=== PATIENT | male | born 1970 | race Caucasian/White ===

== ENCOUNTER 2019-09-30 01:08 | Emergency (ER) | payer BC, SELFPAY ==
--- NOTE | ~2019-09-30 | XR_ITS ---
XR shoulder RT min 2V 09/30/2019 01:49 Indication: Right shoulder pain Procedure: 5 views right shoulder Comparison: No prior studies for comparison. Findings: There is mild polyarticular osteoarthritis. No acute fracture or traumatic malalignment. No significant soft tissue abnormality. No radiopaque foreign bodies. Impression: 1: No acute fracture. Reviewed, dictated and finalized at location A. Impression: 1: No acute fracture.
[2019-09-30 01:19] VITALS: BP 171/97; PULSE 92; RESP 16; TEMP 36.2; O2SAT 94
--- NOTE | 2019-09-30 01:20 | ED.UPPEXIN ---
HPI - Extremity Injury (Upper) General Chief Complaint: Extremity Problem,Nontraumatic Stated Complaint: right shoulder pain Time Seen by Provider: 09/30/19 01:19 Source: patient and RN notes reviewed Mode of arrival: ambulatory Limitations: no limitations History of Present Illness HPI narrative: A 49 y/o male presents to the ED with severe, sharp, intermittent, rt shoulder pain for the past 4 hours. He states that he was at home moving papers at 9:30 PM when he heard and felt a pop in his rt shoulder. He reports he has been having severe intermittent pain with movement since. He notes that the pain radiates into his neck and RUE. He also notes that he has been having some worsening RUE weakness for the past couple months. He denies any CP, SOB, N/V/D, or OSPINA. complaint: injury to: right and shoulder Onset (ago): hour(s) (4) Other Extremity Injury: Right: shoulder Other injuries: none Handedness: right Place: home Severity: severe Exacerbating factors: movement of extremity Context: other (moving papers) Associated symptoms: weakness (worsening RUE for months), neck pain (and RUE pain radiated from shoulder pain) and heard/felt popping sensation Related Data Home Medications Medication Instructions Recorded Confirmed omeprazole 20 mg capsule,delayed 20 mg PO DAILY 09/26/19 release oxycodone-acetaminophen 10 mg-325 1 tablet PO Q6H PRN 09/26/19 mg tablet metformin 1,200 mg PO BID 09/30/19 Allergies Allergy/AdvReac Type Severity Reaction Status Date / Time No Known Allergies Allergy Verified 09/30/19 01:25 Review of Systems Review of Systems: All systems reviewed & are unremarkable except as noted in HPI and below Cardiovascular: Cardiovascular: Denies chest pain Respiratory: Respiratory: Denies dyspnea Gastrointestinal: Gastrointestinal: Denies diarrhea, Denies nausea and Denies vomiting Musculoskeletal: Musculoskeletal: Reports arthralgias (rt shoulder that radiates into his neck and RUE) and Reports muscle weakness (worsening RUE for months) Neurologic: Denies headache(s) [facility] Past Medical History Medical History Amputation of toe of left foot Anxiety Arthritis Atrial fibrillation Carpal tunnel syndrome Collar bone fracture Depression Diabetes High blood pressure Obesity Peripheral neuropathy Psychiatric disorder Sleep apnea Surgical History Surgical History Hx of toe surgery Amputation. Family History Family History Mother Carcinoma of colon Family history of primary malignant neoplasm of liver Patient's mother is Father Family history of heart disease in male family member before age 55 Hypertension Family history of atrial fibrillation, Onset Age: 74 Sibling Patient's sister is in good health Other Cerebrovascular accident Depression Family history of alcoholism Family history of arthritis Family history of cardiovascular disease Family history of gout Family history of malignant neoplasm Family history of obesity Social History Social History Smoking status: Never smoker Second hand tobacco smoke exposure: No Alcohol intake: current Gender identity (if verbalized by the patient): Male Exam Const: General: cooperative, no acute distress and alert Nutritional Appearance: obese morbidly obese Orientation/consciousness: patient oriented x3 Limitations: no limitations HENMT: Mouth: Yes lip normal and Yes moist mucous membranes Resp: Effort & Inspection: normal respiratory effort Auscultation: clear to auscultation bilaterally Cardio: Rate: regular rate Rhythm: regular rhythm Skin: General skin exam: normal color Neuro: General: patient oriented x3 Cognition (Neuro): normal cognition Speech: normal speech Extrem: General: ful
== END 2019-09-30 02:24 | disposition home or self-care (01) ==
PROVIDERS: Emergency Provider Emergency Medicine; PCP Internal Medicine
DX: M25.511 Pain in right shoulder (principal); I48.91 Unspecified atrial fibrillation; I10 Essential (primary) hypertension; E11.42 Type 2 diabetes mellitus with diabetic polyneuropathy; G47.30 Sleep apnea, unspecified; Z89.422 Acquired absence of other left toe(s); M19.011 Primary osteoarthritis, right shoulder
CPT/HCPCS: 73030; 99283

== ENCOUNTER 2020-01-22 11:04 | Outpatient (CLI) | payer BC, SELFPAY ==
--- NOTE | ~2020-01-22 | XR_ITS ---
EXAMINATION: XR chest 2V EXAM DATE: 01/22/2020 12:19 INDICATION: Cough. TECHNIQUE: Frontal and lateral projections of the chest obtained and reviewed. Comparison is made to prior examination from 03/30/2018. FINDINGS: The lungs are clear. There are no pleural effusions. The cardiomediastinal silhouette is within normal limits. There is no pneumothorax suspected. The bones and soft tissues are unremarkab le. IMPRESSION: No acute cardiopulmonary findings. Reviewed, dictated and finalized at location B.
[2020-01-22 12:10] LABS: Hematocrit 46.4 % (42.0-52.0); Hemoglobin 15.8 g/dL (14.0-18.0); Mean Corpuscular HGB Conc 34.1 g/dl (32-36); Mean Corpuscular Hemoglobin 29.2 pg (26-34); Mean Corpuscular Volume 85.6 fl (80-100); Mean Platelet Volume 12.2 fl (7.4-10.4); Platelet Count Result 159 k/mm3 (150-375); Red Blood Count 5.42 M/mm3 (4.6-6.20); Red Cell Distribution Width 14.7 % (11.5-14.5); White Blood Count 8.3 K/mm3 (4.5-10.0)
[2020-01-22 12:24] LABS: Hemoglobin A1C 11.7 % (<5.7)
[2020-01-22 12:38] LABS: Creatinine Urine 77.4 mg/dL
[2020-01-22 12:44] LABS: MALB Creatinine Ratio 51.8 mg/g (0-30); Microalbumin Urine Random 40.1 mg/L (0-16.7)
== END 2020-01-22 11:05 | disposition home or self-care (01) ==
PROVIDERS: PCP Internal Medicine; Visit Provider Internal Medicine
DX: R05 Cough (principal); R53.83 Other fatigue; E11.9 Type 2 diabetes mellitus without complications
CPT/HCPCS: 36415; 71046; 82043; 83036; 85027

== ENCOUNTER 2020-05-06 11:14 | Outpatient (CLI) | payer BC, SELFPAY ==
[2020-05-06 11:55] LABS: Alanine Aminotransferase 53 U/L (4-50); Alkaline Phosphatase 67 U/L (38-126); Anion Gap 10 mmol/L (8-16); Aspartate Amino Transferase 46 U/L (17-59); Bilirubin,Total 0.9 mg/dL (0.2-1.3); Blood Urea Nitrogen 16 mg/dL (9-20); Calcium 9.1 mg/dL (8.4-10.2); Carbon Dioxide 29 mmol/L (22-30); Chloride 97 mmol/L (98-107); Cholesterol 168 mg/dL (0-200); Estimated Glomerular Filt Rate > 60; Glucose 368 mg/dL (75-110); HDL Direct 40 mg/dL; Potassium 4.5 mmol/L (3.4-5.0); Sodium 136 mmol/L (137-145); Triglycerides 210 mg/dL (<150)
[2020-05-06 12:06] LABS: LDL Cholesterol Direct 97 mg/dL
[2020-05-06 12:26] LABS: Prostate Specific Antigen 0.3 ng/mL (< OR = 4.0)
[2020-05-06 13:01] LABS: Folic Acid 10.6 ng/mL (2.76->20)
== END 2020-05-06 11:15 | disposition home or self-care (01) ==
PROVIDERS: PCP Internal Medicine; Visit Provider Internal Medicine
DX: R53.83 Other fatigue (principal); E11.9 Type 2 diabetes mellitus without complications; Z12.5 Encounter for screening for malignant neoplasm of prostate
CPT/HCPCS: 36415; 80053; 80061; 82607; 82746; 84153; 84443

== ENCOUNTER 2021-01-20 12:04 | Inpatient (IN) | payer BC, SELFPAY ==
[2021-01-20] VITALS (15 sets, daily range): BP systolic 133–166; BP diastolic 57–93; PULSE 78–116; RESP 18–24; TEMP 36.5–38.2; O2SAT 90–100
--- NOTE | ~2021-01-20 | XR_ITS ---
EXAMINATION: XR chest 1V portable EXAM DATE: 01/29/2021 13:57 INDICATION: Shortness of breath. TECHNIQUE: Portable AP frontal chest x-ray was obtained. Comparison is made to prior examination from 01/25/2021. FINDINGS: Probably improvement in previously seen pulmonary edema. There is cardiomegaly and pulmonar y vascular congestion. Probable small right basilar atelectasis. The lungs are otherwise clear. There is no pneumothorax suspected. There are no pleural effusions. IMPRESSION: 1. Persistent cardiomegaly, pulmonary vascular congestion. 2. Persistent retrocardiac opacity probably atelectasis. Reviewed, dictated and finalized at location B.
--- NOTE | ~2021-01-20 | XR_ITS ---
EXAMINATION: XR chest 1V portable INDICATION: Shortness of breath TECHNIQUE: Portable AP chest at 1327 hours COMPARISON: 01/20/2021 FINDINGS: Patchy bilateral interstitial and airspace opacities are present. The heart size is upper l imits of normal for technique. No pleural effusion or pneumothorax is identified. The visualized osse ous structures are unremarkable. IMPRESSION: 1. Diffuse lung disease, consistent with pneumonia and/or pulmonary edema. Reviewed, dictated and finalized at location A.
--- NOTE | ~2021-01-20 | XR_ITS ---
EXAMINATION: XR chest 1V portable EXAM DATE: 02/08/2021 17:17 INDICATION: Short of breath, low oxygen, chills. TECHNIQUE: Portable AP frontal chest x-ray was obtained. Comparison is made to prior examination from 01/29/2021. FINDINGS: Low lung volume. There is cardiomegaly and pulmonary vascular congestion. Possible mild pul monary edema. Pneumonia not excludable. Probable right basilar subsegmental or segmental atelectasis. No pneumothorax or pleural effusion. IMPRESSION: 1. Cardiomegaly, congestion and possible pulmonary edema. 2. Pneumonia not excludable. Reviewed, dictated and finalized at location A.
--- NOTE | ~2021-01-20 | US_ITS ---
EXAMINATION: US venous doppler [facility] DATE: 01/22/2021 12:49 INDICATION: Lower limb swelling TECHNIQUE: Grayscale ultrasound images without and with compression and Doppler ultrasound images of the bilateral lower extremity veins were obtained. COMPARISON: 01/02/2018 FINDINGS: The visualized portions of right common femoral vein, profunda (deep) femoral vein, femoral vein, pop liteal vein, posterior tibial veins, peroneal veins, gastrocnemius vein and greater saphenous vein ou tflow are patent. The visualized portions of left common femoral vein, profunda femoral vein, femoral vein, popliteal v ein, posterior tibial veins, peroneal veins, gastrocnemius vein and greater saphenous vein outflow ar e patent. IMPRESSION: 1. No deep venous thrombosis in either lower limb. Sensitivity is decreased by patient body habitus. Reviewed, dictated and finalized at location A.
--- NOTE | ~2021-01-20 | CT_ITS ---
EXAMINATION: CT abdomen pelvis w con DATE: 01/20/2021 14:17 INDICATION: Groin swelling. Low back pain. TECHNIQUE: Computed tomography (CT) of the abdomen and pelvis was performed with 100 mL Omnipaque 350 intravenous contrast. Automated exposure control and iterative reconstruction technique were employe d. The dose-length product was 2741.19 mGy-cm. COMPARISON: Abdomen ultrasound 12/14/2004 FINDINGS: The visualized portions of the lung bases demonstrate minimal atelectasis. No pleural effus ion. The heart size is normal. There are coronary artery calcifications. No pericardial effusion. The liver is normal. There is moderate splenomegaly, which may be secondary to obesity. The gallbladder, pancreas, adrenal glands, and kidneys are normal. There are no pathologically enlarged lymph nodes. There is no free intraperitoneal fluid. Partially visualized is subcutaneous edema in the groin. No a bscess or soft tissue gas. There is severe lumbar spondylosis. IMPRESSION: 1. Subcutaneous edema in the groin. No abscess or soft tissue gas. 2. Moderate splenomegaly, which may be secondary to obesity. Reviewed, dictated and finalized at location A.
--- NOTE | ~2021-01-20 | CT_ITS ---
EXAMINATION: CT pelvis wo con DATE: 02/03/2021 17:30 INDICATION: Continued pain and drainage post I&D of a pubic abscess. TECHNIQUE: Computed tomography (CT) of the pelvis was performed without intravenous contrast. Automat ed exposure control and iterative reconstruction technique were employed.The dose-length product was 1691.62 mGy-cm. COMPARISON: 01/20/2021 FINDINGS: Visualized portions of the bowels including the appendix are normal. Small amount of gas along with a Lombardo catheter within the decompressed bladder. There is a small amount of subcutaneous gas in the i mmediate vicinity of an open wound along the left inguinal crease likely representing the site of a r eported recent incision and abscess drainage. No residual abscess identified. Stranding consistent wi th edema throughout the subcutaneous fat in the adjacent pannus in the anterior pubic region. More se marco scrotal edema demonstrating relatively homogeneous fluid attenuation. Severe lumbar spondylosis. IMPRESSION: 1. Prominent subcutaneous edema at the scrotum and in the fat at the anterior pubis which may be rela aj to cellulitis. 2. Small amounts of gas in the subcutaneous tissues in the immediate vicinity of open likely incision and drainage wound along the left inguinal crease. No discrete abscess identified. Reviewed, dictated and finalized at location A. IMPRESSION: 1. Prominent subcutaneous edema at the scrotum and in the fat at the anterior p ubis which may be related to cellulitis. 2. Small amounts of gas in the subcutaneous tissues in the immediate vicinity o f open likely incision and drainage wound along the left inguinal crease. No di screte abscess identified.
--- NOTE | ~2021-01-20 | XR_ITS ---
EXAMINATION: XR chest 2V DATE: 01/20/2021 12:51 INDICATION: Shortness of breath and dizziness TECHNIQUE: AP and lateral views of the chest are obtained. COMPARISON: 01/22/2020 FINDINGS: There are airspace opacities of the lung bases. There is no pleural effusion or pneumothora x. The cardiomediastinal silhouette is normal. There is mild thoracic spondylosis. IMPRESSION: 1. Bibasilar airspace opacities, consistent with atelectasis versus pneumonia. Reviewed, dictated and finalized at location B.
--- NOTE | ~2021-01-20 | US_ITS ---
EXAMINATION: US renal BI DATE: 01/25/2021 11:59 INDICATION: Acute kidney injury TECHNIQUE: Multiple grayscale and Doppler ultrasound images of the kidneys were obtained. COMPARISON: None. FINDINGS: The right kidney measures 14.2 x 6.8 x 6.4 cm. The left kidney measures 14.6 x 6.6 x 7.7 cm . The kidneys demonstrate normal parenchymal echogenicity. There is no hydronephrosis. The bladder is not visualized. IMPRESSION: 1. Normal kidneys without hydronephrosis. Reviewed, dictated and finalized at location A.
--- NOTE | 2021-01-20 12:11 | ECG_ITS ---
Measurements Intervals Sanders Rate: 101 P: 8 HI: 151 QRS: -2 QRSD: 120 T: 103 QT: 353 QTc: 459 Interpretive Statements SINUS TACHYCARDIA POSSIBLE LEFT ATRIAL ENLARGEMENT INTRAVENTRICULAR CONDUCTION DELAY BORDERLINE R WAVE PROGRESSION, ANTERIOR LEADS BASELINE ARTIFACT- I, III, AVR, AVL, AVF, V1-V6 BORDERLINE ECG Electronically Signed On 01-20-2021 13:02:12 CDT by Zheng Brown D.O.
[2021-01-20 12:30] LABS: Basophils Absolute Auto 0.1 K/mm3 (0.0-0.1); Basophils Percent Auto 0.4 % (0.2-1.2); Eosinophils Absolute Auto 0.1 K/mm3 (0-0.3); Eosinophils Percent Auto 0.6 % (0-4.4); Hematocrit 39.6 % (42.0-52.0); Hemoglobin 13.4 g/dL (14.0-18.0); Immature Granulocyte Percent A 1.6 % (0-0.5); Lymphocytes Absolute Auto 1.76 K/mm3 (0.9-3.2); Lymphocytes Percent Auto 9.5 % (18.3-44.2); Mean Corpuscular HGB Conc 33.8 g/dl (32-36); Mean Corpuscular Volume 82.8 fl (80-100); Mean Platelet Volume 10.3 fl (7.4-10.4); Monocytes Absolute Auto 1.4 K/mm3 (0.1-0.6); Monocytes Percent Auto 7.8 % (2.6-8.5); Neutrophils Absolute Auto 14.8 K/mm3 (1.3-6.7); Neutrophils Percent Auto 80.1 % (45.5-73.1); Platelet Count Result 206 k/mm3 (150-375); Red Blood Count 4.78 M/mm3 (4.6-6.20); Red Cell Distribution Width 13.4 % (11.5-14.5); White Blood Count 18.5 K/mm3 (4.5-10.0)
[2021-01-20 12:43] LABS: Anion Gap 9 mmol/L (8-16); Blood Urea Nitrogen 13 mg/dL (9-20); Calcium 8.1 mg/dL (8.4-10.2); Carbon Dioxide 26 mmol/L (22-30); Chloride 94 mmol/L (98-107); Estimated CRCL calculation 194 ml/min; Estimated Glomerular Filt Rate > 60; Glucose 257 mg/dL (75-110); Potassium 3.5 mmol/L (3.4-5.0); Sodium 129 mmol/L (137-145)
--- NOTE | 2021-01-20 15:02 | ED.GENADULT ---
HPI - General Adult General Chief complaint: Unspecified Stated complaint: SOB Time Seen by Provider: 01/20/21 13:23 History of Present Illness HPI narrative: Patient is a 50-year-old male who presents ER with swelling and pain to his groin region. Developing over the last week. It has become red and hot and tender to touch. No drainage that he has noticed. He also reports he has developed some sinus congestion with productive cough. Reports subjective fevers. He went and had a Covid test performed yesterday and is unsure of the results. He has been vaccinated against Covid. Related Data Home Medications Medication Instructions Recorded Confirmed omeprazole 20 mg capsule,delayed 20 mg PO DAILY 09/26/19 01/20/21 release cetirizine 10 mg capsule 10 mg PO DAILY 02/05/20 11/25/20 metformin 500 mg tablet 500 mg PO BID 11/25/20 11/25/20 Allergies Allergy/AdvReac Type Severity Reaction Status Date / Time No Known Allergies Allergy Verified 05/27/20 14:35 Review of Systems Review of Systems: All systems reviewed & are unremarkable except as noted in HPI and below Constitutional: Constitutional: Denies chills and Reports fever(s) Gastrointestinal: Gastrointestinal: Denies abdominal pain, Denies nausea and Denies vomiting Genitourinary: Genitourinary: Denies dysuria, Denies scrotal swelling and Denies testicular pain Integumentary/Breasts: Skin/Breast: Denies furuncle, Reports erythema, Reports skin swelling and Denies skin ulcer PMFSH Past Medical History Medical History (Updated 01/20/21 @ 18:18 by Howard Mendes MD) Amputation of toe of left foot Anxiety Arthritis Atrial fibrillation Carpal tunnel syndrome Collar bone fracture Depression Diabetes High blood pressure Obesity Peripheral neuropathy Psychiatric disorder Sleep apnea Surgical History Surgical History Hx of toe surgery Amputation. Family History Family History Mother Carcinoma of colon Family history of primary malignant neoplasm of liver Patient's mother is Father Family history of heart disease in male family member before age 55 Hypertension Family history of atrial fibrillation, Onset Age: 74 Sibling Patient's sister is in good health Other Cerebrovascular accident Depression Family history of alcoholism Family history of arthritis Family history of cardiovascular disease Family history of gout Family history of malignant neoplasm Family history of obesity Social History Social History Smoking status: Never smoker Second hand tobacco smoke exposure: No Alcohol intake: never Substance use: never Gender identity (if verbalized by the patient): Male Spiritual care concerns: No Exam Narrative: Exam Narrative: GENERAL: Well-appearing, morbidly obese, and in no acute distress. HEAD: Normocephalic, atraumatic. EYES: PERRLA and EOMI. ENT: Mucous membranes moist. CHEST: Clear to auscultation. No respiratory distress. HEART: Regular rate and rhythm. Normal peripheral pulses. ABDOMEN: Soft, nontender, nondistended. EXTREMITIES: Normal range of motion. No edema. SKIN: Warm, dry. Cellulitis of the pannus left greater than right in the suprapubic region. No fluctuant abscess. Tender to palpation. NEURO: Alert and oriented x3. PSYCH: Normal mood and affect. Course Course Emergency Course: Admit to hospitalist service, IV antibiotics started. Patient stable. Vital Signs Vital signs: Vital Signs Temperature 97.7 F 01/20/21 12:09 Pulse Rate 102 H 01/20/21 12:09 Respiratory Rate 18 01/20/21 12:09 Blood Pressure 147/87 H 01/20/21 12:09 Pulse Oximetry 98 01/20/21 12:09 Temperature 98.3 F 01/20/21 17:20 Pulse Rate 83 01/20/21 17:20 Respiratory Rate 24 H 01/20/21 17:20
[2021-01-20] MEDS: SODIUM CHLORIDE 0.9% IV 1,000 ML 999 ML IV CONT (16:10)
[2021-01-20 17:25] LABS: Glucose Point of Care 246 mg/dl (65-105)
[2021-01-20] MEDS: HYDROcodone/acetaminophen (*CRX) 5-325 MG TABLET 1 TAB PO (20:20)
[2021-01-20 21:39] LABS: Glucose Point of Care 287 mg/dl (65-105)
[2021-01-21] VITALS (21 sets, daily range): BP systolic 105–155; BP diastolic 50–103; PULSE 107–115; RESP 20–31; TEMP 36.1–38.1; O2SAT 88–98; BMI 66.4
--- NOTE | 2021-01-21 03:39 | PM.IMHP ---
H&P: HPI History of Present Illness Date/Time: 01/21/21 03:39 Chief Complaint: lump in left groin Narrative: 50-year-old male with past medical history of super morbid obesity, obstructive sleep apnea, poorly controlled insulin-dependent diabetes mellitus, and prior toe amputation due to infection who presented to the ER from home due to lump in the left groin present for 3 days. The patient reports that he has been feeling generally unwell for 8 days. He was initially having some cough and rhinorrhea. He denies any sore throat, or chills. He has been feeling intermittently feverish. He called his primary care doctor who referred him to urgent care for a COVID swab. His test came back Negative 3 days ago. he has received both of his COVID vaccines. over the last 3-5 days he has noticed a area of swelling and tenderness in his left groin. He has associated feeling feverish but did not actually measure a temperature. He denied having any drainage from the area. However the time of my evaluation the area or is tender has now opened up in is draining tommy purulence. He has noticed increased odor over the last 2-3 days. He reportsf that his glucoses are usually in the high 300s at baseline. On review of outpatient labs the patient had a hemoglobin A1c of 11.8 11/25/2020. He reports a nursing staff that he does not have an Accu-Chek machine that is reliable. He does have obstructive sleep apnea and states that he is currently sleeping better at the hospital that he has for months at home because his CPAP is not working well. He has not contacted his home health company about his CPAP issues. He denies any nausea or vomiting. He has had decreased appetite over the last 3 days. He has having some low back pain, lightheadedness and dizziness. In the ER he was noted to be tachycardic with a heart rate of 102. Who was also tachypneic with respiratory rate between 18-24. He was initially afebrile but is spiked a temperature up to 100.7 at 8:00 p[address].. He had a CT of the abdomen pelvis with contrast scan performed in the ER which demonstrated subcutaneous edema in the groin no abscess or soft tissue gas And incidental moderate splenomegaly likely secondary to obesity. Review of Systems Review of Systems: Narrative: 12 systems were reviewed with pertinent positives and negatives per HPI. Except as documented in the HPI, all other systems were reviewed and are negative. [facility] Past Medical History Medical History (Updated 01/21/21 @ 04:05 by Torie Hill DO) Anxiety Arthritis Carpal tunnel syndrome bilateral Collar bone fracture Depression with 2 prior suicide attempts Diabetes Diabetic autonomic neuropathy GERD (gastroesophageal reflux disease) High blood pressure Kidney stones Obesity Paroxysmal atrial fibrillation Peripheral neuropathy Psychiatric disorder Sleep apnea Surgical History Surgical History (Updated 01/21/21 @ 04:03 by Torie Hill DO) Amputation of toe of left foot History of appendectomy Family History Family History (Updated 01/21/21 @ 03:59 by Torie Hill DO) Mother Carcinoma of colon with liver metastases Patient's mother is Father Hypertension Acute myocardial infarction Cerebrovascular accident Atrial fibrillation Glaucoma Sibling Patient's sister is in good health Cervical cancer Endometrial cancer Grandparent Rheumatoid arthritis Other Depression Family history of alcoholism Family history of gout Social History Social History (Updated 01/21/21 @ 07:11 by Torie Hill DO) Social History: He is . He had 4 biological children but 1 is at age 3 due to head trauma from a fall. His 23-year-old and 16-year-old still live at home. 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 He denies any tobacco use. He occas
[2021-01-21 06:15] LABS: Anion Gap 11 mmol/L (8-16); Blood Urea Nitrogen 15 mg/dL (9-20); Calcium 7.7 mg/dL (8.4-10.2); Carbon Dioxide 21 mmol/L (22-30); Chloride 96 mmol/L (98-107); Estimated CRCL calculation 154 ml/min; Estimated Glomerular Filt Rate > 60; Glucose 304 mg/dL (75-110); Potassium 3.4 mmol/L (3.4-5.0); Sodium 128 mmol/L (137-145)
[2021-01-21 06:22] LABS: Estimated CRCL calculation 154 ml/min; Estimated Glomerular Filt Rate > 60
[2021-01-21 06:26] LABS: Basophils Absolute Auto 0.1 K/mm3 (0.0-0.1); Basophils Percent Auto 0.3 % (0.2-1.2); Eosinophils Absolute Auto 0.1 K/mm3 (0-0.3); Eosinophils Percent Auto 0.4 % (0-4.4); Hematocrit 37.9 % (42.0-52.0); Hemoglobin 12.7 g/dL (14.0-18.0); Immature Granulocyte Absolute 0.65 K/mm3 (0.00-0.031); Immature Granulocyte Percent A 3.4 % (0-0.5); Immature Platelet Fraction Pct 7.7 % (0.9-11.2); Lymphocytes Absolute Auto 1.62 K/mm3 (0.9-3.2); Lymphocytes Percent Auto 8.5 % (18.3-44.2); Mean Corpuscular HGB Conc 33.5 g/dl (32-36); Mean Corpuscular Hemoglobin 27.8 pg (26-34); Mean Corpuscular Volume 82.9 fl (80-100); Mean Platelet Volume 11.2 fl (7.4-10.4); Monocytes Absolute Auto 1.3 K/mm3 (0.1-0.6); Monocytes Percent Auto 6.8 % (2.6-8.5); Neutrophils Absolute Auto 15.3 K/mm3 (1.3-6.7); Neutrophils Percent Auto 80.6 % (45.5-73.1); Platelet Count Result 166 k/mm3 (150-375); Red Blood Count 4.57 M/mm3 (4.6-6.20); Red Cell Distribution Width 13.6 % (11.5-14.5)
[2021-01-21 06:29] LABS: Hemoglobin A1C 10.9 % (<5.7)
--- NOTE | 2021-01-21 07:13 | PC.NURSE ---
01/21/21 at 0600--pictures taken of newly opened area of left groin and uploaded in computer. TDialRNC
[2021-01-21 08:10] LABS: Glucose Point of Care 310 mg/dl (65-105)
[2021-01-21] MEDS: INSULIN ASPART (*BKC) 100 UNITS/ML 15 UNITS SUB-Q (08:43)
[2021-01-21] MEDS: INSULIN ASPART (*BKC) 100 UNITS/ML SUB-Q (08:44)
[2021-01-21] MEDS: ENOXAPARIN 40 MG/0.4 ML SYRINGE SUB-Q ×2 (08:44→21:37)
--- NOTE | 2021-01-21 09:32 | PM.CNGS ---
Assessment and Plan Assessment and plan (1) Abscess of pubic region: Code(s): L02.219 - Cutaneous abscess of trunk, unspecified Status: Acute Assessment and Plan: CT scan suggesting no abscess, but imaging is limited due to body habitus. There is evidence of a large pubic abscess on exam that is draining from the left groin area. This tunnels towards the area of induration with a significant amount of purulent drainage coming from the opening. This appears to be the source of his leukocytosis and possible sepsis. Would recommend taking him to the OR for incision and drainage complex pubic abscess by Dr. Feliz. Due to the patient's comorbidities, he is a higher risk surgical candidate, which I discussed with the patient in detail. Description of the procedure, risks, benefits, expected outcomes, and expected recovery were discussed with the patient in detail. All questions were answered. He agrees to proceed with surgery. continue broad-spectrum IV antibiotics. I added IV fluids. I have also consulted the wound care nurse to evaluate the patient. There is a possibility that if this is a large wound after adequate drainage, then he may benefit from wound VAC therapy post-op. I discussed this with the patient as well. Thank you for allowing us to see the patient in consultation and we will continue to follow along with you. (2) Sepsis: Qualifiers: Sepsis type: sepsis due to unspecified organism Sepsis acute organ dysfunction status: without acute organ dysfunction Qualified Code(s): A41.9 - Sepsis, unspecified organism Code(s): A41.9 - Sepsis, unspecified organism Status: Acute Assessment and Plan: Sepsis criteria met on admission with tachycardia, tachypnea, fever, and leukocytosis in the setting of a known infection. #1 above appears to be the source. Will take to OR for source control today. Continue IV abx and IV fluids. Will draw lactic acid. He is slightly acidic on labs this morning. WBC 19,000. Continue to trend labs. Blood cultures pending. Wound culture obtained and pending. (3) Morbid obesity with BMI of 60.0-69.9, adult: Code(s): E66.01 - Morbid (severe) obesity due to excess calories; Z68.44 - Body mass index [BMI] 60.0-69.9, adult Status: Acute Assessment and Plan: Encouraged lifestyle changes and weight loss. F/u with PCP. 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 Discussed importance of glycemic control with wound healing and infection. Management per Hospitalist. (5) Diabetic peripheral neuropathy: Code(s): E11.42 - Type 2 diabetes mellitus with diabetic polyneuropathy Status: Acute (6) Hypertension: Code(s): I10 - Essential (primary) hypertension Status: Acute (7) Sleep apnea: Qualifiers: Sleep apnea type: obstructive Qualified Code(s): G47.33 - Obstructive sleep apnea (adult) (pediatric) Code(s): G47.30 - Sleep apnea, unspecified Status: Acute Additional Plan I have discussed the patient's case and plan of care with Dr. Feliz. History of Present Illness Consult details Consult date: 01/21/21 Reason for consult: other (Pubic abscess) Requesting physician: Torie Hill, Narrative: this is a 50-year-old morbidly obese male with a history of hypertension, FLORENCIA, and poorly controlled insulin-dependent diabetes mellitus. He presented to the emergency department yesterday afternoon with complaints of swelling and redness in the groin. He also complains of generalized fatigue and overall not feeling
[2021-01-21] MEDS: SODIUM CHLORIDE 0.9% IV 1,000 ML 125 ML IV CONT (09:43)
[2021-01-21 10:19] LABS: Lactic Acid Reflex 1.1 mmol/L (0.7-2.1)
--- NOTE | 2021-01-21 11:50 | WPDHPUPDATE1 ---
History and Physical Update Update Date/Time: 01/21/21 11:50 History and Physical has been reviewed, including an updated exam of the patient. There are NO changes in the patient's condition. Risks, benefits, and alternatives have been discussed and questions answered. Patient agrees to proceed with procedure.
[2021-01-21 11:58] LABS: Glucose Point of Care 187 mg/dl (65-105)
--- NOTE | 2021-01-21 12:50 | WPDANESEPPF ---
Anes - Initial Pre Proc Eval Procedure: Operation Date: 01/21/21 14:00 Proposed Procedures p Incision and Drainage Pubic Abscess, Possible Wound Vac Application - Nidhi Feliz MD Date/Time: 01/21/21 12:50 Surgeon: Ankit Jimenez MD Pre Op Diagnosis: paniculitis Patient Data Age: 50 Gender: M Height: 1.78 m Weight: 210 kg Last Vital Signs Temp 36.6 C 01/21/21 06:00 Pulse 110 H 01/21/21 06:00 Resp 20 01/21/21 06:00 BP 135/67 01/21/21 06:00 Pulse Ox 92 01/21/21 09:24 Allergies Allergy/AdvReac Type Severity Reaction Status Date / Time No Known Allergies Allergy Verified 05/27/20 14:35 Home Medications Medication Instructions Recorded Confirmed Type omeprazole 20 mg capsule,delayed 20 mg PO DAILY 09/26/19 01/20/21 History release cetirizine 10 mg capsule 10 mg PO DAILY 02/05/20 01/21/21 History pen needle, diabetic 32 gauge x #300 each 02/06/20 01/21/21 Rx /32 losartan 100 mg tablet 100 mg PO DAILY #30 tablet 10/05/20 01/20/21 Rx gabapentin 600 mg tablet 600 mg PO TID #270 tablet 11/06/20 01/20/21 Rx insulin aspar prot-insulin aspart See Rx Instructions SUBCUT BID #15 11/25/20 01/20/21 Rx 100 unit/mL (70-30) subcutaneous ml MDD 105 pen metformin 500 mg tablet 500 mg PO BID 11/25/20 01/21/21 History Laboratory Tests 01/20/21 01/20/21 01/21/21 17:19 21:22 05:50 WBC RBC Hgb Hct MCV MCH MCHC RDW Plt Count MPV Immature Gran % (Auto) Neut % (Auto) Lymph % (Auto) [place] % (Auto) Eos % (Auto) Baso % (Auto) Lymph # (Auto) [place] # (Auto) Eos # (Auto) Baso # (Auto) Abs Immat Gran (auto) Absolute Neuts (auto) Absolute Nucleated RBC Nucleated RBC % % Immature Plt Fraction Sodium Potassium Chloride Carbon Dioxide Anion Gap BUN Creatinine 0.90 mg/dL mg/dL (0.7-1.3) Estim Creat Clear Calc 154 ml/min ml/min Estimated GFR > 60 (59 - ) Glucose POC Capillary Glucose 246 mg/dl H mg/dl 287 mg/dl H mg/dl (65-105) (65-105) Hemoglobin A1c Lactic Acid Calcium 01/21/21 01/21/21 01/21/21 05:50 05:51 05:51 WBC 19.0 K/mm3 H K/mm3 (4.5-10.0) RBC 4.57 M/mm3 L M/mm3 (4.6-6.20) Hgb 12.7 g/dL L g/dL (14.0-18.0) Hct 37.9 % L % (42.0-52.0) MCV 82.9 fl fl (80-100) MCH 27.8 pg pg (26-34) MCHC 33.5 g/dl g/dl (32-36) RDW 13.6 % % (11.5-14.5) Plt Count 166 k/mm3 k/mm3 (150-375) MPV 11.2 fl H fl (7.4-10.4) Immature Gran % (Auto) 3.4 % H % (0-0.5) Neut % (Auto) 80.6 % H % (45.5-73.1) Lymph % (Auto) 8.5 % L % (18.3-44.2) [place] % (Auto) 6.8 % % (2.6-8.5) Eos % (Auto) 0.4 % % (0-4.4) Baso % (Auto) 0.3 % % (0.2-1.2) Lymph # (Auto) 1.62 K/mm3 K/mm3 (0.9-3.2) [place] # (Auto) 1.3 K/mm3 H K/mm3 (0.1-0.6) Eos # (Auto) 0.1 K/mm3 K/mm3 (0-0.3) Baso # (Auto) 0.1 K/mm3 K/mm3 (0.0-0.1) Abs Immat Gran (auto) 0.65 K/mm3 H K/mm3 (0.00-0.031) Absolute Neuts (auto) 15.3 K/mm3 H K/mm3 (1.3-6.7) Absolute Nucleated RBC 0.0 K/mm3 K/mm3 (0.0-0.012) Nucleated RBC % 0.0 % % (0.0-0.2) % Immature Plt Fraction 7.7 % % (0.9-11.2) Sodium 128 mmol/L L mmol/L (137-145) Potassium 3.4 mmol/L mmol/L (3.4-5.0) Chloride 96 mmol/L L mmol/L (98-107) Carbon Dioxide 21 mmol/L L mmol/L (22-30) Anion Gap 11 mmol/L mmol/L
[2021-01-21] MEDS: LACTATED RINGERS 1,000 ML 30 ML IV CONT ×2 (12:55→14:56)
--- NOTE | 2021-01-21 13:01 | SUR.PREOP ---
1245-PT REPORTS FEELING SOB AND ANXIOUS, RESPIRATORY RATE 24, SPO2 95% ON ROOM AIR. DR. ROGERS MADE AWARE AND CARTSIDE TO ASSESS PT.
--- NOTE | 2021-01-21 13:42 | PC.NURSE ---
Patient transferred to Pre-Op at 1230 via stretcher
[2021-01-21] MEDS: BUPIVACAINE/EPINEPHRINE 0.5% 10 ML VIAL 20 ML INFILTRATE (14:22)
--- NOTE | 2021-01-21 14:33 | PCOTNOTE ---
Attempted OT evaluation, but unable to complete as patient in surgery. Will attempt again tomorrow.
--- NOTE | 2021-01-21 14:49 | SUR.OPER ---
wound vac set at 125 continuous per wound nurse/system locked.
[2021-01-21] MEDS: fentaNYL CITRATE INJ (*CRX) 100 MCG/2 ML VIAL 25 MCG IV PUSH ×8 (15:09→16:02)
--- NOTE | 2021-01-21 15:09 | PM.IMPN ---
Progress Note: A&P Assessment and Plan (1) Sepsis: Qualifiers: Sepsis acute organ dysfunction status: without acute organ dysfunction Sepsis type: sepsis due to unspecified organism Qualified Code(s): A41.9 - Sepsis, unspecified organism Code(s): A41.9 - Sepsis, unspecified organism Status: Acute Assessment and Plan: Sepsis criteria present on admission with fever, tachycardia, tachypnea, and leukocytosis. Related to cellulitis and abscess in the groin. Patient started on Primaxin and vancomycin. WCx growing GPC and GNB. BCx pending. Contineu IV abx. (2) Abscess of pubic region: Code(s): L02.219 - Cutaneous abscess of trunk, unspecified Status: Acute Assessment and Plan: The patient presents with cellulitis and abscess with groin infection. Patient taken to surgery today for I&D; drain placed. Continue current abx. Follow up on culture results. Appreciate Gen Surgery input (3) Type 2 diabetes mellitus with hyperglycemia: Qualifiers: Diabetes mellitus mcc insulin use: with superintendent terminal use Qualified Code(s): E11.65 - Type 2 diabetes mellitus with hyperglycemia; Z79.4 - superintendent terminal (current) use of insulin Code(s): E11.65 - Type 2 diabetes mellitus with hyperglycemia Status: Acute Assessment and Plan: A1c 11. The patient's blood glucose was reviewed on 01/21. Glucose poorly controlled. He takes 70/30 with 55-60U in the morning and 40-45U in the evening as well as metformin BID. Will attempt to control glucose for goal of <180. High-dose sliding scale insulin has been started. Mealtime Novolog at 15 units TID added. early childhood educator aide and vascular radiologist consulted. Patient on clear liquids so will cut 70/30 in half and hold mealtime insulin (RN instructed) (4) Sleep apnea: Qualifiers: Sleep apnea type: obstructive Qualified Code(s): G47.33 - Obstructive sleep apnea (adult) (pediatric) Code(s): G47.30 - Sleep apnea, unspecified Status: Acute Assessment and Plan: Patient wears NIV at home but reports that his home machine has not been working well for some time. Auto titrating CPAP has been ordered here. Case management consulted to see if they can assist patient in obtaining new CPAP supplies. (5) Morbid obesity with BMI of 60.0-69.9, adult: Code(s): E66.01 - Morbid (severe) obesity due to excess calories; Z68.44 - Body mass index [BMI] 60.0-69.9, adult Status: Acute Assessment and Plan: Patient has morbid obesity with BMI 66. He would benefit from diet and lifestyle modification. Consider evaluation for bariatric surgery. Waste/Materials Exchange Specialist to see. (6) Hypertension: Code(s): I10 - Essential (primary) hypertension Status: Acute Assessment and Plan: Patient's blood pressure was reviewed on 01/21. Blood pressure remains well controlled. Will continue current medications with Losartan. (7) DVT prophylaxis: Code(s): Z29.9 - Encounter for prophylactic measures, unspecified Status: Acute Assessment and Plan: Lovenox Subjective Date/time seen: 01/21/21 15:09 Interval history: 50yo male with MO, FLORENCIA and poorly controlled DM here for sepsis and groin infection. Just back from surgery. Had drain placed. Feels mildly SOB. Mild cough with whitish sputum. No CP. Pain in the groin but tolerable at this time. Exam Narrative: Exam Narrative: Tm 100.7 100.4 141/60 108 24 94% ra Gen - NARD Chest - CTA bilaterally, nml RR CV - RRR S1/S2 Abd - soft obese - erythema involving the suprapubic region and scrotum. Drain in place with serosang fluid in tubing Ext - 2+ DP. Left toe missing. trace edema Psych - nml mood and affect Skin - as above Objective Data Vital Signs Vital Signs: Vital Signs - 24 hr 01/20/21 15:15 01/20/21 17:20 01/20/21 20:00 Temperature 98.3 F 100.7 F H Pulse Rate 83 Respiratory Rate 24 H Blood
[2021-01-21 15:10] LABS: Glucose Point of Care 159 mg/dl (65-105)
--- NOTE | 2021-01-21 15:11 | W.PM.PROC2 ---
Procedure Note - Detailed Date of Procedure 01/21/21 Pre-op Diagnosis Necrotizing soft tissue infection of left pubis/groin, sepsis Post-op Diagnosis same Procedure Performed complex incision and drainage necrotizing soft tissue infection left pubis/groin measuring approximately 36 x 30 x 10 cm, washout, placement of greater than 50 sq cm wound VAC Surgeon Nidhi Feliz MD Educational Psychology Professor [facility] Anesthesia MAC and local Indications 50-year-old male with multiple medical issues including poorly controlled diabetes presenting with sepsis, necrotizing soft tissue infection Findings necrotizing soft tissue infection of left pubis, groin Description of Procedure The patient was taken to the operating room placed in the supine position. After adequate induction of mac anesthesia, the patient was prepped and draped in the normal sterile fashion. A time-out was then done to verify the patient's identity, as well as the procedure being performed. Local anesthetic was placed in and around this cavity. I began by extending the previously draining opening in the left groin medially towards the pubis. Upon opening this area, a large amount of purulence drainage was noted. Given this, I extended the incision further as there was noted there was fat necrosis along the wound bed. I opened this incision approximately 15 cm. Once open, I was able to bluntly dissect around this cavity. Again the infection was noted in the subcutaneous tissue and dermis, however, did not appear to extend into the muscle. Once the area was widely open and draining, it measured approximately 36 x 30 x 10 cm. I then copiously irrigated the cavity with normal saline using a Pulsavac. I then placed a VAC dressing to keep the area draining. The patient tolerated the procedure relatively and will be transferred back to the floor in stable condition. Estimated Blood Loss 25 Urine Output 1,000 Drains No Packing No Pathology none sent Complications No immediate complications Condition stable Disposition PACU
[2021-01-21] MEDS: GABAPENTIN 300 MG CAPSULE 600 MG PO (17:19)
[2021-01-21] MEDS: INSULIN ASPART MIX 70/30 100 UNITS/ML 20 UNITS SUB-Q (17:19)
[2021-01-21] MEDS: metFORMIN HCL 500 MG TABLET PO (17:19)
[2021-01-21] MEDS: ACETAMINOPHEN 325 MG TABLET 650 MG PO (17:38)
[2021-01-21 18:55] LABS: Glucose Point of Care 223 mg/dl (65-105)
[2021-01-21] MEDS: MORPHINE SULFATE (*CRX) 4 MG/ML INJ IV PUSH (21:36)
[2021-01-21 22:13] LABS: Glucose Point of Care 233 mg/dl (65-105)
[2021-01-22] VITALS (9 sets, daily range): BP systolic 98–140; BP diastolic 51–75; PULSE 107–115; RESP 18–27; TEMP 36.6–37.9; O2SAT 0–100
[2021-01-22] MEDS: MORPHINE SULFATE (*CRX) 4 MG/ML INJ IV PUSH ×4 (02:11→21:21)
[2021-01-22] MEDS: SODIUM CHLORIDE 0.9% IV 1,000 ML 125 ML IV CONT (02:12)
[2021-01-22 03:28] LABS: Basophils Absolute Auto 0.1 K/mm3 (0.0-0.1); Basophils Percent Auto 0.4 % (0.2-1.2); Eosinophils Absolute Auto 0.1 K/mm3 (0-0.3); Eosinophils Percent Auto 0.7 % (0-4.4); Hematocrit 40.3 % (42.0-52.0); Hemoglobin 13.3 g/dL (14.0-18.0); Immature Granulocyte Percent A 3.3 % (0-0.5); Mean Corpuscular Hemoglobin 28.1 pg (26-34); Mean Platelet Volume 10.2 fl (7.4-10.4); Monocytes Absolute Auto 1.6 K/mm3 (0.1-0.6); Monocytes Percent Auto 7.5 % (2.6-8.5); Neutrophils Absolute Auto 16.4 K/mm3 (1.3-6.7); Neutrophils Percent Auto 78.1 % (45.5-73.1); Platelet Count Result 226 k/mm3 (150-375); Red Blood Count 4.74 M/mm3 (4.6-6.20); Red Cell Distribution Width 13.6 % (11.5-14.5)
[2021-01-22 03:39] LABS: Alanine Aminotransferase 23 U/L (4-50); Albumin Level 3.3 g/dL (3.5-5.1); Alkaline Phosphatase 93 U/L (38-126); Anion Gap 9 mmol/L (8-16); Aspartate Amino Transferase 35 U/L (17-59); Bilirubin,Total 0.9 mg/dL (0.2-1.3); Blood Urea Nitrogen 15 mg/dL (9-20); Calcium 8.1 mg/dL (8.4-10.2); Carbon Dioxide 28 mmol/L (22-30); Chloride 93 mmol/L (98-107); Estimated CRCL calculation 128 ml/min; Estimated Glomerular Filt Rate > 60; Glucose 178 mg/dL (75-110); Phosphorus 3.3 mg/dL (2.5-4.5); Potassium 3.5 mmol/L (3.4-5.0); Sodium 130 mmol/L (137-145)
[2021-01-22 04:24] LABS: Vancomycin Trough 11.5 ug/mL (10.0-20.0)
[2021-01-22] MEDS: GABAPENTIN 300 MG CAPSULE 600 MG PO ×3 (08:08→17:57)
[2021-01-22] MEDS: LOSARTAN POTASSIUM 100 MG TABLET PO (08:08)
[2021-01-22] MEDS: PANTOPRAZOLE 40 MG TABLET PO (08:09)
[2021-01-22] MEDS: metFORMIN HCL 500 MG TABLET PO ×2 (08:09→17:56)
[2021-01-22] MEDS: ENOXAPARIN 40 MG/0.4 ML SYRINGE SUB-Q ×2 (08:09→20:46)
[2021-01-22 08:53] LABS: Glucose Point of Care 209 mg/dl (65-105)
[2021-01-22] MEDS: INSULIN ASPART (*BKC) 100 UNITS/ML SUB-Q ×2 (09:09→12:56)
--- NOTE | 2021-01-22 09:20 | WPDANESPN ---
Anes - Prog Note Post-Op Date/Time: 01/22/21 09:20 Cardiovascular status: normal Respiratory status: other (pt having complaints of occassional SOB. encouraged pt to use his CPAP when having episodes of SOB and notify staff ) Vital Signs: Last Vital Signs Temp 100.3 F H 01/22/21 08:00 Pulse 115 H 01/22/21 08:00 Resp 18 01/22/21 08:00 BP 98/51 L 01/22/21 08:00 Pulse Ox 89 L 01/22/21 08:00 Pain Score (VAS): 0 I/O: Intake & Output 01/21/21 01/22/21 01/22/21 23:59 07:59 15:59 Intake Total 2400 750 Output Total 0 1000 Balance 2400 -250 Laboratory Tests 01/22/21 03:14 01/22/21 03:14 01/21/21 01/21/21 01/21/21 10:02 11:54 15:05 WBC RBC Hgb Hct MCV MCH MCHC RDW Plt Count MPV Immature Gran % (Auto) Neut % (Auto) Lymph % (Auto) [place] % (Auto) Eos % (Auto) Baso % (Auto) Lymph # (Auto) [place] # (Auto) Eos # (Auto) Baso # (Auto) Abs Immat Gran (auto) Absolute Neuts (auto) Absolute Nucleated RBC Nucleated RBC % Sodium Potassium Chloride Carbon Dioxide Anion Gap BUN Creatinine Estim Creat Clear Calc Estimated GFR Glucose POC Capillary Glucose 187 H 159 H Lactic Acid 1.1 Calcium Phosphorus Magnesium Total Bilirubin AST ALT Alkaline Phosphatase Total Protein Albumin Vancomycin Trough 01/21/21 01/21/21 01/22/21 18:37 21:33 03:14 WBC 21.0 H RBC 4.74 Hgb 13.3 L Hct 40.3 L MCV 85.0 MCH 28.1 MCHC 33.0 RDW 13.6 Plt Count 226 MPV 10.2 Immature Gran % (Auto) 3.3 H Neut % (Auto) 78.1 H Lymph % (Auto) 10.0 L [place] % (Auto) 7.5 Eos % (Auto) 0.7 Baso % (Auto) 0.4 Lymph # (Auto) 2.10 [place] # (Auto) 1.6 H Eos # (Auto) 0.1 Baso # (Auto) 0.1 Abs Immat Gran (auto) 0.70 H Absolute Neuts (auto) 16.4 H Absolute Nucleated RBC 0.0 Nucleated RBC % 0.0 Sodium Potassium Chloride Carbon Dioxide Anion Gap BUN Creatinine Estim Creat Clear Calc Estimated GFR Glucose POC Capillary Glucose 223 H 233 H Lactic Acid Calcium Phosphorus Magnesium Total Bilirubin AST ALT Alkaline Phosphatase Total Protein Albumin Vancomycin Trough 01/22/21 01/22/21 01/22/21 03:14 03:14 08:42 WBC RBC Hgb Hct MCV MCH MCHC RDW Plt Count MPV Immature Gran % (Auto) Neut % (Auto) Lymph % (Auto) [place] % (Auto) Eos % (Auto) Baso % (Auto) Lymph # (Auto) [place] # (Auto) Eos # (Auto) Baso # (Auto) Abs Immat Gran (auto) Absolute Neuts (auto) Absolute Nucleated RBC Nucleated RBC % Sodium 130 L Potassium 3.5 Chloride 93 L Carbon Dioxide 28 Anion Gap 9 BUN 15 Creatinine 1.10 Estim Creat Clear Calc 128 Estimated GFR > 60 Glucose 178 H POC Capillary Glucose 209 H Lactic Acid Calcium 8.1 L Phosphorus 3.3 Magnesium 2.0 Total Bilirubin 0.9 AST 35 ALT 23 Alkaline Phosphatase 93 Total Protein 7.0 Albumin 3.3 L Vancomycin Trough 11.5 Microbiology 01/20/21 22:55 Blood Blood Culture - Preliminary 01/20/21 22:45 Blood Blood Culture - Preliminary 01/21/21 06:36 Groin Wound Culture - Preliminary Patient Feedback: Patient satisfied with anesthetic care.
--- NOTE | 2021-01-22 10:19 | PM.PNGS ---
Progress Note: A&P Assessment and Plan (1) Necrotizing subcutaneous infection: Code(s): M72.6 - Necrotizing fasciitis Status: Acute Assessment and Plan: cont IV abx, wound vac, await cx (2) Type 2 diabetes mellitus with hyperglycemia: Qualifiers: Diabetes mellitus group home insulin use: with superintendent terminal use Qualified Code(s): E11.65 - Type 2 diabetes mellitus with hyperglycemia; Z79.4 - long term care phlebotomist (current) use of insulin Code(s): E11.65 - Type 2 diabetes mellitus with hyperglycemia Status: Acute Assessment and Plan: tight bs control Subjective Subjective Date/Time Seen: 01/22/21 10:19 feels much better today, moderate incisional soreness Review of Systems Review of Systems: All systems reviewed & are unremarkable except as noted in HPI and below Exam Const: General: cooperative, comfortable, no acute distress and ill appearing Nutritional Appearance: obese Orientation/consciousness: patient oriented x3 Limitations: no limitations Resp: Auscultation: diminished lung sounds Cardio: Rate: regular rate Rhythm: regular rhythm GI: Inspection: normal to inspection GI Palp: Yes Soft to palpation and No Tenderness to palpation present (GI) Skin: Other: L pubic/groin vac - C/D/I Objective Data Vital Signs Vital Signs: Vital Signs - 24 hr 01/21/21 12:43 01/21/21 12:45 01/21/21 13:15 Temperature 38.0 C H Pulse Rate 114 H 110 H 108 H Respiratory Rate 24 H 24 H 24 H Blood Pressure 155/100 H 114/97 H 141/60 H Pulse Oximetry 95 91 94 01/21/21 14:56 01/21/21 15:10 01/21/21 15:25 Temperature 36.1 C L Pulse Rate 112 H 107 H 112 H Respiratory Rate 26 H 24 H 23 H Blood Pressure 133/70 105/79 115/103 H Pulse Oximetry 98 92 93 01/21/21 15:40 01/21/21 15:55 01/21/21 16:09 Temperature Pulse Rate 109 H 110 H 111 H Respiratory Rate 24 H 31 H 31 H Blood Pressure 139/102 H 123/88 116/64 Pulse Oximetry 92 95 95 01/21/21 16:15 01/21/21 16:30 01/21/21 17:00 Temperature 36.8 C 37.4 C 38.1 C H Pulse Rate 112 H 110 H 115 H Respiratory Rate 22 H 22 H 24 H Blood Pressure 139/67 114/50 L 116/92 H Pulse Oximetry 93 90 98 01/21/21 17:30 01/21/21 18:00 01/21/21 18:30 Temperature Pulse Rate Respiratory Rate Blood Pressure Pulse Oximetry 88 L 94 94 01/21/21 20:00 01/21/21 21:11 01/21/21 23:40 Temperature 36.4 C Pulse Rate 109 H 114 H Respiratory Rate 20 20 Blood Pressure 121/81 Pulse Oximetry 94 95 93 01/21/21 23:56 01/22/21 03:00 01/22/21 03:48 Temperature 36.4 C L 36.7 C Pulse Rate 115 H 113 H 113 H Respiratory Rate 20 27 H 20 Blood Pressure 141/78 H 129/54 L Pulse Oximetry 91 93 97 01/22/21 08:00 Temperature 37.9 C H Pulse Rate 115 H Respiratory Rate 18 Blood Pressure 98/51 L Pulse Oximetry 89 L Intake/Output Intake/Output: Intake & Output 01/19/21 01/20/21 01/21/21 01/22/21 23:59 23:59 23:59 23:59 Intake Total 100 5200 750 Output Total 2000 1000 Balance 100 3200 -250 Meds/Results Medications: Active Medications Generic Name Dose Route Start Last Admin Trade Name Freq PRN Reason Stop Dose Admin Acetaminophen 650 mg 01/20/21 15:28 01/21/21 17:38 Acetaminophen 325 Mg Tablet PO 650 mg Q4H PRN Administration Mild Pain (1-3) or Fever Hydrocodone Bitart/Acetaminophen 1 tab 01/20/21 15:28 01/20/21 20:20 Hydrocodone/Acetaminophen (*Crx) 5-325 Mg Tablet PO 1 tab Q4H PRN Administration Pain Rated 4-6 Dextrose 12.5 gm 01/21/21 03:33 Dextrose 50% 25 Gm/50 Ml Syringe IV PUSH PRN PRN Hypoglycemia Protocol Enoxaparin Sodium 40 mg 01/21/21 09:00 01/22/21 08:09 Enoxaparin 40 Mg/0.4 Ml Syringe SUB-Q 40 mg Q12HR PAM Administration Gabapentin 600 mg 01/21/21 09:00 01/22/21 08:08 Gabapentin 300 Mg Capsule PO 600 mg TID PAM Administration Glucagon 1 mg 01/21/21 03:33 Glucagon For Inj 1 Mg Vial IM PRN PRN Hypoglycemi
--- NOTE | 2021-01-22 11:39 | WPDPN ---
Progress Note: A&P Assessment and Plan (1) Sepsis: Qualifiers: Sepsis acute organ dysfunction status: without acute organ dysfunction Sepsis type: sepsis due to unspecified organism Qualified Code(s): A41.9 - Sepsis, unspecified organism Code(s): A41.9 - Sepsis, unspecified organism Status: Acute Assessment and Plan: Sepsis criteria present on admission with fever, tachycardia, tachypnea, and leukocytosis. Related to cellulitis and abscess in the groin. WBC higher today and still having fivers. Suspect he is going to need a prolonged abx course. Continue Primaxin and vancomycin. WCx growing GPC and GNB. BCx NGTD. Will consult ID for their opinion of abx course. (2) Abscess of pubic region: Code(s): L02.219 - Cutaneous abscess of trunk, unspecified Status: Acute Assessment and Plan: The patient presents with cellulitis and abscess with groin infection. Patient POD #1 from complex I&D of a necrotizing soft tissue infection involving the left pubis/groin measuring approximately 36 x 30 x 10 cm with washout and placement of wound VAC. Patient has tolerated this well. Continue current abx. Culture results as above. Appreciate Gen Surgery input. (3) Type 2 diabetes mellitus with hyperglycemia: Qualifiers: Diabetes mellitus shelter insulin use: with shelter use Qualified Code(s): E11.65 - Type 2 diabetes mellitus with hyperglycemia; Z79.4 - [facility] (current) use of insulin Code(s): E11.65 - Type 2 diabetes mellitus with hyperglycemia Status: Acute Assessment and Plan: A1c 11. The patient's blood glucose was reviewed on 01/22 Glucose poorly controlled. He takes 70/30 with 55-60U in the morning and 40-45U in the evening as well as metformin BID. Will attempt to control glucose for goal of <180. High-dose sliding scale insulin has been started. Mealtime Novolog at 15 units TID was added but will hold on this for now and monitor glucose with just his home regiment (might be better controlled since controlling his diet). clinical nurse educator and molecular biology director consulted. (4) SOB (shortness of breath): Code(s): R06.02 - Shortness of breath Status: Acute Assessment and Plan: Patient has been feeling SOB for the past week. Suspect related to his brewing infection. CXR here showing normal cardiomediastinal and bibasilar airspace opacities. CT Abdomen showing minimal atelectasis at the lung bases. Patient is tachycardic but felt related to the sepsis picture. Will check LE doppler to exclude DVT. Consider further chest imaging if symptoms persist. (5) Sleep apnea: Qualifiers: Sleep apnea type: obstructive Qualified Code(s): G47.33 - Obstructive sleep apnea (adult) (pediatric) Code(s): G47.30 - Sleep apnea, unspecified Status: Acute Assessment and Plan: Patient wears NIV at home but reports that his home machine has not been working well for some time. Auto titrating CPAP has been ordered here. Will ask to see if respiratory can assist patient in obtaining new CPAP supplies. (6) Hypertension: Code(s): I10 - Essential (primary) hypertension Status: Acute Assessment and Plan: Patient's blood pressure was reviewed on 01/22. Blood pressure remains mostly well controlled (soft this morning). Will continue current medications with Losartan and follow closely. (7) Morbid obesity with BMI of 60.0-69.9, adult: Code(s): E66.01 - Morbid (severe) obesity due to excess calories; Z68.44 - Body mass index [BMI] 60.0-69.9, adult Status: Acute Assessment and Plan: Patient has morbid obesity with BMI 66. He would benefit from diet and lifestyle modification. Consider evaluation for bariatric surgery. Reporting Manager to see. (8) DVT prophylaxis: Code(s): Z29.9 - Encounter for prophylactic measures, unspecified Status: Acute Assessment and Plan: [place]
[2021-01-22 11:59] LABS: Glucose Point of Care 202 mg/dl (65-105)
--- NOTE | 2021-01-22 14:12 | PCPTNOTE ---
Attempted PT eval. Pt refused due to pain.Will try again tomorrow.
[2021-01-22] MEDS: HYDROcodone/acetaminophen (*CRX) 5-325 MG TABLET 1 TAB PO (14:38)
[2021-01-22 17:12] LABS: Glucose Point of Care 192 mg/dl (65-105)
[2021-01-22 20:42] LABS: Glucose Point of Care 265 mg/dl (65-105)
--- NOTE | 2021-01-23 05:19 | PC.NURSE ---
patient slept in bed overnight (previous night was in chair).. breathing much more relaxed, he stated pain is much better while laying down. He said he began to have a sore throat and was coughing up sputum more regularly this AM but had no other complaints. -AEW RN
[2021-01-23 06:00] VITALS: BP 111/46; PULSE 111; RESP 20; TEMP 36.4; O2SAT 96
[2021-01-23 07:09] LABS: Basophils Absolute Auto 0.1 K/mm3 (0.0-0.1); Basophils Percent Auto 0.6 % (0.2-1.2); Eosinophils Absolute Auto 0.3 K/mm3 (0-0.3); Eosinophils Percent Auto 1.3 % (0-4.4); Hematocrit 36.6 % (42.0-52.0); Immature Granulocyte Absolute 1.35 K/mm3 (0.00-0.031); Immature Granulocyte Percent A 5.9 % (0-0.5); Lymphocytes Percent Auto 11.3 % (18.3-44.2); Mean Corpuscular HGB Conc 32.8 g/dl (32-36); Mean Corpuscular Hemoglobin 27.6 pg (26-34); Mean Corpuscular Volume 84.1 fl (80-100); Mean Platelet Volume 10.2 fl (7.4-10.4); Monocytes Absolute Auto 1.4 K/mm3 (0.1-0.6); Monocytes Percent Auto 6.2 % (2.6-8.5); Neutrophils Absolute Auto 17.1 K/mm3 (1.3-6.7); Neutrophils Percent Auto 74.7 % (45.5-73.1); Platelet Count Result 249 k/mm3 (150-375); Red Blood Count 4.35 M/mm3 (4.6-6.20); Red Cell Distribution Width 13.8 % (11.5-14.5); White Blood Count 22.9 K/mm3 (4.5-10.0)
[2021-01-23 07:26] LABS: Anion Gap 8 mmol/L (8-16); Blood Urea Nitrogen 24 mg/dL (9-20); Calcium 7.6 mg/dL (8.4-10.2); Carbon Dioxide 24 mmol/L (22-30); Chloride 93 mmol/L (98-107); Estimated CRCL calculation 84 ml/min; Estimated Glomerular Filt Rate 43; Glucose 197 mg/dL (75-110); Potassium 3.4 mmol/L (3.4-5.0); Sodium 125 mmol/L (137-145)
[2021-01-23 07:35] LABS: Glucose Point of Care 201 mg/dl (65-105)
[2021-01-23] MEDS: GABAPENTIN 300 MG CAPSULE 600 MG PO ×3 (08:18→17:16)
[2021-01-23] MEDS: PANTOPRAZOLE 40 MG TABLET PO (08:19)
[2021-01-23] MEDS: metFORMIN HCL 500 MG TABLET PO ×2 (08:19→17:20)
[2021-01-23] MEDS: ENOXAPARIN 40 MG/0.4 ML SYRINGE SUB-Q ×2 (08:19→19:49)
[2021-01-23 08:20] VITALS: O2SAT 96
[2021-01-23] MEDS: SODIUM CHLORIDE 0.9% IV 1,000 ML 125 ML IV CONT ×2 (08:29→19:49)
[2021-01-23 09:06] LABS: Glucose Point of Care 183 mg/dl (65-105)
[2021-01-23] MEDS: HYDROcodone/acetaminophen (*CRX) 5-325 MG TABLET 1 TAB PO (10:11)
--- NOTE | 2021-01-23 10:18 | PCPTNOTE ---
Attempted PT eval x 2 this AM. Pt just got to chair and with labored breathing on first attempt. Pt given time to relax and attempted second time. Pt requesting to come back after lunch due to just getting comfortable and decreased pain in current position due to scrotal edema. Will attempt again after lunch. Kassandra Quezada, DPT
--- NOTE | 2021-01-23 11:12 | P.PNIM_ITS ---
Progress Note: A&P Assessment and Plan (1) Sepsis: Qualifiers: Sepsis type: sepsis due to unspecified organism Sepsis acute organ dysfunction status: without acute organ dysfunction Qualified Code(s): A41.9 - Sepsis, unspecified organism Code(s): A41.9 - Sepsis, unspecified organism Status: Acute Assessment and Plan: * Evident on arrival with fever, tachycardia, and leukocytosis. Source is cellulitis and abscess in the groin. WBC trending up slightly, afebrile today. * Continue Primaxin and vancomycin (day 3). Wound culture with moderate growth of Enterococcus. Blood cx no growth to date. * Appreciate ID recommendations. Suspect he may need prolonged course of antib iotics. * Monitor vital signs and urine output. (2) Abscess of pubic region: Code(s): L02.219 - Cutaneous abscess of trunk, unspecified Status: Acute Assessment and Plan: * Morbidly obese patient with poorly controlled DM presents with cellulitis and abscess with groin infection. * POD#2 s/p complex I&D of a necrotizing soft tissue infection involving the left pubis/groin measuring approximately 36 x 30 x 10 cm with washout and placement of wound VAC, by Dr Feliz 01/21/21. * Changed pain medication regimen to hopefully decrease use of morphine given his mild hypotension and SOB. * Appreciate general surgery input. Abx as above. (3) Type 2 diabetes mellitus with hyperglycemia: Qualifiers: Diabetes mellitus community leader insulin use: with community leader use Qualified Code(s): E11.65 - Type 2 diabetes mellitus with hyperglycemia; Z79.4 - [facility] (current) use of insulin Code(s): E11.65 - Type 2 diabetes mellitus with hyperglycemia Status: Chronic Assessment and Plan: * A1c 10.9%. He takes 70/30. Blood sugars reviewed 01/23, still in 200s, will increase insulin regimen to 65U AM and 50U PM. Also on metformin BID. * Continue to monitor with accu-cheks and adjust treatment as needed, cover with high-dose SSI. * nurse educator and roving hand consulted. (4) SOB (shortness of breath): Code(s): R06.02 - Shortness of breath Status: Acute Assessment and Plan: * Patient has been feeling SOB for the past week. Suspect related to his brewing infection. CXR here showing normal cardiomediastinal and bibasilar airspace opacities. CT Abdomen showing minimal atelectasis at the lung bases. Patient is tachycardic but felt related to the sepsis picture. * LE dopplers show no evidence of DVT. Improved today with reclined positioning. Encouraged incentive spirometry. CPAP at bedside. * Consider further chest imaging if symptoms persist or worsen. (5) Sleep apnea: Qualifiers: Sleep apnea type: obstructive Qualified Code(s): G47.33 - Obstructive sleep apnea (adult) (pediatric) Code(s): G47.30 - Sleep apnea, unspecified Status: Chronic Assessment and Plan: * Patient wears NIV at home but reports that his home machine has not been working well for some time. Auto titrating CPAP has been ordered here. RT may be able to assist patient in obtaining new CPAP supplies. (6) Hypertension: Code(s): I10 - Essential (primary) hypertension Status: Chronic Assessment and Plan: * BPs reviewed 01/23. Mostly well-controlled, on the lower end again this morning. Hold Losartan this AM due to hypotension and TESS. * Monitor BP and adjust tr
--- NOTE | 2021-01-23 11:12 | PM.IMPN ---
Progress Note: A&P Assessment and Plan (1) Sepsis: Qualifiers: Sepsis type: sepsis due to unspecified organism Sepsis acute organ dysfunction status: without acute organ dysfunction Qualified Code(s): A41.9 - Sepsis, unspecified organism Code(s): A41.9 - Sepsis, unspecified organism Status: Acute Assessment and Plan: Evident on arrival with fever, tachycardia, and leukocytosis. Source is cellulitis and abscess in the groin. WBC trending up slightly, afebrile today. Continue Primaxin and vancomycin (day 3). Wound culture with moderate growth of Enterococcus. Blood cx no growth to date. Appreciate ID recommendations. Suspect he may need prolonged course of antibiotics. Monitor vital signs and urine output. (2) Abscess of pubic region: Code(s): L02.219 - Cutaneous abscess of trunk, unspecified Status: Acute Assessment and Plan: Morbidly obese patient with poorly controlled DM presents with cellulitis and abscess with groin infection. POD#2 s/p complex I&D of a necrotizing soft tissue infection involving the left pubis/groin measuring approximately 36 x 30 x 10 cm with washout and placement of wound VAC, by Dr Feliz 01/21/21. Changed pain medication regimen to hopefully decrease use of morphine given his mild hypotension and SOB. Appreciate general surgery input. Abx as above. 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 He takes 70/30. Blood sugars reviewed 01/23, still in 200s, will increase insulin regimen to 65U AM and 50U PM. Also on metformin BID. Continue to monitor with accu-cheks and adjust treatment as needed, cover with high-dose SSI. extension educator and control panel operator consulted. (4) SOB (shortness of breath): Code(s): R06.02 - Shortness of breath Status: Acute Assessment and Plan: Patient has been feeling SOB for the past week. Suspect related to his brewing infection. CXR here showing normal cardiomediastinal and bibasilar airspace opacities. CT Abdomen showing minimal atelectasis at the lung bases. Patient is tachycardic but felt related to the sepsis picture. LE dopplers show no evidence of DVT. Improved today with reclined positioning. Encouraged incentive spirometry. CPAP at bedside. Consider further chest imaging if symptoms persist or worsen. (5) Sleep apnea: Qualifiers: Sleep apnea type: obstructive Qualified Code(s): G47.33 - Obstructive sleep apnea (adult) (pediatric) Code(s): G47.30 - Sleep apnea, unspecified Status: Chronic Assessment and Plan: Patient wears NIV at home but reports that his home machine has not been working well for some time. Auto titrating CPAP has been ordered here. RT may be able to assist patient in obtaining new CPAP supplies. (6) Hypertension: Code(s): I10 - Essential (primary) hypertension Status: Chronic Assessment and Plan: BPs reviewed 01/23. Mostly well-controlled, on the lower end again this morning. Hold Losartan this AM due to hypotension and TESS. Monitor BP and adjust treatment as needed. (7) Morbid obesity with BMI of 60.0-69.9, adult: Code(s): E66.01 - Morbid (severe) obesity due to excess calories; Z68.44 - Body mass index [BMI] 60.0-69.9, adult Status: Chronic Assessment and Plan: Patient has morbid obesity with BMI 66. He would benefit from diet and
[2021-01-23 12:11] LABS: Glucose Point of Care 237 mg/dl (65-105)
[2021-01-23] MEDS: polyethylene glycoL 3350 17 GM POWD.PACK PO (12:41)
[2021-01-23] MEDS: INSULIN ASPART (*BKC) 100 UNITS/ML SUB-Q ×2 (12:44→17:15)
[2021-01-23 14:00] VITALS: BP 125/71; PULSE 104; RESP 20; TEMP 36.2; O2SAT 99
[2021-01-23] MEDS: HYDROcodone/acetaminophen (*CRX) 10-325 MG TABLET 1 TAB PO (14:12)
[2021-01-23 16:50] LABS: Glucose Point of Care 204 mg/dl (65-105)
[2021-01-23 17:53] LABS: Vancomycin Trough 26.2 ug/mL (10.0-20.0)
--- NOTE | 2021-01-23 17:59 | WPDINFPN2 ---
Progress Note: A&P Assessment and Plan (1) Necrotizing subcutaneous infection: Code(s): M72.6 - Necrotizing fasciitis Status: Acute Assessment and Plan: Abscess of pelvis and poorly controlled DM. POD #2 REC AmpSulbactam through 01/28, then 7 days Augmentin. Call if Qs or concerns Subjective Date/time seen: 01/23/21 17:59 Objective Data Vital Signs Vital Signs: Vital Signs - 24 hr 01/22/21 20:00 01/22/21 20:55 01/22/21 22:00 Temperature 36.6 C Pulse Rate 107 H 112 H Respiratory Rate 19 20 Blood Pressure 140/75 Pulse Oximetry 95 96 100 01/23/21 06:00 01/23/21 08:20 01/23/21 14:00 Temperature 36.4 C 36.2 C L Pulse Rate 111 H 104 H Respiratory Rate 20 20 Blood Pressure 111/46 L 125/71 Pulse Oximetry 96 96 99 Intake/Output Intake/Output: Intake & Output 01/20/21 01/21/21 01/22/21 01/23/21 23:59 23:59 23:59 23:59 Intake Total 100 5200 4410 2530 Output Total 2000 1900 900 Balance 100 3200 2510 1630 Meds/Results Medications: Active Medications Generic Name Dose Route Start Last Admin Trade Name Freq PRN Reason Stop Dose Admin Acetaminophen 650 mg 01/20/21 15:28 01/21/21 17:38 Acetaminophen 325 Mg Tablet PO 650 mg Q4H PRN Administration Mild Pain (1-3) or Fever Hydrocodone Bitart/Acetaminophen 1 tab 01/20/21 15:28 01/23/21 10:11 Hydrocodone/Acetaminophen (*Crx) 5-325 Mg Tablet PO 1 tab Q4H PRN Administration Pain Rated 4-6 Hydrocodone Bitart/Acetaminophen 1 tab 01/23/21 11:44 01/23/21 14:12 Hydrocodone/Acetaminophen (*Crx) 10-325 Mg Tablet PO 1 tab Q4H PRN Administration Pain Rated 7-10 Dextrose 12.5 gm 01/21/21 03:33 Dextrose 50% 25 Gm/50 Ml Syringe IV PUSH PRN PRN Hypoglycemia Protocol Enoxaparin Sodium 40 mg 01/21/21 09:00 01/23/21 08:19 Enoxaparin 40 Mg/0.4 Ml Syringe SUB-Q 40 mg Q12HR PAM Administration Gabapentin 600 mg 01/21/21 09:00 01/23/21 17:16 Gabapentin 300 Mg Capsule PO 600 mg TID PAM Administration Glucagon 1 mg 01/21/21 03:33 Glucagon For Inj 1 Mg Vial IM PRN PRN Hypoglycemia Protocol Glucose 15 gm 01/21/21 03:33 Glucose Oral Gel 15 Gm Of Glucse In 37.5 Gm Tube PO PRN PRN Hypoglycemia Protocol Dextrose 1,000 mls @ 100 mls/hr 01/21/21 03:33 Dextrose 5% 1,000 Ml IVPB PRN PRN Hypoglycemia Protocol Sodium Chloride 1,000 mls @ 125 mls/hr 01/21/21 09:35 01/23/21 08:29 Normal Saline Iv IV CONT 125 mls/hr .Q8H PAM Administration Vancomycin HCl 1,500 mg in 500 mls @ 333.333 mls/hr 01/23/21 02:00 01/23/21 14:05 Vancomycin 1,500 Mg/D5w 500 Ml IVPB Infused Q8H PAM Infusion Imipenem/Cilastatin Sodium 500 mg in 100 mls @ 300 mls/hr 01/23/21 03:00 01/23/21 16:33 Primaxin 500 Mg/D5w 100 Ml IVPB Infused Q6H PAM Infusion Insulin Aspart 4 - 8 units 01/21/21 08:00 01/23/21 17:15 Insulin Aspart (*Bkc) 100 Units/Ml SUB-Q 4 units TIDWM PAM Administration Protocol Insulin Aspart 50 units 01/23/21 17:00 01/23/21 17:18 Insuln Asp Prt/Insulin Aspart 100 Units/MlNovolog Mix(*Bkc) SUB-Q 50 units DAILY@1700 PAM Administration Insulin Aspart 65 units 01/24/21 08:00 Insuln Asp Prt/Insulin Aspart 100 Units/MlNovolog Mix(*Bkc) SUB-Q DAILY@0800 PAM Losartan Potassium 100 mg 01/21/21 09:00 01/23/21 09:59 Losartan Potassium 100 Mg Tablet PO Not Given DAILY PAM Metformin HCl 500 mg 01/21/21 08:00 01/23/21 17:20 Metformin Hcl 500 Mg Tablet PO 500 mg BIDWM PAM Administration Morphine Sulfate 2 mg 01/23/21 11:48 Morphine Sulfate (*Crx) 4 Mg/Ml Inj IV PUSH Q4H PRN Breakthrough Pain Ondansetron HCl 4 mg 01/20/21 15:28 Ondansetron Inj 4 Mg/2 Ml Vial IV PUSH Q4H PRN Nausea Pantoprazole Sodium 40 mg 01/21/21 09:00 01/23/21 08:19 Pantoprazole 40 Mg Tablet PO 40 mg QAM PAM Administration
[2021-01-23] MEDS: POTASSIUM CHLORIDE 20 MEQ TABLET PO (18:16)
[2021-01-23 20:00] VITALS: O2SAT 96
[2021-01-23 20:43] LABS: Glucose Point of Care 193 mg/dl (65-105)
--- NOTE | 2021-01-23 21:26 | CONS_ITS ---
DATE OF CONSULTATION: 01/23/2021 REASON FOR CONSULTATION: Abscess of the pelvis. HISTORY OF PRESENT ILLNESS: A 50-year-old male with known diabetes mellitus. He has had poor control most recently. He presented to the emergency room late on the afternoon of January 20 with 3 days of swelling in his left groin, also cough, coryza, and drainage along with odor. He was admitted. He was taken to the operating room on the 21 of January and he underwent incision and drainage of a complex necrotizing soft tissue infection of left pubis and left inguinal area. Measurements as recorded. Wound VAC was applied, remains in place. The fascia was not involved. Cultures were collected and are now available. He has been on imipenem and vancomycin, now day 4. No other recent antibiotics. No immunosuppressants at home. No trauma. No previous operations to the same area. ALLERGIES: NONE KNOWN. HABITS: Social drinker. No tobacco. PRESENT MEDICATIONS: Noted above. FAMILY HISTORY: Not pertinent to his present illness. PAST MEDICAL HISTORY: Appendectomy, toe amputation, FLORENCIA, peripheral neuropathy, PAF, kidney stones, hypertension, GERD, anxiety, carpal tunnel syndrome, and depression. REVIEW OF SYSTEMS: Skin laceration of the left forearm from a suicide attempt or gesture, otherwise skin, constitutional, endocrine, neurologic, respiratory, negative. SOCIAL HISTORY: He is . Ex- has . Plays mSpoke. PHYSICAL EXAMINATION: GENERAL: This is a middle-aged male, who appears his actual age. No acute distress. VITAL SIGNS: Afebrile since postop, preop he has temperature 38.2, pulse 104, respirations 20, and blood pressure 125/71. SKIN: Warm and dry. EENT: Conjunctivae are normal. The oral mucosa is normal. LUNGS: Clear to auscultation. CARDIAC: Tachycardic. Regular. No murmurs. ABDOMEN: Massively obese, nontender. No masses. He has a left inguinal wound VAC in place. He has scrotal edema. There is no abdominal wall erythema nor tenderness. No sinus tract. EXTREMITIES: 3+ nonpitting edema. LABORATORY DATA: Blood cultures from the evening of the are no growth so far. From the operating room, Gram stain, mixed laura, few white cells and growth of Enterococcus, which is susceptible. His white count was 8.3 on admission, prabhjot up to 22.9 today, hemoglobin 12.0, platelets are 249. Chemistries with hyponatremia, BUN 24, creatinine 1.7, estimated GFR 43, and his Accu-Cheks are high. A1c was high. RADIOLOGY: Abdomen and pelvic CT, subcutaneous edema, splenomegaly. ASSESSMENT: 1. Necrotizing soft tissue infection of the left lower abdomen and suprapubic area due to enterococcus and likely other co-pathogens as well. He is postop day 2, appropriate drainage. 2. Diabetes mellitus, poor control. 3. Morbid obesity. RECOMMENDATIONS: 1. Glycemic control underway. 2. Ampicillin sulbactam at least through January 28, modified by his clinical course. 3. Then, 7 days of Augmentin. 4. Call if further questions. Thank you for asking me to see him. YANCI MCINTYRE M.D. BOILER INSPECTOR BOILER INSPECTOR D I MT: Kacey
[2021-01-23 22:00] VITALS: BP 106/60; PULSE 100; RESP 20; TEMP 36.1; O2SAT 99
[2021-01-23] MEDS: AMPICILLIN SULB 3 GM/NS 100 ML 3 GM/100 ML VIAL IVPB (23:02)
[2021-01-23 23:53] VITALS: PULSE 105; RESP 20; O2SAT 96
[2021-01-24] VITALS (7 sets, daily range): BP systolic 102–133; BP diastolic 50–69; PULSE 94–105; RESP 18–20; TEMP 36.3–36.8; O2SAT 94–97
[2021-01-24] MEDS: AMPICILLIN SULB 3 GM/NS 100 ML 3 GM/100 ML VIAL IVPB ×2 (05:28→12:39)
[2021-01-24 06:10] LABS: Basophils Absolute Auto 0.1 K/mm3 (0.0-0.1); Basophils Percent Auto 0.3 % (0.2-1.2); Eosinophils Absolute Auto 0.4 K/mm3 (0-0.3); Eosinophils Percent Auto 1.7 % (0-4.4); Hematocrit 38.3 % (42.0-52.0); Hemoglobin 12.5 g/dL (14.0-18.0); Immature Granulocyte Percent A 5.2 % (0-0.5); Lymphocytes Absolute Auto 2.74 K/mm3 (0.9-3.2); Mean Corpuscular HGB Conc 32.6 g/dl (32-36); Mean Corpuscular Hemoglobin 27.5 pg (26-34); Mean Corpuscular Volume 84.2 fl (80-100); Mean Platelet Volume 10.6 fl (7.4-10.4); Monocytes Absolute Auto 1.9 K/mm3 (0.1-0.6); Monocytes Percent Auto 8.8 % (2.6-8.5); Platelet Count Result 259 k/mm3 (150-375); Red Blood Count 4.55 M/mm3 (4.6-6.20); White Blood Count 21.2 K/mm3 (4.5-10.0)
[2021-01-24 06:21] LABS: Anion Gap 9 mmol/L (8-16); Blood Urea Nitrogen 27 mg/dL (9-20); Calcium 8.1 mg/dL (8.4-10.2); Carbon Dioxide 21 mmol/L (22-30); Chloride 96 mmol/L (98-107); Estimated CRCL calculation 72 ml/min; Estimated Glomerular Filt Rate 35; Glucose 171 mg/dL (75-110); Magnesium 2.1 mg/dL (1.6-2.3); Potassium 3.9 mmol/L (3.4-5.0); Sodium 126 mmol/L (137-145)
[2021-01-24] MEDS: SODIUM CHLORIDE 0.9% IV 1,000 ML 125 ML IV CONT (07:59)
[2021-01-24 08:33] LABS: Glucose Point of Care 165 mg/dl (65-105)
[2021-01-24] MEDS: GABAPENTIN 300 MG CAPSULE 600 MG PO ×3 (08:57→17:44)
[2021-01-24] MEDS: ENOXAPARIN 40 MG/0.4 ML SYRINGE SUB-Q ×2 (08:57→20:30)
[2021-01-24] MEDS: PANTOPRAZOLE 40 MG TABLET PO (08:58)
[2021-01-24] MEDS: polyethylene glycoL 3350 17 GM POWD.PACK PO (08:58)
[2021-01-24] MEDS: HYDROcodone/acetaminophen (*CRX) 10-325 MG TABLET 1 TAB PO ×3 (09:06→17:54)
--- NOTE | 2021-01-24 10:36 | P.PNIM_ITS ---
Progress Note: A&P Assessment and Plan (1) Sepsis: Qualifiers: Sepsis type: sepsis due to unspecified organism Sepsis acute organ dysfunction status: without acute organ dysfunction Qualified Code(s): A41.9 - Sepsis, unspecified organism Code(s): A41.9 - Sepsis, unspecified organism Status: Acute Assessment and Plan: * Evident on arrival with fever, tachycardia, and leukocytosis. Source is cellulitis and abscess in the groin. WBC persistent, afebrile today. * Wound culture with moderate growth of Enterococcus. Blood cx no growth to date. * Treated with 3 days of IV vanc and Primaxin then switched to Unasyn 01/23 by ID. Anticipate IV abx through at 01/28 pending his clinical course then transition to PO abx. Appreciate ID input. * Monitor vital signs and urine output. (2) Abscess of pubic region: Code(s): L02.219 - Cutaneous abscess of trunk, unspecified Status: Acute Assessment and Plan: * Morbidly obese patient with poorly controlled DM presents with cellulitis and abscess with groin infection. * POD#3 s/p complex I&D of a necrotizing soft tissue infection involving the left pubis/groin measuring approximately 36 x 30 x 10 cm with washout and placement of wound VAC, by Dr Feliz 01/21/21. * Appreciate general surgery input. Abx as above. (3) TESS (acute kidney injury): Code(s): N17.9 - Acute kidney failure, unspecified Status: Acute Assessment and Plan: * Cr trending up from 1.1 - 1.7 to 2.0 today. He has been on IV fluids since admission which are stopped now due to adequate oral intake, significant swelling, and sodium trending down. * He is not urinating enough which could be related to his significant scrotal and pubis swelling. * Renal US ordered. Place Lombardo catheter, may need urology help to do so. * Trend renal function in AM. Consider nephrology consultation in the coming days if worsening. * Hold metformin and losartan for now. 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 He takes 70/30. Blood sugars reviewed 01/24 and are better. Increased insulin regimen to 65U AM and 50U PM on 01/23. MF held due to renal function. * Continue to monitor with accu-cheks and adjust treatment as needed, cover with high-dose SSI. * hematology nurse educator and poster consulted. (5) SOB (shortness of breath): Code(s): R06.02 - Shortness of breath Status: Acute Assessment and Plan: * Patient has been feeling SOB for the past week. Suspect related to his brewing infection. CXR here showing normal cardiomediastinal and bibasilar airspace opacities. CT Abdomen showing minimal atelectasis at the lung bases. Patient is still mildly tachycardic but felt related to the sepsis picture. * LE dopplers show no evidence of DVT. SOB improved with reclined positioning. Encouraged incentive spirometry. CPAP at bedside. * Consider further chest imaging if symptoms persist or worsen. (6) Sleep apnea: Qualifiers: Sleep apnea type: obstructive Qualified Code(s): G47.33 - Obstructive sleep apnea (adult) (pediatric)
--- NOTE | 2021-01-24 10:36 | PM.IMPN ---
Progress Note: A&P Assessment and Plan (1) Sepsis: Qualifiers: Sepsis type: sepsis due to unspecified organism Sepsis acute organ dysfunction status: without acute organ dysfunction Qualified Code(s): A41.9 - Sepsis, unspecified organism Code(s): A41.9 - Sepsis, unspecified organism Status: Acute Assessment and Plan: Evident on arrival with fever, tachycardia, and leukocytosis. Source is cellulitis and abscess in the groin. WBC persistent, afebrile today. Wound culture with moderate growth of Enterococcus. Blood cx no growth to date. Treated with 3 days of IV vanc and Primaxin then switched to Unasyn 01/23 by ID. Anticipate IV abx through at 01/28 pending his clinical course then transition to PO abx. Appreciate ID input. Monitor vital signs and urine output. (2) Abscess of pubic region: Code(s): L02.219 - Cutaneous abscess of trunk, unspecified Status: Acute Assessment and Plan: Morbidly obese patient with poorly controlled DM presents with cellulitis and abscess with groin infection. POD#3 s/p complex I&D of a necrotizing soft tissue infection involving the left pubis/groin measuring approximately 36 x 30 x 10 cm with washout and placement of wound VAC, by Dr Feliz 01/21/21. Appreciate general surgery input. Abx as above. (3) TESS (acute kidney injury): Code(s): N17.9 - Acute kidney failure, unspecified Status: Acute Assessment and Plan: Cr trending up from 1.1 - 1.7 to 2.0 today. He has been on IV fluids since admission which are stopped now due to adequate oral intake, significant swelling, and sodium trending down. He is not urinating enough which could be related to his significant scrotal and pubis swelling. Renal US ordered. Place Lombardo catheter, may need urology help to do so. Trend renal function in AM. Consider nephrology consultation in the coming days if worsening. Hold metformin and losartan for now. 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 He takes 70/30. Blood sugars reviewed 01/24 and are better. Increased insulin regimen to 65U AM and 50U PM on 01/23. MF held due to renal function. Continue to monitor with accu-cheks and adjust treatment as needed, cover with high-dose SSI. breastfeeding educator and blockmason consulted. (5) SOB (shortness of breath): Code(s): R06.02 - Shortness of breath Status: Acute Assessment and Plan: Patient has been feeling SOB for the past week. Suspect related to his brewing infection. CXR here showing normal cardiomediastinal and bibasilar airspace opacities. CT Abdomen showing minimal atelectasis at the lung bases. Patient is still mildly tachycardic but felt related to the sepsis picture. LE dopplers show no evidence of DVT. SOB improved with reclined positioning. Encouraged incentive spirometry. CPAP at bedside. Consider further chest imaging if symptoms persist or worsen. (6) Sleep apnea: Qualifiers: Sleep apnea type: obstructive Qualified Code(s): G47.33 - Obstructive sleep apnea (adult) (pediatric) Code(s): G47.30 - Sleep apnea, unspecified Status: Chronic Assessment and Plan: Patient wears NIV at home but reports that his home machine has not been working well for some time. Auto titrating CPAP has been ordered here. RT may be able to assist patient in obtaining new CPAP supplies.
[2021-01-24 12:37] LABS: Glucose Point of Care 232 mg/dl (65-105)
[2021-01-24] MEDS: INSULIN ASPART (*BKC) 100 UNITS/ML SUB-Q (12:39)
[2021-01-24] MEDS: BISACODYL 5 MG TABLET EC PO (13:22)
[2021-01-24] MEDS: FLUTICASONE PROPIONATE 0.05% NA SPR 16 GM BTL (*BKC) 2 SPRAY NASAL (13:22)
[2021-01-24 16:20] LABS: Add Urine Microscopic? YES; Amorphous Sediment Urine Few; Appearance Urine Cloudy (Clear); Bacteria Urine Trace /hpf; Bilirubin Urine Negative (Negative); Blood Urine 1+ (Negative); Color Urine Yellow (Yellow); Glucose Urine UA Negative (Negative); Ketones Urine Negative (Negative); Leukocyte Esterase Ur Negative LEU/UL (Negative); Mucus Urine Rare /lpf; Nitrate Urine Negative (Negative); Protein Urine 1+ mg/dL (Negative); Specific Grav Ur 1.011 (1.001-1.035)
[2021-01-24 17:21] LABS: Glucose Point of Care 173 mg/dl (65-105)
[2021-01-24] MEDS: AMPICILLIN SODIUM/SULBACTAM 3 GM in SODIUM CHLORIDE 0.9% IV 100 ML IVPB (17:48)
[2021-01-24 20:35] LABS: Glucose Point of Care 182 mg/dl (65-105)
[2021-01-25] MEDS: AMPICILLIN SODIUM/SULBACTAM 3 GM in SODIUM CHLORIDE 0.9% IV 100 ML IVPB ×5 (00:27→23:06)
[2021-01-25 06:00] VITALS: BP 131/69; PULSE 110; RESP 20; TEMP 36.7; O2SAT 96
[2021-01-25] MEDS: HYDROcodone/acetaminophen (*CRX) 5-325 MG TABLET 1 TAB PO (06:03)
[2021-01-25 07:11] LABS: Basophils Absolute Auto 0.2 K/mm3 (0.0-0.1); Basophils Percent Auto 0.8 % (0.2-1.2); Eosinophils Absolute Auto 0.3 K/mm3 (0-0.3); Eosinophils Percent Auto 1.2 % (0-4.4); Hematocrit 36.9 % (42.0-52.0); Hemoglobin 11.9 g/dL (14.0-18.0); Immature Granulocyte Absolute 1.89 K/mm3 (0.00-0.031); Immature Granulocyte Percent A 8.2 % (0-0.5); Lymphocytes Absolute Auto 2.97 K/mm3 (0.9-3.2); Lymphocytes Percent Auto 12.9 % (18.3-44.2); Mean Corpuscular HGB Conc 32.2 g/dl (32-36); Mean Corpuscular Hemoglobin 27.3 pg (26-34); Mean Corpuscular Volume 84.6 fl (80-100); Mean Platelet Volume 9.9 fl (7.4-10.4); Monocytes Absolute Auto 1.5 K/mm3 (0.1-0.6); Monocytes Percent Auto 6.3 % (2.6-8.5); Neutrophils Absolute Auto 16.3 K/mm3 (1.3-6.7); Neutrophils Percent Auto 70.6 % (45.5-73.1); Platelet Count Result 294 k/mm3 (150-375); Red Blood Count 4.36 M/mm3 (4.6-6.20); White Blood Count 23.1 K/mm3 (4.5-10.0)
[2021-01-25 07:22] LABS: Alanine Aminotransferase 16 U/L (4-50); Alkaline Phosphatase 95 U/L (38-126); Anion Gap 10 mmol/L (8-16); Aspartate Amino Transferase 30 U/L (17-59); Bilirubin,Total 0.5 mg/dL (0.2-1.3); Blood Urea Nitrogen 32 mg/dL (9-20); Calcium 8.3 mg/dL (8.4-10.2); Carbon Dioxide 25 mmol/L (22-30); Chloride 90 mmol/L (98-107); Estimated CRCL calculation 66 ml/min; Estimated Glomerular Filt Rate 32; Glucose 157 mg/dL (75-110); Potassium 4.1 mmol/L (3.4-5.0); Sodium 125 mmol/L (137-145)
[2021-01-25 08:00] VITALS: O2SAT 92
[2021-01-25 08:10] LABS: Glucose Point of Care 149 mg/dl (65-105)
[2021-01-25] MEDS: GABAPENTIN 300 MG CAPSULE 600 MG PO ×3 (08:47→17:52)
[2021-01-25] MEDS: ENOXAPARIN 40 MG/0.4 ML SYRINGE SUB-Q ×2 (08:48→20:46)
[2021-01-25] MEDS: FLUTICASONE PROPIONATE 0.05% NA SPR 16 GM BTL (*BKC) 2 SPRAY NASAL (08:48)
[2021-01-25] MEDS: polyethylene glycoL 3350 17 GM POWD.PACK PO (08:48)
[2021-01-25] MEDS: PANTOPRAZOLE 40 MG TABLET PO (08:48)
[2021-01-25] MEDS: BISACODYL 5 MG TABLET EC PO (08:49)
--- NOTE | 2021-01-25 11:05 | PM.IMPN ---
Progress Note: A&P Assessment and Plan (1) Sepsis: Qualifiers: Sepsis acute organ dysfunction status: without acute organ dysfunction Sepsis type: sepsis due to unspecified organism Qualified Code(s): A41.9 - Sepsis, unspecified organism Code(s): A41.9 - Sepsis, unspecified organism Status: Acute Assessment and Plan: Evident on arrival with fever, tachycardia, and leukocytosis. Source is cellulitis and abscess in the groin. WBC persistently elevated but remains afebrile now. Wound culture with moderate growth of Enterococcus. Blood cx no growth to date. Treated with 3 days of IV vanc and Primaxin then switched to Unasyn 01/23 by ID. Unclear why WBC remains elevated. No diarrhea to suggest CDiff. Clinically the cellulitic area apears improved. Anticipate IV abx through at 01/28 pending his clinical course then transition to PO abx. Appreciate ID input. (2) Abscess of pubic region: Code(s): L02.219 - Cutaneous abscess of trunk, unspecified Status: Acute Assessment and Plan: Patietn with morbid obesity and poorly controlled DM presents with cellulitis and abscess with necrotizing subcutaneous infection. Now POD#4 s/p complex I&D of a necrotizing soft tissue infection involving the left pubis/groin measuring approximately 36 x 30 x 10 cm with washout and placement of wound VAC, by Dr Feliz 01/21/21. Wound culture growing Enterococcus species sensitive to ampicillin. He remains on Unasyn. Continue wound VAC. Appreciate general surgery and ID input. (3) Hyponatremia: Code(s): E87.1 - Hypo-osmolality and hyponatremia Status: Acute Assessment and Plan: Na low on admission at 129. With IV fluids, Cr climbed to 130 but since has drifted down to 125 range. Prior Na level was 136 last year. Check urine studies. (4) TESS (acute kidney injury): Code(s): N17.9 - Acute kidney failure, unspecified Status: Acute Assessment and Plan: Cr 0.7 on admission but trending up to 2.2 today. He was on IV fluids from surgery which were stopped 01/24. 450mL documented overnight. Renal US ordered and is pending. Probably ATN from the sepsis with urine retention contributing to the picture. He did receive contras on 01/20 as well. Consider nephrology consultation in the coming days if Cr does not improve. Continue to hold metformin and losartan for now. Renal US normal (5) Urine retention: Code(s): R33.9 - Retention of urine, unspecified Status: Acute Assessment and Plan: Patient had scrotal edema and hidden penis. He was voiding well initially but then began to have trouble. Lombardo catheter placed and he had 1700mL out. May be contributing to his TESS. Monitor. 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 The patient's blood glucose was reviewed on 01/25. He takes 70/30 with 55-60U in the morning and 40-45U in the evening as well as metformin BID at home. Insulin regimen increased to 65U AM and 50U PM on 01/23. Metformin on hold due to renal function. Glucose better controlled now. Continue to monitor with Accu-cheks and adjust treatment as needed, cover with high-dose SSI. clinical trial educator and trade manager consulted. (7) SOB (shortness of breath): Code(s): R06.02 - Shortness of breath Status: Acute Assessment and Plan: Patient has been feeling SOB for the past week. Suspect related to his brewing infection. CXR here showing normal cardiomediastinal and bibasilar airspace opacities. CT Abdomen showing minimal atelectasis at the lung bases. Patient is still mi
[2021-01-25 11:37] LABS: Glucose Point of Care 217 mg/dl (65-105)
[2021-01-25] MEDS: HYDROcodone/acetaminophen (*CRX) 10-325 MG TABLET 1 TAB PO ×2 (12:29→17:52)
[2021-01-25] MEDS: INSULIN ASPART (*BKC) 100 UNITS/ML SUB-Q ×2 (12:30→17:51)
[2021-01-25 13:25] LABS: Alveolar/Arterial O2 Gradient 86.9 mmHg; Fractional Inspired Oxygen 30 %; HCO3 ABG 24.4 mEq/l (22.0-26.0); Oxyhemoglobin 92.4 % THb (90.0-100.0); PCO2 ABG 47.7 mmHg (35.0-45.0); PO2 FiO2 Ratio Arterial Blood 2.37 %; Total Hemoglobin 13.1 g/dL (12.0-18.0); pH ABG 7.326 (7.350-7.450)
[2021-01-25 13:26] LABS: Device NASAL CANNULA; Liters per Minute 2.5 LPM; Modified Allen's Test Pass; Site Drawn LEFT RADIAL
[2021-01-25 14:00] VITALS: BP 163/76; PULSE 107; RESP 22; TEMP 36.1; O2SAT 94
[2021-01-25 17:36] LABS: Glucose Point of Care 217 mg/dl (65-105)
[2021-01-25 20:18] VITALS: O2SAT 95
[2021-01-25 21:40] VITALS: PULSE 107; RESP 18; O2SAT 95
[2021-01-25 21:51] VITALS: BP 151/90; PULSE 98; RESP 20; TEMP 36.4; O2SAT 98
[2021-01-25 23:41] LABS: Creatinine Urine 122.9 mg/dL
[2021-01-26 01:11] LABS: Sodium Urine Random < 5 meq/L
[2021-01-26 04:16] LABS: Glucose Point of Care 233 mg/dl (65-105)
[2021-01-26] MEDS: AMPICILLIN SODIUM/SULBACTAM 3 GM in SODIUM CHLORIDE 0.9% IV 100 ML IVPB ×4 (05:31→23:17)
[2021-01-26 05:37] LABS: Basophils Absolute Auto 0.1 K/mm3 (0.0-0.1); Basophils Percent Auto 0.3 % (0.2-1.2); Eosinophils Absolute Auto 0.5 K/mm3 (0-0.3); Eosinophils Percent Auto 2.2 % (0-4.4); Hemoglobin 12.2 g/dL (14.0-18.0); Immature Granulocyte Absolute 2.23 K/mm3 (0.00-0.031); Immature Granulocyte Percent A 10.6 % (0-0.5); Lymphocytes Absolute Auto 2.88 K/mm3 (0.9-3.2); Lymphocytes Percent Auto 13.7 % (18.3-44.2); Mean Corpuscular Hemoglobin 27.5 pg (26-34); Mean Corpuscular Volume 83.5 fl (80-100); Mean Platelet Volume 9.7 fl (7.4-10.4); Monocytes Absolute Auto 1.7 K/mm3 (0.1-0.6); Monocytes Percent Auto 7.9 % (2.6-8.5); Neutrophils Absolute Auto 13.7 K/mm3 (1.3-6.7); Neutrophils Percent Auto 65.3 % (45.5-73.1); Platelet Count Result 256 k/mm3 (150-375); Red Blood Count 4.43 M/mm3 (4.6-6.20); Red Cell Distribution Width 13.8 % (11.5-14.5)
[2021-01-26 05:48] LABS: Albumin Level 2.9 g/dL (3.5-5.1); Anion Gap 8 mmol/L (8-16); Blood Urea Nitrogen 31 mg/dL (9-20); Calcium 8.1 mg/dL (8.4-10.2); Carbon Dioxide 26 mmol/L (22-30); Chloride 92 mmol/L (98-107); Estimated CRCL calculation 69 ml/min; Estimated Glomerular Filt Rate 33; Glucose 182 mg/dL (75-110); Magnesium 2.2 mg/dL (1.6-2.3); Potassium 3.8 mmol/L (3.4-5.0); Sodium 126 mmol/L (137-145)
[2021-01-26 06:00] VITALS: BP 135/86; PULSE 93; RESP 20; TEMP 36.6; O2SAT 99
[2021-01-26 08:00] VITALS: O2SAT 93
[2021-01-26 08:08] LABS: Glucose Point of Care 186 mg/dl (65-105)
[2021-01-26] MEDS: HYDROcodone/acetaminophen (*CRX) 10-325 MG TABLET 1 TAB PO ×3 (08:16→20:25)
[2021-01-26] MEDS: GABAPENTIN 300 MG CAPSULE 600 MG PO ×3 (08:16→17:35)
[2021-01-26] MEDS: PANTOPRAZOLE 40 MG TABLET PO (08:17)
[2021-01-26] MEDS: ENOXAPARIN 40 MG/0.4 ML SYRINGE SUB-Q ×2 (08:17→20:26)
[2021-01-26] MEDS: FLUTICASONE PROPIONATE 0.05% NA SPR 16 GM BTL (*BKC) 2 SPRAY NASAL (08:17)
[2021-01-26] MEDS: BISACODYL 5 MG TABLET EC PO (08:25)
--- NOTE | 2021-01-26 08:48 | PC.NURSE ---
Changed pt wound vac canister. Uncertain of how much was put out during the 01/25/21 [id number] shift as no markings were present. Canister was filled with ~450 mls of dark brown/blood discharge. New canister attached. Pt tolerated well.
--- NOTE | 2021-01-26 10:11 | PM.IMPN ---
Progress Note: A&P Assessment and Plan (1) Sepsis: Qualifiers: Sepsis acute organ dysfunction status: without acute organ dysfunction Sepsis type: sepsis due to unspecified organism Qualified Code(s): A41.9 - Sepsis, unspecified organism Code(s): A41.9 - Sepsis, unspecified organism Status: Acute Assessment and Plan: Evident on arrival with fever, tachycardia, and leukocytosis. Source is cellulitis and abscess in the groin. WBC persistently elevated but slowly trending down. He remains afebrile but diaphoretic today. Wound culture with moderate growth of Enterococcus. Blood cx negative. Treated with 3 days of IV vanc and Primaxin then switched to Unasyn 01/23 by ID. Unclear why WBC remains elevated but slowly improving; may need repeat I&D. No diarrhea to suggest CDiff. Clinically the cellulitic area appears improved since admission. Anticipate IV abx through at 01/28 pending his clinical course then transition to PO abx. Appreciate ID input. (2) Abscess of pubic region: Code(s): L02.219 - Cutaneous abscess of trunk, unspecified Status: Acute Assessment and Plan: Patient with morbid obesity and poorly controlled DM presents with cellulitis and abscess with necrotizing subcutaneous infection. Now POD#5 s/p complex I&D of a necrotizing soft tissue infection involving the left pubis/groin measuring approximately 36 x 30 x 10 cm with washout and placement of wound VAC, by Dr Feliz 01/21/21. Wound culture growing Enterococcus species sensitive to ampicillin. He remains on Unasyn. Continue wound VAC. Appreciate general surgery input. Discussed with surgery team; discussion about re-image to see if he needs further debridement given the persistently elevated WBC, diaphoresis and the persistent ATN. (3) Hyponatremia: Code(s): E87.1 - Hypo-osmolality and hyponatremia Status: Acute Assessment and Plan: Na low on admission at 129. With IV fluids, Cr climbed to 130 but since has drifted down to 125 range. Prior Na level was 136 last year. Rebecca <5 and UCr 123 with FENa of 0.07%. Will give 1L NS and follow Cr levels. (4) TESS (acute kidney injury): Code(s): N17.9 - Acute kidney failure, unspecified Status: Acute Assessment and Plan: Cr 0.7 on admission but trending up to 2.2 yesterday. He was on IV fluids from surgery which were stopped 01/24. 4Renal US normal. Probably ATN from the sepsis with urine retention contributing to the picture. He did receive contrast on 01/20 as well. UOP 3L yesterday and already 1400mL out today. Cr slightly better today - appears to have peaked. Consider nephrology consultation in the coming days if Cr does not improve. Continue to hold metformin and losartan for now. (5) Urine retention: Code(s): R33.9 - Retention of urine, unspecified Status: Acute Assessment and Plan: Patient had scrotal edema and hidden penis. He was voiding well initially but then began to have trouble. Lombardo catheter placed and he had 1700mL out. Urine retention may be contributing to his TESS. Monitor. Voiding trial when he is more ambulatory (6) Type 2 diabetes mellitus with hyperglycemia: Qualifiers: Diabetes mellitus mcc insulin use: with mcc use Qualified Code(s): E11.65 - Type 2 diabetes mellitus with hyperglycemia; Z79.4 - marine oil terminal superintendent (current) use of insulin Code(s): E11.65 - Type 2 diabetes mellitus with hyperglycemia Status: Chronic Assessment and Plan: A1c 10.9%. The patient's blood glucose was reviewed on 01/26 He takes 70/30 with 55-60U in the morning and 40-45U in the evening as well as metformin BID at home. Insulin regimen increased to 65U AM and 50U PM on 01/23. Metformin on hold due to renal function. Glucose better controlled overall. Continue to monitor with Accu-cheks and adjust treatment as needed, cover with high-dose SSI. early childhood special educator and paper winder consulted. Adv
--- NOTE | 2021-01-26 10:54 | PCNFU ---
Nutrition Follow-Up Complete: Nutrition Diagnosis: Inadequate Oral Intake as related to paniculits as evidenced by reported poor po intake. Nutrition Goal: Meet estimated nutritional needs Goal has been met, patient is consuming 100% of his meals. Nutrition recommendation: Continue with Diabetic Consistent Carbohydrate diet. Discontinue Glucerna Shake BID per patient's request. Last recorded weight is 210 kg. Recommend obtaining new weight. Bowel Motility: Last documented on 01/23. Labs Reviewed: Hgb(12.2), Hct(37), Alb(2.9), Na(126), GFR(33), BUN(31), Cr(2.1), Glu(182) Meds Noted: Melbeta, Bisacodyl, Lovenox, Neurontin, Glucagon, Novolog, Cozaar, Zofran, Glucophage, Protonix, Miralax Additional Notes: Abdomen wound with wound vac and left groin ulcer, non-pressure. Bilateral skin on scrotum reddened. Agree with diet orders. Patient reports appetite has improved and has been consistently hungry for meals. Patient stated he does not like any form of supplement and would not like to try Glucerna, which was originally ordered. Patient instruction added. Will monitor every 5 days.
--- NOTE | 2021-01-26 11:04 | PM.PNGS ---
Progress Note: A&P Assessment and Plan (1) Necrotizing subcutaneous infection: Code(s): M72.6 - Necrotizing fasciitis Status: Acute Assessment and Plan: Wound VAC changed today. Appears to be adequately drained with granulation tissue forming in the wound bed. There is still a significant amount of induration and erythema extending to the right side of the pubis. This may continue to improve with current treatment but needs to be monitored closely. Will plan on changing the wound VAC again Monday. WBC still 21,000, but down some from yesterday. ID has been consulted and switched him to IV Unasyn. Continue IV abx per ID. Trend labs. Continue Lombardo catheter for urinary retention likely secondary to inflammation/induration. (2) Type 2 diabetes mellitus with hyperglycemia: Qualifiers: Diabetes mellitus long term care pharmacist insulin use: with nursing home use Qualified Code(s): E11.65 - Type 2 diabetes mellitus with hyperglycemia; Z79.4 - intermodal customer service (current) use of insulin Code(s): E11.65 - Type 2 diabetes mellitus with hyperglycemia Status: Chronic Assessment and Plan: He will need to maintain tight glycemic control. BS 180's this morning and 200's last night. Management per Hospitalist. Additional Plan I have discussed the plan of care with Dr. Feliz. Subjective Subjective Date/Time Seen: 01/26/21 11:04 Post Op day: 5 (I&D complex left pubic and left inguinal abscess) Patient reports: no new complaints, pain is less and afebrile Interval history: Patient seen today with wound care nurses for wound VAC dressing change. He reports pain has improved and he believes swelling has as well. Had issues with urinary retention over the weekend, and had a Lombardo catheter placed. Afebrile since Monday. Review of Systems Review of Systems: All systems reviewed & are unremarkable except as noted in HPI and below Exam Const: General: comfortable, no acute distress, alert and awake Nutritional Appearance: obese morbidly obese Orientation/consciousness: patient oriented x3 : Scrotum: edematous (improved), erythematous and other (some superficial skin maceration on left side of scrotum) Other: Hidden penis Urinary Catheter: Urinary Catheter: patent and draining and urine clear Skin: Other: Wound VAC dressing and sponge packing removed. Abscess cavity probed and size is decreasing, no purulent drainage on exam. The visible aspect of the open wound with granulation tissue forming. Erythema over the left pubis has improved, but still with some induration extending towards the scrotum and now more towards the right pubis as well. Erythema extending to the right pubis with swelling. Neuro: General: moves all extremities and no focal motor deficits Extrem: General: no clubbing, cyanosis or edema and no calf tenderness Psych: Mental Status: mental status grossly normal Insight: Good insight present (Psych) Judgement: Good judgement present (Psych) Objective Data Vital Signs Vital Signs: Vital Signs - 24 hr 01/25/21 14:00 01/25/21 20:18 01/25/21 21:40 Temperature 97.0 F L Pulse Rate 107 H 107 H Respiratory Rate 22 H 18 Blood Pressure 163/76 H Pulse Oximetry 94 95 95 01/25/21 21:51 01/26/21 06:00 01/26/21 08:00 Temperature 97.5 F L 97.8 F Pulse Rate 98 93 Respiratory Rate 20 20 Blood Pressure 151/90 H 135/86 Pulse Oximetry 98 99 93 Intake/Output Intake/Output: Intake & Output 01/23/21 01/24/21 01/25/21 01/26/21 23:59 23:59 23:59 23:59 Intake Total 3870 3405 2620 1380 Output Total 900 2350 3500 1400 Balance 2970 1055 -880 -20 Meds/Results Medications: Active Medications Generic Name Dose Route Start Last Admin Trade Name Freq PRN Reason Stop Dose Admin Acetaminophen 650 mg 01/20/21 15:28 01/21/21 17:38 Acetaminophen 325 Mg Tablet PO 650 mg Q4H PRN Administration Mild Pain (1-3) or Fever Hydrocodone Bitart/Acetaminophen 1 tab 01/20/21 15:28 01/25/21
--- NOTE | 2021-01-26 11:10 | PCRCNOTE ---
Addendum entered by Nadia Davis, TRAVELING CLERK 01/26/21 15:49: NICKI WITH [facility] WILL DELIVER CPAP ON 01-27-2021. Original Note: FAXED INFO TO [facility] IN REGARDS TO NEW CPAP MACHINE. [facility] PATIENT AWARE [phone].
--- NOTE | 2021-01-26 11:46 | PCNSR ---
On 01/26/21, the student,Ashley Chan, provided care and completed [facility] documentation on this patient. I have reviewed the student's documentation and agree with the findings.
[2021-01-26] MEDS: SODIUM CHLORIDE 0.9% IV 1,000 ML 100 ML IV CONT (11:55)
[2021-01-26 12:11] LABS: Glucose Point of Care 219 mg/dl (65-105)
[2021-01-26] MEDS: INSULIN ASPART (*BKC) 100 UNITS/ML SUB-Q (12:11)
[2021-01-26 14:00] VITALS: BP 151/85; PULSE 93; RESP 18; TEMP 36.6; O2SAT 97
[2021-01-26 17:08] LABS: Glucose Point of Care 194 mg/dl (65-105)
[2021-01-26] MEDS: MORPHINE SULFATE (*CRX) 4 MG/ML INJ 2 MG IV PUSH (17:45)
[2021-01-26 20:47] LABS: Glucose Point of Care 220 mg/dl (65-105)
[2021-01-26 22:00] VITALS: BP 141/79; PULSE 93; RESP 18; TEMP 35.6; O2SAT 97
[2021-01-26 23:43] VITALS: PULSE 78; RESP 16; O2SAT 94
[2021-01-26 23:45] VITALS: O2SAT 94
[2021-01-27] MEDS: AMPICILLIN SODIUM/SULBACTAM 3 GM in SODIUM CHLORIDE 0.9% IV 100 ML IVPB ×4 (05:25→23:21)
[2021-01-27 05:53] VITALS: BP 145/78; PULSE 85; RESP 18; TEMP 35.8; O2SAT 98
[2021-01-27 06:17] LABS: Hematocrit 36.1 % (42.0-52.0); Hemoglobin 11.6 g/dL (14.0-18.0); Mean Corpuscular HGB Conc 32.1 g/dl (32-36); Mean Corpuscular Hemoglobin 27.5 pg (26-34); Mean Corpuscular Volume 85.5 fl (80-100); Mean Platelet Volume 9.8 fl (7.4-10.4); Platelet Count Result 270 k/mm3 (150-375); Red Blood Count 4.22 M/mm3 (4.6-6.20); Red Cell Distribution Width 14.2 % (11.5-14.5); White Blood Count 19.1 K/mm3 (4.5-10.0)
[2021-01-27 06:36] LABS: Anion Gap 7 mmol/L (8-16); Blood Urea Nitrogen 27 mg/dL (9-20); Calcium 8.1 mg/dL (8.4-10.2); Carbon Dioxide 28 mmol/L (22-30); Chloride 95 mmol/L (98-107); Estimated CRCL calculation 80 ml/min; Estimated Glomerular Filt Rate 40; Glucose 191 mg/dL (75-110); Sodium 130 mmol/L (137-145)
[2021-01-27 07:06] LABS: Band Neutrophils Percent 2 % (0-6); Eosinophils Absolute Manual 0.57 K/mm3 (0.02-0.5); Eosinophils Percent Manual 3 % (0-4); Lymphocytes Absolute Manual 3.24 K/mm3 (1.1-4.5); Monocytes Absolute Manual 1.33 K/mm3 (0.1-0.90); Monocytes Percent Manual 7 % (3-9); Neutrophils Absolute Manual 13.94 K/mm3 (1.3-6.7); Neutrophils Percent Manual 71 % (46-73); Total Cells Counted 100
[2021-01-27 07:07] LABS: Platelet Estimate Adequate (Adequate)
[2021-01-27 08:00] VITALS: O2SAT 92
[2021-01-27 08:09] LABS: Glucose Point of Care 209 mg/dl (65-105)
[2021-01-27] MEDS: HYDROcodone/acetaminophen (*CRX) 10-325 MG TABLET 1 TAB PO ×2 (08:09→20:48)
[2021-01-27] MEDS: SODIUM CHLORIDE 0.9% IV 1,000 ML 100 ML IV CONT (08:10)
[2021-01-27] MEDS: INSULIN ASPART (*BKC) 100 UNITS/ML SUB-Q ×2 (08:10→11:46)
[2021-01-27] MEDS: BISACODYL 5 MG TABLET EC PO (08:11)
[2021-01-27] MEDS: ENOXAPARIN 40 MG/0.4 ML SYRINGE SUB-Q ×2 (08:11→20:41)
[2021-01-27] MEDS: PANTOPRAZOLE 40 MG TABLET PO (08:12)
[2021-01-27] MEDS: FLUTICASONE PROPIONATE 0.05% NA SPR 16 GM BTL (*BKC) 2 SPRAY NASAL (08:12)
[2021-01-27] MEDS: GABAPENTIN 300 MG CAPSULE 600 MG PO ×3 (08:12→18:17)
[2021-01-27] MEDS: polyethylene glycoL 3350 17 GM POWD.PACK PO (08:12)
[2021-01-27 11:10] VITALS: BMI 66.4
[2021-01-27 12:01] LABS: Glucose Point of Care 244 mg/dl (65-105)
[2021-01-27 14:00] VITALS: BP 159/88; PULSE 95; RESP 20; TEMP 36.3; O2SAT 97
--- NOTE | 2021-01-27 15:15 | PM.IMPN ---
Progress Note: A&P Assessment and Plan (1) Sepsis: Qualifiers: Sepsis type: sepsis due to unspecified organism Sepsis acute organ dysfunction status: without acute organ dysfunction Qualified Code(s): A41.9 - Sepsis, unspecified organism Code(s): A41.9 - Sepsis, unspecified organism Status: Acute Assessment and Plan: Present on admission with fever, tachycardia, and leukocytosis. Source is cellulitis and abscess in the groin. WBC persistently elevated but slowly trending down. He remains afebrile. Wound culture with moderate growth of Enterococcus. Blood cx negative. Treated with 3 days of IV vanc and Primaxin then switched to Unasyn 01/23 by ID. Unclear why WBC remains elevated but slowly improving; may need repeat I&D. No diarrhea to suggest CDiff. Clinically the cellulitic area appears improved since admission. Anticipate IV abx through at 01/28 pending his clinical course then transition to PO abx. Appreciate ID input. (2) Abscess of pubic region: Code(s): L02.219 - Cutaneous abscess of trunk, unspecified Status: Acute Assessment and Plan: Patient with morbid obesity and poorly controlled DM presents with cellulitis and abscess with necrotizing subcutaneous infection. Now POD#6 s/p complex I&D of a necrotizing soft tissue infection involving the left pubis/groin measuring approximately 36 x 30 x 10 cm with washout and placement of wound VAC by Dr Feliz 01/21/21. Wound culture growing Enterococcus species sensitive to ampicillin. He remains on Unasyn. WBC slightly better today. Follow closely. Continue wound VAC. Continue current abx. Appreciate general surgery input. (3) Hyponatremia: Code(s): E87.1 - Hypo-osmolality and hyponatremia Status: Acute Assessment and Plan: Na low on admission at 129. With IV fluids, Cr climbed to 130 but since has drifted down to 125 range. Prior Na level was 136 last year. Rebecca <5 and UCr 123 with FENa of 0.07%. 1L NS given and Na now 130. Will repeat NSx1L. (4) TESS (acute kidney injury): Code(s): N17.9 - Acute kidney failure, unspecified Status: Acute Assessment and Plan: Cr 0.7 on admission but trending up to 2.2 on 01/25. He was on IV fluids from surgery which were stopped 01/24. Renal US normal. Probably ATN from the sepsis and urine retention. He also receive contrast on 01/20 as well. Rebecca<5 so he received a liter of NS. Cr better today at 1.8. Could be related to resolving ATN given the elevated UOP or that he is dry. Repeat IV fluids x 1L again. Continue to hold metformin and losartan for now. (5) Urine retention: Code(s): R33.9 - Retention of urine, unspecified Status: Acute Assessment and Plan: Patient had scrotal edema and hidden penis. He was voiding well initially but then began to have trouble. Lombardo catheter placed and he had 1700mL out. Urine retention may be contributing to his TESS. Monitor. Voiding trial when he is more ambulatory (6) Type 2 diabetes mellitus with hyperglycemia: Qualifiers: Diabetes mellitus prison insulin use: with prison use Qualified Code(s): E11.65 - Type 2 diabetes mellitus with hyperglycemia; Z79.4 - long term care administrator (current) use of insulin Code(s): E11.65 - Type 2 diabetes mellitus with hyperglycemia Status: Chronic Assessment and Plan: A1c 10.9%. The patient's blood glucose was reviewed on 01/27 He takes 70/30 with 55-60U in the morning and 40-45U in the evening as well as metformin BID at home. Insulin regimen was increased; Metformin on hold due to renal function. Glucose better controlled overall. school vocational educator and electrical contractor consulted. Spoke with Diab Educator who recommended basal/bolus regiment. Will change to Novolog and Lantus. Continue to monitor with Accu-cheks and adjust treatment as needed, cover with high-dose SSI. (7) SOB (shortness of breath): Code(s): R06.02 - Shortness of breath
[2021-01-27] MEDS: MORPHINE SULFATE (*CRX) 4 MG/ML INJ 2 MG IV PUSH (15:36)
[2021-01-27 17:50] LABS: Glucose Point of Care 164 mg/dl (65-105)
[2021-01-27] MEDS: INSULIN ASPART (*BKC) 100 UNITS/ML 17 UNITS SUB-Q (18:18)
[2021-01-27] MEDS: INSULIN GLARGINE (*BKC) 100 UNITS/ML 50 UNITS SUB-Q (20:40)
[2021-01-27 20:41] LABS: Glucose Point of Care 187 mg/dl (65-105)
[2021-01-27 21:58] VITALS: BP 137/69; PULSE 93; RESP 20; TEMP 36.3; O2SAT 99
[2021-01-27 22:40] VITALS: PULSE 82; O2SAT 95
[2021-01-28] VITALS (8 sets, daily range): BP systolic 135–172; BP diastolic 64–83; PULSE 78–107; RESP 20–22; TEMP 35.8–36.6; O2SAT 93–99
[2021-01-28 04:52] LABS: Glucose Point of Care 198 mg/dl (65-105)
[2021-01-28] MEDS: AMPICILLIN SODIUM/SULBACTAM 3 GM in SODIUM CHLORIDE 0.9% IV 100 ML IVPB ×4 (05:09→23:14)
[2021-01-28 06:22] LABS: Hematocrit 36.6 % (42.0-52.0); Hemoglobin 11.6 g/dL (14.0-18.0); Mean Corpuscular HGB Conc 31.7 g/dl (32-36); Mean Corpuscular Hemoglobin 27.5 pg (26-34); Mean Corpuscular Volume 86.7 fl (80-100); Mean Platelet Volume 9.9 fl (7.4-10.4); Platelet Count Result 261 k/mm3 (150-375); Red Blood Count 4.22 M/mm3 (4.6-6.20); Red Cell Distribution Width 14.3 % (11.5-14.5); White Blood Count 16.3 K/mm3 (4.5-10.0)
[2021-01-28 06:40] LABS: Albumin Level 2.9 g/dL (3.5-5.1); Anion Gap 6 mmol/L (8-16); Blood Urea Nitrogen 26 mg/dL (9-20); Calcium 8.1 mg/dL (8.4-10.2); Carbon Dioxide 26 mmol/L (22-30); Chloride 99 mmol/L (98-107); Estimated CRCL calculation 95 ml/min; Estimated Glomerular Filt Rate 49; Glucose 213 mg/dL (75-110); Magnesium 1.9 mg/dL (1.6-2.3); Phosphorus 4.2 mg/dL (2.5-4.5); Potassium 4.2 mmol/L (3.4-5.0); Sodium 131 mmol/L (137-145)
[2021-01-28 07:22] LABS: Band Neutrophils Percent 1 % (0-6); Eosinophils Absolute Manual 0.32 K/mm3 (0.02-0.5); Eosinophils Percent Manual 2 % (0-4); Lymphocytes Absolute Manual 2.11 K/mm3 (1.1-4.5); Lymphocytes Percent Manual 13 % (18-44); Metamyelocytes Percent 7 %; Monocytes Absolute Manual 0.97 K/mm3 (0.1-0.90); Monocytes Percent Manual 6 % (3-9); Neutrophils Absolute Manual 11.73 K/mm3 (1.3-6.7); Neutrophils Percent Manual 71 % (46-73); Total Cells Counted 100
[2021-01-28 07:23] LABS: Platelet Estimate Adequate (Adequate)
[2021-01-28 07:24] LABS: Hypochromasia 1+ (NORMAL)
[2021-01-28 07:51] LABS: Glucose Point of Care 213 mg/dl (65-105)
[2021-01-28] MEDS: HYDROcodone/acetaminophen (*CRX) 10-325 MG TABLET 1 TAB PO ×4 (08:20→21:37)
[2021-01-28] MEDS: PANTOPRAZOLE 40 MG TABLET PO (08:21)
[2021-01-28] MEDS: ENOXAPARIN 40 MG/0.4 ML SYRINGE SUB-Q ×2 (08:21→21:36)
[2021-01-28] MEDS: GABAPENTIN 300 MG CAPSULE 600 MG PO ×3 (08:21→17:23)
[2021-01-28] MEDS: polyethylene glycoL 3350 17 GM POWD.PACK PO ×2 (08:21→17:24)
[2021-01-28] MEDS: FLUTICASONE PROPIONATE 0.05% NA SPR 16 GM BTL (*BKC) 2 SPRAY NASAL (08:21)
[2021-01-28] MEDS: BISACODYL 5 MG TABLET EC PO (08:21)
[2021-01-28] MEDS: INSULIN ASPART (*BKC) 100 UNITS/ML 17 UNITS SUB-Q ×3 (08:22→17:24)
[2021-01-28] MEDS: INSULIN ASPART (*BKC) 100 UNITS/ML SUB-Q ×3 (08:22→17:24)
--- NOTE | 2021-01-28 10:24 | PM.IMPN ---
Progress Note: A&P Assessment and Plan (1) Sepsis: Qualifiers: Sepsis type: sepsis due to unspecified organism Sepsis acute organ dysfunction status: without acute organ dysfunction Qualified Code(s): A41.9 - Sepsis, unspecified organism Code(s): A41.9 - Sepsis, unspecified organism Status: Acute Assessment and Plan: Present on admission with fever, tachycardia, and leukocytosis. Source is cellulitis and abscess in the groin. WBC slowly trending down. He remains afebrile. Wound culture with moderate growth of Enterococcus. Blood cx negative. Treated with 3 days of IV vanc and Primaxin then switched to Unasyn 01/23 by ID. Clinically the cellulitic area appears improved since admission. Anticipate IV abx through at 01/28 but will continue current IV abx for now since WBC still at 16K and clinically still with indurated area. Appreciate ID input. (2) Abscess of pubic region: Code(s): L02.219 - Cutaneous abscess of trunk, unspecified Status: Acute Assessment and Plan: Patient with morbid obesity and poorly controlled DM presents with cellulitis and abscess with necrotizing subcutaneous infection. Now POD#7 s/p complex I&D of a necrotizing soft tissue infection involving the left pubis/groin measuring approximately 36 x 30 x 10 cm with washout and placement of wound VAC by Dr Feliz 01/21/21. Wound culture growing Enterococcus species sensitive to ampicillin. He remains on Unasyn. WBC peaked at 23K but better today at 16K. Follow closely. Continue wound VAC. Continue current abx. Appreciate general surgery input. (3) Hyponatremia: Code(s): E87.1 - Hypo-osmolality and hyponatremia Status: Acute Assessment and Plan: Na low on admission at 129. With IV fluids, Cr climbed to 130 but then drifted down to 125 range. Prior Na level was 136 last year. Rebecca <5 and UCr 123 with FENa of 0.07%. NS x 2L over 48 hours given and Na up 131. Will continue to monitor for now. (4) TESS (acute kidney injury): Code(s): N17.9 - Acute kidney failure, unspecified Status: Acute Assessment and Plan: Cr 0.7 on admission but trending up to 2.2 on 01/25. He was on IV fluids from surgery which were stopped 01/24. Renal US normal. Probably ATN from the sepsis and urine retention. He also receive contrast on 01/20 as well. Rebecca<5 so he received a liter of NS with improvement in his Na level and Cr. Having good UOP; could be resolving ATN. Repeat IV fluids x 1L with again improvement in Na level and Cr. Continue to hold metformin and losartan for now. No more IV fluids at this time. Follow. (5) Urine retention: Code(s): R33.9 - Retention of urine, unspecified Status: Acute Assessment and Plan: Patient had scrotal edema and hidden penis. He was voiding well initially but then began to have trouble. Lombardo catheter placed and he had 1700mL out. Urine retention may have contributed to his TESS. Monitor. Voiding trial when he is more ambulatory (6) Type 2 diabetes mellitus with hyperglycemia: Qualifiers: Diabetes mellitus intermodal dispatcher insulin use: with intermodal dispatcher use Qualified Code(s): E11.65 - Type 2 diabetes mellitus with hyperglycemia; Z79.4 - alf (current) use of insulin Code(s): E11.65 - Type 2 diabetes mellitus with hyperglycemia Status: Chronic Assessment and Plan: A1c 10.9%. The patient's blood glucose was reviewed on 01/28 He takes 70/30 with 55-60U in the morning and 40-45U in the evening as well as metformin BID at home. Insulin regimen was increased; Metformin on hold due to renal function. Glucose better controlled overall. tobacco educator and housing project manager consulted. Spoke with Diab Educator who recommended basal/bolus regiment and this was started 7/7 PM. Glucose reasonable. Continue Novolog and Lantus but advance Lantus slightly. Continue to monitor with Accu-cheks and adjust treatment as needed, cover with high-d
[2021-01-28 13:57] LABS: Glucose Point of Care 202 mg/dl (65-105)
[2021-01-28 17:15] LABS: Glucose Point of Care 220 mg/dl (65-105)
[2021-01-28] MEDS: INSULIN GLARGINE (*BKC) 100 UNITS/ML 54 UNITS SUB-Q (21:37)
[2021-01-28 21:49] LABS: Glucose Point of Care 163 mg/dl (65-105)
[2021-01-29] VITALS (9 sets, daily range): BP systolic 140–160; BP diastolic 85–88; PULSE 84–96; RESP 20–22; TEMP 35.7–36.4; O2SAT 93–99
[2021-01-29] MEDS: AMPICILLIN SODIUM/SULBACTAM 3 GM in SODIUM CHLORIDE 0.9% IV 100 ML IVPB ×4 (06:23→23:37)
[2021-01-29] MEDS: HYDROcodone/acetaminophen (*CRX) 10-325 MG TABLET 1 TAB PO ×3 (06:29→22:17)
[2021-01-29 06:32] LABS: Hematocrit 39.6 % (42.0-52.0); Hemoglobin 12.2 g/dL (14.0-18.0); Mean Corpuscular HGB Conc 30.8 g/dl (32-36); Mean Corpuscular Hemoglobin 27.5 pg (26-34); Mean Corpuscular Volume 89.4 fl (80-100); Mean Platelet Volume 9.5 fl (7.4-10.4); Platelet Count Result 302 k/mm3 (150-375); Red Blood Count 4.43 M/mm3 (4.6-6.20); Red Cell Distribution Width 14.3 % (11.5-14.5)
[2021-01-29 06:33] LABS: Anion Gap 6 mmol/L (8-16); Blood Urea Nitrogen 23 mg/dL (9-20); Calcium 8.5 mg/dL (8.4-10.2); Carbon Dioxide 30 mmol/L (22-30); Chloride 98 mmol/L (98-107); Estimated CRCL calculation 89 ml/min; Estimated Glomerular Filt Rate 46; Glucose 195 mg/dL (75-110); Potassium 4.4 mmol/L (3.4-5.0); Sodium 134 mmol/L (137-145)
[2021-01-29 07:18] LABS: Band Neutrophils Percent 1 % (0-6); Neutrophils Absolute Manual 11.36 K/mm3 (1.3-6.7); Neutrophils Percent Manual 70 % (46-73); Total Cells Counted 100
[2021-01-29 07:19] LABS: Basophils Absolute Manual 0.16 K/mm3 (0.0-0.1); Basophils Percent Manual 1 % (0-1); Eosinophils Absolute Manual 0.16 K/mm3 (0.02-0.5); Eosinophils Percent Manual 1 % (0-4); Lymphocytes Absolute Manual 1.44 K/mm3 (1.1-4.5); Lymphocytes Percent Manual 9 % (18-44); Metamyelocytes Percent 4 %; Monocytes Absolute Manual 2.24 K/mm3 (0.1-0.90); Monocytes Percent Manual 14 % (3-9); Platelet Estimate Adequate (Adequate)
[2021-01-29] MEDS: ENOXAPARIN 40 MG/0.4 ML SYRINGE SUB-Q ×2 (07:53→20:48)
[2021-01-29] MEDS: polyethylene glycoL 3350 17 GM POWD.PACK PO ×2 (07:53→17:08)
[2021-01-29] MEDS: FLUTICASONE PROPIONATE 0.05% NA SPR 16 GM BTL (*BKC) 2 SPRAY NASAL (07:53)
[2021-01-29] MEDS: PANTOPRAZOLE 40 MG TABLET PO (07:53)
[2021-01-29] MEDS: GABAPENTIN 300 MG CAPSULE 600 MG PO ×3 (07:53→17:08)
[2021-01-29 07:59] LABS: Glucose Point of Care 210 mg/dl (65-105)
[2021-01-29] MEDS: INSULIN ASPART (*BKC) 100 UNITS/ML SUB-Q ×3 (08:00→17:12)
[2021-01-29] MEDS: INSULIN ASPART (*BKC) 100 UNITS/ML 17 UNITS SUB-Q ×2 (08:00→13:05)
--- NOTE | 2021-01-29 09:52 | PM.PNGS ---
Progress Note: A&P Assessment and Plan (1) Necrotizing subcutaneous infection: Code(s): M72.6 - Necrotizing fasciitis Status: Acute Assessment and Plan: cont abx per ID, will place instill (Dankins) in vac, recheck wound early next wk Subjective Subjective Date/Time Seen: 01/29/21 09:52 pt seen c wound care nurse this am, reports he overall feels better but alot of soreness in L groin/scrotum Review of Systems Review of Systems: All systems reviewed & are unremarkable except as noted in HPI and below Exam Const: General: cooperative, no acute distress and ill appearing Nutritional Appearance: obese Orientation/consciousness: patient oriented x3 Resp: Effort & Inspection: normal respiratory effort Auscultation: diminished lung sounds Cardio: Rate: regular rate Rhythm: regular rhythm GI: GI Palp: Yes Soft to palpation and No Tenderness to palpation present (GI) Skin: Other: incision examined and vac removed, some fibrinous necrosis (fat) noted in wound, majority of wound in viable, beefy, serosangenous discharge, induration from L groin into scrotum and extension to R Objective Data Vital Signs Vital Signs: Vital Signs - 24 hr 01/28/21 14:00 01/28/21 14:29 01/28/21 21:54 Temperature 36.6 C 36.1 C L Pulse Rate 107 H 88 Respiratory Rate 22 H 20 Blood Pressure 172/83 H 144/76 H 135/67 Pulse Oximetry 99 98 01/28/21 23:10 01/29/21 03:14 01/29/21 06:00 Temperature 35.7 C L Pulse Rate 78 85 84 Respiratory Rate 20 Blood Pressure 150/88 H Pulse Oximetry 95 96 93 01/29/21 08:00 Temperature Pulse Rate Respiratory Rate Blood Pressure Pulse Oximetry 94 Intake/Output Intake/Output: Intake & Output 01/26/21 01/27/21 01/28/21 01/29/21 23:59 23:59 23:59 23:59 Intake Total 3810 4020 2900 700 Output Total 3150 3175 3450 2200 Balance 660 389 -911 -5552 Meds/Results Medications: Active Medications Generic Name Dose Route Start Last Admin Trade Name Freq PRN Reason Stop Dose Admin Acetaminophen 650 mg 01/20/21 15:28 01/21/21 17:38 Acetaminophen 325 Mg Tablet PO 650 mg Q4H PRN Administration Mild Pain (1-3) or Fever Hydrocodone Bitart/Acetaminophen 1 tab 01/20/21 15:28 01/25/21 06:03 Hydrocodone/Acetaminophen (*Crx) 5-325 Mg Tablet PO 1 tab Q4H PRN Administration Pain Rated 4-6 Hydrocodone Bitart/Acetaminophen 1 tab 01/23/21 11:44 01/29/21 06:29 Hydrocodone/Acetaminophen (*Crx) 10-325 Mg Tablet PO 1 tab Q4H PRN Administration Pain Rated 7-10 Bisacodyl 5 mg 01/24/21 12:10 01/28/21 08:21 Bisacodyl 5 Mg Tablet Ec PO 5 mg QAM PAM Administration Dextrose 12.5 gm 01/21/21 03:33 Dextrose 50% 25 Gm/50 Ml Syringe IV PUSH PRN PRN Hypoglycemia Protocol Enoxaparin Sodium 40 mg 01/21/21 09:00 01/29/21 07:53 Enoxaparin 40 Mg/0.4 Ml Syringe SUB-Q 40 mg Q12HR PAM Administration Fluticasone Propionate 2 spray 01/24/21 12:10 01/29/21 07:53 Fluticasone Propionate 0.05% Na Spr 16 Gm Btl (*Bkc) NASAL 2 spray QAM PAM Administration Gabapentin 600 mg 01/21/21 09:00 01/29/21 07:53 Gabapentin 300 Mg Capsule PO 600 mg TID PAM Administration Glucagon 1 mg 01/21/21 03:33 Glucagon For Inj 1 Mg Vial IM PRN PRN Hypoglycemia Protocol Glucose 15 gm 01/21/21 03:33 Glucose Oral Gel 15 Gm Of Glucse In 37.5 Gm Tube PO PRN PRN Hypoglycemia Protocol Dextrose 1,000 mls @ 100 mls/hr 01/21/21 03:33 Dextrose 5% 1,000 Ml IVPB PRN PRN Hypoglycemia Protocol Ampicillin Sodium/Sulbactam 100 mls @ 200 mls/hr 01/24/21 18:00 01/29/21 06:53 Sodium 3 gm/ Sodium Chloride IVPB Infused Q6HR PAM Infusion Insulin Aspart 4 - 8 units 01/21/21 08:00 01/29/21 08:00 Insulin Aspart (*Bkc) 100 Units/Ml SUB-Q 4 units TIDWM PAM Administration Protocol Insulin Aspart 17 units 01/27/21 17:00 01/29/21 08:00 Insulin Asp
[2021-01-29] MEDS: BISACODYL 5 MG TABLET EC PO (10:20)
[2021-01-29 12:30] LABS: Glucose Point of Care 208 mg/dl (65-105)
--- NOTE | 2021-01-29 13:16 | PM.IMPN ---
Progress Note: A&P Assessment and Plan (1) Sepsis: Qualifiers: Sepsis acute organ dysfunction status: without acute organ dysfunction Sepsis type: sepsis due to unspecified organism Qualified Code(s): A41.9 - Sepsis, unspecified organism Code(s): A41.9 - Sepsis, unspecified organism Status: Acute Assessment and Plan: Present on admission with fever, tachycardia, and leukocytosis. Source is cellulitis and abscess in the groin. WBC slowly trending down. He remains afebrile. Wound culture with moderate growth of Enterococcus. Blood cx negative. Treated with 3 days of IV vanc and Primaxin then switched to Unasyn 01/23 by ID. Clinically the cellulitic area appears improved since admission. Anticipate IV abx through at 01/28 but will continue current IV abx for now since WBC still at 16K and clinically still with indurated area. Appreciate ID input. (2) Abscess of pubic region: Code(s): L02.219 - Cutaneous abscess of trunk, unspecified Status: Acute Assessment and Plan: Patient with morbid obesity and poorly controlled DM presents with cellulitis and abscess with necrotizing subcutaneous infection. Now s/p complex I&D of a necrotizing soft tissue infection involving the left pubis/groin measuring approximately 36 x 30 x 10 cm with washout and placement of wound VAC by Dr Feliz 01/21/21. Wound culture growing Enterococcus species sensitive to ampicillin. He remains on Unasyn. WBC peaked at 23K but stable at 16K. Follow closely. Continue current abx. Appreciate general surgery input. (3) Hyponatremia: Code(s): E87.1 - Hypo-osmolality and hyponatremia Status: Acute Assessment and Plan: Na low on admission at 129. With IV fluids, Cr climbed to 130 but then drifted down to 125 range. Prior Na level was 136 last year. Rebecca <5 and UCr 123 with FENa of 0.07%. NS x 2L over 48 hours. Na improved and up to 134 today. Will continue to monitor for now. (4) TESS (acute kidney injury): Code(s): N17.9 - Acute kidney failure, unspecified Status: Acute Assessment and Plan: Cr 0.7 on admission but trending up to 2.2 on 01/25. He was on IV fluids from surgery which were stopped 01/24. Renal US normal. Probably ATN from the sepsis and urine retention. He also receive contrast on 01/20 as well. Rebecca<5 so he received a liter of NS with improvement in his Na level and Cr. Having good UOP; could be resolving ATN. Repeat IV fluids x 1L with again improvement in Na level and Cr. Cr now stable at 1.6. Continue to hold metformin and losartan for now. No more IV fluids at this time. Follow. (5) Urine retention: Code(s): R33.9 - Retention of urine, unspecified Status: Acute Assessment and Plan: Patient had scrotal edema and hidden penis. He was voiding well initially but then began to have trouble. Lombardo catheter placed and he had 1700mL out. Urine retention may have contributed to his TESS. Monitor. Voiding trial when he is more ambulatory. (6) Type 2 diabetes mellitus with hyperglycemia: Qualifiers: Diabetes mellitus middle or intermediate school principal insulin use: with middle or intermediate school principal use Qualified Code(s): E11.65 - Type 2 diabetes mellitus with hyperglycemia; Z79.4 - lobsterman (current) use of insulin Code(s): E11.65 - Type 2 diabetes mellitus with hyperglycemia Status: Chronic Assessment and Plan: A1c 10.9%. The patient's blood glucose was reviewed on 01/29 He takes 70/30 with 55-60U in the morning and 40-45U in the evening as well as metformin BID at home. Metformin on hold due to renal function. religious educator and male model consulted. Diab Educator recommended basal/bolus regiment and this was started 7/7 PM. Glucose reasonable. Continue Novolog and Lantus but advance Lantus and Novolog today. Continue to monitor with Accu-cheks and adjust treatment as needed, cover with high-dose SSI. (7) SOB (shortness of breath): Code(s): R06
--- NOTE | 2021-01-29 14:11 | PCOTNOTE ---
Attempted to see patient this pm, however RN advised not to see. Pt awaiting wound vac placement and recommended bed rest at this time. Patient having increased anxiety and awaiting Ativan. Pt not seen for this reason. Will continue plan of care tomorrow.
[2021-01-29] MEDS: LORazepam (*CRX) 0.5 MG TABLET PO ×2 (14:51→23:37)
--- NOTE | 2021-01-29 15:34 | PCPTNOTE ---
The patient treatment was not able to be completed today. RN requested to hold therapy this afternoon due to awaiting wound vac placement. Will plan to continue treatment per plan of care.
[2021-01-29] MEDS: INSULIN ASPART (*BKC) 100 UNITS/ML 20 UNITS SUB-Q (17:13)
[2021-01-29 17:26] LABS: Glucose Point of Care 223 mg/dl (65-105)
[2021-01-29] MEDS: FUROSEMIDE INJ 40 MG/4 ML VIAL IV PUSH (17:30)
[2021-01-29] MEDS: INSULIN GLARGINE (*BKC) 100 UNITS/ML 60 UNITS SUB-Q (20:48)
[2021-01-29 21:52] LABS: Glucose Point of Care 144 mg/dl (65-105)
[2021-01-30 06:00] VITALS: BP 146/87; PULSE 86; RESP 20; TEMP 36.4; O2SAT 96
[2021-01-30] MEDS: AMPICILLIN SODIUM/SULBACTAM 3 GM in SODIUM CHLORIDE 0.9% IV 100 ML IVPB ×3 (06:19→17:42)
[2021-01-30] MEDS: HYDROcodone/acetaminophen (*CRX) 10-325 MG TABLET 1 TAB PO ×2 (06:22→17:41)
[2021-01-30 06:23] LABS: Hematocrit 39.2 % (42.0-52.0); Mean Corpuscular HGB Conc 30.6 g/dl (32-36); Mean Corpuscular Hemoglobin 27.5 pg (26-34); Mean Corpuscular Volume 89.7 fl (80-100); Mean Platelet Volume 9.3 fl (7.4-10.4); Platelet Count Result 296 k/mm3 (150-375); Red Blood Count 4.37 M/mm3 (4.6-6.20); Red Cell Distribution Width 14.5 % (11.5-14.5); White Blood Count 15.3 K/mm3 (4.5-10.0)
[2021-01-30 06:56] LABS: Albumin Level 3.2 g/dL (3.5-5.1); Anion Gap 6 mmol/L (8-16); Blood Urea Nitrogen 23 mg/dL (9-20); Calcium 8.5 mg/dL (8.4-10.2); Carbon Dioxide 27 mmol/L (22-30); Chloride 100 mmol/L (98-107); Estimated CRCL calculation 101 ml/min; Estimated Glomerular Filt Rate 53; Glucose 194 mg/dL (75-110); Magnesium 1.9 mg/dL (1.6-2.3); Phosphorus 4.5 mg/dL (2.5-4.5); Potassium 4.5 mmol/L (3.4-5.0); Sodium 133 mmol/L (137-145)
[2021-01-30 07:06] LABS: Band Neutrophils Percent 3 % (0-6); Eosinophils Absolute Manual 0.15 K/mm3 (0.02-0.5); Eosinophils Percent Manual 1 % (0-4); Metamyelocytes Percent 2 %; Monocytes Absolute Manual 0.61 K/mm3 (0.1-0.90); Monocytes Percent Manual 4 % (3-9); Neutrophils Absolute Manual 11.62 K/mm3 (1.3-6.7); Neutrophils Percent Manual 73 % (46-73); Platelet Estimate Adequate (Adequate); Total Cells Counted 100
[2021-01-30 07:07] LABS: Atypical Lymphocytes Present
[2021-01-30 08:00] VITALS: O2SAT 94
[2021-01-30 08:45] LABS: Glucose Point of Care 228 mg/dl (65-105)
[2021-01-30] MEDS: FLUTICASONE PROPIONATE 0.05% NA SPR 16 GM BTL (*BKC) 2 SPRAY NASAL (08:57)
[2021-01-30] MEDS: GABAPENTIN 300 MG CAPSULE 600 MG PO ×3 (08:59→17:40)
[2021-01-30] MEDS: FUROSEMIDE INJ 40 MG/4 ML VIAL IV PUSH ×2 (09:00→17:42)
[2021-01-30] MEDS: PANTOPRAZOLE 40 MG TABLET PO (09:00)
[2021-01-30] MEDS: BISACODYL 5 MG TABLET EC PO (09:00)
[2021-01-30] MEDS: INSULIN ASPART (*BKC) 100 UNITS/ML SUB-Q (09:01)
[2021-01-30] MEDS: ENOXAPARIN 40 MG/0.4 ML SYRINGE SUB-Q ×2 (09:01→21:05)
[2021-01-30] MEDS: INSULIN ASPART (*BKC) 100 UNITS/ML 20 UNITS SUB-Q ×3 (09:01→17:53)
[2021-01-30] MEDS: LORazepam (*CRX) 0.5 MG TABLET PO ×2 (09:09→17:40)
[2021-01-30] MEDS: MORPHINE SULFATE (*CRX) 4 MG/ML INJ 2 MG IV PUSH (11:40)
[2021-01-30 12:25] LABS: Glucose Point of Care 187 mg/dl (65-105)
[2021-01-30 13:19] VITALS: O2SAT 92
[2021-01-30 14:00] VITALS: BP 158/77; PULSE 94; RESP 20; TEMP 36.7; O2SAT 95
--- NOTE | 2021-01-30 14:07 | PM.IMPN ---
Progress Note: A&P Assessment and Plan (1) Sepsis: Qualifiers: Sepsis acute organ dysfunction status: without acute organ dysfunction Sepsis type: sepsis due to unspecified organism Qualified Code(s): A41.9 - Sepsis, unspecified organism Code(s): A41.9 - Sepsis, unspecified organism Status: Acute Assessment and Plan: Present on admission with fever, tachycardia, and leukocytosis. Source is cellulitis and abscess in the groin. WBC slowly trending down. He remains afebrile. Wound culture with moderate growth of Enterococcus. Blood cx negative. Treated with 3 days of IV vanc and Primaxin then switched to Unasyn 01/23 by ID. Clinically the cellulitic area appears improved since admission. Anticipated IV abx through at 01/28 but will continue current IV abx for now since WBC still at 15K and clinically still with indurated area. Appreciate ID input. (2) Abscess of pubic region: Code(s): L02.219 - Cutaneous abscess of trunk, unspecified Status: Acute Assessment and Plan: Patient with morbid obesity and poorly controlled DM presents with cellulitis and abscess with necrotizing subcutaneous infection. Now s/p complex I&D of a necrotizing soft tissue infection involving the left pubis/groin measuring approximately 36 x 30 x 10 cm with washout and placement of wound VAC by Dr Feliz 01/21/21. Dankins added to the wound vac. Wound culture growing Enterococcus species sensitive to ampicillin. He remains on Unasyn. WBC peaked at 23K and slowly trending down. Follow closely. Continue current abx. Appreciate general surgery input. (3) Hyponatremia: Code(s): E87.1 - Hypo-osmolality and hyponatremia Status: Acute Assessment and Plan: Na low on admission at 129. With IV fluids, Cr climbed to 130 but then drifted down to 125 range. Prior Na level was 136 last year. Rebecca <5 and UCr 123 with FENa of 0.07%. NS x 2L over 48 hours. Na improved; Na 13 today. Will continue to monitor for now. (4) TESS (acute kidney injury): Code(s): N17.9 - Acute kidney failure, unspecified Status: Acute Assessment and Plan: Cr 0.7 on admission but trending up to 2.2 on 01/25. He was on IV fluids from surgery which were stopped 01/24. Renal US normal. Probably ATN from the sepsis and urine retention. He also receive contrast on 01/20 as well. Rebecca<5 so he received a liter of NS with improvement in his Na level and Cr. Having good UOP as well so NS IV x 1L repeated with again improvement in Na level and Cr. CXR concerning for fluid overload so Lasix given last night and he had good UOP and Cr better today at 1.4. Already off O2 and he feels better. Will continue IV Lasix scheduled for 1-2 days and monitor fluid status. May need to fluid restrict. (5) Urine retention: Code(s): R33.9 - Retention of urine, unspecified Status: Acute Assessment and Plan: Patient had scrotal edema and hidden penis. He was voiding well initially but then began to have trouble. Lombardo catheter placed and he had 1700mL out. Urine retention may have contributed to his TESS. Monitor. Voiding trial when he is more ambulatory. He needs to be OOB. (6) Type 2 diabetes mellitus with hyperglycemia: Qualifiers: Diabetes mellitus alf insulin use: with tank terminal gauger use Qualified Code(s): E11.65 - Type 2 diabetes mellitus with hyperglycemia; Z79.4 - remote computer terminal operator (current) use of insulin Code(s): E11.65 - Type 2 diabetes mellitus with hyperglycemia Status: Chronic Assessment and Plan: A1c 10.9%. The patient's blood glucose was reviewed on 01/30 He takes 70/30 with 55-60U in the morning and 40-45U in the evening as well as metformin BID at home. Metformin on hold due to renal function. informatics educator and shale miner blasting consulted. Diab Educator recommended basal/bolus regiment and this was started 7/7 PM. Glucose better controlled. Continue Novolog and Lantus at [facility]
[2021-01-30 17:04] LABS: Glucose Point of Care 182 mg/dl (65-105)
[2021-01-30] MEDS: polyethylene glycoL 3350 17 GM POWD.PACK PO (17:46)
[2021-01-30] MEDS: INSULIN GLARGINE (*BKC) 100 UNITS/ML 60 UNITS SUB-Q (21:05)
[2021-01-30 22:00] VITALS: BP 145/90; PULSE 99; RESP 22; TEMP 36.2; O2SAT 92
[2021-01-30 22:25] LABS: Glucose Point of Care 216 mg/dl (65-105)
[2021-01-31] VITALS (9 sets, daily range): BP systolic 132–157; BP diastolic 79–96; PULSE 91–98; RESP 18–22; TEMP 36.4–36.8; O2SAT 92–98
[2021-01-31] MEDS: AMPICILLIN SODIUM/SULBACTAM 3 GM in SODIUM CHLORIDE 0.9% IV 100 ML IVPB ×3 (00:30→15:18)
[2021-01-31 07:21] LABS: Hematocrit 37.4 % (42.0-52.0); Hemoglobin 11.9 g/dL (14.0-18.0); Mean Corpuscular HGB Conc 31.8 g/dl (32-36); Mean Corpuscular Hemoglobin 27.8 pg (26-34); Mean Corpuscular Volume 87.4 fl (80-100); Mean Platelet Volume 9.4 fl (7.4-10.4); Platelet Count Result 299 k/mm3 (150-375); Red Blood Count 4.28 M/mm3 (4.6-6.20); Red Cell Distribution Width 14.6 % (11.5-14.5); White Blood Count 13.1 K/mm3 (4.5-10.0)
[2021-01-31 07:44] LABS: Anion Gap 8 mmol/L (8-16); Blood Urea Nitrogen 23 mg/dL (9-20); Calcium 8.6 mg/dL (8.4-10.2); Carbon Dioxide 30 mmol/L (22-30); Chloride 97 mmol/L (98-107); Estimated CRCL calculation 95 ml/min; Estimated Glomerular Filt Rate 49; Glucose 207 mg/dL (75-110); Potassium 4.4 mmol/L (3.4-5.0); Sodium 135 mmol/L (137-145)
[2021-01-31 08:35] LABS: Glucose Point of Care 228 mg/dl (65-105)
[2021-01-31] MEDS: PANTOPRAZOLE 40 MG TABLET PO (08:59)
[2021-01-31] MEDS: GABAPENTIN 300 MG CAPSULE 600 MG PO ×3 (09:00→17:21)
[2021-01-31] MEDS: polyethylene glycoL 3350 17 GM POWD.PACK PO (09:00)
[2021-01-31] MEDS: FUROSEMIDE INJ 40 MG/4 ML VIAL IV PUSH ×2 (09:00→17:21)
[2021-01-31] MEDS: ENOXAPARIN 40 MG/0.4 ML SYRINGE SUB-Q ×2 (09:00→20:45)
[2021-01-31] MEDS: FLUTICASONE PROPIONATE 0.05% NA SPR 16 GM BTL (*BKC) 2 SPRAY NASAL (09:00)
[2021-01-31] MEDS: INSULIN ASPART (*BKC) 100 UNITS/ML SUB-Q ×2 (09:01→12:43)
[2021-01-31] MEDS: INSULIN ASPART (*BKC) 100 UNITS/ML 20 UNITS SUB-Q ×3 (09:01→17:22)
--- NOTE | 2021-01-31 09:03 | PM.IMPN ---
Progress Note: A&P Assessment and Plan (1) Sepsis: Qualifiers: Sepsis acute organ dysfunction status: without acute organ dysfunction Sepsis type: sepsis due to unspecified organism Qualified Code(s): A41.9 - Sepsis, unspecified organism Code(s): A41.9 - Sepsis, unspecified organism Status: Acute Assessment and Plan: Present on admission with fever, tachycardia, and leukocytosis. Source is cellulitis and abscess in the groin. WBC slowly trending down. He remains afebrile. Wound culture with moderate growth of Enterococcus. Blood cx negative. Treated with 3 days of IV vanc and Primaxin then switched to Unasyn 01/23 by ID. Clinically the cellulitic area appears improved since admission. Anticipated IV abx through at 01/28 but will continue current IV abx for now since WBC down to 13 today. Wound vac in place. Appreciate ID input. (2) Abscess of pubic region: Code(s): L02.219 - Cutaneous abscess of trunk, unspecified Status: Acute Assessment and Plan: Patient with morbid obesity and poorly controlled DM presents with cellulitis and abscess with necrotizing subcutaneous infection. Now s/p complex I&D of a necrotizing soft tissue infection involving the left pubis/groin measuring approximately 36 x 30 x 10 cm with washout and placement of wound VAC by Dr Feliz 01/21/21. Dankins added to the wound vac. Wound culture growing Enterococcus species sensitive to ampicillin. He remains on Unasyn. WBC peaked at 23K and slowly trending down, 16 yesterday, to WBC 13 today. Follow closely. Continue current abx. Appreciate general surgery input. (3) Hyponatremia: Code(s): E87.1 - Hypo-osmolality and hyponatremia Status: Acute Assessment and Plan: Na low on admission at 129. With IV fluids, Cr climbed to 130 but then drifted down to 125 range. Prior Na level was 136 last year. Rebecca <5 and UCr 123 with FENa of 0.07%. NS x 2L over 48 hours. Na improved; Na 13 today. Will continue to monitor for now. (4) TESS (acute kidney injury): Code(s): N17.9 - Acute kidney failure, unspecified Status: Acute Assessment and Plan: Cr 0.7 on admission but trending up to 2.2 on 01/25. He was on IV fluids from surgery which were stopped 01/24. Renal US normal. Probably ATN from the sepsis and urine retention. He also receive contrast on 01/20 as well. Rebecca<5 so he received a liter of NS with improvement in his Na level and Cr. Having good UOP as well so NS IV x 1L repeated with again improvement in Na level and Cr. CXR concerning for fluid overload so Lasix given last night and he had good UOP and Cr stable today at 1.5. Still off O2. Changed his Lasix from 40 IV b.i.d. to 40 mg daily. Following strict Intake/output. (5) Urine retention: Code(s): R33.9 - Retention of urine, unspecified Status: Acute Assessment and Plan: Patient had scrotal edema and hidden penis. He was voiding well initially but then began to have trouble. Lombardo catheter placed and he had 1700mL out. Urine retention may have contributed to his TESS. Voiding trial when he is more ambulatory - not yet - still having difficulty with standing. He needs to be OOB - independently. (6) Type 2 diabetes mellitus with hyperglycemia: Qualifiers: Diabetes mellitus [facility] insulin use: with under ground miner use Qualified Code(s): E11.65 - Type 2 diabetes mellitus with hyperglycemia; Z79.4 - fish filleter (current) use of insulin Code(s): E11.65 - Type 2 diabetes mellitus with hyperglycemia Status: Chronic Assessment and Plan: A1c 10.9%. The patient's blood glucose 216, 228 today. He takes 70/30 with 55-60U in the morning and 40-45U in the evening as well as metformin BID at home. Metformin on hold due to renal function. educator senior clinical and dairy hand consulted. Diab Educator recommended basal/bolus regiment and this was started 7/7 PM. Glucose better
[2021-01-31 10:53] LABS: Glucose Point of Care 288 mg/dl (65-105)
[2021-01-31] MEDS: LORazepam (*CRX) 0.5 MG TABLET PO ×2 (11:03→20:44)
[2021-01-31 11:28] LABS: NT Pro B Type Natriuretic Pept 287 pg/mL (5-100)
[2021-01-31 12:40] LABS: Glucose Point of Care 252 mg/dl (65-105)
[2021-01-31 17:20] LABS: Glucose Point of Care 196 mg/dl (65-105)
[2021-01-31] MEDS: INSULIN GLARGINE (*BKC) 100 UNITS/ML 60 UNITS SUB-Q (20:44)
[2021-01-31] MEDS: HYDROcodone/acetaminophen (*CRX) 10-325 MG TABLET 1 TAB PO (20:44)
[2021-01-31 22:07] LABS: Glucose Point of Care 223 mg/dl (65-105)
[2021-02-01] VITALS (9 sets, daily range): BP systolic 149–179; BP diastolic 83–103; PULSE 82–101; RESP 18–22; TEMP 36.2–36.7; O2SAT 94–96
[2021-02-01] MEDS: AMPICILLIN SODIUM/SULBACTAM 3 GM in SODIUM CHLORIDE 0.9% IV 100 ML IVPB ×4 (00:27→17:48)
[2021-02-01 06:57] LABS: Hematocrit 37.6 % (42.0-52.0); Hemoglobin 11.6 g/dL (14.0-18.0); Mean Corpuscular HGB Conc 30.9 g/dl (32-36); Mean Corpuscular Hemoglobin 27.6 pg (26-34); Mean Corpuscular Volume 89.5 fl (80-100); Mean Platelet Volume 9.4 fl (7.4-10.4); Platelet Count Result 259 k/mm3 (150-375); Red Cell Distribution Width 14.6 % (11.5-14.5); White Blood Count 11.4 K/mm3 (4.5-10.0)
[2021-02-01 07:06] LABS: Anion Gap 6 mmol/L (8-16); Blood Urea Nitrogen 26 mg/dL (9-20); Calcium 8.4 mg/dL (8.4-10.2); Carbon Dioxide 31 mmol/L (22-30); Chloride 97 mmol/L (98-107); Estimated CRCL calculation 95 ml/min; Estimated Glomerular Filt Rate 49; Glucose 225 mg/dL (75-110); Potassium 4.3 mmol/L (3.4-5.0); Sodium 134 mmol/L (137-145)
[2021-02-01] MEDS: INSULIN ASPART (*BKC) 100 UNITS/ML SUB-Q ×2 (08:31→12:32)
[2021-02-01] MEDS: FLUTICASONE PROPIONATE 0.05% NA SPR 16 GM BTL (*BKC) 2 SPRAY NASAL (08:32)
[2021-02-01] MEDS: GABAPENTIN 300 MG CAPSULE 600 MG PO ×3 (08:32→17:44)
[2021-02-01] MEDS: polyethylene glycoL 3350 17 GM POWD.PACK PO (08:32)
[2021-02-01] MEDS: ENOXAPARIN 40 MG/0.4 ML SYRINGE SUB-Q ×2 (08:32→20:44)
[2021-02-01] MEDS: INSULIN ASPART (*BKC) 100 UNITS/ML 20 UNITS SUB-Q ×2 (08:32→12:32)
[2021-02-01] MEDS: PANTOPRAZOLE 40 MG TABLET PO (08:33)
[2021-02-01] MEDS: BISACODYL 5 MG TABLET EC PO (08:36)
[2021-02-01 09:13] LABS: Glucose Point of Care 214 mg/dl (65-105)
[2021-02-01] MEDS: HYDROcodone/acetaminophen (*CRX) 5-325 MG TABLET 1 TAB PO (09:37)
--- NOTE | 2021-02-01 11:33 | PCNFU ---
Nutrition Follow-Up Complete: Inadequate Oral Intake as related to paniculits as evidenced by reported poor po intake. Goal: Meet estimanted nutritional needs. Patient is meeting goal. Will continue to meet current goal. Pt current nutrition is BBCC with Glucerna Nutritional Shake BID providing 220 kcals and 10 gm protein. Last recorded weight is 210 kg. Bowel Motility: Last BM: 01/31 Labs Reviewed: Hgb 11.6, Hct 37.6, Na 134, K 4.3, GFR 49, BUN 26, Cr 1.5, Glu 225 Meds Noted: [place], Bisacodyl, Lovenox, Neurontin, Glucagon, Novolog, Cozaar, Zofran. Additional Notes: Patient reports that his appetite is coming back. Patient also reports that he is starting to like the Glucerna nutritional shakes more. 100% of meals are being consumed. Will continue to monitor patients weight and nutritional status while patient is admitted. Will monitor every 5 days.
[2021-02-01 12:13] LABS: Glucose Point of Care 262 mg/dl (65-105)
--- NOTE | 2021-02-01 12:30 | PCNSR ---
On 02/01/21, the student, Rayna Roach, provided care and completed [facility] documentation on this patient. I have reviewed the student's documentation and agree with the findings.
[2021-02-01] MEDS: HYDROcodone/acetaminophen (*CRX) 10-325 MG TABLET 1 TAB PO ×2 (12:34→22:46)
[2021-02-01] MEDS: LORazepam (*CRX) 0.5 MG TABLET PO ×2 (14:21→22:46)
--- NOTE | 2021-02-01 15:27 | PM.IMPN ---
Progress Note: A&P Assessment and Plan (1) Sepsis: Qualifiers: Sepsis acute organ dysfunction status: without acute organ dysfunction Sepsis type: sepsis due to unspecified organism Qualified Code(s): A41.9 - Sepsis, unspecified organism Code(s): A41.9 - Sepsis, unspecified organism Status: Acute Assessment and Plan: Present on admission with fever, tachycardia, and leukocytosis. Source is cellulitis and abscess in the groin. WBC slowly trending down. He remains afebrile. Wound culture with moderate growth of Enterococcus. Blood cx negative. Treated with 3 days of IV vanc and Primaxin then switched to Unasyn 01/23 by ID. Clinically the cellulitic area appears improved since admission but still with an area of induration. Continue IV abx now. Patient may need repeat surgery. Appreciate ID input. (2) Abscess of pubic region: Code(s): L02.219 - Cutaneous abscess of trunk, unspecified Status: Acute Assessment and Plan: Patient with morbid obesity and poorly controlled DM presents with cellulitis and abscess with necrotizing subcutaneous infection. Now s/p complex I&D of a necrotizing soft tissue infection involving the left pubis/groin measuring approximately 36 x 30 x 10 cm with washout and placement of wound VAC by Dr Feliz 01/21/21. Wound culture growing Enterococcus species sensitive to ampicillin. He remains on Unasyn. WBC peaked at 23K and slowly trending down to 11K today. Dankins added to the wound vac without benefit and now Wound vac off. Awaiting Gen Surgery re-evaluation today to see if patietn will need repeat I&D. Continue current abx. Appreciate general surgery input. (3) Hyponatremia: Code(s): E87.1 - Hypo-osmolality and hyponatremia Status: Acute Assessment and Plan: Na low on admission at 129. With IV fluids, Cr climbed to 130 but then drifted down to 125 range. Prior Na level was 136 last year. Rebecca <5 and UCr 123 with FENa of 0.07%. NS x 2L over 48 hours. Na improved. Na remains stable with Lasix. Will continue to monitor for now. (4) TESS (acute kidney injury): Code(s): N17.9 - Acute kidney failure, unspecified Status: Acute Assessment and Plan: Cr 0.7 on admission but trending up to 2.2 on 01/25. He was on IV fluids from surgery which were stopped 01/24. Renal US normal. Probably ATN from the sepsis and urine retention but consider contrast induced nephropathy since he received contrast on 01/20. Rebecca<5 so he received a liter of NS with improvement in his Na level and Cr. Having good UOP as well so NS IV x 1L repeated with again improvement in Na level and Cr. CXR concerning for fluid overload so Lasix IV started and he had good UOP and Cr stable today at 1.5. Still off O2 and he no longer feels SOB. Continue Lasix IV. Following strict Intake/output. (5) Urine retention: Code(s): R33.9 - Retention of urine, unspecified Status: Acute Assessment and Plan: Patient had scrotal edema and hidden penis. He was voiding well initially but then began to have trouble voiding. Lombardo catheter placed and he had 1700mL out. Urine retention may have contributed to his TESS. Voiding trial when he is more ambulatory. 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 He takes 70/30 with 55-60U in the morning and 40-45U in the evening as well as metformin BID at home. Metformin on hold due to renal function. music educator and communications director consulted. Diab Educator recommended basal/bolus regiment and patient agreed to try this regiment; this was started 7 PM. Glucose reviewed on 02/01. Glucose still
--- NOTE | 2021-02-01 17:35 | PM.PNGS ---
Progress Note: A&P Assessment and Plan (1) Necrotizing subcutaneous infection: Code(s): M72.6 - Necrotizing fasciitis Status: Acute Assessment and Plan: Not much improvement with the instill wound VAC (irrigating Dakin's solution) and there was leaking from the dressing. I discussed the wound appearance and purulent drainage/tunneling with Dr. Feliz, although overall erythema and induration does seem somewhat improved. Will switch to wet to dry dressings for now and Dr. Feliz will re-evaluate again tomorrow. WBC continues to trend down to 11,000 today and he remains afebrile. Minimal improvement in his pain. Additional Plan I have discussed the plan of care with Dr. Feliz. Subjective Subjective Date/Time Seen: 02/01/21 13:35 Post Op day: 11 Patient reports: still having pain (scrotum and pubis) and afebrile Interval history: Patient seen today with the wound care nurses. He reports still having similar pain with minimal if any improvement in his scrotum. He is still having issues with getting out of bed and into the chair due to his pain. No other complaints at this time. Review of Systems Review of Systems: All systems reviewed & are unremarkable except as noted in HPI and below Exam Const: General: comfortable and no acute distress Orientation/consciousness: patient oriented x3 Resp: Effort & Inspection: normal respiratory effort Auscultation: diminished lung sounds Cardio: Rate: regular rate Rhythm: regular rhythm : Other: Left groin wound VAC dressing removed. There was a small amount of purulent fluid in the base of the wound with some dusky tissue just in the center of the base of the wound, the remaining areas of the wound have granulation tissue forming. There were two new tunnels noted directly towards the inguinal area (about 6 cm deep) and tunneling up towards the waistline laterally (about 12 cm) with cloudy purulent red drainage. Induration and erythema over pubis does seem improved, but still significant induration extending inferiorly down along the left side of the pubis towards the scrotum. No crepitus. Urinary Catheter: Urinary Catheter: patent and draining and urine clear Neuro: General: moves all extremities and no focal motor deficits Gait exam (Neuro): Unable to assess gait Psych: Mental Status: mental status grossly normal Insight: Fair insight present (Psych) Judgement: Fair judgement present (Psych) Objective Data Vital Signs Vital Signs: Vital Signs - 24 hr 01/31/21 20:00 01/31/21 21:16 02/01/21 02:38 Temperature 97.8 F Pulse Rate 91 92 Respiratory Rate 18 Blood Pressure 132/79 Pulse Oximetry 96 98 94 02/01/21 05:39 02/01/21 08:00 02/01/21 09:51 Temperature 97.2 F L Pulse Rate 82 82 Respiratory Rate 18 18 Blood Pressure 162/90 H Pulse Oximetry 96 96 96 02/01/21 10:34 02/01/21 14:00 Temperature 98.0 F Pulse Rate 101 H Respiratory Rate 18 Blood Pressure 179/103 H 149/87 H Pulse Oximetry 94 Intake/Output Intake/Output: Intake & Output 01/29/21 01/30/21 01/31/21 02/01/21 23:59 23:59 23:59 23:59 Intake Total 3680 4730 5660 1860 Output Total 3800 6000 5850 2900 Balance -120 1270 -190 -1040 Meds/Results Medications: Active Medications Generic Name Dose Route Start Last Admin Trade Name Freq PRN Reason Stop Dose Admin Acetaminophen 650 mg 01/20/21 15:28 01/21/21 17:38 Acetaminophen 325 Mg Tablet PO 650 mg Q4H PRN Administration Mild Pain (1-3) or Fever Hydrocodone Bitart/Acetaminophen 1 tab 01/20/21 15:28 02/01/21 09:37 Hydrocodone/Acetaminophen (*Crx) 5-325 Mg Tablet PO 02/04/21 11:44 1 tab Q4H PRN Administration Pain Rated 4-6 Hydrocodone Bitart/Acetaminophen 1 tab 01/23/21 11:44 02/01/21 12:34 Hydrocodone/Acetaminophen (*Crx) 10-325 Mg Tablet PO 02/04/21 11:44 1 tab Q4H PRN Administration Pain Rated 7-10 Bisacodyl 5 mg 01/24/21 12:10 02/01/21 08:36 Bisacodyl 5 M
[2021-02-01 17:38] LABS: Glucose Point of Care 194 mg/dl (65-105)
[2021-02-01] MEDS: FUROSEMIDE INJ 40 MG/4 ML VIAL IV PUSH (17:42)
[2021-02-01] MEDS: INSULIN ASPART (*BKC) 100 UNITS/ML 22 UNITS SUB-Q (17:45)
[2021-02-01] MEDS: INSULIN GLARGINE (*BKC) 100 UNITS/ML 65 UNITS SUB-Q (20:44)
[2021-02-01 21:39] LABS: Glucose Point of Care 202 mg/dl (65-105)
[2021-02-02] VITALS (9 sets, daily range): BP systolic 121–186; BP diastolic 72–104; PULSE 83–117; RESP 18–20; TEMP 36.3–37; O2SAT 91–97
[2021-02-02] MEDS: AMPICILLIN SODIUM/SULBACTAM 3 GM in SODIUM CHLORIDE 0.9% IV 100 ML IVPB ×4 (00:35→17:38)
[2021-02-02 07:00] LABS: Basophils Absolute Auto 0.1 K/mm3 (0.0-0.1); Basophils Percent Auto 0.9 % (0.2-1.2); Eosinophils Absolute Auto 0.3 K/mm3 (0-0.3); Eosinophils Percent Auto 2.4 % (0-4.4); Hematocrit 39.5 % (42.0-52.0); Hemoglobin 12.2 g/dL (14.0-18.0); Immature Granulocyte Absolute 0.62 K/mm3 (0.00-0.031); Immature Granulocyte Percent A 5.5 % (0-0.5); Lymphocytes Absolute Auto 2.19 K/mm3 (0.9-3.2); Lymphocytes Percent Auto 19.3 % (18.3-44.2); Mean Corpuscular HGB Conc 30.9 g/dl (32-36); Mean Corpuscular Hemoglobin 27.7 pg (26-34); Mean Corpuscular Volume 89.8 fl (80-100); Mean Platelet Volume 9.1 fl (7.4-10.4); Monocytes Absolute Auto 0.8 K/mm3 (0.1-0.6); Monocytes Percent Auto 7.1 % (2.6-8.5); Neutrophils Absolute Auto 7.3 K/mm3 (1.3-6.7); Neutrophils Percent Auto 64.8 % (45.5-73.1); Platelet Count Result 235 k/mm3 (150-375); Red Cell Distribution Width 14.7 % (11.5-14.5); White Blood Count 11.3 K/mm3 (4.5-10.0)
[2021-02-02 07:04] LABS: Alanine Aminotransferase 24 U/L (4-50); Albumin Level 3.1 g/dL (3.5-5.1); Alkaline Phosphatase 57 U/L (38-126); Anion Gap 3 mmol/L (8-16); Aspartate Amino Transferase 45 U/L (17-59); Bilirubin,Total 0.4 mg/dL (0.2-1.3); Blood Urea Nitrogen 26 mg/dL (9-20); Calcium 8.5 mg/dL (8.4-10.2); Carbon Dioxide 33 mmol/L (22-30); Chloride 101 mmol/L (98-107); Estimated CRCL calculation 101 ml/min; Estimated Glomerular Filt Rate 53; Glucose 183 mg/dL (75-110); Potassium 4.6 mmol/L (3.4-5.0); Sodium 137 mmol/L (137-145)
--- NOTE | 2021-02-02 07:20 | PM.PNGS ---
Progress Note: A&P Assessment and Plan (1) Necrotizing subcutaneous infection: Code(s): M72.6 - Necrotizing fasciitis Status: Acute Assessment and Plan: better, sepsis resolved, WBC normalized, cont local wound care for now Subjective Subjective Date/Time Seen: 02/02/21 07:20 feels ok, still c soreness in L groin although improved Review of Systems Review of Systems: All systems reviewed & are unremarkable except as noted in HPI and below Exam Const: General: cooperative, no acute distress and ill appearing Nutritional Appearance: obese Orientation/consciousness: patient oriented x3 Resp: Effort & Inspection: normal respiratory effort Auscultation: diminished lung sounds Cardio: Rate: regular rate Rhythm: regular rhythm GI: Inspection: normal to inspection GI Palp: Yes Soft to palpation and No Tenderness to palpation present (GI) Skin: Other: moderate induration from L groin extending into penis/scrotum, induration in R groin improved, tissue looks viable, no purulent drainage noted Objective Data Vital Signs Vital Signs: Vital Signs - 24 hr 02/01/21 08:00 02/01/21 09:51 02/01/21 10:34 Temperature Pulse Rate 82 Respiratory Rate 18 Blood Pressure 179/103 H Pulse Oximetry 96 96 02/01/21 14:00 02/01/21 20:35 02/01/21 21:32 Temperature 36.7 C 36.7 C Pulse Rate 101 H 95 Respiratory Rate 18 22 H Blood Pressure 149/87 H 155/83 H Pulse Oximetry 94 94 95 02/01/21 22:45 02/02/21 02:39 02/02/21 06:00 Temperature 36.3 C L Pulse Rate 99 85 85 Respiratory Rate 20 Blood Pressure 152/81 H Pulse Oximetry 95 94 97 Intake/Output Intake/Output: Intake & Output 01/30/21 01/31/21 02/01/21 02/02/21 23:59 23:59 23:59 23:59 Intake Total 4730 5660 2180 490 Output Total 8526 4812 1978 2500 [facility] -1270 -190 -2320 Meds/Results Medications: Active Medications Generic Name Dose Route Start Last Admin Trade Name Freq PRN Reason Stop Dose Admin Acetaminophen 650 mg 01/20/21 15:28 01/21/21 17:38 Acetaminophen 325 Mg Tablet PO 650 mg Q4H PRN Administration Mild Pain (1-3) or Fever Hydrocodone Bitart/Acetaminophen 1 tab 01/20/21 15:28 02/01/21 09:37 Hydrocodone/Acetaminophen (*Crx) 5-325 Mg Tablet PO 02/04/21 11:44 1 tab Q4H PRN Administration Pain Rated 4-6 Hydrocodone Bitart/Acetaminophen 1 tab 01/23/21 11:44 02/01/21 22:46 Hydrocodone/Acetaminophen (*Crx) 10-325 Mg Tablet PO 02/04/21 11:44 1 tab Q4H PRN Administration Pain Rated 7-10 Bisacodyl 5 mg 01/24/21 12:10 02/01/21 08:36 Bisacodyl 5 Mg Tablet Ec PO 5 mg QAM PAM Administration Dextrose 12.5 gm 01/21/21 03:33 Dextrose 50% 25 Gm/50 Ml Syringe IV PUSH PRN PRN Hypoglycemia Protocol Enoxaparin Sodium 40 mg 01/21/21 09:00 02/01/21 20:44 Enoxaparin 40 Mg/0.4 Ml Syringe SUB-Q 40 mg Q12HR PAM Administration Fluticasone Propionate 2 spray 01/24/21 12:10 02/01/21 08:32 Fluticasone Propionate 0.05% Na Spr 16 Gm Btl (*Bkc) NASAL 2 spray QAM PAM Administration Furosemide 40 mg 02/01/21 17:00 02/01/21 17:42 Furosemide Inj 40 Mg/4 Ml Vial IV PUSH 40 mg BID PAM Administration Gabapentin 600 mg 01/21/21 09:00 02/01/21 17:44 Gabapentin 300 Mg Capsule PO 600 mg TID PAM Administration Glucagon 1 mg 01/21/21 03:33 Glucagon For Inj 1 Mg Vial IM PRN PRN Hypoglycemia Protocol Glucose 15 gm 01/21/21 03:33 Glucose Oral Gel 15 Gm Of Glucse In 37.5 Gm Tube PO PRN PRN Hypoglycemia Protocol Dextrose 1,000 mls @ 100 mls/hr 01/21/21 03:33 Dextrose 5% 1,000 Ml IVPB PRN PRN Hypoglycemia Protocol Ampicillin Sodium/Sulbactam 100 mls @ 200 mls/hr 01/24/21 18:00 02/02/21 05:40 Sodium 3 gm/ Sodium Chloride IVPB 200 mls/hr Q6HR PAM Administration Insulin Aspart 4 - 8 units 01/21/21 08:00 02/01/21 17:45 Insulin Aspart (*Bk) 100 Un
[2021-02-02] MEDS: HYDROcodone/acetaminophen (*CRX) 10-325 MG TABLET 1 TAB PO ×2 (08:23→20:31)
[2021-02-02] MEDS: ENOXAPARIN 40 MG/0.4 ML SYRINGE SUB-Q ×2 (08:23→20:31)
[2021-02-02] MEDS: PANTOPRAZOLE 40 MG TABLET PO (08:24)
[2021-02-02] MEDS: FUROSEMIDE INJ 40 MG/4 ML VIAL IV PUSH (08:24)
[2021-02-02] MEDS: FLUTICASONE PROPIONATE 0.05% NA SPR 16 GM BTL (*BKC) 2 SPRAY NASAL (08:24)
[2021-02-02] MEDS: GABAPENTIN 300 MG CAPSULE 600 MG PO ×3 (08:24→17:38)
[2021-02-02] MEDS: polyethylene glycoL 3350 17 GM POWD.PACK PO (08:25)
[2021-02-02] MEDS: INSULIN ASPART (*BKC) 100 UNITS/ML 22 UNITS SUB-Q ×3 (09:20→17:37)
[2021-02-02 09:59] LABS: Glucose Point of Care 158 mg/dl (65-105)
--- NOTE | 2021-02-02 10:54 | PM.IMPN ---
Progress Note: A&P Assessment and Plan (1) Sepsis: Qualifiers: Sepsis acute organ dysfunction status: without acute organ dysfunction Sepsis type: sepsis due to unspecified organism Qualified Code(s): A41.9 - Sepsis, unspecified organism Code(s): A41.9 - Sepsis, unspecified organism Status: Acute Assessment and Plan: Present on admission with fever, tachycardia, and leukocytosis. Source is cellulitis and abscess in the groin. WBC slowly trending down. He remains afebrile. Wound culture with moderate growth of Enterococcus. Blood cx negative. Treated with 3 days of IV vanc and Primaxin then switched to Unasyn 01/23 by ID. Clinically the cellulitic area appears improved since admission but still with an area of induration and purulent damion in the wound. Continue IV abx now. Patient may need repeat surgery. Appreciate ID input. (2) Abscess of pubic region: Code(s): L02.219 - Cutaneous abscess of trunk, unspecified Status: Acute Assessment and Plan: Patient with morbid obesity and poorly controlled DM presents with cellulitis and abscess with necrotizing subcutaneous infection. Now s/p complex I&D of a necrotizing soft tissue infection involving the left pubis/groin measuring approximately 36 x 30 x 10 cm with washout and placement of wound VAC by Dr Feliz 01/21/21. Wound culture growing Enterococcus species sensitive to ampicillin. He remains on Unasyn. WBC peaked at 23K and slowly trending down to 11K today and stable. Dankins added to the wound vac without benefit and now surgery determining best course of action. Discussed with surgery yesterday after their evaluation and they noted tunneled pockets with purulent material. Discussed with Gen Surgery again today who will re-evaluate today to determine next steps. Continue current abx. Appreciate general surgery input. Change to Augment at discharge. (3) Hyponatremia: Code(s): E87.1 - Hypo-osmolality and hyponatremia Status: Acute Assessment and Plan: Na low on admission at 129. With IV fluids, Cr climbed to 130 but then drifted down to 125 range. Prior Na level was 136 last year. Rebecca <5 and UCr 123 with FENa of 0.07%. NS x 2L over 48 hours. Na improved to 137 today. Na remains stable with Lasix. Will continue to monitor for now. (4) TESS (acute kidney injury): Code(s): N17.9 - Acute kidney failure, unspecified Status: Acute Assessment and Plan: Cr 0.7 on admission but trending up to 2.2 on 01/25. He was on IV fluids from surgery which were stopped 01/24. Renal US normal. Probably ATN from the sepsis and urine retention but consider contrast induced nephropathy since he received contrast on 01/20. Rebecca<5 so he received NS x2L with improvement in his Na level and Cr. CXR concerning for fluid overload so Lasix IV started and he had good UOP and Cr stable today at 1.4. Cr of 0.7 on admission may have been falsely low and/or 1.4 is new baseline and/or related to the abx. He no longer feels SOB. Following strict Intake/output. Change to oral Lasix. (5) Urine retention: Code(s): R33.9 - Retention of urine, unspecified Status: Acute Assessment and Plan: Patient had scrotal edema and hidden penis. He was voiding well initially but then began to have trouble voiding probably related to the edema. Lombardo catheter placed and he had 1700mL out. Urine retention may have contributed to his TESS. Voiding trial when he is close to discharge. (6) Type 2 diabetes mellitus with hyperglycemia: Qualifiers: Diabetes mellitus fdc insulin use: with fdc use Qualified Code(s): E11.65 - Type 2 diabetes mellitus with hyperglycemia; Z79.4 - tank terminal gauger (current) use of insulin Code(s): E11.65 - Type 2 diabetes mellitus with hyperglycemia Status: Chronic Assessment and Plan: A1c 10.9%. He takes 70/30 with 55-60U in the morning and 40-45U in the evening as well a
[2021-02-02 13:58] LABS: Glucose Point of Care 208 mg/dl (65-105)
[2021-02-02] MEDS: INSULIN ASPART (*BKC) 100 UNITS/ML SUB-Q (14:03)
[2021-02-02 18:01] LABS: Glucose Point of Care 133 mg/dl (65-105)
[2021-02-02] MEDS: INSULIN GLARGINE (*BKC) 100 UNITS/ML 65 UNITS SUB-Q (20:32)
[2021-02-02 21:17] LABS: Glucose Point of Care 153 mg/dl (65-105)
[2021-02-02] MEDS: LORazepam (*CRX) 0.5 MG TABLET PO (22:34)
[2021-02-03] VITALS (8 sets, daily range): BP systolic 134–161; BP diastolic 80–87; PULSE 87–107; RESP 18–20; TEMP 36.2–37; O2SAT 91–97
[2021-02-03] MEDS: AMPICILLIN SODIUM/SULBACTAM 3 GM in SODIUM CHLORIDE 0.9% IV 100 ML IVPB ×3 (00:30→12:37)
[2021-02-03] MEDS: HYDROcodone/acetaminophen (*CRX) 10-325 MG TABLET 1 TAB PO ×2 (06:11→21:11)
[2021-02-03 06:32] LABS: Hematocrit 36.8 % (42.0-52.0); Hemoglobin 11.4 g/dL (14.0-18.0); Mean Corpuscular Hemoglobin 27.8 pg (26-34); Mean Corpuscular Volume 89.8 fl (80-100); Mean Platelet Volume 9.2 fl (7.4-10.4); Platelet Count Result 222 k/mm3 (150-375); White Blood Count 10.7 K/mm3 (4.5-10.0)
[2021-02-03 06:43] LABS: Anion Gap 5 mmol/L (8-16); Blood Urea Nitrogen 23 mg/dL (9-20); Calcium 8.6 mg/dL (8.4-10.2); Carbon Dioxide 31 mmol/L (22-30); Chloride 101 mmol/L (98-107); Estimated CRCL calculation 95 ml/min; Estimated Glomerular Filt Rate 49; Glucose 151 mg/dL (75-110); Potassium 4.1 mmol/L (3.4-5.0); Sodium 137 mmol/L (137-145)
[2021-02-03 08:12] LABS: Glucose Point of Care 155 mg/dl (65-105)
[2021-02-03] MEDS: GABAPENTIN 300 MG CAPSULE 600 MG PO ×3 (08:42→17:01)
[2021-02-03] MEDS: ENOXAPARIN 40 MG/0.4 ML SYRINGE SUB-Q ×2 (08:43→21:12)
[2021-02-03] MEDS: FLUTICASONE PROPIONATE 0.05% NA SPR 16 GM BTL (*BKC) 2 SPRAY NASAL (08:43)
[2021-02-03] MEDS: PANTOPRAZOLE 40 MG TABLET PO (08:43)
[2021-02-03] MEDS: polyethylene glycoL 3350 17 GM POWD.PACK PO (08:44)
[2021-02-03] MEDS: FUROSEMIDE 40 MG TABLET PO (08:44)
[2021-02-03] MEDS: INSULIN ASPART (*BKC) 100 UNITS/ML 22 UNITS SUB-Q ×3 (08:46→18:22)
[2021-02-03 12:43] LABS: Glucose Point of Care 177 mg/dl (65-105)
--- NOTE | 2021-02-03 14:56 | PM.IMPN ---
Progress Note: A&P Assessment and Plan (1) Sepsis: Qualifiers: Sepsis type: sepsis due to unspecified organism Sepsis acute organ dysfunction status: without acute organ dysfunction Qualified Code(s): A41.9 - Sepsis, unspecified organism Code(s): A41.9 - Sepsis, unspecified organism Status: Acute Assessment and Plan: Present on admission with fever, tachycardia, and leukocytosis. Source is cellulitis and abscess in the groin. WBC slowly trending down. He remains afebrile. Wound culture with moderate growth of Enterococcus. Blood cx negative. Treated with 3 days of IV vanc and Primaxin then switched to Unasyn 01/23 by ID. Clinically the cellulitic area appears improved since admission but still with an area of induration and purulent damion in the wound. No plans for repeat surgery. Change to Augmentin. Appreciate ID input. (2) Abscess of pubic region: Code(s): L02.219 - Cutaneous abscess of trunk, unspecified Status: Acute Assessment and Plan: Patient with morbid obesity and poorly controlled DM presents with cellulitis and abscess with necrotizing subcutaneous infection. Now s/p complex I&D of a necrotizing soft tissue infection involving the left pubis/groin measuring approximately 36 x 30 x 10 cm with washout and placement of wound VAC by Dr Feliz 01/21/21. Wound culture growing Enterococcus species sensitive to ampicillin. He remains on Unasyn. WBC peaked at 23K and slowly trending down to 10.7K today and stable. Dankins added to the wound vac without benefit and now surgery determining best course of action. Plan for dressing changes for now; wound vac stopped. Continue current abx. Appreciate general surgery input. Change to Augment (3) Hyponatremia: Code(s): E87.1 - Hypo-osmolality and hyponatremia Status: Acute Assessment and Plan: Na low on admission at 129. With IV fluids, Cr climbed to 130 but then drifted down to 125 range. Prior Na level was 136 last year. Rebecca <5 and UCr 123 with FENa of 0.07%. NS x 2L over 48 hours. Na has normalized. Will continue to monitor for now. (4) TESS (acute kidney injury): Code(s): N17.9 - Acute kidney failure, unspecified Status: Acute Assessment and Plan: Cr 0.7 on admission but trending up to 2.2 on 01/25. He was on IV fluids from surgery which were stopped 01/24. Renal US normal. Probably ATN from the sepsis and urine retention but consider contrast induced nephropathy since he received contrast on 01/20. Rebecca<5 so he received NS x2L with improvement in his Na level and Cr. CXR concerning for fluid overload so Lasix IV started and he had good UOP and Cr stable today at 1.5. Cr of 0.7 on admission may have been falsely low and/or 1.5 is new baseline and/or related to the abx. He no longer feels SOB. Following strict Intake/output. (5) Urine retention: Code(s): R33.9 - Retention of urine, unspecified Status: Acute Assessment and Plan: Patient had scrotal edema and hidden penis. He was voiding well initially but then began to have trouble voiding probably related to the edema. Lombardo catheter placed and he had 1700mL out. Urine retention may have contributed to his TESS. Voiding trial when he is close to discharge or at SNF. (6) Type 2 diabetes mellitus with hyperglycemia: Qualifiers: Diabetes mellitus intermediate insulin use: with intermediate use Qualified Code(s): E11.65 - Type 2 diabetes mellitus with hyperglycemia; Z79.4 - poultry dresser (current) use of insulin Code(s): E11.65 - Type 2 diabetes mellitus with hyperglycemia Status: Chronic Assessment and Plan: A1c 10.9%. He takes 70/30 with 55-60U in the morning and 40-45U in the evening as well as metformin BID at home. Metformin on hold due to renal function. health promotion educator and internal audit senior manager consulted. Diab Educator recommended basal/bolus regiment and patient agreed to try this regiment; this was started
--- NOTE | 2021-02-03 15:45 | PM.PNGS ---
Progress Note: A&P Assessment and Plan (1) Necrotizing subcutaneous infection: Code(s): M72.6 - Necrotizing fasciitis Status: Acute Assessment and Plan: WBC normalizing. Left groin wound looks good, but patient is still having a significant amount of pain with induration down the left groin to the scrotum. Will get a CT scan to further assess for an abscess. If this is negative, then we will continue local wound care and okay for him to be discharged to SNF. (2) TESS (acute kidney injury): Code(s): N17.9 - Acute kidney failure, unspecified Status: Acute (3) Morbid obesity with BMI of 60.0-69.9, adult: Code(s): E66.01 - Morbid (severe) obesity due to excess calories; Z68.44 - Body mass index [BMI] 60.0-69.9, adult Status: Chronic Additional Plan I have discussed the plan of care with Dr. Lanza. Subjective Subjective Date/Time Seen: 02/03/21 15:45 Patient reports: still having pain (scrotum and left pubis) and afebrile Interval history: Patient seen today with Dr. Lanza and wound care nurses. Still having same pain at scrotum and left pubis. No other complaints. WBC coming down. Review of Systems Review of Systems: All systems reviewed & are unremarkable except as noted in HPI and below Exam Const: General: no acute distress Nutritional Appearance: obese morbidly obese Skin: Other: Left inguinal wound with granulation tissue forming and multiple areas of tunneling, unchanged. Some cloudy sanguineous drainage. Unchanged induration extending down the left groin into scrotum. Hidden penis. Scrotum remains swollen with slight improvement. Neuro: General: moves all extremities and no focal motor deficits Psych: Judgement: Good judgement present (Psych) Objective Data Vital Signs Vital Signs: Vital Signs - 24 hr 02/02/21 16:22 02/02/21 21:38 02/02/21 22:39 Temperature 97.9 F 98.6 F Pulse Rate 98 98 83 Respiratory Rate 18 18 Blood Pressure 152/87 H 121/72 Pulse Oximetry 95 91 97 02/03/21 02:00 02/03/21 06:00 02/03/21 08:50 Temperature 98.6 F Pulse Rate 89 87 Respiratory Rate 18 18 Blood Pressure 148/80 H Pulse Oximetry 95 97 02/03/21 11:46 02/03/21 14:00 Temperature 97.9 F Pulse Rate 93 Respiratory Rate 20 Blood Pressure 161/87 H Pulse Oximetry 91 93 Intake/Output Intake/Output: Intake & Output 01/31/21 02/01/21 02/02/21 02/03/21 23:59 23:59 23:59 23:59 Intake Total 5660 2180 1850 1070 Output Total 5850 4500 4650 1000 Balance -190 -5611 -2802 70 Meds/Results Medications: Active Medications Generic Name Dose Route Start Last Admin Trade Name Freq PRN Reason Stop Dose Admin Acetaminophen 650 mg 01/20/21 15:28 01/21/21 17:38 Acetaminophen 325 Mg Tablet PO 650 mg Q4H PRN Administration Mild Pain (1-3) or Fever Hydrocodone Bitart/Acetaminophen 1 tab 01/20/21 15:28 02/01/21 09:37 Hydrocodone/Acetaminophen (*Crx) 5-325 Mg Tablet PO 02/04/21 11:44 1 tab Q4H PRN Administration Pain Rated 4-6 Hydrocodone Bitart/Acetaminophen 1 tab 01/23/21 11:44 02/03/21 06:11 Hydrocodone/Acetaminophen (*Crx) 10-325 Mg Tablet PO 02/04/21 11:44 1 tab Q4H PRN Administration Pain Rated 7-10 Amlodipine Besylate 5 mg 02/03/21 15:05 Amlodipine Besylate 5 Mg Tablet PO QAM PAM Amoxicillin/Clavulanate Potassium 1 tablet 02/03/21 22:00 Amoxicillin/Clavulanate K 500-125 Mg Tab PO Q8HR PAM Dextrose 12.5 gm 01/21/21 03:33 Dextrose 50% 25 Gm/50 Ml Syringe IV PUSH PRN PRN Hypoglycemia Protocol Enoxaparin Sodium 40 mg 01/21/21 09:00 02/03/21 08:43 Enoxaparin 40 Mg/0.4 Ml Syringe SUB-Q 40 mg Q12HR PAM Administration Fluticasone Propionate 2 spray 01/24/21 12:10 02/03/21 08:43 Fluticasone Propionate 0.05% Na Spr 16 Gm Btl (*Bkc) NASAL 2 spray QAM PAM Administration Furosemide 40 mg 02/03/21 09:00 02/03/21 08:44 Furosemide 40 Mg Tablet PO 40 mg
--- NOTE | 2021-02-03 16:22 | PCPTNOTE ---
The patient treatment was not able to be completed today. Will plan to continue treatment per plan of care.
[2021-02-03] MEDS: amLODIPine BESYLATE 5 MG TABLET PO (17:01)
[2021-02-03 17:47] LABS: Glucose Point of Care 181 mg/dl (65-105)
[2021-02-03] MEDS: AMOXICILLIN/CLAVULANATE K 500-125 MG TAB 1 TABLET PO (21:11)
[2021-02-03] MEDS: INSULIN GLARGINE (*BKC) 100 UNITS/ML 65 UNITS SUB-Q (21:12)
[2021-02-03 22:09] LABS: Glucose Point of Care 206 mg/dl (65-105)
[2021-02-04] VITALS (7 sets, daily range): BP systolic 120–145; BP diastolic 58–88; PULSE 89–103; RESP 18–20; TEMP 36.3–37.3; O2SAT 93–97
[2021-02-04 06:41] LABS: Hematocrit 35.7 % (42.0-52.0); Mean Corpuscular HGB Conc 30.8 g/dl (32-36); Mean Corpuscular Hemoglobin 27.1 pg (26-34); Mean Corpuscular Volume 87.9 fl (80-100); Mean Platelet Volume 9.5 fl (7.4-10.4); Platelet Count Result 224 k/mm3 (150-375); Red Blood Count 4.06 M/mm3 (4.6-6.20); White Blood Count 9.8 K/mm3 (4.5-10.0)
[2021-02-04] MEDS: AMOXICILLIN/CLAVULANATE K 500-125 MG TAB 1 TABLET PO ×3 (06:46→21:32)
[2021-02-04 06:59] LABS: Anion Gap 5 mmol/L (8-16); Blood Urea Nitrogen 21 mg/dL (9-20); Calcium 8.6 mg/dL (8.4-10.2); Carbon Dioxide 32 mmol/L (22-30); Chloride 101 mmol/L (98-107); Estimated CRCL calculation 95 ml/min; Estimated Glomerular Filt Rate 49; Glucose 162 mg/dL (75-110); Potassium 4.2 mmol/L (3.4-5.0); Sodium 138 mmol/L (137-145)
[2021-02-04 08:28] LABS: Glucose Point of Care 152 mg/dl (65-105)
[2021-02-04] MEDS: INSULIN ASPART (*BKC) 100 UNITS/ML 22 UNITS SUB-Q ×3 (09:01→17:32)
[2021-02-04] MEDS: GABAPENTIN 300 MG CAPSULE 600 MG PO ×3 (09:02→17:31)
[2021-02-04] MEDS: HYDROcodone/acetaminophen (*CRX) 10-325 MG TABLET 1 TAB PO (09:03)
[2021-02-04] MEDS: PANTOPRAZOLE 40 MG TABLET PO (09:03)
[2021-02-04] MEDS: amLODIPine BESYLATE 5 MG TABLET PO (09:03)
[2021-02-04] MEDS: polyethylene glycoL 3350 17 GM POWD.PACK PO (09:03)
[2021-02-04] MEDS: ENOXAPARIN 40 MG/0.4 ML SYRINGE SUB-Q ×2 (09:03→21:32)
[2021-02-04] MEDS: FUROSEMIDE 40 MG TABLET PO (09:03)
[2021-02-04] MEDS: FLUTICASONE PROPIONATE 0.05% NA SPR 16 GM BTL (*BKC) 2 SPRAY NASAL (09:07)
--- NOTE | 2021-02-04 11:14 | PCNFU ---
Nutrition Follow-Up Complete: Nutrition Diagnosis: Inadequate Oral Intake as related to paniculits as evidenced by reported poor po intake. Nutrition Goal: Meet estimated nutritional needs Goal is in progress. Nutrition recommendation: Continue with Diabetic Consistent Carbohydrate diet and Glucerna shake (220 calories and 10 grams of protein) BID. Last recorded weight is 210 kg. Recommend obtaining new weight. Bowel Motility: Last documented on 02/03. Labs Reviewed:Hgb(11), Hct(35.7), GFR(49), BUN(21), Cr(1.5), Glu(162) Meds Noted: [place], Norvasc, Amoxicillin, Lovenox, Fluticasone, Lasix, Glucagon, Novolog, Lantus, Cozaar, Lorazepam, Glucophage, Zofran, Protonix, Miralax. Additional Notes: Patient has a reddened bilateral scrotum, blister on right hip, wound on abdomen, and a left groin ulcer. Patient has a wound vac on left groin. Patient currently is on a fluid restriction. Agree with diet orders, patient is consuming 100% of meals/ supplements and has an improved appetite. Will monitor every 5 days.
--- NOTE | 2021-02-04 11:46 | PCNSR ---
On 02/04/21, the student,Ashley Chan, provided care and completed [facility] documentation on this patient. I have reviewed the student's documentation and agree with the findings.
[2021-02-04 12:01] LABS: Glucose Point of Care 185 mg/dl (65-105)
--- NOTE | 2021-02-04 14:28 | PM.PNGS ---
Progress Note: A&P Assessment and Plan (1) Necrotizing subcutaneous infection: Code(s): M72.6 - Necrotizing fasciitis Status: Acute Assessment and Plan: adequately debrided and now healing with good granulation tissue and minimal tracking. persistent suprapubic pain and scrotal swelling noted. No evidence of additional abscess or necrotizing infection in this area. Will be very hard to improve due to patient's obesity and the dependent position of his pubis and perineum. Patient may be transferred to care home facility at the discretion of the hospitalist and infectious disease specialist. No additional surgery planned at this time. (2) Morbid obesity with BMI of 60.0-69.9, adult: Code(s): E66.01 - Morbid (severe) obesity due to excess calories; Z68.44 - Body mass index [BMI] 60.0-69.9, adult Status: Chronic Assessment and Plan: This and his poorly controlled diabetes make current illness extremely hard to correct. Subjective Subjective Date/Time Seen: 02/04/21 14:28 Patient reports: still having pain ( pubic and scrotal pain) Review of Systems Constitutional: Constitutional: Denies chills and Denies fever(s) Exam : Male General Exam: Yes tenderness ( pubic area) and Yes other ( left groin wound clean with minimal tracking.) Penis: Yes other ( unable to visualize due to obesity and scrotal edema) Scrotum: edematous Urinary Catheter: Urinary Catheter: patent and draining Objective Data Vital Signs Vital Signs: Vital Signs - 24 hr 02/03/21 22:00 02/03/21 23:25 02/03/21 23:52 Temperature 36.2 C L Pulse Rate 107 H 107 H 102 H Respiratory Rate 20 Blood Pressure 134/83 Pulse Oximetry 92 94 93 02/04/21 03:55 02/04/21 06:00 Temperature 36.4 C L Pulse Rate 103 H 89 Respiratory Rate 20 Blood Pressure 126/88 Pulse Oximetry 93 97 Intake/Output Intake/Output: Intake & Output 02/01/21 02/02/21 02/03/21 02/04/21 23:59 23:59 23:59 23:59 Intake Total 2180 1850 1700 630 Output Total 4500 4650 2650 1300 Balance -9446 -9849 -950 -714 Meds/Results Medications: Active Medications Generic Name Dose Route Start Last Admin Trade Name Freq PRN Reason Stop Dose Admin Acetaminophen 650 mg 01/20/21 15:28 01/21/21 17:38 Acetaminophen 325 Mg Tablet PO 650 mg Q4H PRN Administration Mild Pain (1-3) or Fever Amlodipine Besylate 5 mg 02/03/21 15:05 02/04/21 09:03 Amlodipine Besylate 5 Mg Tablet PO 5 mg QAM PAM Administration Amoxicillin/Clavulanate Potassium 1 tablet 02/03/21 22:00 02/04/21 13:48 Amoxicillin/Clavulanate K 500-125 Mg Tab PO 1 tablet Q8HR PAM Administration Dextrose 12.5 gm 01/21/21 03:33 Dextrose 50% 25 Gm/50 Ml Syringe IV PUSH PRN PRN Hypoglycemia Protocol Enoxaparin Sodium 40 mg 01/21/21 09:00 02/04/21 09:03 Enoxaparin 40 Mg/0.4 Ml Syringe SUB-Q 40 mg Q12HR PAM Administration Fluticasone Propionate 2 spray 01/24/21 12:10 02/04/21 09:07 Fluticasone Propionate 0.05% Na Spr 16 Gm Btl (*Bkc) NASAL 2 spray QAM PAM Administration Furosemide 40 mg 02/03/21 09:00 02/04/21 09:03 Furosemide 40 Mg Tablet PO 40 mg DAILY PAM Administration Gabapentin 600 mg 01/21/21 09:00 02/04/21 13:48 Gabapentin 300 Mg Capsule PO 600 mg TID PAM Administration Glucagon 1 mg 01/21/21 03:33 Glucagon For Inj 1 Mg Vial IM PRN PRN Hypoglycemia Protocol Glucose 15 gm 01/21/21 03:33 Glucose Oral Gel 15 Gm Of Glucse In 37.5 Gm Tube PO PRN PRN Hypoglycemia Protocol Dextrose 1,000 mls @ 100 mls/hr 01/21/21 03:33 Dextrose 5% 1,000 Ml IVPB PRN PRN Hypoglycemia Protocol Insulin Aspart 4 - 8 units 01/21/21 08:00 02/04/21 11:59 Insulin Aspart (*Bkc) 100 Units/Ml SUB-Q Not Given TIDWM PAM Protocol Insulin Aspart 22 units 02/01/21 17:00 02/04/21 13:48 Insulin Aspart (*Bkc) 100 Units/Ml SUB-
[2021-02-04 17:10] LABS: Glucose Point of Care 136 mg/dl (65-105)
--- NOTE | 2021-02-04 17:19 | PM.IMPN ---
Progress Note: A&P Assessment and Plan (1) Sepsis: Qualifiers: Sepsis type: sepsis due to unspecified organism Sepsis acute organ dysfunction status: without acute organ dysfunction Qualified Code(s): A41.9 - Sepsis, unspecified organism Code(s): A41.9 - Sepsis, unspecified organism Status: Acute Assessment and Plan: Present on admission with fever, tachycardia, and leukocytosis. Source is cellulitis and abscess in the groin. WBC slowly trended down to normal now. He remains afebrile. Wound culture with moderate growth of Enterococcus. Blood cx negative. Treated with 3 days of IV vanc and Primaxin then switched to Unasyn 01/23 by ID. Clinically the cellulitic area appears improved since admission but still with an area of induration and purulent damion in the wound. No plans for repeat surgery. Changed to Augmentin 02/03. Appreciate ID input. (2) Abscess of pubic region: Code(s): L02.219 - Cutaneous abscess of trunk, unspecified Status: Acute Assessment and Plan: Patient with morbid obesity and poorly controlled DM presents with cellulitis and abscess with necrotizing subcutaneous infection. Now s/p complex I&D of a necrotizing soft tissue infection involving the left pubis/groin measuring approximately 36 x 30 x 10 cm with washout and placement of wound VAC by Dr Feliz 01/21/21. Wound culture growing Enterococcus species sensitive to ampicillin. He remains on Unasyn. WBC peaked at 23K and slowly trended to normal. Dankins added to the wound vac without benefit and now surgery determining best course of action. Plan for dressing changes for now; wound vac stopped. Continue current abx with Augmentin. Appreciate general surgery input. (3) Hyponatremia: Code(s): E87.1 - Hypo-osmolality and hyponatremia Status: Acute Assessment and Plan: Na low on admission at 129. With IV fluids, Cr climbed to 130 but then drifted down to 125 range. Prior Na level was 136 last year. Rebecca <5 and UCr 123 with FENa of 0.07% and thus received NS x 2L over 48 hours. Na has normalized. Will continue to monitor for now. (4) TESS (acute kidney injury): Code(s): N17.9 - Acute kidney failure, unspecified Status: Acute Assessment and Plan: Cr 0.7 on admission but trending up to 2.2 on 01/25. He was on IV fluids from surgery which were stopped 01/24. Renal US normal. Probably ATN from the sepsis and urine retention but consider contrast induced nephropathy since he received contrast on 01/20. Rebecca<5 so he received NS x2L with improvement in his Na level and Cr. CXR concerning for fluid overload so Lasix IV started and he had good UOP and Cr stable today at 1.5. Cr of 0.7 on admission may have been falsely low and/or 1.5 is new baseline and/or related to the abx. He no longer feels SOB. Following strict Intake/output. Check Echo (5) Urine retention: Code(s): R33.9 - Retention of urine, unspecified Status: Acute Assessment and Plan: Patient had scrotal edema and hidden penis. He was voiding well initially but then began to have trouble voiding probably related to the edema. Lombardo catheter placed and he had 1700mL out. Urine retention may have contributed to his TESS. Voiding trial when he is close to discharge or at SNF. (6) Type 2 diabetes mellitus with hyperglycemia: Qualifiers: Diabetes mellitus terminal clerk insulin use: with custodial use Qualified Code(s): E11.65 - Type 2 diabetes mellitus with hyperglycemia; Z79.4 - MCFP (current) use of insulin Code(s): E11.65 - Type 2 diabetes mellitus with hyperglycemia Status: Chronic Assessment and Plan: A1c 10.9%. He takes 70/30 with 55-60U in the morning and 40-45U in the evening as well as metformin BID at home. Metformin on hold due to renal function. software educator and drywall finishing foreman consulted. Diab Educator recommended basal/bolus regiment and patient agreed to try this regim
[2021-02-04] MEDS: INSULIN GLARGINE (*BKC) 100 UNITS/ML 65 UNITS SUB-Q (21:32)
[2021-02-04 21:43] LABS: Glucose Point of Care 120 mg/dl (65-105)
--- NOTE | 2021-02-05 | ECHO_ITS ---
Patient Info Name: Howard Gambino Age: 50 years : 1970 Gender: Male Ht: 70 in Wt: 462 lbs BSA: 3.35 m2 HR: 102 bpm BP: 180 / 90 mmHg Technical Quality: Fair Exam Date: 02/05/2021 11:33 AM Exam Location: [facility] Pulmonary Patient Status: Inpatient Admit Date: 01/21/2021 Staff Ordering Physician: Orville Bacon MD Lining Setter: Andre Parnell RDCS, RT Attending Provider: Luisa Fajardo NP Exam Type: CA echo doppler color flow Study Info Indications R06.02 - Shortness of breath Complete two-dimensional, color flow and Doppler transthoracic echocardiogram is performed with contrast to opacify the left ventricle and to improve the deliniation of the left ventricle endocardial borders. Summary 1. Left ventricular chamber dimension is normal. 2. Definity contrast administered improved wall motion interpretation. 3. Left ventricular systolic function is normal, estimated at 60-65%. 4. There is severe concentric increased left ventricular wall thickness. 5. The left ventricular diastolic function is grade I diastolic dysfunction. 6. E/e' 7 is not elevated. 7. Left atrial chamber dimension is moderately enlarged. 8. There is trace tricuspid valve regurgitation. 9. Dilated inferior vena cava with <50% collapse upon inspiration consistent with significantly elevated right atrial pressure, 15 mmHg. 10. There is trivial pericardial effusion. Left Ventricle E/e' 7 is not elevated. Definity contrast administered improved wall motion interpretation. Left ventricular chamber dimension is normal. Left ventricular systolic function is normal, estimated at 60-65%. There is severe concentric increased left ventricular wall thickness. The left ventricular diastolic function is grade I diastolic dysfunction. Right Ventricle Right ventricular chamber dimension is not well visualized. Left Atria Left atrial chamber dimension is moderately enlarged. Right Atria Right atrial chamber dimension is not well visualized. Aortic Valve The aortic valve is trileaflet. There is no aortic valve stenosis. There is no aortic valve regurgitation. Pulmonic Valve There is no pulmonic regurgitation. Mitral Valve There is no mitral valve stenosis. There is no mitral valve regurgitation. Tricuspid Valve There is trace tricuspid valve regurgitation. RVSP is not calculated due to an inadequate TR jet. Pericardium/Pleural There is trivial pericardial effusion. Inferior Vena Cava Dilated inferior vena cava with <50% collapse upon inspiration consistent with significantly elevated right atrial pressure, 15 mmHg. Aorta The aortic root size at the sinus of Valsalva is normal. Left Ventricular Outflow Tract Name Value Normal LVOT 2D LVOT Diameter 2.1 cm LVOT Doppler LVOT Peak Gradient 7 mmHg LVOT Mean Gradient 4 mmHg LVOT VTI 25 cm LVOT VTI/AV VTI Ratio 0.9 LVOT Stroke Volume 88 ml LVOT CO 9.0 l/min LVOT CI
[2021-02-05] MEDS: AMOXICILLIN/CLAVULANATE K 500-125 MG TAB 1 TABLET PO ×3 (05:43→20:46)
[2021-02-05 06:00] VITALS: BP 124/62; PULSE 84; RESP 20; TEMP 36.3; O2SAT 96
[2021-02-05 08:00] VITALS: BP 158/75; PULSE 100; RESP 18; TEMP 36.4; O2SAT 93
[2021-02-05 08:48] LABS: Anion Gap 5 mmol/L (8-16); Blood Urea Nitrogen 22 mg/dL (9-20); Calcium 8.9 mg/dL (8.4-10.2); Carbon Dioxide 30 mmol/L (22-30); Chloride 102 mmol/L (98-107); Estimated CRCL calculation 89 ml/min; Estimated Glomerular Filt Rate 46; Glucose 186 mg/dL (75-110); Potassium 4.7 mmol/L (3.4-5.0); Sodium 137 mmol/L (137-145)
[2021-02-05] MEDS: GABAPENTIN 300 MG CAPSULE 600 MG PO ×3 (09:08→18:22)
[2021-02-05] MEDS: PANTOPRAZOLE 40 MG TABLET PO (09:08)
[2021-02-05] MEDS: ENOXAPARIN 40 MG/0.4 ML SYRINGE SUB-Q ×2 (09:09→20:46)
[2021-02-05] MEDS: FLUTICASONE PROPIONATE 0.05% NA SPR 16 GM BTL (*BKC) 2 SPRAY NASAL (09:09)
[2021-02-05] MEDS: FUROSEMIDE 40 MG TABLET PO (09:09)
[2021-02-05] MEDS: LORazepam (*CRX) 0.5 MG TABLET PO (09:09)
[2021-02-05] MEDS: amLODIPine BESYLATE 5 MG TABLET PO (09:09)
[2021-02-05] MEDS: INSULIN ASPART (*BKC) 100 UNITS/ML 22 UNITS SUB-Q ×3 (09:17→18:22)
[2021-02-05 09:23] LABS: Glucose Point of Care 188 mg/dl (65-105)
[2021-02-05 11:01] VITALS: BP 180/90; PULSE 114; RESP 20; TEMP 36.4; O2SAT 93
[2021-02-05] MEDS: PERFLUTREN LIPID MICROSPHERES 1.5 ML VIAL DILUTED TO 10 ML TOTAL VOLUME IV PUSH (12:04)
[2021-02-05 12:14] LABS: Glucose Point of Care 189 mg/dl (65-105)
[2021-02-05] MEDS: ACETAMINOPHEN 325 MG TABLET 650 MG PO (12:48)
[2021-02-05 14:00] VITALS: BP 120/63; PULSE 110; RESP 18; TEMP 36.6; O2SAT 93
--- NOTE | 2021-02-05 16:54 | PM.IMPN ---
Progress Note: A&P Assessment and Plan (1) Sepsis: Qualifiers: Sepsis type: sepsis due to unspecified organism Sepsis acute organ dysfunction status: without acute organ dysfunction Qualified Code(s): A41.9 - Sepsis, unspecified organism Code(s): A41.9 - Sepsis, unspecified organism Status: Acute Assessment and Plan: Present on admission with fever, tachycardia, and leukocytosis. Source is cellulitis and abscess in the groin. WBC slowly trended down to normal now. He remains afebrile. Wound culture with moderate growth of Enterococcus. Blood cx negative. Treated with 3 days of IV vanc and Primaxin then switched to Unasyn 01/23 by ID. Clinically the cellulitic area appears improved since admission but still with an area of induration and purulent areas in the wound. No plans for repeat surgery. Continue dressing changes. Changed to Augmentin 02/03. Appreciate ID input. (2) Abscess of pubic region: Code(s): L02.219 - Cutaneous abscess of trunk, unspecified Status: Acute Assessment and Plan: Patient with morbid obesity and poorly controlled DM presents with cellulitis and abscess with necrotizing subcutaneous infection. Now s/p complex I&D of a necrotizing soft tissue infection involving the left pubis/groin measuring approximately 36 x 30 x 10 cm with washout and placement of wound VAC by Dr Feliz 01/21/21. Wound culture growing Enterococcus species sensitive to ampicillin. He remained on Unasyn and WBC peaked at 23K and slowly trended to normal. Dankins added to the wound vac without benefit. No further surgery planned. Plan for dressing changes for now; wound vac stopped. Continue current abx with Augmentin and current dressing changes. Appreciate general surgery input. (3) Hyponatremia: Code(s): E87.1 - Hypo-osmolality and hyponatremia Status: Acute Assessment and Plan: Na low on admission at 129. With IV fluids, Cr climbed to 130 but then drifted down to 125 range. Prior Na level was 136 last year. Rebecca <5 and UCr 123 with FENa of 0.07% and thus received NS x 2L over 48 hours. Na has normalized. Will continue to monitor for now. (4) TESS (acute kidney injury): Code(s): N17.9 - Acute kidney failure, unspecified Status: Acute Assessment and Plan: Cr 0.7 on admission but trending up to 2.2 on 7/5. He was on IV fluids from surgery which were stopped 01/24. Renal US normal. Probably ATN from the sepsis and urine retention but consider contrast induced nephropathy since he received contrast on 01/20. Rebecca<5 so he received NS x2L with improvement in his Na level and Cr. CXR concerning for fluid overload so Lasix IV started and he had good UOP and Cr stable today at 1.6. Cr of 0.7 on admission may have been falsely low and/or 1.6 is new baseline and/or related to the abx. He no longer feels SOB. Following strict Intake/output. Decrease Lasix (5) Urine retention: Code(s): R33.9 - Retention of urine, unspecified Status: Acute Assessment and Plan: Patient had scrotal edema and hidden penis. He was voiding well initially but then began to have trouble voiding probably related to the edema. Lombardo catheter placed and he had 1700mL out. Urine retention may have contributed to his TESS. Voiding trial when he is close to discharge or at SNF. (6) Type 2 diabetes mellitus with hyperglycemia: Qualifiers: Diabetes mellitus retirement insulin use: with lobsterman use Qualified Code(s): E11.65 - Type 2 diabetes mellitus with hyperglycemia; Z79.4 - half-way (current) use of insulin Code(s): E11.65 - Type 2 diabetes mellitus with hyperglycemia Status: Chronic Assessment and Plan: A1c 10.9%. He takes 70/30 with 55-60U in the morning and 40-45U in the evening as well as metformin BID at home. Metformin on hold due to renal function. clinical systems educator and assistant professor of biology consulted. Diab Educator recommended basal/bolus r
[2021-02-05] MEDS: HYDROcodone/acetaminophen (*CRX) 7.5-325 MG TABLET 1 TAB PO (18:24)
[2021-02-05 20:00] VITALS: PULSE 110; RESP 18; O2SAT 93
[2021-02-05] MEDS: INSULIN GLARGINE (*BKC) 100 UNITS/ML 65 UNITS SUB-Q (20:46)
[2021-02-05 21:29] LABS: Glucose Point of Care 156 mg/dl (65-105)
[2021-02-05 21:29] LABS: Glucose Point of Care 147 mg/dl (65-105)
[2021-02-05 21:51] VITALS: BP 134/73; PULSE 111; RESP 20; TEMP 37.1; O2SAT 91
[2021-02-06 05:58] VITALS: BP 145/82; PULSE 96; RESP 20; TEMP 35.6; O2SAT 95
[2021-02-06] MEDS: AMOXICILLIN/CLAVULANATE K 500-125 MG TAB 1 TABLET PO ×3 (05:58→20:45)
[2021-02-06 07:28] LABS: Mean Platelet Volume 9.8 fl (7.4-10.4); Platelet Count Result 203 k/mm3 (150-375)
[2021-02-06 07:36] LABS: Glucose Point of Care 139 mg/dl (65-105)
[2021-02-06 07:39] LABS: Anion Gap 6 mmol/L (8-16); Blood Urea Nitrogen 22 mg/dL (9-20); Calcium 8.7 mg/dL (8.4-10.2); Carbon Dioxide 31 mmol/L (22-30); Chloride 101 mmol/L (98-107); Estimated CRCL calculation 80 ml/min; Estimated Glomerular Filt Rate 40; Glucose 146 mg/dL (65-110); Potassium 4.2 mmol/L (3.4-5.0); Sodium 138 mmol/L (137-145)
[2021-02-06] MEDS: FLUTICASONE PROPIONATE 0.05% NA SPR 16 GM BTL (*BKC) 2 SPRAY NASAL (08:49)
[2021-02-06] MEDS: ENOXAPARIN 40 MG/0.4 ML SYRINGE SUB-Q ×2 (08:49→20:45)
[2021-02-06] MEDS: FUROSEMIDE 20 MG TABLET PO (08:49)
[2021-02-06] MEDS: polyethylene glycoL 3350 17 GM POWD.PACK PO (08:50)
[2021-02-06] MEDS: PANTOPRAZOLE 40 MG TABLET PO (08:50)
[2021-02-06] MEDS: amLODIPine BESYLATE 5 MG TABLET PO (08:50)
[2021-02-06] MEDS: GABAPENTIN 300 MG CAPSULE 600 MG PO ×3 (08:50→16:24)
[2021-02-06] MEDS: HYDROcodone/acetaminophen (*CRX) 7.5-325 MG TABLET 1 TAB PO (08:58)
[2021-02-06] MEDS: INSULIN ASPART (*BKC) 100 UNITS/ML 22 UNITS SUB-Q ×3 (08:59→17:56)
[2021-02-06 12:03] LABS: Glucose Point of Care 174 mg/dl (65-105)
--- NOTE | 2021-02-06 12:47 | PM.IMPN ---
Progress Note: A&P Assessment and Plan (1) Sepsis: Qualifiers: Sepsis type: sepsis due to unspecified organism Sepsis acute organ dysfunction status: without acute organ dysfunction Qualified Code(s): A41.9 - Sepsis, unspecified organism Code(s): A41.9 - Sepsis, unspecified organism Status: Acute Assessment and Plan: Present on admission with fever, tachycardia, and leukocytosis. Source is cellulitis and abscess in the groin. WBC slowly trended down to normal now. He remains afebrile. Wound culture with moderate growth of Enterococcus. Blood cx negative. Treated with 3 days of IV vanc and Primaxin then switched to Unasyn 01/23 by ID. Clinically the cellulitic area appears improved since admission but still with an area of induration and purulent areas in the wound. No plans for repeat surgery. Continue dressing changes. Changed to Augmentin 02/03. Appreciate ID input. Dispo is SNF; bed available, waiting on insurance authorization. (2) Abscess of pubic region: Code(s): L02.219 - Cutaneous abscess of trunk, unspecified Status: Acute Assessment and Plan: Patient with morbid obesity and poorly controlled DM presents with cellulitis and abscess with necrotizing subcutaneous infection. Now s/p complex I&D of a necrotizing soft tissue infection involving the left pubis/groin measuring approximately 36 x 30 x 10 cm with washout and placement of wound VAC by Dr Feliz 01/21/21. Wound culture growing Enterococcus species sensitive to ampicillin. He remained on Unasyn and WBC peaked at 23K and slowly trended to normal. Dankins added to the wound vac without benefit. No further surgery planned. Plan for dressing changes for now; wound vac stopped. Continue current abx with Augmentin and current dressing changes. Appreciate general surgery input. (3) Hyponatremia: Code(s): E87.1 - Hypo-osmolality and hyponatremia Status: Acute Assessment and Plan: Na low on admission at 129. With IV fluids, Cr climbed to 130 but then drifted down to 125 range. Prior Na level was 136 last year. Rebecca <5 and UCr 123 with FENa of 0.07% and thus received NS x 2L over 48 hours. Na has normalized. Will continue to monitor for now. (4) TESS (acute kidney injury): Code(s): N17.9 - Acute kidney failure, unspecified Status: Acute Assessment and Plan: Cr 0.7 on admission but trending up to 2.2 on 01/25. He was on IV fluids from surgery which were stopped 01/24. Renal US normal. Probably ATN from the sepsis and urine retention but consider contrast induced nephropathy since he received contrast on 01/20. Rebecca<5 so he received NS x2L with improvement in his Na level and Cr. CXR concerning for fluid overload so Lasix IV started and he had good UOP and Cr stable today at 1.6. Cr of 0.7 on admission may have been falsely low and/or current renal function is new baseline and/or related to the abx. He no longer feels SOB. Following strict Intake/output. Decrease Lasix (5) Urine retention: Code(s): R33.9 - Retention of urine, unspecified Status: Acute Assessment and Plan: Patient had scrotal edema and hidden penis. He was voiding well initially but then began to have trouble voiding probably related to the edema. Lombardo catheter placed and he had 1700mL out. Urine retention may have contributed to his TESS. Voiding trial when he is close to discharge or at SNF. (6) Type 2 diabetes mellitus with hyperglycemia: Qualifiers: Diabetes mellitus intermediate designer insulin use: with intermediate designer use Qualified Code(s): E11.65 - Type 2 diabetes mellitus with hyperglycemia; Z79.4 - intermediate accountant (current) use of insulin Code(s): E11.65 - Type 2 diabetes mellitus with hyperglycemia Status: Chronic Assessment and Plan: A1c 10.9%. He takes 70/30 with 55-60U in the morning and 40-45U in the evening as well as metformin BID at home. Metformin on hold due to renal funct
[2021-02-06 14:37] VITALS: BP 147/89; PULSE 104; RESP 20; TEMP 36.8; O2SAT 94
[2021-02-06 14:38] VITALS: BP 147/89; PULSE 104; RESP 20; O2SAT 94
[2021-02-06 14:39] VITALS: BP 148/77
[2021-02-06 17:10] LABS: Glucose Point of Care 157 mg/dl (65-105)
[2021-02-06 20:00] VITALS: PULSE 104; RESP 20; O2SAT 94
[2021-02-06] MEDS: INSULIN GLARGINE (*BKC) 100 UNITS/ML 65 UNITS SUB-Q (20:45)
[2021-02-06 20:50] LABS: Glucose Point of Care 136 mg/dl (65-105)
[2021-02-06] MEDS: LORazepam (*CRX) 0.5 MG TABLET PO (21:46)
[2021-02-06 22:00] VITALS: BP 133/64; PULSE 113; RESP 20; TEMP 36.9; O2SAT 89
[2021-02-07] MEDS: AMOXICILLIN/CLAVULANATE K 500-125 MG TAB 1 TABLET PO ×3 (05:53→21:07)
[2021-02-07] MEDS: HYDROcodone/acetaminophen (*CRX) 5-325 MG TABLET 1 TAB PO (05:55)
[2021-02-07 06:00] VITALS: BP 133/79; PULSE 90; RESP 20; TEMP 36.5; O2SAT 97
[2021-02-07 07:20] LABS: Anion Gap 11 mmol/L (8-16); Blood Urea Nitrogen 24 mg/dL (9-20); Calcium 8.7 mg/dL (8.4-10.2); Carbon Dioxide 27 mmol/L (22-30); Chloride 99 mmol/L (98-107); Estimated CRCL calculation 89 ml/min; Estimated Glomerular Filt Rate 46; Glucose 154 mg/dL (65-110); Magnesium 1.9 mg/dL (1.6-2.3); Potassium 4.1 mmol/L (3.4-5.0); Sodium 137 mmol/L (137-145)
[2021-02-07 08:18] LABS: Glucose Point of Care 145 mg/dl (65-105)
[2021-02-07] MEDS: INSULIN ASPART (*BKC) 100 UNITS/ML 22 UNITS SUB-Q ×3 (09:44→17:38)
[2021-02-07] MEDS: LORazepam (*CRX) 0.5 MG TABLET PO (09:44)
[2021-02-07] MEDS: HYDROcodone/acetaminophen (*CRX) 7.5-325 MG TABLET 1 TAB PO ×3 (09:44→21:19)
[2021-02-07] MEDS: PANTOPRAZOLE 40 MG TABLET PO (09:46)
[2021-02-07] MEDS: ENOXAPARIN 40 MG/0.4 ML SYRINGE SUB-Q ×2 (09:46→21:08)
[2021-02-07] MEDS: amLODIPine BESYLATE 5 MG TABLET PO (09:47)
[2021-02-07] MEDS: GABAPENTIN 300 MG CAPSULE 600 MG PO ×3 (09:47→16:00)
[2021-02-07] MEDS: FLUTICASONE PROPIONATE 0.05% NA SPR 16 GM BTL (*BKC) 2 SPRAY NASAL (09:53)
[2021-02-07] MEDS: FUROSEMIDE 20 MG TABLET PO (11:17)
[2021-02-07 12:46] LABS: Glucose Point of Care 176 mg/dl (65-105)
[2021-02-07 14:00] VITALS: BP 144/82; PULSE 93; RESP 22; TEMP 37.2; O2SAT 94
--- NOTE | 2021-02-07 14:42 | PM.IMPN ---
Progress Note: A&P Assessment and Plan (1) Sepsis: Qualifiers: Sepsis acute organ dysfunction status: without acute organ dysfunction Sepsis type: sepsis due to unspecified organism Qualified Code(s): A41.9 - Sepsis, unspecified organism Code(s): A41.9 - Sepsis, unspecified organism Status: Acute Assessment and Plan: Present on admission with fever, tachycardia, and leukocytosis. Source is cellulitis and abscess in the groin. WBC slowly trended down to normal now. He remains afebrile. Wound culture with moderate growth of Enterococcus. Blood cx negative. Treated with 3 days of IV vanc and Primaxin then switched to Unasyn 01/23 by ID. Clinically the cellulitic area appears improved since admission but still with an area of induration and purulent areas in the wound. No plans for repeat surgery. Continue dressing changes. Changed to Augmentin 02/03. Appreciate ID input. Dispo is SNF; bed available, awaiting insurance authorization. (2) Abscess of pubic region: Code(s): L02.219 - Cutaneous abscess of trunk, unspecified Status: Acute Assessment and Plan: Patient with morbid obesity and poorly controlled DM presents with cellulitis and abscess with necrotizing subcutaneous infection. Now s/p complex I&D of a necrotizing soft tissue infection involving the left pubis/groin measuring approximately 36 x 30 x 10 cm with washout and placement of wound VAC by Dr Feliz 01/21/21. Wound culture growing Enterococcus species sensitive to ampicillin. He remained on Unasyn and WBC peaked at 23K and slowly trended to normal. Dankins added to the wound vac without benefit. No further surgery planned. Plan for dressing changes for now; wound vac stopped. Continue current abx with Augmentin and current dressing changes. Appreciate general surgery input. (3) Hyponatremia: Code(s): E87.1 - Hypo-osmolality and hyponatremia Status: Resolved Assessment and Plan: Na low on admission at 129. With IV fluids, Cr climbed to 130 but then drifted down to 125 range. Prior Na level was 136 last year. Rebecca <5 and UCr 123 with FENa of 0.07% and thus received NS x 2L over 48 hours. Na has normalized. Will continue to monitor for now. (4) TESS (acute kidney injury): Code(s): N17.9 - Acute kidney failure, unspecified Status: Acute Assessment and Plan: Cr 0.7 on admission but trended up to 2.2 on 01/25. He was on IV fluids from surgery which were stopped 01/24. Renal US normal. Probably ATN from the sepsis and urine retention but consider contrast induced nephropathy since he received contrast on 01/20. Rebecca<5 so he received NS x2L with improvement in his Na level and Cr. CXR concerning for fluid overload so Lasix IV started and he had good UOP and Cr stable today at 1.6. Cr of 0.7 on admission may have been falsely low and/or current renal function is new baseline and/or related to the abx. He no longer feels SOB. Following strict Intake/output. Remains on low-dose oral lasix. (5) Urine retention: Code(s): R33.9 - Retention of urine, unspecified Status: Acute Assessment and Plan: Patient had scrotal edema and hidden penis. He was voiding well initially but then began to have trouble voiding probably related to the edema. Lombardo catheter placed and he had 1700mL out. Urine retention may have contributed to his TESS. Voiding trial when he is close to discharge or at SNF. (6) Type 2 diabetes mellitus with hyperglycemia: Qualifiers: Diabetes mellitus timing inspector insulin use: with fdc use Qualified Code(s): E11.65 - Type 2 diabetes mellitus with hyperglycemia; Z79.4 - senior reactor operator (current) use of insulin Code(s): E11.65 - Type 2 diabetes mellitus with hyperglycemia Status: Chronic Assessment and Plan: A1c 10.9%. He takes 70/30 with 55-60U in the morning and 40-45U in the evening as well as metformin BID at home. Metformin on hold d
[2021-02-07 17:00] LABS: Glucose Point of Care 133 mg/dl (65-105)
[2021-02-07] MEDS: INSULIN GLARGINE (*BKC) 100 UNITS/ML 65 UNITS SUB-Q (21:08)
[2021-02-07 22:00] VITALS: BP 157/78; PULSE 98; RESP 20; TEMP 36.6; O2SAT 92
[2021-02-07 23:40] VITALS: PULSE 98; O2SAT 94
[2021-02-07 23:49] LABS: Glucose Point of Care 159 mg/dl (65-105)
[2021-02-08] VITALS (14 sets, daily range): BP systolic 114–166; BP diastolic 65–95; PULSE 90–117; RESP 18–20; TEMP 36.4–39.4; O2SAT 77–98
[2021-02-08] MEDS: AMOXICILLIN/CLAVULANATE K 500-125 MG TAB 1 TABLET PO ×2 (05:53→14:11)
[2021-02-08] MEDS: HYDROcodone/acetaminophen (*CRX) 7.5-325 MG TABLET 1 TAB PO ×2 (05:55→21:02)
[2021-02-08 06:49] LABS: Hematocrit 32.4 % (42.0-52.0); Hemoglobin 10.1 g/dL (14.0-18.0); Mean Corpuscular HGB Conc 31.2 g/dl (32-36); Mean Corpuscular Hemoglobin 27.6 pg (26-34); Mean Corpuscular Volume 88.5 fl (80-100); Mean Platelet Volume 10.1 fl (7.4-10.4); Platelet Count Result 180 k/mm3 (150-375); Red Blood Count 3.66 M/mm3 (4.6-6.20); Red Cell Distribution Width 15.9 % (11.5-14.5); White Blood Count 10.2 K/mm3 (4.5-10.0)
[2021-02-08 07:03] LABS: Anion Gap 5 mmol/L (8-16); Blood Urea Nitrogen 25 mg/dL (9-20); Calcium 8.5 mg/dL (8.4-10.2); Carbon Dioxide 30 mmol/L (22-30); Chloride 101 mmol/L (98-107); Estimated CRCL calculation 89 ml/min; Estimated Glomerular Filt Rate 46; Glucose 133 mg/dL (65-110); Potassium 4.2 mmol/L (3.4-5.0); Sodium 136 mmol/L (137-145)
[2021-02-08 07:59] LABS: Glucose Point of Care 145 mg/dl (65-105)
[2021-02-08] MEDS: LORazepam (*CRX) 0.5 MG TABLET PO ×2 (08:20→16:42)
[2021-02-08] MEDS: INSULIN ASPART (*BKC) 100 UNITS/ML 22 UNITS SUB-Q ×2 (08:22→12:20)
[2021-02-08] MEDS: PANTOPRAZOLE 40 MG TABLET PO (08:23)
[2021-02-08] MEDS: FLUTICASONE PROPIONATE 0.05% NA SPR 16 GM BTL (*BKC) 2 SPRAY NASAL (08:23)
[2021-02-08] MEDS: GABAPENTIN 300 MG CAPSULE 600 MG PO ×2 (08:23→12:21)
[2021-02-08] MEDS: FUROSEMIDE 20 MG TABLET PO (08:23)
[2021-02-08] MEDS: amLODIPine BESYLATE 5 MG TABLET PO (08:24)
[2021-02-08] MEDS: ENOXAPARIN 40 MG/0.4 ML SYRINGE SUB-Q ×2 (08:24→20:42)
--- NOTE | 2021-02-08 10:36 | PM.IMPN ---
Progress Note: A&P Assessment and Plan (1) Sepsis: Qualifiers: Sepsis acute organ dysfunction status: without acute organ dysfunction Sepsis type: sepsis due to unspecified organism Qualified Code(s): A41.9 - Sepsis, unspecified organism Code(s): A41.9 - Sepsis, unspecified organism Status: Acute Assessment and Plan: Present on admission with fever, tachycardia, and leukocytosis. Source is cellulitis and abscess in the groin. WBC slowly trended down to normal now. He remains afebrile. Wound culture with moderate growth of Enterococcus. Blood cx negative. Treated with 3 days of IV vanc and Primaxin then switched to Unasyn 01/23 by ID. Clinically the cellulitic area appears improved since admission but still with an area of induration and purulent areas in the wound. No plans for repeat surgery. Continue dressing changes. Changed to Augmentin 02/03. Appreciate ID input. Dispo is SNF; bed available, awaiting insurance authorization. (2) Abscess of pubic region: Code(s): L02.219 - Cutaneous abscess of trunk, unspecified Status: Acute Assessment and Plan: Patient with morbid obesity and poorly controlled DM presents with cellulitis and abscess with necrotizing subcutaneous infection. Now s/p complex I&D of a necrotizing soft tissue infection involving the left pubis/groin measuring approximately 36 x 30 x 10 cm with washout and placement of wound VAC by Dr Feliz 01/21/21. Wound culture growing Enterococcus species sensitive to ampicillin. He remained on Unasyn and WBC peaked at 23K and slowly trended to normal. Dankins added to the wound vac without benefit. No further surgery planned. Plan for dressing changes for now; wound vac stopped. Continue current abx with Augmentin and current dressing changes. Appreciate general surgery input. (3) Hyponatremia: Code(s): E87.1 - Hypo-osmolality and hyponatremia Status: Resolved Assessment and Plan: Na low on admission at 129. With IV fluids, Na climbed to 130 but then drifted down to 125 range. Prior Na level was 136 last year. Rebecca <5 and UCr 123 with FENa of 0.07% and thus received NS x 2L over 48 hours. Na has normalized. Will continue to monitor for now. (4) TESS (acute kidney injury): Code(s): N17.9 - Acute kidney failure, unspecified Status: Acute Assessment and Plan: Cr 0.7 on admission but trended up to 2.2 on 01/25. He was on IV fluids from surgery which were stopped 01/24. Renal US normal. Probably ATN from the sepsis and urine retention but consider contrast induced nephropathy since he received contrast on 01/20. Rebecca<5 so he received NS x2L with improvement in his Na level and Cr. CXR concerning for fluid overload so Lasix IV started and he had good UOP and Cr stable today at 1.6. Cr of 0.7 on admission may have been falsely low and/or current renal function is new baseline and/or related to the abx. He no longer feels SOB. Following strict Intake/output. Remains on low-dose oral lasix. Stop Lasix. (5) Urine retention: Code(s): R33.9 - Retention of urine, unspecified Status: Acute Assessment and Plan: Patient had scrotal edema and hidden penis. He was voiding well initially but then began to have trouble voiding probably related to the edema. Lombardo catheter placed and he had 1700mL out. Urine retention may have contributed to his TESS. Voiding trial today. Monitor UOP. (6) Type 2 diabetes mellitus with hyperglycemia: Qualifiers: Diabetes mellitus senior care insulin use: with senior care use Qualified Code(s): E11.65 - Type 2 diabetes mellitus with hyperglycemia; Z79.4 - USP (current) use of insulin Code(s): E11.65 - Type 2 diabetes mellitus with hyperglycemia Status: Chronic Assessment and Plan: A1c 10.9%. He took 70/30 with 55-60U in the morning and 40-45U in the evening as well as metformin BID at home. Metformin on hold due to renal
[2021-02-08 11:45] LABS: Glucose Point of Care 165 mg/dl (65-105)
[2021-02-08] MEDS: METOPROLOL TARTRATE 12.5 MG TABLET PO ×2 (12:20→20:43)
--- NOTE | 2021-02-08 16:56 | ECG_ITS ---
Measurements Intervals [place] Rate: 116 P: GA: 0 QRS: 19 QRSD: 94 T: 78 QT: 310 QTc: 432 Interpretive Statements SINUS TACHYCARDIA DELAYED PRECORDIAL R/S TRANSITION LOW QRS VOLTAGE IN LIMB LEADS BORDERLINE ST-T WAVE ABNORMALITY- HIGH LATERAL LEADS BASELINE ARTIFACT- I, II, AVR ABNORMAL ECG Electronically Signed On 02-08-2021 20:16:38 CDT by Zhegn Brown D.O.
[2021-02-08] MEDS: ACETAMINOPHEN 325 MG TABLET 650 MG PO (17:53)
[2021-02-08 17:56] LABS: Basophils Absolute Auto 0.1 K/mm3 (0.0-0.1); Basophils Percent Auto 0.3 % (0.2-1.2); Eosinophils Absolute Auto 0.3 K/mm3 (0-0.3); Eosinophils Percent Auto 1.8 % (0-4.4); Hematocrit 33.6 % (42.0-52.0); Hemoglobin 10.6 g/dL (14.0-18.0); Immature Granulocyte Absolute 0.12 K/mm3 (0.00-0.031); Immature Granulocyte Percent A 0.8 % (0-0.5); Lymphocytes Absolute Auto 1.77 K/mm3 (0.9-3.2); Lymphocytes Percent Auto 11.8 % (18.3-44.2); Mean Corpuscular HGB Conc 31.5 g/dl (32-36); Mean Corpuscular Hemoglobin 27.7 pg (26-34); Mean Platelet Volume 9.9 fl (7.4-10.4); Monocytes Percent Auto 6.6 % (2.6-8.5); Neutrophils Absolute Auto 11.8 K/mm3 (1.3-6.7); Neutrophils Percent Auto 78.7 % (45.5-73.1); Platelet Count Result 217 k/mm3 (150-375); Red Blood Count 3.82 M/mm3 (4.6-6.20); Red Cell Distribution Width 15.9 % (11.5-14.5)
[2021-02-08 18:02] LABS: Lactic Acid Reflex 0.9 mmol/L (0.7-2.1)
[2021-02-08 18:04] LABS: Alanine Aminotransferase 16 U/L (4-50); Albumin Level 3.4 g/dL (3.5-5.1); Alkaline Phosphatase 72 U/L (38-126); Anion Gap 8 mmol/L (8-16); Aspartate Amino Transferase 26 U/L (17-59); Bilirubin,Total 0.7 mg/dL (0.2-1.3); Blood Urea Nitrogen 24 mg/dL (9-20); Calcium 8.7 mg/dL (8.4-10.2); Carbon Dioxide 30 mmol/L (22-30); Chloride 99 mmol/L (98-107); Estimated CRCL calculation 84 ml/min; Estimated Glomerular Filt Rate 43; Glucose 119 mg/dL (65-110); Magnesium 1.9 mg/dL (1.6-2.3); Potassium 4.4 mmol/L (3.4-5.0); Sodium 137 mmol/L (137-145)
[2021-02-08 18:06] LABS: Partial Thromboplastin Time 32.3 SECONDS (22.3-36.8)
[2021-02-08 18:09] LABS: Prothrombin Time 13.1 Seconds (11.1-14.7)
[2021-02-08] MEDS: SODIUM CHLORIDE 0.9% IV 1,000 ML 100 ML IV CONT (18:22)
[2021-02-08 18:57] LABS: Glucose Point of Care 110 mg/dl (65-105)
[2021-02-08] MEDS: INSULIN GLARGINE (*BKC) 100 UNITS/ML 65 UNITS SUB-Q (20:45)
[2021-02-08 22:11] LABS: Glucose Point of Care 141 mg/dl (65-105)
[2021-02-08 22:52] LABS: Influenza Control Positive
[2021-02-09] VITALS (15 sets, daily range): BP systolic 139–160; BP diastolic 75–87; PULSE 82–107; RESP 16–18; TEMP 36.1–36.6; O2SAT 92–96
[2021-02-09 00:43] LABS: Add Urine Microscopic? YES; Appearance Urine Clear (Clear); Bilirubin Urine Negative (Negative); Blood Urine Negative (Negative); Color Urine Yellow (Yellow); Glucose Urine UA Negative (Negative); Ketones Urine Negative (Negative); Leukocyte Esterase Ur Trace LEU/UL (Negative); Mucus Urine Rare /lpf; Nitrate Urine Negative (Negative); Protein Urine 1+ mg/dL (Negative); Specific Grav Ur 1.017 (1.001-1.035); Squamous Epithelial Cell Urine Rare /hpf (Few); Urobilinogen Urine Negative mg/dL (<2.0); WBC Urine 16-20 /hpf
[2021-02-09] MEDS: LORazepam (*CRX) 0.5 MG TABLET PO (05:05)
[2021-02-09] MEDS: HYDROcodone/acetaminophen (*CRX) 7.5-325 MG TABLET 1 TAB PO (05:05)
[2021-02-09 06:44] LABS: Anion Gap 8 mmol/L (8-16); Blood Urea Nitrogen 25 mg/dL (9-20); Calcium 8.6 mg/dL (8.4-10.2); Carbon Dioxide 30 mmol/L (22-30); Chloride 96 mmol/L (98-107); Estimated CRCL calculation 89 ml/min; Estimated Glomerular Filt Rate 46; Glucose 172 mg/dL (65-110); Potassium 4.2 mmol/L (3.4-5.0); Sodium 134 mmol/L (137-145)
[2021-02-09] MEDS: SODIUM CHLORIDE 0.9% IV 1,000 ML 100 ML IV CONT ×2 (07:06→21:43)
--- NOTE | 2021-02-09 07:30 | PCOTNOTE ---
Attempted to see Patient for OT treatment at this time. Patient verbalized he was supposed to be discharged yesterday and spiked a temperature and is having testing done. Patient verbalized he feels horrible and can not participate this date.
[2021-02-09 07:37] LABS: Basophils Percent Auto 0.3 % (0.2-1.2); Eosinophils Absolute Auto 0.3 K/mm3 (0-0.3); Hematocrit 30.7 % (42.0-52.0); Hemoglobin 9.8 g/dL (14.0-18.0); Immature Granulocyte Absolute 0.11 K/mm3 (0.00-0.031); Immature Granulocyte Percent A 0.8 % (0-0.5); Lymphocytes Absolute Auto 1.74 K/mm3 (0.9-3.2); Lymphocytes Percent Auto 12.3 % (18.3-44.2); Mean Corpuscular HGB Conc 31.9 g/dl (32-36); Mean Corpuscular Hemoglobin 27.5 pg (26-34); Mean Corpuscular Volume 86.2 fl (80-100); Mean Platelet Volume 10.3 fl (7.4-10.4); Monocytes Absolute Auto 1.2 K/mm3 (0.1-0.6); Monocytes Percent Auto 8.2 % (2.6-8.5); Neutrophils Absolute Auto 10.8 K/mm3 (1.3-6.7); Neutrophils Percent Auto 76.4 % (45.5-73.1); Platelet Count Result 215 k/mm3 (150-375); Red Blood Count 3.56 M/mm3 (4.6-6.20); Red Cell Distribution Width 15.9 % (11.5-14.5); White Blood Count 14.1 K/mm3 (4.5-10.0)
[2021-02-09] MEDS: PANTOPRAZOLE 40 MG TABLET PO (08:18)
[2021-02-09] MEDS: INSULIN ASPART (*BKC) 100 UNITS/ML 22 UNITS SUB-Q ×3 (08:18→18:15)
[2021-02-09] MEDS: GABAPENTIN 300 MG CAPSULE 600 MG PO ×3 (08:18→18:13)
[2021-02-09] MEDS: FLUTICASONE PROPIONATE 0.05% NA SPR 16 GM BTL (*BKC) 2 SPRAY NASAL (08:18)
[2021-02-09] MEDS: METOPROLOL TARTRATE 12.5 MG TABLET PO ×2 (08:19→21:43)
[2021-02-09] MEDS: amLODIPine BESYLATE 5 MG TABLET PO (08:19)
[2021-02-09] MEDS: ENOXAPARIN 40 MG/0.4 ML SYRINGE SUB-Q ×2 (08:19→21:43)
[2021-02-09 08:20] LABS: Glucose Point of Care 174 mg/dl (65-105)
--- NOTE | 2021-02-09 09:35 | PC.NURSE ---
Patient stated through the shift that he had diffuse full body aches. He was given a pain pill at bed and said that he hadn't had the urge to urinate since his catheter had been removed. A urine sample order was noted and Dr. Quevedo called to receive an order to straight cath him. Part of the reason was that he has an inverted penis and a clean catch urine seemed unlikely. It was difficult to find the tip of his penis due to the pannus around it. He complained of pain on insertion and it drained very rapidly, filling the straight cath bag and requiring a basin to catch the remainder of the urine. It was a total of 175 ml. A sample was then sent to lab and he had no urine output for the rest of the shift. At about 0515 a bladder scan was attempted but because of the swollen tissue surrounding his bladder, I could not get a reading. Dr. Quevedo was called again agreeing to the reinsertion of a Lombardo catheter. There was some redness on his initial output, again he complained of groin pain on insertion. It appeared to drain a large amount of urine very rapidly again, this time producing 550cc's of yellow/orange urine.
--- NOTE | 2021-02-09 09:36 | PCNFU ---
Nutrition Follow-Up Complete: Inadequate Oral Intake as related to paniculits as evidenced by reported poor po intake. Goal:Meet estimated nutritional needs Goal: Patient is progressing towards goal. We will continue current goal. Pt current nutrition is Diabetic Consistent Carb with Glucerna shakes BID. Last recorded weight is 210 kg reported on 01/27. Recommend new weight. Bowel Motility:+BM reported 02/08 Labs Reviewed:Glu 172,Cr 1.6,BUN 25,Na 134, Hct 30.7,Hgb 9.8 Meds Noted:[place], Lovenox,Glucagon,Zofran, Cozaar,NovoLog, Lantus, Lopressor, Protonix. Additional Notes: Nutrition follow up today. Patient eating his breakfast, states to no diet concerns. He is eating 100% of meals. Receiving Glucerna shakes BID providing an additional 220 kcals and 10 gms protein. Skin: Bilateral Scrotum. Agree with diet orders. Monitoring: every 5 days.
--- NOTE | 2021-02-09 10:11 | PCPTNOTE ---
Attempted PT treatment at this time. Patient verbalized he was supposed to be discharged yesterday and spiked a temperature and is having testing done. Pt stated I just feel like a truck has hit me. Maybe therapy later, but not likely. Will attempt again.
[2021-02-09 11:34] LABS: Glucose Point of Care 176 mg/dl (65-105)
--- NOTE | 2021-02-09 13:39 | PM.IMPN ---
Progress Note: A&P Assessment and Plan (1) Sepsis: Qualifiers: Sepsis acute organ dysfunction status: without acute organ dysfunction Sepsis type: sepsis due to unspecified organism Qualified Code(s): A41.9 - Sepsis, unspecified organism Code(s): A41.9 - Sepsis, unspecified organism Status: Acute Assessment and Plan: Present on admission with fever, tachycardia, and leukocytosis. Source is cellulitis and abscess in the groin. WBC slowly trended down to normal now. Wound culture with moderate growth of Enterococcus. Blood cx negative. Treated with 3 days of IV vanc and Primaxin then switched to Unasyn 01/23 by ID. Clinically the cellulitic area appears improved since admission but still with an area of induration and purulent areas in the wound. No plans for repeat surgery. Continue dressing changes. Changed to Augmentin 02/03. Called back to the room for respiratory difficulty 02/08. Patient with shivering and shaking. He was 77% on RA and 94% on 3.5L. Temp to 103. CXR showing CMG with congestion and possible pulmonary edema; can not exclude PNA. Bladder scan originally only had 25mL but may be difficulty due to his size. Influenza negative. BCx and UCx pending. Continue broad spectrum abx. (2) Abscess of pubic region: Code(s): L02.219 - Cutaneous abscess of trunk, unspecified Status: Acute Assessment and Plan: Patient with morbid obesity and poorly controlled DM presents with cellulitis and abscess with necrotizing subcutaneous infection. Now s/p complex I&D of a necrotizing soft tissue infection involving the left pubis/groin measuring approximately 36 x 30 x 10 cm with washout and placement of wound VAC by Dr Feliz 01/21/21. Wound culture growing Enterococcus species sensitive to ampicillin. He remained on Unasyn and WBC peaked at 23K and slowly trended to normal. Dankins added to the wound vac without benefit. No further surgery planned. Plan for dressing changes for now; wound vac stopped. Continue current abx as above and current dressing changes. Appreciate general surgery input. (3) Hyponatremia: Code(s): E87.1 - Hypo-osmolality and hyponatremia Status: Resolved Assessment and Plan: Na low on admission at 129. With IV fluids, Na climbed to 130 but then drifted down to 125 range. Prior Na level was 136 last year. Rebecca <5 and UCr 123 with FENa of 0.07% and thus received NS x 2L over 48 hours. Na has normalized and remaining stable. Will continue to monitor for now. (4) TESS (acute kidney injury): Code(s): N17.9 - Acute kidney failure, unspecified Status: Acute Assessment and Plan: Cr 0.7 on admission but trended up to 2.2 on 01/25. He was on IV fluids from surgery which were stopped 01/24. Renal US normal. Probably ATN from the sepsis and urine retention but consider contrast induced nephropathy since he received contrast on 01/20. Rebecca<5 so he received NS x2L with improvement in his Na level and Cr. CXR concerning for fluid overload so Lasix IV started and he had good UOP and Cr stable today at 1.6. Cr of 0.7 on admission may have been falsely low and/or current renal function is new baseline and/or related to the abx. Contineu to follow. (5) Urine retention: Code(s): R33.9 - Retention of urine, unspecified Status: Acute Assessment and Plan: Patient had scrotal edema and hidden penis. He was voiding well initially but then began to have trouble voiding probably related to the edema. Lombardo catheter placed and he had 1700mL out. Urine retention may have contributed to his TESS. Lombardo removed 02/08 but had to have Lombardo replaced later that evening with 1175mL in bladder. Possibly atonic bladder or related to scrotal edema. (6) Type 2 diabetes mellitus with hyperglycemia: Qualifiers: Diabetes mellitus long wall mining machine helper insulin use: with long wall mining machine helper use Qualified Code(s): E11.65 - Type 2 diabetes mellitus with hyper
[2021-02-09 17:30] LABS: Glucose Point of Care 147 mg/dl (65-105)
[2021-02-09 17:52] LABS: SARS-CoV-2 RNA PCR Negative
[2021-02-09] MEDS: INSULIN GLARGINE (*BKC) 100 UNITS/ML 65 UNITS SUB-Q (21:43)
[2021-02-09 22:46] LABS: Glucose Point of Care 165 mg/dl (65-105)
[2021-02-10] VITALS (12 sets, daily range): BP systolic 137–184; BP diastolic 66–117; PULSE 74–94; RESP 18–24; TEMP 36.6–37.4; O2SAT 93–96
[2021-02-10] MEDS: LORazepam (*CRX) 0.5 MG TABLET PO (05:08)
[2021-02-10] MEDS: ONDANSETRON INJ 4 MG/2 ML VIAL IV PUSH (05:37)
[2021-02-10 07:16] LABS: Basophils Absolute Auto 0.1 K/mm3 (0.0-0.1); Basophils Percent Auto 0.5 % (0.2-1.2); Eosinophils Absolute Auto 0.4 K/mm3 (0-0.3); Eosinophils Percent Auto 3.1 % (0-4.4); Hematocrit 30.5 % (42.0-52.0); Hemoglobin 9.8 g/dL (14.0-18.0); Immature Granulocyte Absolute 0.14 K/mm3 (0.00-0.031); Immature Granulocyte Percent A 1.1 % (0-0.5); Lymphocytes Absolute Auto 1.77 K/mm3 (0.9-3.2); Lymphocytes Percent Auto 13.8 % (18.3-44.2); Mean Corpuscular HGB Conc 32.1 g/dl (32-36); Mean Corpuscular Hemoglobin 27.9 pg (26-34); Mean Corpuscular Volume 86.9 fl (80-100); Mean Platelet Volume 9.7 fl (7.4-10.4); Monocytes Absolute Auto 1.1 K/mm3 (0.1-0.6); Monocytes Percent Auto 8.2 % (2.6-8.5); Neutrophils Absolute Auto 9.4 K/mm3 (1.3-6.7); Neutrophils Percent Auto 73.3 % (45.5-73.1); Platelet Count Result 193 k/mm3 (150-375); Red Blood Count 3.51 M/mm3 (4.6-6.20); Red Cell Distribution Width 16.3 % (11.5-14.5); White Blood Count 12.8 K/mm3 (4.5-10.0)
[2021-02-10 08:25] LABS: Glucose Point of Care 170 mg/dl (65-105)
[2021-02-10] MEDS: PANTOPRAZOLE 40 MG TABLET PO (09:18)
[2021-02-10] MEDS: GABAPENTIN 300 MG CAPSULE 600 MG PO ×3 (09:18→16:58)
[2021-02-10] MEDS: FLUTICASONE PROPIONATE 0.05% NA SPR 16 GM BTL (*BKC) 2 SPRAY NASAL (09:18)
[2021-02-10] MEDS: ENOXAPARIN 40 MG/0.4 ML SYRINGE SUB-Q ×2 (09:18→21:38)
[2021-02-10] MEDS: METOPROLOL TARTRATE 12.5 MG TABLET PO ×2 (09:18→21:38)
[2021-02-10] MEDS: amLODIPine BESYLATE 5 MG TABLET PO (09:19)
[2021-02-10] MEDS: INSULIN ASPART (*BKC) 100 UNITS/ML 22 UNITS SUB-Q ×3 (09:19→17:22)
[2021-02-10 09:57] LABS: Alanine Aminotransferase 14 U/L (4-50); Albumin Level 3.3 g/dL (3.5-5.1); Alkaline Phosphatase 65 U/L (38-126); Anion Gap 9 mmol/L (8-16); Aspartate Amino Transferase 20 U/L (17-59); Bilirubin,Total 0.6 mg/dL (0.2-1.3); Blood Urea Nitrogen 23 mg/dL (9-20); Calcium 8.5 mg/dL (8.4-10.2); Carbon Dioxide 27 mmol/L (22-30); Chloride 99 mmol/L (98-107); Estimated CRCL calculation 95 ml/min; Estimated Glomerular Filt Rate 49; Glucose 168 mg/dL (65-110); Phosphorus 4.5 mg/dL (2.5-4.5); Potassium 4.2 mmol/L (3.4-5.0); Sodium 135 mmol/L (137-145)
[2021-02-10 10:04] LABS: Vancomycin Trough 18.5 ug/mL (10.0-20.0)
[2021-02-10 10:19] LABS: CRP 17.8 mg/dL (<1.0)
[2021-02-10 12:20] LABS: Glucose Point of Care 178 mg/dl (65-105)
[2021-02-10 17:19] LABS: Glucose Point of Care 135 mg/dl (65-105)
--- NOTE | 2021-02-10 17:32 | PM.IMPN ---
Progress Note: A&P Assessment and Plan (1) Sepsis: Qualifiers: Sepsis acute organ dysfunction status: without acute organ dysfunction Sepsis type: sepsis due to unspecified organism Qualified Code(s): A41.9 - Sepsis, unspecified organism Code(s): A41.9 - Sepsis, unspecified organism Status: Acute Assessment and Plan: Present on admission with fever, tachycardia, and leukocytosis. Source is cellulitis and abscess in the groin. WBC slowly trended down to normal now. Wound culture with moderate growth of Enterococcus. Blood cx negative. Treated with 3 days of IV vanc and Primaxin then switched to Unasyn 01/23 by ID. Clinically the cellulitic area appears improved since admission but still with an area of induration and purulent areas in the wound. No plans for repeat surgery. Continue dressing changes. Changed to Augmentin 02/03. Called back to the room for respiratory difficulty 02/08. Patient with shivering and shaking. He was 77% on RA and 94% on 3.5L. Temp to 103. CXR showing CMG with congestion and possible pulmonary edema; can not exclude PNA. Bladder scan originally only had 25mL but may be difficulty due to his size (later, found to have urine retention). Influenza and COVID negative. BCx NGTD. UCx negative. Continue broad spectrum abx for now. (2) Abscess of pubic region: Code(s): L02.219 - Cutaneous abscess of trunk, unspecified Status: Acute Assessment and Plan: Patient with morbid obesity and poorly controlled DM presents with cellulitis and abscess with necrotizing subcutaneous infection. Now s/p complex I&D of a necrotizing soft tissue infection involving the left pubis/groin measuring approximately 36 x 30 x 10 cm with washout and placement of wound VAC by Dr Feliz 01/21/21. Wound culture growing Enterococcus species sensitive to ampicillin. He remained on Unasyn and WBC peaked at 23K and slowly trended to normal. Dankins added to the wound vac without benefit. No further surgery planned. Plan for dressing changes for now; wound vac stopped. Continue current abx as above and current dressing changes. Appreciate general surgery input. (3) Hyponatremia: Code(s): E87.1 - Hypo-osmolality and hyponatremia Status: Resolved Assessment and Plan: Na low on admission at 129. With IV fluids, Na climbed to 130 but then drifted down to 125 range. Prior Na level was 136 last year. Rebecca <5 and UCr 123 with FENa of 0.07% and thus received NS x 2L over 48 hours. Na has normalized and remaining stable. Will continue to monitor for now. (4) TESS (acute kidney injury): Code(s): N17.9 - Acute kidney failure, unspecified Status: Acute Assessment and Plan: Cr 0.7 on admission but trended up to 2.2 on 01/25. He was on IV fluids from surgery which were stopped 01/24. Renal US normal. Probably ATN from the sepsis and urine retention but consider contrast induced nephropathy since he received contrast on 01/20. Rebecca<5 so he received NS x2L with improvement in his Na level and Cr. CXR concerning for fluid overload so Lasix IV started and he had good UOP and Cr stable today at 1.5. Cr of 0.7 on admission may have been falsely low and/or current renal function is new baseline and/or related to the abx. Continue to follow. (5) Urine retention: Code(s): R33.9 - Retention of urine, unspecified Status: Acute Assessment and Plan: Patient had scrotal edema and hidden penis. He was voiding well initially but then began to have trouble voiding probably related to the edema. Lombardo catheter placed and he had 1700mL out. Urine retention may have contributed to his TESS. Lombardo removed 02/08 but had to have Lombardo replaced later that evening with 1175mL in bladder. Possibly atonic bladder or related to scrotal edema. (6) Type 2 diabetes mellitus with hyperglycemia: Qualifiers: Diabetes mellitus intermediate manager insulin use: with intermediate manager use Ilia
[2021-02-10] MEDS: SODIUM CHLORIDE 0.9% IV 1,000 ML 100 ML IV CONT (21:37)
[2021-02-10] MEDS: INSULIN GLARGINE (*BKC) 100 UNITS/ML 65 UNITS SUB-Q (21:38)
[2021-02-10] MEDS: BENZOCAINE/MENTHOL (*BKC) 18 EA LOZENGE 1 LOZENGE PO (21:39)
[2021-02-10 21:50] LABS: Glucose Point of Care 180 mg/dl (65-105)
[2021-02-11] VITALS (12 sets, daily range): BP systolic 135–150; BP diastolic 71–75; PULSE 1–95; RESP 16–20; TEMP 36.4–36.8; O2SAT 93–96
--- NOTE | 2021-02-11 06:24 | PC.NURSE ---
Encouraged patient to do as much ADL as possible. Patient is able to reposition in bed with out staff assistance. Patient does need more encouraging to preform task herself, would rather staff does them for her. Educated patient on the importance of trying to improved and keep as much independence as possible.
[2021-02-11 06:46] LABS: Basophils Percent Auto 0.4 % (0.2-1.2); Eosinophils Absolute Auto 0.5 K/mm3 (0-0.3); Eosinophils Percent Auto 4.7 % (0-4.4); Hematocrit 28.9 % (42.0-52.0); Hemoglobin 9.2 g/dL (14.0-18.0); Immature Granulocyte Absolute 0.13 K/mm3 (0.00-0.031); Immature Granulocyte Percent A 1.2 % (0-0.5); Lymphocytes Absolute Auto 1.93 K/mm3 (0.9-3.2); Lymphocytes Percent Auto 18.3 % (18.3-44.2); Mean Corpuscular HGB Conc 31.8 g/dl (32-36); Mean Corpuscular Hemoglobin 27.8 pg (26-34); Mean Corpuscular Volume 87.3 fl (80-100); Mean Platelet Volume 9.7 fl (7.4-10.4); Monocytes Absolute Auto 0.9 K/mm3 (0.1-0.6); Monocytes Percent Auto 8.3 % (2.6-8.5); Neutrophils Absolute Auto 7.1 K/mm3 (1.3-6.7); Neutrophils Percent Auto 67.1 % (45.5-73.1); Platelet Count Result 195 k/mm3 (150-375); Red Blood Count 3.31 M/mm3 (4.6-6.20); Red Cell Distribution Width 16.2 % (11.5-14.5); White Blood Count 10.5 K/mm3 (4.5-10.0)
[2021-02-11 07:02] LABS: Albumin Level 3.1 g/dL (3.5-5.1); Anion Gap 8 mmol/L (8-16); Blood Urea Nitrogen 24 mg/dL (9-20); Calcium 8.3 mg/dL (8.4-10.2); Carbon Dioxide 28 mmol/L (22-30); Chloride 98 mmol/L (98-107); Estimated CRCL calculation 101 ml/min; Estimated Glomerular Filt Rate 53; Glucose 157 mg/dL (65-110); Phosphorus 4.7 mg/dL (2.5-4.5); Potassium 4.4 mmol/L (3.4-5.0); Sodium 134 mmol/L (137-145)
[2021-02-11 07:19] LABS: CRP 12.2 mg/dL (<1.0)
[2021-02-11] MEDS: HYDROcodone/acetaminophen (*CRX) 7.5-325 MG TABLET 1 TAB PO ×2 (07:39→18:12)
[2021-02-11] MEDS: SODIUM CHLORIDE 0.9% IV 1,000 ML 100 ML IV CONT (07:40)
[2021-02-11 07:53] LABS: Glucose Point of Care 159 mg/dl (65-105)
[2021-02-11] MEDS: INSULIN ASPART (*BKC) 100 UNITS/ML 22 UNITS SUB-Q ×2 (09:02→13:09)
[2021-02-11] MEDS: METOPROLOL TARTRATE 12.5 MG TABLET PO ×2 (09:03→21:19)
[2021-02-11] MEDS: LORazepam (*CRX) 0.5 MG TABLET PO ×2 (09:03→21:20)
[2021-02-11] MEDS: GABAPENTIN 300 MG CAPSULE 600 MG PO ×3 (09:03→18:29)
[2021-02-11] MEDS: amLODIPine BESYLATE 5 MG TABLET PO (09:04)
[2021-02-11] MEDS: FLUTICASONE PROPIONATE 0.05% NA SPR 16 GM BTL (*BKC) 2 SPRAY NASAL (09:04)
[2021-02-11] MEDS: PANTOPRAZOLE 40 MG TABLET PO (09:04)
[2021-02-11] MEDS: ENOXAPARIN 40 MG/0.4 ML SYRINGE SUB-Q ×2 (09:04→21:20)
[2021-02-11 12:40] LABS: Glucose Point of Care 149 mg/dl (65-105)
--- NOTE | 2021-02-11 16:34 | PM.IMPN ---
Progress Note: A&P Assessment and Plan (1) Sepsis: Qualifiers: Sepsis acute organ dysfunction status: without acute organ dysfunction Sepsis type: sepsis due to unspecified organism Qualified Code(s): A41.9 - Sepsis, unspecified organism Code(s): A41.9 - Sepsis, unspecified organism Status: Acute Assessment and Plan: Present on admission with fever, tachycardia, and leukocytosis. Source is cellulitis and abscess in the groin. WBC slowly trended down to normal now. Wound culture with moderate growth of Enterococcus. Blood cx negative. Treated with 3 days of IV vanc and Primaxin then switched to Unasyn 01/23 by ID. Clinically the cellulitic area appears improved since admission but still with an area of induration and purulent areas in the wound. No plans for repeat surgery. Continue dressing changes. Changed to Augmentin 02/03. Called back to the room for respiratory difficulty, fever and rigors on 02/08. Patient with shivering and shaking. He was 77% on RA and 94% on 3.5L. Temp to 103. His abx switched to Invanz and Vancomycin. CXR showing CMG with congestion and possible pulmonary edema; can not exclude PNA. Bladder scan originally only had 25mL but later, found to have urine retention. Influenza and COVID negative. BCx NGTD. UCx negative. No further fevers and clinically back to baseline. Will re-consult ID to assist with abx choice now that he is (again) ready for discharge. (2) Abscess of pubic region: Code(s): L02.219 - Cutaneous abscess of trunk, unspecified Status: Acute Assessment and Plan: Patient with morbid obesity and poorly controlled DM presents with cellulitis and abscess with necrotizing subcutaneous infection. Now s/p complex I&D of a necrotizing soft tissue infection involving the left pubis/groin measuring approximately 36 x 30 x 10 cm with washout and placement of wound VAC by Dr Feliz 01/21/21. Wound culture growing Enterococcus species sensitive to ampicillin. He remained on Unasyn and WBC peaked at 23K and slowly trended to normal. Dankins added to the wound vac without benefit. No repeat surgery planned. Plan for dressing changes for now; wound vac stopped. Continue current abx as above and current dressing changes. Appreciate general surgery input. (3) Hyponatremia: Code(s): E87.1 - Hypo-osmolality and hyponatremia Status: Resolved Assessment and Plan: Na low on admission at 129 but then drifted down to 125 range. Prior Na level was 136 last year. Rebecca <5 and UCr 123 with FENa of 0.07% and thus received NS x 2L over 48 hours. Na has normalized and remaining stable. Will continue to monitor for now. (4) TESS (acute kidney injury): Code(s): N17.9 - Acute kidney failure, unspecified Status: Acute Assessment and Plan: Cr 0.7 on admission but trended up to 2.2 on 01/25. He was on IV fluids from surgery which were stopped 01/24. Renal US normal. Probably ATN from the sepsis and urine retention but consider contrast induced nephropathy since he received contrast on 01/20. Rebecca<5 so he received NS x2L with improvement in his Na level and Cr. CXR concerning for fluid overload so Lasix IV started and he had good UOP and Cr stable today at 1.4. Cr of 0.7 on admission may have been falsely low and/or current renal function is new baseline and/or related to the abx. Continue to follow. (5) Urine retention: Code(s): R33.9 - Retention of urine, unspecified Status: Acute Assessment and Plan: Patient had scrotal edema and hidden penis. He was voiding well initially but then began to have trouble voiding probably related to the edema. Lombardo catheter placed and he had 1700mL out. Urine retention may have contributed to his TESS. Lombardo removed 02/08 but had to have Lombardo replaced later that evening with 1175mL in bladder. Possibly atonic bladder or related to scrotal edema. Start FLomax (6) Type 2 diabetes mellitus wit
[2021-02-11 17:45] LABS: Glucose Point of Care 98 mg/dl (65-105)
[2021-02-11] MEDS: INSULIN ASPART (*BKC) 100 UNITS/ML 15 UNITS SUB-Q (18:30)
[2021-02-11 21:38] LABS: Glucose Point of Care 123 mg/dl (65-105)
[2021-02-12] VITALS (10 sets, daily range): BP systolic 131–153; BP diastolic 64–81; PULSE 70–94; RESP 20; TEMP 36.1–36.2; O2SAT 93–97
[2021-02-12 03:02] LABS: Hematocrit 30.8 % (42.0-52.0); Hemoglobin 9.7 g/dL (14.0-18.0); Mean Corpuscular HGB Conc 31.5 g/dl (32-36); Mean Corpuscular Hemoglobin 27.3 pg (26-34); Mean Corpuscular Volume 86.8 fl (80-100); Mean Platelet Volume 9.3 fl (7.4-10.4); Platelet Count Result 203 k/mm3 (150-375); Red Blood Count 3.55 M/mm3 (4.6-6.20); Red Cell Distribution Width 16.3 % (11.5-14.5); White Blood Count 9.3 K/mm3 (4.5-10.0)
[2021-02-12 03:16] LABS: Anion Gap 5 mmol/L (8-16); Blood Urea Nitrogen 23 mg/dL (9-20); CRP 6.3 mg/dL (<1.0); Calcium 8.6 mg/dL (8.4-10.2); Carbon Dioxide 31 mmol/L (22-30); Chloride 99 mmol/L (98-107); Estimated CRCL calculation 95 ml/min; Estimated Glomerular Filt Rate 49; Glucose 143 mg/dL (65-110); Potassium 4.2 mmol/L (3.4-5.0); Sodium 135 mmol/L (137-145)
[2021-02-12 03:43] LABS: Vancomycin Trough 17.9 ug/mL (10.0-20.0)
[2021-02-12 08:09] LABS: Glucose Point of Care 164 mg/dl (65-105)
[2021-02-12] MEDS: HYDROcodone/acetaminophen (*CRX) 7.5-325 MG TABLET 1 TAB PO ×3 (09:23→22:06)
[2021-02-12] MEDS: INSULIN ASPART (*BKC) 100 UNITS/ML 20 UNITS SUB-Q ×3 (09:24→17:37)
[2021-02-12] MEDS: FLUTICASONE PROPIONATE 0.05% NA SPR 16 GM BTL (*BKC) 2 SPRAY NASAL (09:25)
[2021-02-12] MEDS: METOPROLOL TARTRATE 12.5 MG TABLET PO ×2 (09:25→21:52)
[2021-02-12] MEDS: GABAPENTIN 300 MG CAPSULE 600 MG PO ×3 (09:25→17:36)
[2021-02-12] MEDS: amLODIPine BESYLATE 5 MG TABLET PO (09:26)
[2021-02-12] MEDS: TAMSULOSIN HCL 0.4 MG CAPSULE PO (09:26)
[2021-02-12] MEDS: PANTOPRAZOLE 40 MG TABLET PO (09:26)
[2021-02-12] MEDS: ENOXAPARIN 40 MG/0.4 ML SYRINGE SUB-Q ×2 (09:27→21:53)
--- NOTE | 2021-02-12 10:20 | PCNFU ---
Nutrition Follow-Up Complete: Inadequate Oral Intake as related to paniculits as evidenced by reported poor po intake. Goal: Meet estimated nutritional needs Patient has met current goal. No new goal. Pt current nutrition is Diabetic Consistent Carb. Last recorded weight is 210 kg, no new weight to report. Bowel Motility:+BM reported 02/10 Labs Reviewed:Glu 143,Cr 1.5,BUN 23, GFR 49,Na 135,Hct 30.8,Hgb 9.7 Meds Noted:Gray, Norvasc,Vancomycin,NovoLog, Zofran, Protonix,Flomax Additional Notes: Patient seen today for nutrition follow up. He had just finished breakfast. Eating 100% of diabetic diet. Diet supplements: Glucerna BID providing an additional 220 kcals and 10 gms protein. Skin: bilateral scrotum. Agree with diet orders. Will monitor every 7 days.
[2021-02-12 11:54] LABS: Glucose Point of Care 185 mg/dl (65-105)
--- NOTE | 2021-02-12 13:08 | PM.IMPN ---
Progress Note: A&P Assessment and Plan (1) Sepsis: Qualifiers: Sepsis type: sepsis due to unspecified organism Sepsis acute organ dysfunction status: without acute organ dysfunction Qualified Code(s): A41.9 - Sepsis, unspecified organism Code(s): A41.9 - Sepsis, unspecified organism Status: Acute Assessment and Plan: PATIENT IS CURRENTLY ON VANCOMYCIN AND MERREM IMPROVED CONTINUE TO MONITOR Present on admission with fever, tachycardia, and leukocytosis. Source is cellulitis and abscess in the groin. WBC slowly trended down to normal now. He remains afebrile. Wound culture with moderate growth of Enterococcus. Blood cx negative. Treated with 3 days of IV vanc and Primaxin then switched to Unasyn 01/23 by ID. Clinically the cellulitic area appears improved since admission but still with an area of induration and purulent areas in the wound. No plans for repeat surgery. Continue dressing changes. Changed to Augmentin 02/03. Appreciate ID input. Dispo is SNF; bed available, awaiting insurance authorization. (2) Abscess of pubic region: Code(s): L02.219 - Cutaneous abscess of trunk, unspecified Status: Acute Assessment and Plan: STATUS POST I&D Patient with morbid obesity and poorly controlled DM presents with cellulitis and abscess with necrotizing subcutaneous infection. Now s/p complex I&D of a necrotizing soft tissue infection involving the left pubis/groin measuring approximately 36 x 30 x 10 cm with washout and placement of wound VAC by Dr Feliz 01/21/21. Wound culture growing Enterococcus species sensitive to ampicillin. He remained on Unasyn and WBC peaked at 23K and slowly trended to normal. Dankins added to the wound vac without benefit. No further surgery planned. Plan for dressing changes for now; wound vac stopped. Continue current abx with Augmentin and current dressing changes. Appreciate general surgery input. (3) Hyponatremia: Code(s): E87.1 - Hypo-osmolality and hyponatremia Status: Resolved Assessment and Plan: Na low on admission at 129. With IV fluids, Na climbed to 130 but then drifted down to 125 range. Prior Na level was 136 last year. Rebecca <5 and UCr 123 with FENa of 0.07% and thus received NS x 2L over 48 hours. Na has normalized. Will continue to monitor for now. (4) TESS (acute kidney injury): Code(s): N17.9 - Acute kidney failure, unspecified Status: Acute Assessment and Plan: Cr 0.7 on admission but trended up to 2.2 on 01/25. He was on IV fluids from surgery which were stopped 01/24. Renal US normal. Probably ATN from the sepsis and urine retention but consider contrast induced nephropathy since he received contrast on 01/20. Rebecca<5 so he received NS x2L with improvement in his Na level and Cr. CXR concerning for fluid overload so Lasix IV started and he had good UOP and Cr stable today at 1.6. Cr of 0.7 on admission may have been falsely low and/or current renal function is new baseline and/or related to the abx. He no longer feels SOB. Following strict Intake/output. Remains on low-dose oral lasix. Stop Lasix. (5) Urine retention: Code(s): R33.9 - Retention of urine, unspecified Status: Acute Assessment and Plan: Patient had scrotal edema and hidden penis. He was voiding well initially but then began to have trouble voiding probably related to the edema. Lombardo catheter placed and he had 1700mL out. Urine retention may have contributed to his TESS. Voiding trial today. Monitor UOP. (6) Type 2 diabetes mellitus with hyperglycemia: Qualifiers: Diabetes mellitus exterminator helper termite insulin use: with senior care use Qualified Code(s): E11.65 - Type 2 diabetes mellitus with hyperglycemia; Z79.4 - exterminator helper termite (current) use of insulin Code(s): E11.65 - Type 2 diabetes mellitus with hyperglycemia Status: Chronic Assessment and Plan: A1c 10.9%. He took 70/30 with 55-60U i
--- NOTE | 2021-02-12 14:10 | PM.IMPN ---
Progress Note: A&P Assessment and Plan (1) Sepsis: Qualifiers: Sepsis type: sepsis due to unspecified organism Sepsis acute organ dysfunction status: without acute organ dysfunction Qualified Code(s): A41.9 - Sepsis, unspecified organism Code(s): A41.9 - Sepsis, unspecified organism Status: Acute Assessment and Plan: PATIENT IS CURRENTLY ON VANCOMYCIN AND MERREM IMPROVED CONTINUE TO MONITOR Present on admission with fever, tachycardia, and leukocytosis. Source is cellulitis and abscess in the groin. WBC slowly trended down to normal now. He remains afebrile. Wound culture with moderate growth of Enterococcus. Blood cx negative. Treated with 3 days of IV vanc and Primaxin then switched to Unasyn 01/23 by ID. Clinically the cellulitic area appears improved since admission but still with an area of induration and purulent areas in the wound. No plans for repeat surgery. Continue dressing changes. Changed to Augmentin 02/03. Appreciate ID input. Dispo is SNF; bed available, awaiting insurance authorization. (2) Abscess of pubic region: Code(s): L02.219 - Cutaneous abscess of trunk, unspecified Status: Acute Assessment and Plan: STATUS POST I&D Patient with morbid obesity and poorly controlled DM presents with cellulitis and abscess with necrotizing subcutaneous infection. Now s/p complex I&D of a necrotizing soft tissue infection involving the left pubis/groin measuring approximately 36 x 30 x 10 cm with washout and placement of wound VAC by Dr Feliz 01/21/21. Wound culture growing Enterococcus species sensitive to ampicillin. He remained on Unasyn and WBC peaked at 23K and slowly trended to normal. Dankins added to the wound vac without benefit. No further surgery planned. Plan for dressing changes for now; wound vac stopped. Continue current abx with Augmentin and current dressing changes. Appreciate general surgery input. (3) Hyponatremia: Code(s): E87.1 - Hypo-osmolality and hyponatremia Status: Resolved Assessment and Plan: Na low on admission at 129. With IV fluids, Na climbed to 130 but then drifted down to 125 range. Prior Na level was 136 last year. Rebecca <5 and UCr 123 with FENa of 0.07% and thus received NS x 2L over 48 hours. Na has normalized. Will continue to monitor for now. (4) TESS (acute kidney injury): Code(s): N17.9 - Acute kidney failure, unspecified Status: Acute Assessment and Plan: Cr 0.7 on admission but trended up to 2.2 on 01/25. He was on IV fluids from surgery which were stopped 01/24. Renal US normal. Probably ATN from the sepsis and urine retention but consider contrast induced nephropathy since he received contrast on 01/20. Rebecca<5 so he received NS x2L with improvement in his Na level and Cr. CXR concerning for fluid overload so Lasix IV started and he had good UOP and Cr stable today at 1.6. Cr of 0.7 on admission may have been falsely low and/or current renal function is new baseline and/or related to the abx. He no longer feels SOB. Following strict Intake/output. Remains on low-dose oral lasix. Stop Lasix. (5) Urine retention: Code(s): R33.9 - Retention of urine, unspecified Status: Acute Assessment and Plan: Patient had scrotal edema and hidden penis. He was voiding well initially but then began to have trouble voiding probably related to the edema. Lombardo catheter placed and he had 1700mL out. Urine retention may have contributed to his TESS. Voiding trial today. Monitor UOP. (6) Type 2 diabetes mellitus with hyperglycemia: Qualifiers: Diabetes mellitus superintendent terminal insulin use: with skilled nursing use Qualified Code(s): E11.65 - Type 2 diabetes mellitus with hyperglycemia; Z79.4 - termite control technician (current) use of insulin Code(s): E11.65 - Type 2 diabetes mellitus with hyperglycemia Status: Chronic Assessment and Plan: A1c 10.9%. He took 70/30 with 55-60U i
[2021-02-12 17:56] LABS: Glucose Point of Care 146 mg/dl (65-105)
[2021-02-12] MEDS: INSULIN GLARGINE (*BKC) 100 UNITS/ML 65 UNITS SUB-Q (21:51)
[2021-02-12 22:58] LABS: Glucose Point of Care 141 mg/dl (65-105)
[2021-02-13 00:45] VITALS: PULSE 94; O2SAT 95
[2021-02-13 06:00] VITALS: BP 139/69; PULSE 80; RESP 22; TEMP 36.6; O2SAT 97
[2021-02-13 08:29] LABS: Glucose Point of Care 148 mg/dl (65-105)
[2021-02-13 09:10] VITALS: PULSE 80
[2021-02-13] MEDS: PANTOPRAZOLE 40 MG TABLET PO (09:10)
[2021-02-13] MEDS: METOPROLOL TARTRATE 12.5 MG TABLET PO ×2 (09:10→20:33)
[2021-02-13] MEDS: GABAPENTIN 300 MG CAPSULE 600 MG PO ×3 (09:10→18:46)
[2021-02-13] MEDS: amLODIPine BESYLATE 5 MG TABLET PO (09:10)
[2021-02-13] MEDS: TAMSULOSIN HCL 0.4 MG CAPSULE PO (09:10)
[2021-02-13] MEDS: FLUTICASONE PROPIONATE 0.05% NA SPR 16 GM BTL (*BKC) 2 SPRAY NASAL (09:11)
[2021-02-13] MEDS: ENOXAPARIN 40 MG/0.4 ML SYRINGE SUB-Q ×2 (09:11→20:33)
[2021-02-13] MEDS: INSULIN ASPART (*BKC) 100 UNITS/ML 20 UNITS SUB-Q ×3 (09:11→18:45)
[2021-02-13 11:02] VITALS: O2SAT 93
--- NOTE | 2021-02-13 11:41 | PM.DS ---
DS: Admitting Diagnosis Admitting Diagnosis (1) Sepsis: Qualifiers: Sepsis acute organ dysfunction status: without acute organ dysfunction Sepsis type: sepsis due to unspecified organism Qualified Code(s): A41.9 - Sepsis, unspecified organism Code(s): A41.9 - Sepsis, unspecified organism Status: Acute (2) Panniculitis: Code(s): M79.3 - Panniculitis, unspecified Status: Acute (3) Type 2 diabetes mellitus with hyperglycemia: Qualifiers: Diabetes mellitus group home insulin use: with roasterman use Qualified Code(s): E11.65 - Type 2 diabetes mellitus with hyperglycemia; Z79.4 - manager terminal (current) use of insulin Code(s): E11.65 - Type 2 diabetes mellitus with hyperglycemia Status: Acute (4) Sleep apnea: Qualifiers: Sleep apnea type: obstructive Qualified Code(s): G47.33 - Obstructive sleep apnea (adult) (pediatric) Code(s): G47.30 - Sleep apnea, unspecified DS: Discharge Diagnosis Discharge Diagnosis (1) Sepsis: Qualifiers: Sepsis type: sepsis due to unspecified organism Sepsis acute organ dysfunction status: without acute organ dysfunction Qualified Code(s): A41.9 - Sepsis, unspecified organism Code(s): A41.9 - Sepsis, unspecified organism Status: Acute Assessment and Plan: blood cultures negative afebrile discussed with ID no need for antibiotics going home PATIENT IS CURRENTLY ON VANCOMYCIN AND MERREM IMPROVED CONTINUE TO MONITOR Present on admission with fever, tachycardia, and leukocytosis. Source is cellulitis and abscess in the groin. WBC slowly trended down to normal now. He remains afebrile. Wound culture with moderate growth of Enterococcus. Blood cx negative. Treated with 3 days of IV vanc and Primaxin then switched to Unasyn 01/23 by ID. Clinically the cellulitic area appears improved since admission but still with an area of induration and purulent areas in the wound. No plans for repeat surgery. Continue dressing changes. Changed to Augmentin 02/03. Appreciate ID input. Dispo is SNF; bed available, awaiting insurance authorization. (2) Abscess of pubic region: Code(s): L02.219 - Cutaneous abscess of trunk, unspecified Status: Acute Assessment and Plan: STATUS POST I&D Patient with morbid obesity and poorly controlled DM presents with cellulitis and abscess with necrotizing subcutaneous infection. Now s/p complex I&D of a necrotizing soft tissue infection involving the left pubis/groin measuring approximately 36 x 30 x 10 cm with washout and placement of wound VAC by Dr Feliz 01/21/21. Wound culture growing Enterococcus species sensitive to ampicillin. He remained on Unasyn and WBC peaked at 23K and slowly trended to normal. Dankins added to the wound vac without benefit. No further surgery planned. Plan for dressing changes for now; wound vac stopped. Continue current abx with Augmentin and current dressing changes. Appreciate general surgery input. (3) Hyponatremia: Code(s): E87.1 - Hypo-osmolality and hyponatremia Status: Resolved Assessment and Plan: Na low on admission at 129. With IV fluids, Na climbed to 130 but then drifted down to 125 range. Prior Na level was 136 last year. Rebecca <5 and UCr 123 with FENa of 0.07% and thus received NS x 2L over 48 hours. Na has normalized. Will continue to monitor for now. (4) TESS (acute kidney injury): Code(s): N17.9 - Acute kidney failure, unspecified Status: Acute Assessment and Plan: Cr 0.7 on admission but trended up to 2.2 on 01/25. He was on IV fluids from surgery which were stopped 01/24. Renal US normal. Probably ATN from the sepsis and urine retention but consider contrast induced nephropathy since he received contrast on 01/20. Rebecca<5 so he received NS x2L with improvement in his Na level and Cr. CXR concerning for fluid overload so Lasix IV started and he had good UOP and Cr sta
[2021-02-13 12:25] LABS: Glucose Point of Care 198 mg/dl (65-105)
[2021-02-13] MEDS: LORazepam (*CRX) 0.5 MG TABLET PO ×2 (13:02→22:40)
--- NOTE | 2021-02-13 13:28 | PCOTNOTE ---
Patient refused treatment this session due to discharge orders being in and awaiting to leave hospital. Continue per POC accordingly.
[2021-02-13 14:00] VITALS: BP 133/68; PULSE 91; RESP 16; TEMP 36.7; O2SAT 94
[2021-02-13 17:43] LABS: Glucose Point of Care 115 mg/dl (65-105)
[2021-02-13 20:22] LABS: Glucose Point of Care 161 mg/dl (65-105)
[2021-02-13] MEDS: INSULIN GLARGINE (*BKC) 100 UNITS/ML 65 UNITS SUB-Q (20:31)
[2021-02-13] MEDS: HYDROcodone/acetaminophen (*CRX) 7.5-325 MG TABLET 1 TAB PO (20:34)
[2021-02-13 21:53] VITALS: BP 148/83; PULSE 98; RESP 20; TEMP 36.7; O2SAT 90
[2021-02-14] MEDS: WATER FOR IRRIGATION, STERILE 1,000 ML BOTTLE 1000 ML (04:03)
[2021-02-14 05:37] VITALS: BP 132/85; PULSE 78; RESP 20; TEMP 36.8; O2SAT 90
--- NOTE | 2021-02-14 08:05 | PCPTNOTE ---
Patient declined PT on 02/13/2021 stating he would be discharged later in the day.
[2021-02-14 08:37] LABS: Glucose Point of Care 123 mg/dl (65-105)
[2021-02-14 09:16] VITALS: PULSE 78
[2021-02-14] MEDS: TAMSULOSIN HCL 0.4 MG CAPSULE PO (09:16)
[2021-02-14] MEDS: METOPROLOL TARTRATE 12.5 MG TABLET PO ×2 (09:16→20:17)
[2021-02-14] MEDS: amLODIPine BESYLATE 5 MG TABLET PO (09:16)
[2021-02-14] MEDS: HYDROcodone/acetaminophen (*CRX) 7.5-325 MG TABLET 1 TAB PO ×2 (09:16→20:17)
[2021-02-14] MEDS: GABAPENTIN 300 MG CAPSULE 600 MG PO ×3 (09:16→18:18)
[2021-02-14] MEDS: PANTOPRAZOLE 40 MG TABLET PO (09:16)
[2021-02-14] MEDS: FLUTICASONE PROPIONATE 0.05% NA SPR 16 GM BTL (*BKC) 2 SPRAY NASAL (09:17)
[2021-02-14] MEDS: ENOXAPARIN 40 MG/0.4 ML SYRINGE SUB-Q ×2 (09:17→20:16)
[2021-02-14] MEDS: INSULIN ASPART (*BKC) 100 UNITS/ML 20 UNITS SUB-Q ×3 (09:17→18:18)
[2021-02-14 11:26] VITALS: O2SAT 91
--- NOTE | 2021-02-14 11:54 | PCOTNOTE ---
Attempted therapy session twice this date; 1st attempt patient eating breakfast; 2nd attempt patient visiting with son from out of town and politely declined therapy at this time; patient reports he is anticipated to be discharged tomorrow; follow up as appropriate for occupational therapy.
[2021-02-14 12:11] LABS: Glucose Point of Care 118 mg/dl (65-105)
[2021-02-14 14:00] VITALS: BP 142/86; PULSE 91; RESP 16; TEMP 36.4; O2SAT 94
--- NOTE | 2021-02-14 14:10 | PM.IMPN ---
Progress Note: A&P Assessment and Plan (1) Sepsis: Qualifiers: Sepsis type: sepsis due to unspecified organism Sepsis acute organ dysfunction status: without acute organ dysfunction Qualified Code(s): A41.9 - Sepsis, unspecified organism Code(s): A41.9 - Sepsis, unspecified organism Status: Acute Assessment and Plan: STABLE blood cultures negative afebrile discussed with ID no need for antibiotics going home PATIENT HAD BEEN APPROVED FOR RESIDENTIAL AWAITING IN TO HEAR FROM INSURANCE MANY DAYS HAS GONE BY ANTIBIOTICS HAVE BEEN DISCONTINUED Present on admission with fever, tachycardia, and leukocytosis. Source is cellulitis and abscess in the groin. WBC slowly trended down to normal now. He remains afebrile. Wound culture with moderate growth of Enterococcus. Blood cx negative. Treated with 3 days of IV vanc and Primaxin then switched to Unasyn 01/23 by ID. Clinically the cellulitic area appears improved since admission but still with an area of induration and purulent areas in the wound. No plans for repeat surgery. Continue dressing changes. Changed to Augmentin 02/03. Appreciate ID input. Dispo is SNF; bed available, awaiting insurance authorization. (2) Abscess of pubic region: Code(s): L02.219 - Cutaneous abscess of trunk, unspecified Status: Acute Assessment and Plan: STATUS POST I&D FOLLOW WOUND CARE PER SURGERY RECOMMENDATIONS Patient with morbid obesity and poorly controlled DM presents with cellulitis and abscess with necrotizing subcutaneous infection. Now s/p complex I&D of a necrotizing soft tissue infection involving the left pubis/groin measuring approximately 36 x 30 x 10 cm with washout and placement of wound VAC by Dr Feliz 01/21/21. Wound culture growing Enterococcus species sensitive to ampicillin. He remained on Unasyn and WBC peaked at 23K and slowly trended to normal. Dankins added to the wound vac without benefit. No further surgery planned. Plan for dressing changes for now; wound vac stopped. Continue current abx with Augmentin and current dressing changes. Appreciate general surgery input. (3) Hyponatremia: Code(s): E87.1 - Hypo-osmolality and hyponatremia Status: Resolved Assessment and Plan: Na low on admission at 129. With IV fluids, Na climbed to 130 but then drifted down to 125 range. Prior Na level was 136 last year. Rebecca <5 and UCr 123 with FENa of 0.07% and thus received NS x 2L over 48 hours. Na has normalized. Will continue to monitor for now. (4) TESS (acute kidney injury): Code(s): N17.9 - Acute kidney failure, unspecified Status: Acute Assessment and Plan: Cr 0.7 on admission but trended up to 2.2 on 01/25. He was on IV fluids from surgery which were stopped 01/24. Renal US normal. Probably ATN from the sepsis and urine retention but consider contrast induced nephropathy since he received contrast on 01/20. Rebecca<5 so he received NS x2L with improvement in his Na level and Cr. CXR concerning for fluid overload so Lasix IV started and he had good UOP and Cr stable today at 1.6. Cr of 0.7 on admission may have been falsely low and/or current renal function is new baseline and/or related to the abx. He no longer feels SOB. Following strict Intake/output. Remains on low-dose oral lasix. Stop Lasix. (5) Urine retention: Code(s): R33.9 - Retention of urine, unspecified Status: Acute Assessment and Plan: Patient had scrotal edema and hidden penis. He was voiding well initially but then began to have trouble voiding probably related to the edema. Lombardo catheter placed and he had 1700mL out. Urine retention may have contributed to his TESS. Voiding trial today. Monitor UOP. (6) Type 2 diabetes mellitus with hyperglycemia: Qualifiers: Diabetes mellitus termite technician insulin use: with nursing home use Qualified Code(s): E11.65 - Type 2 diabetes mellitus with hypergl
[2021-02-14 17:35] LABS: Glucose Point of Care 112 mg/dl (65-105)
[2021-02-14] MEDS: INSULIN GLARGINE (*BKC) 100 UNITS/ML 65 UNITS SUB-Q (20:12)
[2021-02-14 20:36] LABS: Glucose Point of Care 96 mg/dl (65-105)
[2021-02-14 22:00] VITALS: BP 140/89; PULSE 100; RESP 18; TEMP 36.8; O2SAT 90
[2021-02-14 22:50] VITALS: PULSE 98; O2SAT 93
[2021-02-15] VITALS (7 sets, daily range): BP systolic 133–167; BP diastolic 67–79; PULSE 79–93; RESP 16–20; TEMP 36.4–37; O2SAT 92–95
[2021-02-15 08:11] LABS: Glucose Point of Care 145 mg/dl (65-105)
[2021-02-15] MEDS: ENOXAPARIN 40 MG/0.4 ML SYRINGE SUB-Q ×2 (08:39→21:50)
[2021-02-15] MEDS: METOPROLOL TARTRATE 12.5 MG TABLET PO ×2 (08:40→21:51)
[2021-02-15] MEDS: TAMSULOSIN HCL 0.4 MG CAPSULE PO (08:41)
[2021-02-15] MEDS: FLUTICASONE PROPIONATE 0.05% NA SPR 16 GM BTL (*BKC) 2 SPRAY NASAL (08:41)
[2021-02-15] MEDS: GABAPENTIN 300 MG CAPSULE 600 MG PO ×3 (08:41→17:08)
[2021-02-15] MEDS: PANTOPRAZOLE 40 MG TABLET PO (08:41)
[2021-02-15] MEDS: amLODIPine BESYLATE 5 MG TABLET PO (08:41)
[2021-02-15 08:42] LABS: Anion Gap 6 mmol/L (8-16); Blood Urea Nitrogen 23 mg/dL (9-20); Calcium 8.5 mg/dL (8.4-10.2); Carbon Dioxide 26 mmol/L (22-30); Chloride 105 mmol/L (98-107); Estimated CRCL calculation 101 ml/min; Estimated Glomerular Filt Rate 53; Glucose 151 mg/dL (65-110); Potassium 4.5 mmol/L (3.4-5.0); Sodium 137 mmol/L (137-145)
[2021-02-15] MEDS: INSULIN ASPART (*BKC) 100 UNITS/ML 20 UNITS SUB-Q ×3 (08:42→18:34)
[2021-02-15 12:11] LABS: Glucose Point of Care 134 mg/dl (65-105)
[2021-02-15] MEDS: LORazepam (*CRX) 0.5 MG TABLET PO (13:21)
--- NOTE | 2021-02-15 14:32 | PM.IMPN ---
Progress Note: A&P Assessment and Plan (1) Sepsis: Qualifiers: Sepsis acute organ dysfunction status: without acute organ dysfunction Sepsis type: sepsis due to unspecified organism Qualified Code(s): A41.9 - Sepsis, unspecified organism Code(s): A41.9 - Sepsis, unspecified organism Status: Acute Assessment and Plan: Present on admission with fever, tachycardia, and leukocytosis. Source is cellulitis and abscess in the groin. WBC slowly trended down to normal now. Wound culture with moderate growth of Enterococcus. Blood cx negative. Treated with 3 days of IV vanc and Primaxin then switched to Unasyn 01/23 by ID. Clinically the cellulitic area appears improved since admission but still with an area of induration and purulent areas in the wound. No plans for repeat surgery. Continue dressing changes. Changed to Augmentin 02/03. Called back to the room for respiratory difficulty, fever and rigors on 02/08. Patient with shivering and shaking. He was 77% on RA and 94% on 3.5L. Temp to 103. His abx switched to Invanz and Vancomycin. CXR showing CMG with congestion and possible pulmonary edema; can not exclude PNA. Bladder scan originally only had 25mL but later, found to have urine retention. Influenza and COVID negative. BCx NGTD. UCx negative. No further fevers and clinically back to baseline. Abx stopped on 02/13. Okay to discharge (2) Abscess of pubic region: Code(s): L02.219 - Cutaneous abscess of trunk, unspecified Status: Acute Assessment and Plan: Patient with morbid obesity and poorly controlled DM presents with cellulitis and abscess with necrotizing subcutaneous infection. Now s/p complex I&D of a necrotizing soft tissue infection involving the left pubis/groin measuring approximately 36 x 30 x 10 cm with washout and placement of wound VAC by Dr Feliz 01/21/21. Wound culture growing Enterococcus species sensitive to ampicillin. He remained on Unasyn and WBC peaked at 23K and slowly trended to normal. Dankins added to the wound vac without benefit. No repeat surgery planned. Plan for dressing changes for now; wound vac stopped. Abx stopped. Appreciate general surgery input. (3) Hyponatremia: Code(s): E87.1 - Hypo-osmolality and hyponatremia Status: Resolved Assessment and Plan: Na low on admission at 129 but then drifted down to 125 range. Prior Na level was 136 last year. Rebecca <5 and UCr 123 with FENa of 0.07% and thus received NS x 2L over 48 hours. Na has normalized and remaining stable. Will continue to monitor for now. (4) TESS (acute kidney injury): Code(s): N17.9 - Acute kidney failure, unspecified Status: Acute Assessment and Plan: Cr 0.7 on admission but trended up to 2.2 on 01/25. He was on IV fluids from surgery which were stopped 01/24. Renal US normal. Probably ATN from the sepsis and urine retention but consider contrast induced nephropathy since he received contrast on 01/20. Rebecca<5 so he received NS x2L with improvement in his Na level and Cr. CXR concerning for fluid overload so Lasix IV started and he had good UOP and Cr stable today at 1.4. Cr of 0.7 on admission may have been falsely low and/or current renal function is new baseline and/or related to the abx. Continue to follow. (5) Urine retention: Code(s): R33.9 - Retention of urine, unspecified Status: Acute Assessment and Plan: Patient had scrotal edema and hidden penis. He was voiding well initially but then began to have trouble voiding probably related to the edema. Lombardo catheter placed and he had 1700mL out. Urine retention may have contributed to his TESS. Lombardo removed 02/08 but had to have Lombardo replaced later that evening with 1175mL in bladder. Possibly atonic bladder or related to scrotal edema. Flomax started 02/12. (6) Type 2 diabetes mellitus with hyperglycemia: Qualifiers: Diabetes mellitus long term care administrator insulin use: with
--- NOTE | 2021-02-15 15:46 | PCPTNOTE ---
Attempted PT this morning, however patient reports feeling fatigued and states he will be discharged today. Patient requests to hold PT today
[2021-02-15 17:23] LABS: Glucose Point of Care 141 mg/dl (65-105)
[2021-02-15 21:36] LABS: Glucose Point of Care 131 mg/dl (65-105)
[2021-02-15] MEDS: INSULIN GLARGINE (*BKC) 100 UNITS/ML 65 UNITS SUB-Q (21:53)
[2021-02-16 00:51] VITALS: PULSE 90; O2SAT 93
[2021-02-16 05:31] VITALS: BP 149/82; PULSE 81; RESP 20; TEMP 36.5; O2SAT 91
[2021-02-16 08:49] LABS: Glucose Point of Care 172 mg/dl (65-105)
[2021-02-16] MEDS: INSULIN ASPART (*BKC) 100 UNITS/ML 20 UNITS SUB-Q (09:07)
[2021-02-16] MEDS: GABAPENTIN 300 MG CAPSULE 600 MG PO (09:08)
[2021-02-16] MEDS: PANTOPRAZOLE 40 MG TABLET PO (09:08)
[2021-02-16 09:09] VITALS: PULSE 81
[2021-02-16] MEDS: amLODIPine BESYLATE 5 MG TABLET PO (09:09)
[2021-02-16] MEDS: METOPROLOL TARTRATE 12.5 MG TABLET PO (09:09)
[2021-02-16] MEDS: TAMSULOSIN HCL 0.4 MG CAPSULE PO (09:09)
[2021-02-16] MEDS: FLUTICASONE PROPIONATE 0.05% NA SPR 16 GM BTL (*BKC) 2 SPRAY NASAL (09:10)
[2021-02-16] MEDS: ENOXAPARIN 40 MG/0.4 ML SYRINGE SUB-Q (09:10)
--- NOTE | 2021-02-16 09:50 | PM.DS ---
DS: Admitting Diagnosis Admitting Diagnosis Groin pain DS: Discharge Diagnosis Discharge Diagnosis (1) Sepsis: Qualifiers: Sepsis type: sepsis due to unspecified organism Sepsis acute organ dysfunction status: without acute organ dysfunction Qualified Code(s): A41.9 - Sepsis, unspecified organism Code(s): A41.9 - Sepsis, unspecified organism Status: Acute Assessment and Plan: Present on admission with fever, tachycardia, and leukocytosis. Source was cellulitis and abscess in the groin. WBC slowly trended down to normal. Wound culture with moderate growth of Enterococcus. Blood cx negative. Treated with 3 days of IV vanc and Primaxin then switched to Unasyn 01/23/21 by ID. Clinically the cellulitic area appears improved since admission but still with an area of induration and purulent areas in the wound. No plans for repeat surgery. We continue dressing changes. He was changed to Augmentin 02/03 per ID input. Called back to the room for respiratory difficulty, fever and rigors on 02/08/21. Patient with shivering and shaking. He was 77% on RA and 94% on 3.5L. Temp to 103. His abx switched to Invanz and Vancomycin. CXR showing CMG with congestion and possible pulmonary edema; can not exclude PNA. Bladder scan originally only had 25mL but later, found to have urine retention. Influenza and COVID negative. BCx and UCx negative. No further fevers and clinically back to baseline. All abx stopped on 02/13 without recurrence of symptoms. (2) Abscess of pubic region: Code(s): L02.219 - Cutaneous abscess of trunk, unspecified Status: Acute Assessment and Plan: Patient with morbid obesity and poorly controlled DM presents with cellulitis and abscess with necrotizing subcutaneous infection to the groin area. Now s/p complex I&D of a necrotizing soft tissue infection involving the left pubis/groin measuring approximately 36 x 30 x 10 cm with washout and placement of wound VAC by Dr Feliz 01/21/21. Wound culture growing Enterococcus species sensitive to ampicillin. He remained on Unasyn and WBC peaked at 23K and slowly trended to normal. Dankins added to the wound vac without benefit. No repeat surgery planned. Wound vac stopped with plans for continued dressing changes. (3) Hyponatremia: Code(s): E87.1 - Hypo-osmolality and hyponatremia Status: Resolved Assessment and Plan: Sodium low on admission at 129 but then drifted down to 125 range. Prior Na level was 136 last year. Rebecca <5 and UCr 123 with FENa of 0.07% and thus received NS x 2L over 48 hours. Na normalized and remained stable. (4) TESS (acute kidney injury): Code(s): N17.9 - Acute kidney failure, unspecified Status: Acute Assessment and Plan: Cr 0.7 on admission but trended up to 2.2 on 01/25. He was on IV fluids from surgery which were stopped 01/24. Renal US normal. Probably ATN from the sepsis and urine retention but consider contrast induced nephropathy since he received contrast on 01/20. Rebecca<5 so he received NS x2L with improvement in his Na level and Cr. CXR later was concerning for fluid overload so Lasix IV started and he had good UOP and Cr remained stable at 1.4. Cr of 0.7 on admission may have been falsely low and/or current renal function is new baseline. (5) Urine retention: Code(s): R33.9 - Retention of urine, unspecified Status: Acute Assessment and Plan: Patient had scrotal edema and hidden penis. He was voiding well initially but then began to have trouble voiding probably related to the edema. Lombardo catheter placed and he had 1700mL out. Urine retention may have contributed to his TESS. Lombardo removed 02/08 but had to have Lombardo replaced later that evening with 1175mL in bladder. Possibly atonic bladder or related to scrotal edema. Flomax started 02/12. (6) Type 2 diabetes mellitus with hyperglycemia: Qualifiers: Diabetes mellitus care home insulin u
[2021-02-16] MEDS: ACETAMINOPHEN 325 MG TABLET 650 MG PO (10:40)
--- NOTE | 2021-03-15 21:19 | P.PNIM_ITS ---
Progress Note: A&P Assessment and Plan (1) Sepsis: Qualifiers: Sepsis type: sepsis due to unspecified organism Sepsis acute organ dysfunction status: without acute organ dysfunction Qualified Code(s): A41.9 - Sepsis, unspecified organism Code(s): A41.9 - Sepsis, unspecified organism Status: Acute Assessment and Plan: Present on admission with fever, tachycardia, and leukocytosis. Source is cellulitis and abscess in the groin. WBC slowly trended down to normal now. W ound culture with moderate growth of Enterococcus. Blood cx negative. Treated with 3 days of IV vanc and Primaxin then switched to Unasyn 01/23 by ID. Clinically the cellulitic area appears improved since admission but still with an area of induration and purulent areas in the wound. No plans for repeat surgery. Continue dressing changes. Changed to Augmentin 02/03. Called back to the room for respiratory difficulty, fever and rigors on 02/08. Patient with shivering and shaking. He was 77% on RA and 94% on 3.5L. Temp to 103. His abx switched to Invanz and Vancomycin. CXR showing CMG with congestion and possible pulmonary edema; can not exclude PNA. Bladder scan originally only had 25mL but later, found to have urine retention. Influenza and COVID negative. BCx NGTD. UCx negative. No further fevers and clinically back to baseline. Abx stopped on 02/13. Okay to discharge (2) Abscess of pubic region: Code(s): L02.219 - Cutaneous abscess of trunk, unspecified Status: Acute Assessment and Plan: Patient with morbid obesity and poorly controlled DM presents with cellulitis and abscess with necrotizing subcutaneous infection. Now s/p complex I&D of a necrotizing soft tissue infection involving the left pubis/groin measuring approximately 36 x 30 x 10 cm with washout and placement of wound VAC by Dr Feliz 01/21/21. Wound culture growing Enterococcus species sensitive to ampicillin. He remained on Unasyn and WBC peaked at 23K and slowly trended to normal. Dankins added to the wound vac without benefit. No repeat surgery planned. Plan for dressing changes for now; wound vac stopped. Abx stopped. A ppreciate general surgery input. (3) Hyponatremia: Code(s): E87.1 - Hypo-osmolality and hyponatremia Status: Resolved Assessment and Plan: Na low on admission at 129 but then drifted down to 125 range. Prior Na level was 136 last year. Rebecca <5 and UCr 123 with FENa of 0.07% and thus received NS x 2L over 48 hours. Na has normalized and remaining stable. Will continue to monitor for now. (4) TESS (acute kidney injury): Code(s): N17.9 - Acute kidney failure, unspecified Status: Acute Assessment and Plan: Cr 0.7 on admission but trended up to 2.2 on 01/25. He was on IV fluids from surgery which were stopped 01/24. Renal US normal. Probably ATN from the sepsis and urine retention but consider contrast induced nephropathy since he received contrast on 01/20. Rebecca<5 so he received NS x2L with improvement in his Na level and Cr. CXR concerning for fluid overload so Lasix IV started and he had good UOP and Cr stable today at 1.4. Cr of 0.7 on admission may have been falsely low and/or current renal function is new baseline and/or related to the abx. Continue to follow. (5) Urine retention: Code(s): R33.9 - Retention of urine, unspecified Status: Acute Assessment and Plan: Patient had scrotal edema and hidden penis. He was voiding well initially but then began to have trouble voiding probably related to the edema. Lombardo catheter placed and he had 1700mL out. Urine retention may have contributed to his TESS. Lombardo leigh ann
== END 2021-02-16 12:00 | DRG 853 ==
LOC: ANHED 13:41 → ANH3MEDSUR 16:19
PROVIDERS: Internal Medicine; Nurse Practitioner; Nurse Practitioner Family; Surgery; Admitting Provider Internal Medicine; Emergency Provider Emergency Medicine; PCP Internal Medicine; Visit Provider Physician Assistant
PROC: 0J9C0ZZ Drainage of Pelvic Region Subcutaneous Tissue and Fascia, Open Approach (ICD-10-PCS; principal; 2021-01-21 14:00)
DX: A41.9 Sepsis, unspecified organism (principal); N17.0 Acute kidney failure with tubular necrosis; L02.219 Cutaneous abscess of trunk, unspecified; Z68.44 Body mass index [BMI] 60.0-69.9, adult; L02.214 Cutaneous abscess of groin; I96 Gangrene, not elsewhere classified; E87.1 Hypo-osmolality and hyponatremia; E66.01 Morbid (severe) obesity due to excess calories; E11.42 Type 2 diabetes mellitus with diabetic polyneuropathy; G47.33 Obstructive sleep apnea (adult) (pediatric); I10 Essential (primary) hypertension; E11.65 Type 2 diabetes mellitus with hyperglycemia; Z79.4 Long term (current) use of insulin; R33.9 Retention of urine, unspecified; N48.83 Acquired buried penis; Z20.822 Contact with and (suspected) exposure to COVID-19; F41.9 Anxiety disorder, unspecified
CPT/HCPCS: 36415; 36600; 71045; 71046; 72192; 74177; 76775; 80048; 80053; 80069; 80202; 81001; 82565; 82570; 82805; 82948; 83036; 83605; 83735; 83880; 84100; 84300; 84443; 85025; 85027; 85049; 85055; 85610; 85730; 86140; 87040; 87070; 87077; 87086; 87186; 87205; 87804; 93005; 93306; 93970; 94002; 96361; 96365; 96366; 96367; 96372; 96375; 97110; 97116; 97161; 97166; 97530; 97535; 99285; A9270; C9803; G0378; J0295; J0743; J1650; J1815; J1940; J2270; J2405; J2704; J3010; J3370; J7030; J7120; Q9957; Q9967; U0003; U0005

== ENCOUNTER 2021-03-31 07:17 | Outpatient (RCR) | payer BC, SELFPAY ==
[2021-03-03 08:33] VITALS: BMI 66.4
--- NOTE | 2021-03-03 09:30 | WPDWOUNDNOTE ---
Wound Care Note Date/Time: 03/03/21 09:30 Pt seen and exmained in the wound care clinic. Pt reports he has been doing well. Pt reports wound significantly improved and pain resolved. Pt reports swelling also largely resolved. Assessment and Plan Assessment and plan (1) Necrotizing subcutaneous infection: Code(s): M72.6 - Necrotizing fasciitis Status: Acute Assessment and Plan: much improved, local wound care c 1 in iodoform packing, silver nitrate to hypertrophic granulation tissue, home health care, f/u 1 mo Review of Systems Review of Systems: All systems reviewed & are unremarkable except as noted in HPI and below Exam Const: General: cooperative, comfortable and no acute distress Nutritional Appearance: obese Orientation/consciousness: patient oriented x3 Resp: Effort & Inspection: normal respiratory effort Auscultation: clear to auscultation bilaterally Cardio: Rate: regular rate Rhythm: regular rhythm GI: Inspection: normal to inspection GI Palp: No abdominal tenderness and Yes Soft to palpation Skin: Other: L groing wound - some hypertrophic granulation tissue, measures 1x5x5 cm, serosanganeous drainage, no s/s active infection
--- NOTE | 2021-03-31 10:28 | WPDWOUNDNOTE ---
Wound Care Note Date/Time: 03/31/21 10:28 Pt seen and examined. Pt reports wound is well healed, no further s/s infection. Pt denies any pain, drainage, etc. Assessment and Plan Assessment and plan (1) Necrotizing subcutaneous infection: Code(s): M72.6 - Necrotizing fasciitis Status: Acute Assessment and Plan: resolved, off all abx, silver nitrate to hypertrophic scar, f/u prn Review of Systems Review of Systems: All systems reviewed & are unremarkable except as noted in HPI and below Exam Const: General: cooperative, comfortable and no acute distress Nutritional Appearance: obese Resp: Effort & Inspection: normal respiratory effort Cardio: Rate: regular rate Rhythm: regular rhythm GI: Inspection: normal to inspection GI Palp: Yes Soft to palpation and No Tenderness to palpation present (GI) Skin: Other: L groin incision - well healed, no s/s infection, 5 cm area of hypertropic scar
== END 2021-05-17 08:17 | disposition home or self-care (01) ==
LOC: ANHWOC 07:17
PROVIDERS: PCP Internal Medicine; Visit Provider Surgery
DX: Z48.817 Encounter for surgical aftercare following surgery on the skin and subcutaneous tissue (principal); S31.501D Unspecified open wound of unspecified external genital organs, male, subsequent encounter; M72.6 Necrotizing fasciitis
CPT/HCPCS: 99212; 99213; G0463

== ENCOUNTER → 2021-07-21 11:22 | Outpatient (CLI) | payer BC, MEDICAID, SELFPAY ==
--- NOTE | ~2021-07-21 | XR_ITS ---
EXAMINATION: XR shoulder RT min 2V DATE: 07/21/2021 11:42 INDICATION: Right shoulder pain. TECHNIQUE: 4 views of right shoulder were obtained. COMPARISON: Right shoulder radiographs 09/30/2019 FINDINGS: Bone alignment is normal. No fracture. There is mild osteoarthritis of glenohumeral joint a nd moderate osteoarthritis of the acromioclavicular joint. IMPRESSION: 1. Polyarticular osteoarthritis. Reviewed, dictated and finalized at location A. 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
== END ==
PROVIDERS: PCP Internal Medicine; Visit Provider Internal Medicine
DX: M19.011 Primary osteoarthritis, right shoulder (principal)
CPT/HCPCS: 73030

== ENCOUNTER 2021-12-09 12:22 | Outpatient (CLI) | payer BC, SELFPAY ==
--- NOTE | ~2021-12-09 | XR_ITS ---
XR_[id number] 12/09/2021 13:05 Indication: Cervicalgia Procedure: 5 views of the cervical spine Comparison: No prior studies for comparison. Findings: There is mild multilevel uncinate degenerative change at C4-5, C5-6 and C6-7. Odontoid proc ess within normal limits. There is disc narrowing and anterior endplate degenerative change at C4-5 t hrough C6-7. No prevertebral soft tissue abnormality. Lung apices are normal. There is carotid athero sclerosis. Impression: 1: Moderate cervical spondylosis Reviewed, dictated and finalized at location B. Impression: 1: Moderate cervical spondylosis
== END 2021-12-09 12:23 | disposition home or self-care (01) ==
LOC: ANHIMG 12:24
PROVIDERS: PCP Internal Medicine; Visit Provider Internal Medicine
DX: M47.892 Other spondylosis, cervical region (principal)
CPT/HCPCS: 72040

== ENCOUNTER 2021-12-27 10:35 | Outpatient (CLI) | payer BC, SELFPAY ==
[2021-12-27 11:12] LABS: Alanine Aminotransferase 24 U/L (6-50); Albumin Level 3.9 g/dL (3.5-5.1); Alkaline Phosphatase 68 U/L (38-126); Anion Gap 4 mmol/L (8-16); Aspartate Amino Transferase 27 U/L (17-59); Bilirubin,Total 0.6 mg/dL (0.2-1.3); Blood Urea Nitrogen 20 mg/dL (9-20); Calcium 8.4 mg/dL (8.4-10.2); Carbon Dioxide 28 mmol/L (22-30); Chloride 104 mmol/L (98-107); Cholesterol 168 mg/dL (0-200); Estimated Glomerular Filt Rate > 60; Glucose 168 mg/dL (65-110); HDL Direct 31 mg/dL; Potassium 4.3 mmol/L (3.4-5.0); Sodium 136 mmol/L (137-145); Triglycerides 177 mg/dL (<150)
[2021-12-27 11:23] LABS: LDL Cholesterol Direct 78 mg/dL
[2021-12-27 11:42] LABS: Prostate Specific Antigen 0.4 ng/mL (< OR = 4.0)
[2021-12-27 12:02] LABS: Free T4 Free Thyroxine 1.46 ng/mL (0.78-2.19); Vitamin D 25 Hydroxy 14.8 ng/mL
[2021-12-27 12:18] LABS: Folic Acid 14.2 ng/mL (2.76->20)
[2021-12-27 13:16] LABS: Microalbumin Urine Random > 1140.0 mg/L (0-16.7)
== END 2021-12-27 10:36 | disposition home or self-care (01) ==
PROVIDERS: PCP Internal Medicine; Visit Provider Nurse Practitioner Family
DX: E11.42 Type 2 diabetes mellitus with diabetic polyneuropathy (principal); E11.65 Type 2 diabetes mellitus with hyperglycemia; I10 Essential (primary) hypertension; R79.89 Other specified abnormal findings of blood chemistry; Z79.4 Long term (current) use of insulin; R53.83 Other fatigue; Z12.5 Encounter for screening for malignant neoplasm of prostate
CPT/HCPCS: 36415; 80053; 80061; 82043; 82306; 82607; 82746; 84153; 84439; 84443; G0103

== ENCOUNTER 2022-07-26 09:59 | Outpatient (RCR) | payer MEDICARE, MEDICAID, SELFPAY ==
[2022-07-26 12:40] VITALS: BMI 72.3
== END 2022-10-10 13:23 | disposition home or self-care (01) ==
LOC: ANHWOC 09:59
PROVIDERS: PCP Internal Medicine; Visit Provider Nurse Practitioner Family
DX: I87.2 Venous insufficiency (chronic) (peripheral) (principal)
CPT/HCPCS: 99213; G0463

== ENCOUNTER 2022-08-26 12:30 | Outpatient (RCR) | payer MEDICARE, MEDICAID, SELFPAY ==
--- NOTE | 2022-07-27 12:11 | OTOPEVAL1 ---
Assessment and note entered by Rom Munroe, CAMERON/Alena, CHT Evaluation Information Assessment Status Evaluation Diagnosis Right radial nerve palsy Onset ~11/2021 Subjective Information Patient reports onset of right wrist drop about November of 2021. 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 He has been unable to propel his w/c independently or complete ADLs without assist since the onset of the wrist drop. He presents today with orders for a wrist brace. Reported Pain Level Pain Score 0: Self Report Additional Pain Score Comments No pain today. Reports pain with heavy use. Assessment OT Clinical Summary Patient presents today with orders for a splint for radial nerve palsy. Discussed the pros/cons of a thermoplastic one made in the clinic vs. ordering one through [facility] [employer]. and the patient decided to go with the [facility] orthosis. The order form was sent and we will be waiting for the orthosis to arrive for the patient to come back to get properly fitted in the orthotic. In the meantime, he was educated on performing ROM to maintain his flexibility and he verbalizes excellent understanding of all materials. Will see him for one follow up in 3-4 weeks to fit for the orthotic and then discharge. Thank you for this referral. Plan of Care Interventions Check Out for Orthotic/Pr OT Services Indicated Yes These treatments will address the objective and functional deficits as defined above. The patient will be advanced safely and appropriately in order for the patient to progress towards his/her prior level of function. Additional exercises will be introduced and as well as a comprehensive home exercise program upon discharge, if needed, ?to ensure carryover of functional gains achieved in the clinic. This treatment plan has been reviewed and agreement upon by the patient.
--- NOTE | 2022-08-26 14:02 | OTOPDC ---
Assessment and note entered by Rom Munroe OTR/Alena, CHT Evaluation Information Assessment Status Discharge Subjective Information Patient referred to outpatient hand therapy for wrist extension brace secondary to radial nerve palsy. A prefabricated radial nerve palsy splint from [employer] was ordered fitted to the patient. He reports good fit and increased hand function with the orthotic. He is independent with don/ doffing the orthotic. Reported Pain Level Pain Score 0: Self Report Assessment OT Clinical Summary Discharging today with patient independent with wrist/finger extension orthotic. Plan of Care OT Services Indicated No
== END 2022-10-10 08:41 | disposition home or self-care (01) ==
LOC: ANHOT 12:30
PROVIDERS: PCP Internal Medicine; Visit Provider Internal Medicine
DX: G56.31 Lesion of radial nerve, right upper limb (principal)
CPT/HCPCS: 97165; 97763

== ENCOUNTER 2022-09-16 13:22 | Outpatient (CLI) | payer MEDICARE, MEDICAID, SELFPAY ==
--- NOTE | 2022-09-16 13:30 | ECG_ITS ---
Measurements Intervals [place] Rate: 88 P: 5 TN: 196 QRS: -19 QRSD: 91 T: 81 QT: 344 QTc: 417 Interpretive Statements SINUS RHYTHM SUSPECT PREVIOUS ANTERIOR WALL [place] NONSPECIFIC T-WAVE ABNORMALITY ABNORMAL ECG COMPARED TO ECG 02/08/2021 17:13:36 LOSS OF PRECORDIAL R-WAVE VOLTAGE Electronically Signed On 09-16-2022 15:41:33 [employer] by Ezequiel Caraballo M.D.
[2022-09-16 14:38] LABS: Anion Gap 4 mmol/L (8-16); Blood Urea Nitrogen 20 mg/dL (9-20); Calcium 8.6 mg/dL (8.4-10.2); Carbon Dioxide 30 mmol/L (22-30); Chloride 101 mmol/L (98-107); Estimated Glomerular Filt Rate > 60; Glucose 135 mg/dL (65-110); Sodium 135 mmol/L (137-145)
== END 2022-09-16 13:23 | disposition home or self-care (01) ==
PROVIDERS: Anesthesiology; PCP Internal Medicine; Visit Provider Orthopaedic Surgery
DX: E11.65 Type 2 diabetes mellitus with hyperglycemia (principal); Z01.818 Encounter for other preprocedural examination
CPT/HCPCS: 36415; 80048; 93005

== ENCOUNTER 2022-09-23 01:14 | Day surgery (SDC) | payer MEDICARE, MEDICAID, SELFPAY ==
[2022-09-14 15:04] VITALS: BMI 70.1
--- NOTE | 2022-09-14 15:08 | PC.NURSE ---
Report to the Outpatient Waiting Room, entrance under the green pavilion located off [facility], at time 7:00 on date 09/23/22. Planned Procedure Time: 9:00. Time changes happen often and if your time is changed the preop area will call you the afternoon before. - You and your visitor will be asked to self-screen and do not enter if you have any COVID symptoms. - Only one visitor is requested with a max of two and NO children visitors are allowed at this time. - The patient visitor may be requested to leave or wait in car when not with patient due to distancing restrictions. - A mask is optional within the hospital at this time. Patients may have clear liquids (water, carbonated beverages, clear teas, apple juice) until 3 hours prior to surgery with a maximum of 20 ounces. - No food from midnight until time of surgery Take the following medications with a SIP of water the morning of surgery: AMLODIPINE, GABAPENTIN, METOPROLOL DO NOT STOP ANY OF YOUR OTHER PRESCRIPTION MEDICATIONS PRIOR TO SURGERY EXCEPT THE FOLLOWING Medications to discontinue per physician: N/A Date to take last dose: N/A Please no make-up, nail irish, hairspray, perfume, deodorant, or body powder the day of surgery. No jewelry (including any body piercings) or valuables the day of surgery, leave them at home. Please take a shower or bath the night before, or the morning of, surgery with an antibacterial soap. Wear comfortable, loose fitting clothing. - Jewelry must be removed prior to entering the operating room. Rings and piercings that are not removed may be cut off. - The hospital will not accept responsibility for valuables. - Please leave all valuables, including medications, at home the day of surgery. If you are going home after surgery, a licensed transit bus driver must drive you home. - NO public transportation without another adult if you receive anesthesia. - We recommend that an adult stay with you for 24 hours following discharge. - We also recommend that you do not drive, make important decision, drink alcoholic beverages, or take any drugs that were not prescribed by your health care provider for at least 24 hours after your discharge time. Follow any additional instructions given to you from your surgeon. If you or anyone in your household have experienced Covid symptoms in the past week, please notify your surgeon or the nurse liaison at the phone number below for possible testing. Telephone instructions given to SHANA HAWKINS and asked if any additional questions and then verbalized understanding. Patient advised to call surgeon office or pre surgery nurse liaison [phone] if any additional questions.
[2022-09-23] VITALS (7 sets, daily range): BP systolic 118–155; BP diastolic 66–81; PULSE 79–98; RESP 16–19; TEMP 36.1–36.3; O2SAT 94–99
--- NOTE | 2022-09-23 07:18 | WPDHPUPDATE1 ---
History and Physical Update Update Date/Time: 09/23/22 07:18 History and Physical has been reviewed, including an updated exam of the patient. There are NO changes in the patient's condition. Risks, benefits, and alternatives have been discussed and questions answered. Patient agrees to proceed with procedure.
[2022-09-23] MEDS: ACETAMINOPHEN 500 MG TABLET 1000 MG PO (07:48)
[2022-09-23] MEDS: CELECOXIB 200 MG CAPSULE PO (07:48)
[2022-09-23] MEDS: LACTATED RINGERS 1,000 ML 30 ML IV CONT (08:00)
--- NOTE | 2022-09-23 08:05 | WPDANESEPPF ---
Anes - Initial Pre Proc Eval Procedure: Operation Date: 09/23/22 09:00 Proposed Procedures p Right Carpal Tunnel Release - Varun Angel MD Date/Time: 09/23/22 08:05 Surgeon: Varun Angel MD Pre Op Diagnosis: Rt Carpal Tunnel Syndrome Patient Data Age: 52 Gender: M Height: 1.75 m Weight: 215.5 kg Allergies Allergy/AdvReac Type Severity Reaction Status Date / Time No Known Allergies Allergy Verified 09/23/22 07:32 Home Medications Medication Instructions Recorded Confirmed Type omeprazole 20 mg capsule,delayed 20 mg PO DAILY 09/26/19 09/14/22 History release pen needle, diabetic 32 gauge x #300 ea 09/06/21 08/15/22 Rx 5/32 (BD Ultra-Fine Thuy Pen Needle) lisinopril 10 mg tablet 10 mg PO DAILY #90 tabs 12/27/21 09/14/22 Rx amlodipine 5 mg tablet (Norvasc) 5 mg PO QAM #90 tabs 12/29/21 09/14/22 Rx celecoxib 200 mg capsule (Celebrex) 400 mg PO DAILY #180 caps 04/07/22 09/14/22 Rx blood-glucose sensor (FreeStyle #6 ea 06/28/22 08/15/22 Rx Hilary 3 Sensor device) gabapentin 600 mg tablet 600 mg PO TID #270 tabs 07/22/22 09/14/22 Rx glucagon 3 mg/actuation nasal spray 3 mg intranasal ONCE #2 ea 08/02/22 09/14/22 Rx semaglutide 2 mg/dose (8 mg/3 mL) 2 mg (0.75 mL) subcut WEEKLY #9 mL 08/17/22 09/14/22 Rx subcutaneous pen injector (Ozempic) insulin lispro 100 unit/mL 15 unit subcut TIDWMEAL 09/14/22 09/14/22 History subcutaneous pen (Humalog KwikPen (U-100) Insulin) metoprolol tartrate 25 mg tablet 25 mg PO DAILY 09/14/22 09/14/22 History insulin glargine 100 unit/mL (3 60 unit (0.6 mL) subcut QPM #60 mL 09/15/22 Rx mL) subcutaneous pen (Lantus Solostar U-100 Insulin) chlorhexidine gluconate 4 % 1 applic topical ONCE #237 mL 09/16/22 Rx topical liquid (Hibiclens) Patient hx anesthesia problems: none Family hx anesthesia problems: none Results Review: All pre-operative results and documents have been reviewed as part of the pre-operative evaluation. [facility] Past Medical History Medical History Abscess of pubic region TESS (acute kidney injury) Anxiety Arthritis Bilateral carpal tunnel syndrome Body mass index (BMI) 35 or more (01/30/18) Carpal tunnel syndrome bilateral Cellulitis of left foot Closed displaced fracture of acromial end of clavicle Collar bone fracture Depression with 2 prior suicide attempts Diabetic autonomic neuropathy Diabetic peripheral neuropathy Dietary counseling and surveillance (04/06/17) DJD of right shoulder DVT prophylaxis Essential (primary) hypertension Gangrene of toe of left foot Gastro-esophageal reflux disease without esophagitis Generalized weakness GERD (gastroesophageal reflux disease) High blood pressure History of stress test done in 1999 Hypertension Hyponatremia Kidney stones Low vitamin D level Morbid obesity with BMI of 60.0-69.9, adult Necrotizing subcutaneous infection Neuropathy Obesity, unspecified Obstructive sleep apnea (adult) (pediatric) Panniculitis Paroxysmal atrial fibrillation One episode in the , not on anticoagulation Peripheral neuropathy Polyp of colon Primary osteoarthritis Psychiatric disorder Pure hypercholesterolemia Sepsis Shoulder pain, right Sleep apnea SOB (shortness of breath) Type 2 diabetes mellitus with hyperglycemia Urine retention Viral syndrome Surgical History Surgical History Amputation of toe of left foot History of appendectomy History of tooth extraction Family History Family History Mother Carcinoma of colon with liver metastases Patient's mother is Father Hypertension Acute myocardial infarction Cerebrovascular accident Atrial fibrillation Glaucoma Obese Sibling Patient's sister is in good health Cervical cancer Endom
[2022-09-23 08:07] LABS: Glucose Point of Care 161 mg/dl (65-105)
[2022-09-23] MEDS: ceFAZolin 3 GM/D5W 100 ML 100 ML IVPB (09:00)
--- NOTE | 2022-09-23 09:22 | W.PM.PROC2 ---
Procedure Note - Detailed Date of Procedure 09/23/22 Pre-op Diagnosis Rt Carpal Tunnel Syndrome Post-op Diagnosis Same Procedure Performed RIGHT CTR Surgeon Varun Angel MD Anesthesia General Description of Procedure THE RIGHT UPPER EXTREMITY WAS PREPPED AND DRAPED IN THE STERILE FASHION. THE CARPAL TUNNEL WAS MARKED FROM THE FLEXED RING FINGER. THE TOURNIQUET WAS INFLATED. THE INCISION WAS MADE AT THE MID PALM DOWN THROUGH THE SUBCUTANEOUS TISSUES. THE PALMAR FASCIA WAS IDENTIFIED. AN INCISION WAS MADE THROUGH THE PALMAR FASCIA UNTIL THE CARPAL TUNNEL WAS ENTERED. A MOSQUITO HEMOSTAT WAS USED TO PROTECT THE MEDIAN NERVE WHILE THE INCISION TO THE PALMAR FASCIA WAS COMPLETE PROXIMALLY AND DISTALLY TO THE CARDINAL LINE. NEXT, THE TRANSVERSE CARPAL LIGAMENT WAS IDENTIFIED. A FREER ELEVATOR WAS USED TO SEPARATE THE NERVE FROM THE LIGAMENT. A METZENBAUM SCISSORS WAS THEN USED TO INCISE THE TRANSVERSE CARPAL LIGAMENT UNTIL THERE WAS A COMPLETE RELEASE OF THE CARPAL TUNNEL. THE MEDIAN NERVE WAS INTACT. THE TOURNIQUET WAS DEFLATED. THE BLEEDERS WERE CAUTERIZED. THE WOUND WAS WASHED. THE SKIN WAS APPROXIMATED WITH 4-0 NYLON SUTURE. STERILE DRESSING WAS APPLIED. PATIENT WAS EXTUBATED AND SENT TO THE RECOVERY ROOM. Estimated Blood Loss 5 Complications No immediate complications Condition Stable Disposition PACU
[2022-09-23] MEDS: BUPivacaine HCL 0.5% PF 30 ML VIAL INFILTRATE (09:25)
[2022-09-23 10:04] LABS: Glucose Point of Care 148 mg/dl (65-105)
--- NOTE | 2022-10-13 16:23 | PM.IMHP ---
H&P: HPI History of Present Illness Date/Time: 09/23/22 16:23 Chief Complaint: RIGHT HAND PAIN AND NUMBNESS Narrative: Pt presents with Right hand pain that has been chronic, nontraumatic. He was evaluated and underwent an EMG/NCS recently which reported CTS w/ issues of the C-Spine. He has been participating in OT/hand therapy and is currently awaiting a glove/brace. He states his function is improving but he is nowhere near where he would like to be. 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) History of prior hand/wrist injury: No Review of Systems Review of Systems: All systems reviewed & are unremarkable except as noted in HPI and below PMFSH Past Medical History Medical History Abscess of pubic region TESS (acute kidney injury) Anxiety Arthritis Bilateral carpal tunnel syndrome Body mass index (BMI) 35 or more (01/30/18) Carpal tunnel syndrome bilateral Cellulitis of left foot Closed displaced fracture of acromial end of clavicle Collar bone fracture Depression with 2 prior suicide attempts Diabetic autonomic neuropathy Diabetic peripheral neuropathy Dietary counseling and surveillance (04/06/17) DJD of right shoulder DVT prophylaxis Essential (primary) hypertension Gangrene of toe of left foot Gastro-esophageal reflux disease without esophagitis Generalized weakness GERD (gastroesophageal reflux disease) High blood pressure History of stress test done in 1999 Hypertension Hyponatremia Kidney stones Low vitamin D level Morbid obesity with BMI of 60.0-69.9, adult Necrotizing subcutaneous infection Neuropathy Obesity, unspecified Obstructive sleep apnea (adult) (pediatric) Panniculitis Paroxysmal atrial fibrillation One episode in the , not on anticoagulation Peripheral neuropathy Polyp of colon Primary osteoarthritis Psychiatric disorder Pure hypercholesterolemia Sepsis Shoulder pain, right Sleep apnea SOB (shortness of breath) Type 2 diabetes mellitus with hyperglycemia Urine retention Viral syndrome Surgical History Surgical History Amputation of toe of left foot History of appendectomy History of tooth extraction Family History Family History Mother Carcinoma of colon with liver metastases Patient's mother is Father Hypertension Acute myocardial infarction Cerebrovascular accident Atrial fibrillation Glaucoma Obese Sibling Patient's sister is in good health Cervical cancer Endometrial cancer Grandparent Rheumatoid arthritis Other Depression Family history of alcoholism Family history of gout Social History Social History Social History: He is . He had 4 biological children but 1 is at age 3 due to head trauma from a fall. His 23-year-old and 16-year-old still live at home. His ex- who is still lived with suddenly of cardiac arrest in November of 2019.He plays the [employer]et in the [employer] at the [employer]. He denies any tobacco use. He occasionally will drink an alcoholic beverage maybe of to once a week. Primary care physician: Dr. Lionel De Jesus
== END 2022-09-23 11:32 | disposition home or self-care (01) ==
PROVIDERS: PCP Internal Medicine; Visit Provider Orthopaedic Surgery
PROC: (CPT 64721; principal; 2022-09-23 09:00)
DX: G56.01 Carpal tunnel syndrome, right upper limb (principal); E11.42 Type 2 diabetes mellitus with diabetic polyneuropathy; E11.43 Type 2 diabetes mellitus with diabetic autonomic (poly)neuropathy; F32.A Depression, unspecified; I10 Essential (primary) hypertension; K21.9 Gastro-esophageal reflux disease without esophagitis; E55.9 Vitamin D deficiency, unspecified; E78.00 Pure hypercholesterolemia, unspecified; E66.01 Morbid (severe) obesity due to excess calories; Z68.44 Body mass index [BMI] 60.0-69.9, adult; Z79.899 Other long term (current) drug therapy; Z79.4 Long term (current) use of insulin
CPT/HCPCS: 64721; 82948; A9270; J0690; J1100; J1940; J2250; J2405; J2704; J3010; J7120

== ENCOUNTER 2023-07-03 08:31 | Outpatient (CLI) | payer MEDICARE, MEDICAID, SELFPAY ==
[2023-07-03 09:22] LABS: Alanine Aminotransferase 31 U/L (6-50); Albumin Level 4.3 g/dL (3.5-5.1); Alkaline Phosphatase 62 U/L (38-126); Anion Gap 7 mmol/L (8-16); Aspartate Amino Transferase 32 U/L (17-59); Bilirubin,Total 0.7 mg/dL (0.2-1.3); Blood Urea Nitrogen 23 mg/dL (9-20); Calcium 9.3 mg/dL (8.4-10.2); Carbon Dioxide 27 mmol/L (22-30); Chloride 107 mmol/L (98-107); Cholesterol 140 mg/dL (0-200); Estimated Glomerular Filt Rate > 60; Glucose 113 mg/dL (65-110); HDL Direct 38 mg/dL; Potassium 4.3 mmol/L (3.4-5.0); Sodium 141 mmol/L (137-145); Triglycerides 95 mg/dL (<150)
[2023-07-03 09:33] LABS: LDL Cholesterol Direct 68 mg/dL
[2023-07-03 09:34] LABS: Creatinine Urine 161.8 mg/dL
[2023-07-03 09:48] LABS: Vitamin D 25 Hydroxy 34.4 ng/mL
[2023-07-03 11:27] LABS: Microalbumin Urine Random > 1140.0 mg/L (0-16.7)
== END 2023-07-03 08:32 | disposition home or self-care (01) ==
LOC: ANHLAB 08:37
PROVIDERS: PCP Internal Medicine; Visit Provider Internal Medicine Endocrinology, Diabetes & Metabolism
DX: E11.9 Type 2 diabetes mellitus without complications (principal); R79.89 Other specified abnormal findings of blood chemistry; Z79.899 Other long term (current) drug therapy; Z98.84 Bariatric surgery status
CPT/HCPCS: 36415; 80053; 80061; 82043; 82306; 82607; 84443

== ENCOUNTER 2024-03-12 06:57 | Inpatient (IN) | payer MEDICARE, MEDICAID, SELFPAY ==
[2024-03-12] VITALS (12 sets, daily range): BP systolic 113–163; BP diastolic 62–97; PULSE 83–99; RESP 15–20; TEMP 36.1–36.6; O2SAT 96–100
--- NOTE | ~2024-03-12 | CT_ITS ---
EXAMINATION: CT brain wo con DATE: 03/12/2024 07:39 INDICATION: Slurred speech. Dizziness. Neck pain. TECHNIQUE: Computed tomography (CT) of the head was performed without intravenous contrast. The mA wa s adjusted according to patient size. Iterative reconstruction technique was employed. The dose-lengt h product was 605.33 mGy-cm. COMPARISON: Head CT 10/18/2011 FINDINGS: There is no intracranial hemorrhage, acute infarction, or abnormal intracranial mass lesion . The ventricles are normal in size. There is mild mucosal thickening in the paranasal sinuses. The o rbits are normal. The mastoid air cells are normal. IMPRESSION: 1. Normal brain. Reviewed, dictated and finalized at location A. IMPRESSION: 1. Normal brain.
--- NOTE | ~2024-03-12 | CT_ITS ---
EXAMINATION: CTA brain carotid DATE: 03/12/2024 08:40 INDICATION: Transient ischemic attack. Speech deficit. Neck pain. TECHNIQUE: Computed tomographic angiography (CTA) of the head was performed with 100 mL Omnipaque-350 intravenous contrast. CTA of the neck was performed with intravenous contrast. Automated exposure co ntrol and iterative reconstruction technique were employed. The dose-length product was 1251.84 mGy-c m. Maximum intensity projection and volume rendered 3D-reconstructions were created by the technologi st on a separate workstation. COMPARISON: Head CT 03/12/2024 FINDINGS: HEAD CTA: There is no intracranial hemorrhage, acute infarction, or abnormal intracranial mass lesion . The ventricles are normal in size. There is mild mucosal thickening in the paranasal sinuses. The m astoid air cells are normal. The orbits are normal. The vertebral arteries are codominant. There is n o significant stenosis of basilar artery or the posterior cerebral arteries. There is no significant stenosis of the intracranial internal carotid arteries or anterior or middle cerebral arteries. Anter ior communicating artery is normal. The posterior communicating arteries are normal. There is no aneu rysm. NECK CTA: The lungs demonstrate mild atelectasis. There are no pathologically enlarged lymph nodes. T here is no significant stenosis of the vertebral arteries. There is plaque in the proximal internal c arotid arteries. There is 0% stenosis of the proximal right internal carotid artery relative to yaneth l distal artery lumen diameter (NASCET criteria). There is 0% stenosis of the proximal left internal carotid artery relative to normal distal artery lumen diameter. There is severe cervical spondylosis. IMPRESSION: 1. Normal brain. No aneurysm or significant intracranial arterial stenosis. 2. 0% stenosis of the proximal internal carotid arteries relative to normal distal artery lumen diame ters (NASCET criteria). Reviewed, dictated and finalized at location A. IMPRESSION: 1. Normal brain. No aneurysm or significant intracranial arterial stenosis. 2. 0% stenosis of the proximal internal carotid arteries relative to normal dis june artery lumen diameters (NASCET criteria).
--- NOTE | ~2024-03-12 | XR_ITS ---
EXAMINATION: XR chest 1V DATE: 03/12/2024 07:44 INDICATION: Slurred speech. TECHNIQUE: A single frontal view of the chest was obtained. COMPARISON: Chest single view 02/08/2021 FINDINGS: There is no pneumonia, pleural effusion, or pneumothorax. The heart size is normal. There i s an old healed fracture of distal left clavicle. IMPRESSION: 1. No acute cardiopulmonary disease. Reviewed, dictated and finalized at location A.
--- NOTE | ~2024-03-12 | CT_ITS ---
EXAMINATION: CT cervical spine w con, CT thoracic lumbar wo/w con DATE: 03/13/2024 23:26 INDICATION: Peripheral neurologic symptoms with severe neck pain, shocking pains in his arms and legs and difficulty walking. TECHNIQUE: 1. Computed tomography (CT) of the cervical spine was performed with 100 mL Omnipaque-350 intravenous contrast. Automated exposure control and iterative reconstruction technique were employed. 2. CT of the thoracic and lumbar spine was performed without and with the identical 100 mL Omnipaque 350 intravenous contrast bolus. Automated exposure control and iterative reconstruction technique wer e employed. The dose-length product for the combined cervical spine and thoracolumbar studies was 408 2.13 mGy-cm. COMPARISON: None FINDINGS: Cervical spine: Straightening of the normal cervical lordosis. Vertebral body heights are normal. No fracture. Modera te to severe disc height loss at C5-C6 and C6-C7. Moderate disc height loss at C4-C5 and C7-T1 and mi ld disc height loss at C2-C3 and C3-C4. Posterior endplate osteophytes contribute to moderate to alejandra re central canal stenosis at C5-C6 and C6-C7 and mild to moderate disc height loss at C4-C5. There is severe bilateral uncovertebral osteoarthritis at C5-C6 with mild to moderate uncovertebral osteoarth ritis at the remaining cervical levels. There is severe bilateral facet osteoarthritis at C7-T1 with moderate facet osteoarthritis with left-sided prominence throughout the more cephalad cervical spine. Multilevel moderate bilateral cervical neural foramina secondary to lower cervical predominance. No evident abnormal enhancing lesions identified. Small amount of atherosclerotic plaque without signifi cant stenosis at the bilateral carotid bulbs. Cervical soft tissues are otherwise unremarkable. Thoracic and lumbar spine: Evaluation of the soft tissues particularly for enhancement along the thoracic and lumbar spine is si gnificantly limited by patient body habitus which results in a large amount of quantum mottle. There is straightening of the normal thoracic kyphosis. Mild lumbar represents a dextrocurvature. There is 2-3 mm retrolisthesis L1 on L2, L2 on L3, L3 on L4 and L4 on L5. Chronic mild likely physiologic ante rior wedging at T10-L1. There are bridging osteophytes at multiple levels in the mid to lower thoraci c spine consistent with diffuse idiopathic skeletal hyperostosis (DISH). There is severe disc height loss at T9-T10 through T10-T11 and at L1-L2 through L4-L5. Mild disc heig ht loss at L5-S1 and moderate disc height loss at remaining thoracic and lumbar levels. In the thorac ic spine there are small posterior endplate osteophytes contributing to mild central canal stenosis a t multiple levels throughout the thoracic spine. In the posterior disc osteophyte complexes at multip le lumbar spine contributing to severe central canal stenosis at L3-L4, mild central canal stenosis a t L4-L5 and at least moderate central canal stenosis L1-L2 and L2-L3 which may be more severe when ac counting for the poorly visualized ligamentum flavum. There is severe neural foraminal stenosis on the right T6-T7 with mild to moderate neural foraminal s tenosis throughout the remainder of the thoracic spine from T3-T4 through T9-T10. Moderate to severe lumbar facet osteoarthritis contributes to severe neural foraminal stenosis on the right at L4-L5. Th ere is mild neural foraminal stenosis bilaterally at L5-S1 and moderate neural foraminal stenosis at the remaining lumbar levels. IMPRESSION: 1. Severe spondylosis throughout the cervical, thoracic and lumbar spine as detailed above. No acute osseous abnormality. 2. No abnormally enhancing lesions identified. Assessment in the central canal particularly in the th oracic and lumbar spine is however significantly limited by patient body habitus resulting large amou nt of quantum mottle relative to the contrast in the soft
--- NOTE | ~2024-03-12 | CT_ITS ---
CT cervical spine wo con Ordering provider: Angélica Martinez MD History: . parethesias . Comparison: None. Technique: CT of the cervical spine was performed without contrast. Sagittal and coronal reformatted images were also obtained and reviewed. Automated exposure control and iterative reconstruction vini hnique were employed. The dose-length product was 563.71 mGy-cm. FINDINGS: VERTEBRAE: No subluxation or acute fracture. The occipital condyles are intact. Degenerative changes of the spine. DISC SPACES: Narrowing of the disc C4-C5, C5-C6 and C6-C7. Multilevel facet joint disease. Multilevel uncovertebral joint osteoarthritic changes. Narrowing of the right intervertebral foramen at the level of C3-C4. Bilateral narrowing of the vanita zia at the level of C6 and C6 and C6-C7 severe spinal canal stenosis at the level of C6-C7 and C5-C6. Mild spinal canal stenosis at the level of C4-C5.. PARASPINOUS SOFT TISSUES: Normal. IMPRESSION: No acute osseous abnormality cervical spine. Reviewed, dictated and finalized at location A.
--- NOTE | 2024-03-12 07:17 | ECG_ITS ---
Test Date: 2024-03-12 07:55:09 Measurements Intervals [place] Rate: 99 P: 15 MI: 196 QRS: -27 QRSD: 97 T: 71 QT: 363 QTc: 467 Interpretive Statements SINUS RHYTHM LOW QRS VOLTAGE IN EXTREMITY LEADS [QRS DEFLECTION < 0.5 mV IN LIMB LEADS] ANTEROSEPTAL MYOCARDIAL INFARCTION , OF INDETERMINATE AGE [40+ ms Q WAVE IN V1-V4] No previous ECG available for comparison Electronically Signed On 03-12-2024 10:24:49 CDT by Willie Frias M.D.
--- NOTE | 2024-03-12 07:35 | PC.NURSE ---
pt in CT scan at this time.
--- NOTE | 2024-03-12 07:58 | ED.NEUROSD ---
HPI - Neuro Symptoms/Deficit General Chief Complaint: Neuro Symptoms/Deficit Stated Complaint: neurological issues for weeks Time Seen by Provider: 03/12/24 07:55 Source: patient and family (Daughter) Mode of arrival: EMS Limitations: no limitations History of Present Illness HPI Narrative: [id number] male presents complaint of neck pain slightly midline but also in the left greater than the right for several weeks. Last night he experienced sharp pain in his neck and then started having issues with paresthesias and pain in his bilateral upper and lower extremities though primarily in the legs more than the arms. He was also having dizziness and abnormal/slurred speech with abnormal gait/difficulty walking. He states that he is unable to move his legs. He denies any vertigo in the sense that he does not endorse any kind of sense of rotational movement. He describes his dizziness more as a disequilibrium or lightheadedness but denies any syncope or near syncope. He has a history of neuropathy but is not a diabetic as his blood sugar has gotten under control his last hemoglobin A1c was 5.2. He has been having frequent ear ringing; he did not know whether to attribute this to the fact that he place in or distress and is frequently around loud music. He is not on any new meds such as furosemide or antibiotics. Last night he was having transient blurred vision but this has now resolved. His slurred speech has now resolved but he does note that he has a posterior headache and some occasional word-finding difficulty. Denies any injury or falls. He has bad knees at baseline in thus has some difficulty walking. Sharp pain in his neck occurred last night but this morning around 5:30 a.m. was when he had speech changes. He has a history of a pinched nerve but an unknown distribution/location. Dr. Gerardo although previously ordered a nerve conduction study in his right upper extremity given he was having some diminished dexterity issues. He plays the trGreenIQet. Per Dr. Post diagnosed with a pinched nerve, again unknown distribution. He underwent carpal tunnel surgery with Dr. Stern although with no change. Related Data Home Medications Medication Instructions Recorded Confirmed omeprazole 20 mg capsule,delayed 20 mg PO DAILY 09/26/19 03/12/24 release bariatric vitamins 1 cap BYMOUTH DAILY 03/29/23 03/12/24 baclofen 10 mg tablet 10 mg PO BID PRN Muscle Spasm 03/12/24 03/12/24 Allergies Allergy/AdvReac Type Severity Reaction Status Date / Time No Known Allergies Allergy Verified 03/11/24 14:58 [facility] Past Medical History Medical History Anxiety Arthritis Bilateral carpal tunnel syndrome Body mass index (BMI) 35 or more (01/30/18) Depression with 2 prior suicide attempts Diabetic autonomic neuropathy Diabetic peripheral neuropathy Diet-controlled type 2 diabetes mellitus Gastroesophageal reflux disease History of stress test done in 1999 Hypertension Kidney stones Low vitamin D level Obstructive sleep apnea Paroxysmal atrial fibrillation One episode in the , not on anticoagulation. Polyp of colon Primary osteoarthritis Pure hypercholesterolemia Suicide attempt Surgical History Surgical History Amputation of toe of left foot History of appendectomy History of bariatric surgery (10/2022) History of carpal tunnel surgery of right wrist History of tooth extraction Family History Family History Mother Carcinoma of colon with liver metastases Patient's mother is Father Hypertension Acute myocardial infarction Cerebrovascular accident Atrial fibrillation Glaucoma Obese Sibling Patient's sister is in good health Cervical cancer Endometrial cancer Grandparent Rheumatoid arthritis Other
[2024-03-12 08:04] LABS: Glucose Point of Care 154 mg/dl (65-105)
[2024-03-12 08:06] LABS: Basophils Percent Auto 0.1 % (0.2-1.2); Hematocrit 44.4 % (42.0-52.0); Immature Granulocyte Absolute 0.06 K/mm3 (0.00-0.031); Immature Granulocyte Percent A 0.5 % (0-0.5); Lymphocytes Absolute Auto 2.61 K/mm3 (0.9-3.2); Lymphocytes Percent Auto 20.6 % (18.3-44.2); Mean Corpuscular HGB Conc 33.8 g/dl (32-36); Mean Corpuscular Hemoglobin 30.6 pg (26-34); Mean Corpuscular Volume 90.6 fl (80-100); Mean Platelet Volume 10.2 fl (7.4-10.4); Monocytes Absolute Auto 0.3 K/mm3 (0.1-0.6); Monocytes Percent Auto 2.2 % (2.6-8.5); Neutrophils Absolute Auto 9.7 K/mm3 (1.3-6.7); Neutrophils Percent Auto 76.6 % (45.5-73.1); Platelet Count Result 175 k/mm3 (150-375); Red Cell Distribution Width 14.1 % (11.5-14.5); White Blood Count 12.6 K/mm3 (4.5-10.0)
[2024-03-12 08:16] LABS: Alanine Aminotransferase 28 U/L (6-50); Albumin Level 4.3 g/dL (3.5-5.1); Alkaline Phosphatase 55 U/L (38-126); Anion Gap 9 mmol/L (4-12); Aspartate Amino Transferase 32 U/L (17-59); Bilirubin,Total 0.9 mg/dL (0.2-1.3); Blood Urea Nitrogen 25 mg/dL (9-20); Calcium 9.5 mg/dL (8.4-10.2); Carbon Dioxide 26 mmol/L (22-30); Chloride 102 mmol/L (98-107); Estimated CRCL calculation 108 ml/min; Estimated Glomerular Filt Rate > 60; Glucose 156 mg/dL (65-110); Sodium 137 mmol/L (137-145)
[2024-03-12 08:17] LABS: INR 1.1; Prothrombin Time 14.3 Seconds (11.1-14.7)
[2024-03-12 08:32] LABS: Troponin I 0.059 ng/mL (0.000-0.034)
[2024-03-12 09:05] LABS: Cholesterol 168 mg/dL (0-200); HDL Direct 52 mg/dL; Triglycerides 37 mg/dL (<150)
[2024-03-12 09:16] LABS: LDL Cholesterol Direct 87 mg/dL
[2024-03-12 09:47] LABS: Add Urine Microscopic? YES; Appearance Urine Clear (Clear); Bacteria Urine None Seen /hpf; Bilirubin Urine Negative (Negative); Blood Urine Negative (Negative); Color Urine Yellow (Yellow); Glucose Urine UA Negative (Negative); Ketones Urine Trace mg/dL (Negative); Leukocyte Esterase Ur Negative LEU/UL (Negative); Nitrate Urine Negative (Negative); Non Pathogenic Casts 0-2; Protein Urine 2+ mg/dL (Negative); RBC Urine 0-2 /hpf (0-2); Specific Grav Ur 1.023 (1.001-1.035); Squamous Epithelial Cell Urine None Seen /hpf (Few); WBC Urine 0-5 /hpf (0-3); pH Urine 5.5 (5.0-9.0)
[2024-03-12] MEDS: HYDROGEN PEROXIDE 3% SOLN(*SP) 473 ML BOTTLE (09:58)
[2024-03-12] MEDS: ASPIRIN 81 MG CHEWABLE TABLET 324 MG PO (10:09)
--- NOTE | 2024-03-12 11:03 | ADMGEN ---
This patient, Howard Gambino, was admitted to IMU Room 203-01. Patient/family oriented to hospital policies and general routines including ID bracelet, bed and alarms, visiting hours, pain management, procedures, bathroom and other care routines, personal items, smoking policy, room service/diet, and visiting hours. Information on how to activate the Rapid Response Team has been discussed. Patient/Family are encouraged to report perceived risks to care and to ask questions if they do not understand what they are told or what they should do.
[2024-03-12 11:25] LABS: Amphetamine Screen Urine Negative (Negative); Barbiturate Screen Urine Negative (Negative); Benzodiazepines Screen Urine Negative (Negative); Cannabinoid Screen Urine Positive (Negative); Cocaine Screen Urine Negative (Negative); Methadone Screen Urine Negative (Negative); Opiate Screen Urine Negative (Negative); Phencyclidine Screen Urine Negative (Negative)
[2024-03-12 11:44] LABS: Troponin I 0.076 ng/mL (0.000-0.034)
--- NOTE | 2024-03-12 12:42 | WPDNEURCNPN ---
Assessment and Plan Assessment and plan (1) Cervical stenosis of spinal canal: Code(s): M48.02 - Spinal stenosis, cervical region Status: Acute Plan 1. Considering the CT scan of the cervical spine which is suggestive of significant arthritis with narrowing of the foramina but definitely severe spinal canal stenosis at the level of C6 and 7 and C5-C6 will benefit from the MRI of the cervical spine and if he is being followed by the physician that can be arranged at the facility where he can have the complete MRI of the cervical spine. These finding could very well be superimposed on peripheral neuropathy on the basis of diabetes mellitus and autonomic neuropathy but the most important evaluation will be MRI of the cervical spine or neurosurgical referral 2. Ongoing other multiple medical problems as outlined Consult date: 03/12/24 HPI: Howard Gambino is a 53 year Right-handed male presented to the ER for the complaints of neck pain somewhat off the midline on the left side as he lean to the right side along with the paresthesias of the both upper and lower extremities more so in the lower extremities along with the dizziness and slurring of the speech in addition to gait difficulties ,he gave no history of dizziness rotational but complained of lightheadedness. He carries the ongoing diagnosis of neuropathy on the basis of diabetes mellitus, gave history of frequent ringing in his ears, basically concerned about these transient blurriness of the vision and slurring of the speech which have been resolved by the time he came to the ER ,has had the nerve conduction study in the past he plays the trumpet and has been diagnosed by his physician to have a pinched nerve in his right upper extremity. His outpatient medications include only omeprazole and vitamin supplements he is not allergic to any medication, has been diagnosed to have bilateral carpal tunnel syndrome, diabetic neuropathy with autonomic involvement GERD morbid obesity has undergone bariatric surgery in October of 2022 has history of smoking year 0.5 no alcohol intake and initial exam in the emergency room grossly nonfocal with normal vital signs and blood pressure 163/97 CT of the head negative head neck CTA negative cervical spine CT severe canal stenosis at C6 and 7 and C5-C6. Review of Systems Review of Systems: All systems reviewed & are unremarkable except as noted in HPI and below PMFSH Past Medical History Medical History (Updated 03/12/24 @ 12:56 by Rodrigo López MD) Abscess of pubic region TESS (acute kidney injury) Anxiety Arthritis Bilateral carpal tunnel syndrome Body mass index (BMI) 35 or more (01/30/18) Carpal tunnel syndrome bilateral Cellulitis of left foot Closed displaced fracture of acromial end of clavicle Collar bone fracture Depression with 2 prior suicide attempts Diabetic autonomic neuropathy Diabetic peripheral neuropathy Dietary counseling and surveillance (04/06/17) DJD of right shoulder DVT prophylaxis Essential (primary) hypertension Gangrene of toe of left foot Gastro-esophageal reflux disease without esophagitis Generalized weakness GERD (gastroesophageal reflux disease) High blood pressure History of stress test done in 1999 Hypertension Hyponatremia Kidney stones Low vitamin D level Morbid obesity with BMI of 60.0-69.9, adult Necrotizing subcutaneous infection Neuropathy Obesity, unspecified Obstructive sleep apnea (adult) (pediatric) Panniculitis Paroxysmal atrial fibrillation One episode in the , not on anticoagulation Peripheral neuropathy Polyp of colon Primary osteoarthritis Psychiatric disorder Pure hypercholesterolemia Right hand dominant Sepsis Shoulder pain, right Sleep apnea SOB (shortness of breath) Type 2 diabetes mellitus with hyperglycemia Urine retention Viral syndrome Surgical History Surgical History Amputation of toe of left
--- NOTE | 2024-03-12 14:05 | PM.IMHP ---
H&P: HPI History of Present Illness Date/Time: 03/12/24 14:05 Chief Complaint: Multiple complaints. Narrative: This is a very pleasant 53-year-old male with hypertension, hyperlipidemia, diet-controlled type 2 diabetes mellitus, neuropathy, gastroesophageal reflux disease, and obstructive sleep apnea who presented to the emergency department via EMS from home with multiple complaints. He has had neck pain for years a couple of years ago he was referred to a Dr. Post in [place] regarding neck pain and weakness with dexterity issues in his right hand. According to the patient he had an EMG which showed ?a pinched nerve? and he has progressively lost function of that right hand. 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 The neck pain has gotten increasingly worse over several months but has been much worse these last few weeks. He did not sleep well overnight and reports having 1 episode where he had lightening like pain which seemed to start in the mid to lower posterior neck and radiated ?throughout my entire body? including to the base of the head, down both arms and legs, and into his left chest. When he tried to get up this morning he felt his legs were heavy and he could barely move them. He then called his daughter for help at that time had difficulties getting out words that he was wanting to say. He admits that by that time he was quite anxious and they called 911. His speech is now normalized and his strength in his legs is somewhat improved. He continues to have neck pain. He denies vertigo, visual changes, facial droop, and difficulty swallowing. No urinary retention, bowel incontinence, or saddle anesthesia. He also denies syncope, near syncope, exertional chest pain, pleuritic pain, palpitations, nausea, vomiting, diarrhea, and dysuria. He has not had any recent falls or injuries. In the ED: He was afebrile on arrival with a blood pressure 163/97. Labs were significant for WBC count of 12.6, hemoglobin 15.0, BUN 25, creatinine 1.00, glucose 156, hemoglobin A1c 5.0%, troponin 0.059. Urine drug screen was positive for cannabinoids. Brain CT was normal. CTA of the head and neck showed a normal brain with no aneurysm or significant intracranial arterial stenosis and 0% stenosis of the proximal internal carotid arteries. Cervical spine CT showed osteoarthritic changes, foraminal narrowing, and severe spinal canal stenosis at the level of C6-C7 and C5-C6. Chest x-ray showed no acute cardiopulmonary disease. He was given aspirin 324 mg it is being admitted in this setting for further workup and evaluation. Review of Systems Review of Systems: 12 systems were reviewed and are negative except for as per HPI. [facility] Past Medical History Medical History Anxiety Arthritis Bilateral carpal tunnel syndrome Body mass index (BMI) 35 or more (01/30/18) Depression with 2 prior suicide attempts Diabetic autonomic neuropathy Diabetic peripheral neuropathy Diet-controlled type 2 diabetes mellitus Gastroesophageal reflux disease History of stress test done in 1999 Hypertension Kidney stones Low vitamin D level Obstructive sleep apnea Paroxysmal atrial fibrillation One episode in the , not on anticoagulation. Polyp of colon Primary osteoarthritis Pure hypercholesterolemia Suicide attempt Surgical History Surgical History Amputation of toe of left foot History of appendectomy History of bariatric surgery (10/2022) History of carpal tunnel surgery of right wrist History of tooth extraction Family History Family History Mother Carcinoma of colon with liver metastases Patient's mother is Father Hypertension Acute myocardial infarctio
--- NOTE | 2024-03-12 14:19 | ECHO_ITS ---
Patient Info Name: Howard Gambino Age: 53 years : 1970 Gender: Male Ht: 69 in Wt: 333 lbs BSA: 2.79 m2 HR: 94 bpm BP: 151 / 85 mmHg Heart Rhythm: Sinus Rhythm Technical Quality: Fair Exam Date: 03/12/2024 3:30 PM Exam Location: Echo Lab Patient Status: Outpatient Admit Date: 03/12/2024 Staff Ordering Physician: Doreen Hernandez PA-C Mechanist: Nisha Wild RDCS Attending Provider: Orville Bacon MD Referring Physician: Mary INIGUEZ; Exam Type: CA echo dop color flow w con Study Info Indications - elevated troponin, htn, hld Complete two-dimensional, color flow and Doppler transthoracic echocardiogram is performed with contrast to opacify the left ventricle and to improve the deliniation of the left ventricle endocardial borders. Contrast/Agitated Saline Contrast/Ag. Saline: Definity Amount: 2.00 ml Administered By: Nisha Wild RDCS Existing IV Access: Yes IV Access Condition: patent with no signs of infiltration Summary 1. Definity contrast administered improved wall motion interpretation. 2. Left ventricular chamber dimension is normal. 3. Ventricular septum is sigmoid shaped and measured at 2.0 cm suggestive of hypertrophic cardiomyopathy. No resting LVOT gradient with mean gradient of 3 mmHg and peak gradient of 6 mmHg. 4. Left ventricular systolic function is hyperdynamic, estimated at >70%. 5. There is mild concentric increased left ventricular wall thickness. 6. The left ventricular diastolic function is grade I diastolic dysfunction. 7. E/e' 10 is mildly elevated. 8. Left atrial chamber dimension is mildly enlarged. 9. The mitral valve has moderately calcified annulus. 10. There is trace tricuspid valve regurgitation. 11. RVSP is not calculated due to an inadequate TR jet. 12. There is trivial pericardial effusion. Left Ventricle E/e' 10 is mildly elevated. Ventricular septum is sigmoid shaped and measured at 2.0 cm suggestive of hypertrophic cardiomyopathy. No resting LVOT gradient with mean gradient of 3 mmHg and peak gradient of 6 mmHg. Definity contrast administered improved wall motion interpretation. Left ventricular chamber dimension is normal. Left ventricular systolic function is hyperdynamic, estimated at >70%. There is mild concentric increased left ventricular wall thickness. The left ventricular diastolic function is grade I diastolic dysfunction. Right Ventricle Right ventricular systolic function is normal and with normal TAPSE 2.1 cm. Right ventricular chamber dimension is normal. Left Atria Left atrial chamber dimension is mildly enlarged. Right Atria Right atrial chamber dimension is normal. Aortic Valve The aortic valve is trileaflet. There is no aortic valve stenosis. There is no aortic valve regurgitation. Pulmonic Valve There is no pulmonic regurgitation. Mitral Valve The mitral valve has moderately calcified annulus. There is no mitral valve stenosis. There is no mitral valve regurgitation. Tricuspid Valve RVSP is not calculated due to an inadequate TR jet. There is trace tricuspid valve regurgitation. Pericardium/Pleural There is trivial pericardial effusion. Inferior Vena Cava Normal inferior vena cava with >50% collapse upon inspiration consistent with normal right atrial pressure, 5 mmHg. Aorta The aortic root size at the sinus of Valsalva is normal. Left Ventricular Outflow Tract Name Value Normal -----
[2024-03-12 14:44] LABS: Troponin I 0.077 ng/mL (0.000-0.034)
--- NOTE | 2024-03-12 15:00 | PC.NURSE ---
Dr. López assessing patient, aware of inability to obtain MRI due to patient body size. At this time he is understanding and feels it is appropriate to have the patient follow up after discharge with an outpatient referral to neurosurgery and to obtain MRI from facility able to accommodate. Doreen notified, consulted in house neurosurgical group.
[2024-03-12 15:04] LABS: CRP < 0.5 mg/dL (<1.0)
--- NOTE | 2024-03-12 15:40 | PC.NURSE ---
Patient asked if they would be willing to attempt standing now that their lower extremity weakness appears to be improved. Patient independently sat on bedside with minimal to moderate impairment. After sitting at the bedside for a minute, with assist of another RN, patient was assisted to standing position. 1 attempt to stand unsuccessful, readjusted footing and attempted again. Successfully standing and feels well, asked if he is capable of marching in place, 2 marching steps completed before becoming unsteady and quickly sitting back on edge of bed. He lifted his lower extremities back into the bed and repositioned himself to use the urinal independently.
[2024-03-12] MEDS: PERFLUTREN LIPID MICROSPHERES 1.5 ML VIAL DILUTED TO 10 ML TOTAL VOLUME IV PUSH (15:56)
--- NOTE | 2024-03-12 16:28 | IVDEFINITY ---
Prior to administration of IV Definity the patient was educated on the risks and benefits of the imaging enhancing agent including potential adverse side effects. The patient verbalized understanding. Allergies were verified. No exclusion criteria were identified and at least one of the following inclusion criteria were met: 1) physician request, 2) patient technically difficult to image (per the [place] [employer] guidelines of two or more segments not discernable within the apical view), or 3) questionable left ventricular function. ?
[2024-03-12 16:32] LABS: Glucose Point of Care 123 mg/dl (65-105)
[2024-03-12 17:38] LABS: Erythrocyte Sedimentation Rate 22 mm/hr (0-20)
[2024-03-12 19:58] LABS: Glucose Point of Care 151 mg/dl (65-105)
[2024-03-12] MEDS: ACETAMINOPHEN 325 MG TABLET 650 MG PO (20:18)
--- NOTE | 2024-03-12 21:38 | PHAR ---
HOME MED SENT TO PHARMACY FOR VERIFICATION. OTC BOTTLE LABELED BARIATRIC MULTIVITAMIN WITH 45 MG IRON CONTAINING CLEAR CAPSULED CONTAINING A LIGHT BROWN POWDER. NO MARKINGS ON THE CAPSULES SO I CAN NOT POSITIVELY VERIFY CONTENTS OF BOTTLE, HOWEVER, I DO NOT HAVE ANY REASON TO THINK THE BOTTLE CONTAINS SOMETHING OTHER THAN LABELED. THIS PATIENT DOES NOT HAVE A CURRENT ORDER ON HIS PROFILE FOR THIS MEDICATION.
[2024-03-13] VITALS (18 sets, daily range): BP systolic 119–139; BP diastolic 62–76; PULSE 70–91; RESP 16–20; TEMP 35.8–36.6; O2SAT 96–100
[2024-03-13 04:40] LABS: Hematocrit 40.6 % (42.0-52.0); Hemoglobin 13.6 g/dL (14.0-18.0); Mean Corpuscular HGB Conc 33.5 g/dl (32-36); Mean Corpuscular Hemoglobin 30.6 pg (26-34); Mean Corpuscular Volume 91.2 fl (80-100); Platelet Count Result 161 k/mm3 (150-375); Red Blood Count 4.45 M/mm3 (4.6-6.20); Red Cell Distribution Width 14.4 % (11.5-14.5); White Blood Count 13.3 K/mm3 (4.5-10.0)
[2024-03-13 04:51] LABS: Anion Gap 9 mmol/L (4-12); Blood Urea Nitrogen 28 mg/dL (9-20); Calcium 9.1 mg/dL (8.4-10.2); Carbon Dioxide 27 mmol/L (22-30); Chloride 103 mmol/L (98-107); Estimated CRCL calculation 109 ml/min; Estimated Glomerular Filt Rate > 60; Glucose 106 mg/dL (65-110); Magnesium 2.1 mg/dL (1.6-2.3); Potassium 3.9 mmol/L (3.4-5.0); Sodium 139 mmol/L (137-145)
[2024-03-13 05:34] LABS: Thyroid Stimulating Hormone Reflex 0.435 uIU/mL (0.465-4.68)
[2024-03-13] MEDS: BACLOFEN 10 MG TABLET PO ×2 (07:35→19:34)
[2024-03-13 08:03] LABS: Free T4 Free Thyroxine Reflex 1.17 ng/dL (0.78-2.19)
[2024-03-13] MEDS: GABAPENTIN 300 MG CAPSULE 600 MG PO ×3 (08:16→17:16)
[2024-03-13] MEDS: lisinopriL 20 MG TABLET PO (08:16)
[2024-03-13] MEDS: ROSUVASTATIN 5 MG TABLET BY MOUTH (08:17)
[2024-03-13] MEDS: PANTOPRAZOLE 40 MG TABLET PO (08:19)
[2024-03-13] MEDS: ENOXAPARIN 40 MG/0.4 ML SYRINGE SUB-Q (08:20)
--- NOTE | 2024-03-13 08:36 | PCPTNOTE ---
Awaiting neurosurgery consult/complete work up prior to PT evaluation.
[2024-03-13 09:19] LABS: Total Triiodothyronine (T3) 0.77 NG/ML (0.97-1.69)
[2024-03-13] MEDS: ACETAMINOPHEN 325 MG TABLET 650 MG PO (11:44)
--- NOTE | 2024-03-13 12:41 | PM.CNCAR ---
Assessment and Plan Assessment and plan (1) Neurological symptoms: Code(s): R29.90 - Unspecified symptoms and signs involving the nervous system Status: Acute Assessment and Plan: Workup as per primary team and Neurology. (2) Elevated troponin: Code(s): R79.89 - Other specified abnormal findings of blood chemistry Status: Acute Assessment and Plan: Not an acute coronary syndrome. This does not need further workup. (3) Hyperlipidemia: Code(s): E78.5 - Hyperlipidemia, unspecified Status: Acute Assessment and Plan: Continue Rosuvastatin (4) Diet-controlled type 2 diabetes mellitus: Code(s): E11.9 - Type 2 diabetes mellitus without complications Status: Acute Assessment and Plan: Management as per primary team. (5) Essential (primary) hypertension: Code(s): I10 - Essential (primary) hypertension Status: Acute Assessment and Plan: Stable. Continue Lisinopril. Plan Echocardiogram this admission shows LVEF >70%, ventricular septum is sigmoid shaped and measured at 2.0cm suggestive of hypertrophic cardiomyopathy. No LVOT gradient. This can be further evaluated as an outpatient with his police manager at [facility]. Instructed patient to follow up with his primary police manager after hospital discharge. No additional cardiac workup needed for the minimally elevated, but flat troponins. Cardiology will sign off at this time. History of Present Illness History of Present Illness Consult date/time: 03/13/24 12:41 Requesting physician: Doreen Hernandez PA-C Consult reason: Other (Elevated troponin ) Reason For Visit: neuro deficits (though bilateral) nstemi Narrative: We are consulted for an elevated troponin. This is a 53 year old male with hypertension, hyperlipidemia, diet-controlled type 2 diabetes mellitus, GERD, FLORENCIA, neuropathy, morbid obesity who presented for neck pain, bilateral hand and foot pain. Cervical spine CT showed osteoarthritic changes, foraminal narrowing, severe spinal canal stenosis at the level of C6-C7 and C5-C6. He is undergoing Neurology workup. Troponins were found to be 0.059, 0.076, 0.077. EKG with sinus rhythm, cannot rule out septal infarct. No changes compared to prior EKG. Patient reports that he saw a police manager at [facility] last year and underwent a stress test for preoperative evaluation for bariatric surgery, and the stress test was normal. He has no chest pain or other anginal symptoms. Echocardiogram this admission shows LVEF >70%, ventricular septum is sigmoid shaped and measured at 2.0cm suggestive of hypertrophic cardiomyopathy. No LVOT gradient. Review of Systems Review of Systems: All systems reviewed & are unremarkable except as noted in HPI and below (HPI) [facility] Past Medical History Medical History Anxiety Arthritis Bilateral carpal tunnel syndrome Body mass index (BMI) 35 or more (01/30/18) Depression with 2 prior suicide attempts Diabetic autonomic neuropathy Diabetic peripheral neuropathy Diet-controlled type 2 diabetes mellitus Gastroesophageal reflux disease History of stress test done in 1999 Hypertension Kidney stones Low vitamin D level Obstructive sleep apnea Paroxysmal atrial fibrillation One episode in the , not on anticoagulation. Polyp of colon Primary osteoarthritis Pure hypercholesterolemia Suicide attempt Surgical History Surgical History Amputation of toe of left foot History of appendectomy History of bariatric surgery (10/2022) History of carpal tunnel surgery of right wrist History of tooth extraction Family History Family History Mother Carcinoma of colon with liver metastases Patient's mother is Father Hypertension Acute myocardial infarction Cerebrovascular
--- NOTE | 2024-03-13 15:47 | WPDNEUROSGCN ---
Assessment and Plan Assessment and plan (1) Cervical stenosis of spinal canal: Code(s): M48.02 - Spinal stenosis, cervical region Status: Acute Plan Mr. Gambino is a 53-year-old male who presented to the ER yesterday with 2 hours of expressive aphasia, severe neck pain with shocking pains into the arms and legs, and lower extremity weakness in particular. His expressive aphasia has resolved, but his other symptoms been somewhat persistent. He had a CT head and CTA in the emergency room that were negative for any acute abnormalities. CT cervical spine shows multilevel degenerative changes with likely severe central stenosis at C5-6 in particular. There are MRIs of his head and neck ordered, but I am told that he is too large for the MRI machine here at [facility]. I am recommending an MRI cervical spine to evaluate the extent cervical stenosis and spinal cord compression. In light of his elevated white count and acuity of his symptoms, it may be alexander to perform this both without and with contrast to ensure that there are no signs of infection or epidural abscess. We discussed that the aphasia would not be related to his cervical spine findings, so an MRI brain would also be important to obtain. It seems he will need transfer to another hospital in order to complete this imaging. Given his elevated white count, I might also consider obtaining blood and urine cultures in the mean time. Consult date: 03/13/24 HPI: Howard Gambino is a 53 year old male with history of diabetes, hypertension, and morbid obesity who presented to the ER yesterday acute onset expressive aphasia, severe neck pain, shocking pains in his arms and legs, and difficulty walking. Over the last couple weeks, he has had increasing pain in the back of the neck without any obvious inciting event. 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 He feels like playing the [employer] has aggravated his neck. On Monday night, at the conclusion of his performance, his pain was very significant. He started noticing shocking pains into his arms and legs. He also describes pain into the back of the shoulders and chest. Early yesterday morning, he sat down in a chair in his living room and was suddenly unable to speak more than 1 word at a time. He describes knowing when he wanted to say but being unable to express this. He also was unable to get up out of chair, so an ambulance was called to bring him in. His speech issues resolved after a couple hours. He felt like his arms and legs have gotten better, but today, he feels increasing numbness in a stocking-glove distribution, weakness in his hands, and continued weakness in his lower extremities. He denies any bowel or bladder changes. Prior to the last few days, he has not had any consistent symptoms other than loss of dexterity of his right hand over last 2 years. There was a thought that he had carpal tunnel syndrome, but surgery for this did not improve his symptoms. He had an EMG with Dr. Post 2 years ago that apparently did not show carpal tunnel syndrome but did show issue with compression of the nerve in his neck. He eventually learned to play the trumpet with his left hand. Review of Systems Review of Systems: All systems reviewed & are unremarkable except as noted in HPI and below PMFSH Past Medical History Medical History Anxiety Arthritis Bilateral carpal tunnel syndrome Body mass index (BMI) 35 or more (01/30/18) Depression with 2 prior suicide attempts Diabetic autonomic neuropathy Diabetic peripheral neuropathy Diet-controlled type 2 diabetes mellitus Gastroesophageal reflux disease History of stress test done in 1999 Hypertension Kidney stones Low vitamin D level Obstructive sleep apnea Paroxysmal atrial fibrillation One episode in the , not on anticoagulation. Polyp of colon Primary osteoarthriti
--- NOTE | 2024-03-13 16:14 | PM.IMPN ---
Progress Note: A&P Assessment and Plan (1) Neurological symptoms: Code(s): R29.90 - Unspecified symptoms and signs involving the nervous system Status: Acute (2) Elevated troponin: Code(s): R79.89 - Other specified abnormal findings of blood chemistry Status: Acute (3) Cervical stenosis of spinal canal: Code(s): M48.02 - Spinal stenosis, cervical region Status: Acute (4) Obstructive sleep apnea: Code(s): G47.33 - Obstructive sleep apnea (adult) (pediatric) Status: Acute (5) Hyperlipidemia: Code(s): E78.5 - Hyperlipidemia, unspecified Status: Acute (6) Gastroesophageal reflux disease: Code(s): K21.9 - Gastro-esophageal reflux disease without esophagitis Status: Acute (7) Neuropathy: Code(s): G62.9 - Polyneuropathy, unspecified Status: Acute Plan H&P via Doreen Hernandez PA-C This is a very pleasant 53-year-old male with hypertension, hyperlipidemia, diet-controlled type 2 diabetes mellitus, neuropathy, gastroesophageal reflux disease, and obstructive sleep apnea who presented to the emergency department via EMS from home with multiple complaints. He has had neck pain for years a couple of years ago he was referred to a Dr. Post in [place] regarding neck pain and weakness with dexterity issues in his right hand. According to the patient he had an EMG which showed ?a pinched nerve? and he has progressively lost function of that right hand. 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 The neck pain has gotten increasingly worse over several months but has been much worse these last few weeks. He did not sleep well overnight and reports having 1 episode where he had lightening like pain which seemed to start in the mid to lower posterior neck and radiated ?throughout my entire body? including to the base of the head, down both arms and legs, and into his left chest. When he tried to get up this morning he felt his legs were heavy and he could barely move them. He then called his daughter for help at that time had difficulties getting out words that he was wanting to say. He admits that by that time he was quite anxious and they called 911. His speech is now normalized and his strength in his legs is somewhat improved. He continues to have neck pain. He denies vertigo, visual changes, facial droop, and difficulty swallowing. No urinary retention, bowel incontinence, or saddle anesthesia. He also denies syncope, near syncope, exertional chest pain, pleuritic pain, palpitations, nausea, vomiting, diarrhea, and dysuria. He has not had any recent falls or injuries. In the ED: He was afebrile on arrival with a blood pressure 163/97. Labs were significant for WBC count of 12.6, hemoglobin 15.0, BUN 25, creatinine 1.00, glucose 156, hemoglobin A1c 5.0%, troponin 0.059. Urine drug screen was positive for cannabinoids. Brain CT was normal. CTA of the head and neck showed a normal brain with no aneurysm or significant intracranial arterial stenosis and 0% stenosis of the proximal internal carotid arteries. Cervical spine CT showed osteoarthritic changes, foraminal narrowing, and severe spinal canal stenosis at the level of C6-C7 and C5-C6. Chest x-ray showed no acute cardiopulmonary disease. He was given aspirin 324 mg it is being admitted in this setting for further workup and evaluation. ----- Cardiology consultation appreciated. Office echocardiogram completed. No LVOT gradient. Patient is to follow-up with [facility] special effects specialist. Troponins are flat. Neurology consultation appreciated, continue to appreciate further recommendations. Neurosurgery consultation recommended. Recommend transfer to where the patient can get MRI brain and cervical spine with and without contrast. Patient has no symptomatology to indicate infection however his white count is high. Will continue to monitor and ch
[2024-03-13] MEDS: HYDROcodone/acetaminophen (*CRX) 7.5-325 MG TABLET 1 TAB PO (20:20)
[2024-03-13 20:27] LABS: Glucose Point of Care 120 mg/dl (65-105)
[2024-03-13 20:34] LABS: Add Urine Microscopic? YES; Appearance Urine Clear (Clear); Bacteria Urine None Seen /hpf; Bilirubin Urine Negative (Negative); Blood Urine Negative (Negative); Color Urine Yellow (Yellow); Glucose Urine UA Negative (Negative); Ketones Urine Negative (Negative); Leukocyte Esterase Ur Negative LEU/UL (Negative); Nitrate Urine Negative (Negative); Non Pathogenic Casts 0-2; Protein Urine 1+ mg/dL (Negative); Specific Grav Ur 1.022 (1.001-1.035); Squamous Epithelial Cell Urine None Seen /hpf (Few); WBC Urine 0-5 /hpf (0-3)
--- NOTE | 2024-03-13 21:19 | P.PNCROSS_ITS ---
Event Note Event Note Event Note: I was called to the floor shortly after nursing shift change because patient had feelings of altered mental status where he stated that he felt like he was drunk and states that bilateral lower extremities are more numb than they were before. Patient has a large body habitus and it was felt that he was too large for MRI so there was discussion of transfer to another facility. Initially I asked the RN to contact Neurosurgery and Neurology prior to be being able to make it to see the patient. Neurosurgery stated the patient needs transfer to another facility in order to obtain MRI. Neurology added [facility] for pain and after receiving the [facility] patient is feeling much better feeling like himself and no longer feeling disoriented or feeling like he was drunk. On further questioning patient does have history of chronic diabetic neuropathy though his diabetes is better under control since he has lost weight. He denies any lower back pain fever chills or infectious symptoms. He states that the numbness in his legs is just worse than usual but not significantly characteristically different than usual. Because MRI or transfer for a different facility with similar MRI weight and size restrictions is not immediately available, ordered CT scan cervical thoracic and lumbar spines with and without IV contrast to assess for additional spinal lesions beyond the known cervical condition that causes right upper extremity chronic issue. Additionally I did attempt to contact the daytime hospitalist to see if transfer has been initiated anywhere as well as reached out to [facility] transfer center to check on their MRI size and weight restrictions. On patient assessment he is awake alert oriented feels much more like himself. He states that below the knees bilaterally his legs are numb and bilateral legs are twitching but he has no saddle paresthesia a normal sensation with the groin region, no abnormal bowel or bladder changes. Measurement of circumference from chin to the base of the head is 31 inches and across the abdomen at peak is 65 inches. Overall it does appear that patient would possibly be able to at least undergo head or cervical spine MRI at this facility however MRI technicians are not present at this time to verify. To my knowledge patient has not gone down to MRI to attempt but was declined based on estimated size.
[2024-03-14] VITALS (9 sets, daily range): BP systolic 124–143; BP diastolic 57–77; PULSE 72–85; RESP 12–18; TEMP 36–36.7; O2SAT 97–100
[2024-03-14] MEDS: HYDROcodone/acetaminophen (*CRX) 7.5-325 MG TABLET 1 TAB PO ×4 (02:39→21:13)
[2024-03-14 05:11] LABS: Basophils Percent Auto 0.4 % (0.2-1.2); Eosinophils Absolute Auto 0.2 K/mm3 (0-0.3); Hematocrit 39.4 % (42.0-52.0); Hemoglobin 13.1 g/dL (14.0-18.0); Immature Granulocyte Absolute 0.03 K/mm3 (0.00-0.031); Immature Granulocyte Percent A 0.4 % (0-0.5); Lymphocytes Absolute Auto 3.26 K/mm3 (0.9-3.2); Lymphocytes Percent Auto 40.6 % (18.3-44.2); Mean Corpuscular HGB Conc 33.2 g/dl (32-36); Mean Corpuscular Hemoglobin 30.5 pg (26-34); Mean Corpuscular Volume 91.8 fl (80-100); Mean Platelet Volume 10.7 fl (7.4-10.4); Monocytes Absolute Auto 0.6 K/mm3 (0.1-0.6); Monocytes Percent Auto 7.6 % (2.6-8.5); Neutrophils Absolute Auto 3.9 K/mm3 (1.3-6.7); Platelet Count Result 146 k/mm3 (150-375); Red Blood Count 4.29 M/mm3 (4.6-6.20); Red Cell Distribution Width 14.5 % (11.5-14.5)
[2024-03-14 05:23] LABS: Anion Gap 6 mmol/L (4-12); Blood Urea Nitrogen 29 mg/dL (9-20); Calcium 8.7 mg/dL (8.4-10.2); Carbon Dioxide 27 mmol/L (22-30); Chloride 104 mmol/L (98-107); Estimated CRCL calculation 99 ml/min; Estimated Glomerular Filt Rate > 60; Glucose 94 mg/dL (65-110); Magnesium 1.9 mg/dL (1.6-2.3); Potassium 3.8 mmol/L (3.4-5.0); Sodium 137 mmol/L (137-145)
[2024-03-14 05:44] LABS: Procalcitonin 0.1 ng/mL
[2024-03-14 06:36] LABS: Glucose Point of Care 97 mg/dl (65-105)
[2024-03-14] MEDS: GABAPENTIN 300 MG CAPSULE 600 MG PO ×3 (08:11→21:05)
[2024-03-14] MEDS: polyethylene glycoL 3350 17 GM POWD.PACK PO (08:11)
[2024-03-14] MEDS: PANTOPRAZOLE 40 MG TABLET PO (08:11)
--- NOTE | 2024-03-14 08:11 | P.CDI_ITS ---
CDI Query Clarification Request Patient with a BMI of 48.6 please provide a diagnosis to accompany this finding: * Overweight * Obesity * Morbid Obesity * Other/Unknown <Ashley Perry RN - Last Filed: 03/14/24 08:12> Clarified Diagnosis Clarified Diagnosis: Morbid Obesity <Briseyda Gutierrez APRN - Last Filed: 03/14/24 13:22>
[2024-03-14] MEDS: ENOXAPARIN 40 MG/0.4 ML SYRINGE SUB-Q (08:12)
[2024-03-14] MEDS: ASPIRIN 81 MG ENTERIC TABLET PO (08:12)
[2024-03-14] MEDS: ROSUVASTATIN 20 MG TABLET BY MOUTH (08:12)
[2024-03-14] MEDS: lisinopriL 20 MG TABLET PO (08:12)
[2024-03-14 11:41] LABS: Glucose Point of Care 92 mg/dl (65-105)
--- NOTE | 2024-03-14 12:46 | PC.NURSE ---
This patient, Howard Gambino, was transferred to [facility] on 03/14/24 at 1230. Personal belongings sent with patient. Report given to Josefina. Appropriate documentation sent with patient.
--- NOTE | 2024-03-14 15:48 | PM.IMPN ---
Progress Note: A&P Assessment and Plan (1) Neurological symptoms: Code(s): R29.90 - Unspecified symptoms and signs involving the nervous system Status: Acute (2) Elevated troponin: Code(s): R79.89 - Other specified abnormal findings of blood chemistry Status: Acute (3) Cervical stenosis of spinal canal: Code(s): M48.02 - Spinal stenosis, cervical region Status: Acute (4) Obstructive sleep apnea: Code(s): G47.33 - Obstructive sleep apnea (adult) (pediatric) Status: Acute (5) Hyperlipidemia: Code(s): E78.5 - Hyperlipidemia, unspecified Status: Acute (6) Gastroesophageal reflux disease: Code(s): K21.9 - Gastro-esophageal reflux disease without esophagitis Status: Acute (7) Neuropathy: Code(s): G62.9 - Polyneuropathy, unspecified Status: Acute Plan H&P via Doreen Hernandez PA-C This is a very pleasant 53-year-old male with hypertension, hyperlipidemia, diet-controlled type 2 diabetes mellitus, neuropathy, gastroesophageal reflux disease, and obstructive sleep apnea who presented to the emergency department via EMS from home with multiple complaints. He has had neck pain for years a couple of years ago he was referred to a Dr. Post in [place] regarding neck pain and weakness with dexterity issues in his right hand. According to the patient he had an EMG which showed ?a pinched nerve? and he has progressively lost function of that right hand. 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 The neck pain has gotten increasingly worse over several months but has been much worse these last few weeks. He did not sleep well overnight and reports having 1 episode where he had lightening like pain which seemed to start in the mid to lower posterior neck and radiated ?throughout my entire body? including to the base of the head, down both arms and legs, and into his left chest. When he tried to get up this morning he felt his legs were heavy and he could barely move them. He then called his daughter for help at that time had difficulties getting out words that he was wanting to say. He admits that by that time he was quite anxious and they called 911. His speech is now normalized and his strength in his legs is somewhat improved. He continues to have neck pain. He denies vertigo, visual changes, facial droop, and difficulty swallowing. No urinary retention, bowel incontinence, or saddle anesthesia. He also denies syncope, near syncope, exertional chest pain, pleuritic pain, palpitations, nausea, vomiting, diarrhea, and dysuria. He has not had any recent falls or injuries. In the ED: He was afebrile on arrival with a blood pressure 163/97. Labs were significant for WBC count of 12.6, hemoglobin 15.0, BUN 25, creatinine 1.00, glucose 156, hemoglobin A1c 5.0%, troponin 0.059. Urine drug screen was positive for cannabinoids. Brain CT was normal. CTA of the head and neck showed a normal brain with no aneurysm or significant intracranial arterial stenosis and 0% stenosis of the proximal internal carotid arteries. Cervical spine CT showed osteoarthritic changes, foraminal narrowing, and severe spinal canal stenosis at the level of C6-C7 and C5-C6. Chest x-ray showed no acute cardiopulmonary disease. He was given aspirin 324 mg it is being admitted in this setting for further workup and evaluation. ----- Cardiology consultation appreciated. Office echocardiogram completed. No LVOT gradient. Patient is to follow-up with [facility] lace stripper. Troponins are flat. Discussed with the patient the treatment of a possible stroke although we do not have definite evidence of that. Discussed the risks versus benefits of increasing his Crestor and starting a baby aspirin to which he wanted to do that. Start aspirin 81 mg p.o. q.day and increase Crestor to 20 mg p.o. q.day. From hip to hip he is 29 inches.
--- NOTE | 2024-03-14 17:42 | WPDNEUROPN ---
Progress Note: A&P Assessment and Plan (1) Neck pain: Code(s): M54.2 - Cervicalgia Status: Acute Assessment and Plan: Patient has severe neck pain. The patient has been evaluated by neurosurgeon and attempts are being made to get an MRI and a institution where he can fit into the scanner due to his obesity. Does have weakness of the hands and feet but I did not find any of the paralysis with left this requires further evaluation. (2) Diabetic peripheral neuropathy: Code(s): E11.42 - Type 2 diabetes mellitus with diabetic polyneuropathy Status: Acute Assessment and Plan: Patient has significant weakness of the hand and feet muscles (3) TIA (transient ischemic attack): Code(s): G45.9 - Transient cerebral ischemic attack, unspecified Status: Acute Assessment and Plan: There is history that he could not talk for 20 minutes or so. Given the risk factors for cerebrovascular disease it is possible. However from the description by the patient I wonder he was in no position to talk to to severe pain in the neck but it is difficult to make any firm decision. CT scan of brain and CTA did not show any significant abnormalities. Plan At this time that attempts are being made to find a MRI where he can fit in to get MRI of the cervical spine as suggested by our neurosurgeon. Spoke to Dr. Solano about this. In the meanwhile symptomatic treatment and physical therapy may be offered. We will gabapentin and hydrocodone for pain management. He is also on aspirin and statin for the point to be cerebrovascular disease and I agree with the same. Subjective Date/time seen: 03/14/24 17:42 Interval history: The patient continues to complain of pain in the neck. The patient was admitted to the hospital with severe neck pain and he seems to be more concerned about the neck pain than anything else. It was reported that he had some speech disturbance. The patient has history of diabetes med for over 10 years. His troponin levels were found to be high. CT scan and is of the brain and CT angiogram head and neck were performed which did not show any significant abnormalities. A CT scan of the cervical spine shows significant spinal spondylosis. The patient has been evaluated by neurosurgeon Dr. Fairchild who has suggest an MRI of the cervical spine quite rightly. However due to his size he is not able to fit into the MRI available at this hospital and hence attempts are being made to transfer him to another institution with adequate facilities for the same. Review of Systems Review of Systems: Patient denies any specific weakness in right or left side of the body or difficulty speech or swallowing. No bladder symptoms reported. Exam Narrative: Fully conscious alert oriented to self time place and person. No aphasia or dysarthria. Examination head and neck shows no evidence of external trauma. No nuchal rigidity. Cranial nerves annual testing intact. There is no facial asymmetry. Tongue was midline. Motor system normal power in both upper lower limbs with the exception of significant atrophy and weakness of the hands and feet. Gait was not tested at this time. Deep tendon reflexes are generally decreased in both upper and lower limbs. No sensory level was found. No involuntary movements seen. Objective Data Vital Signs Vital Signs: Vital Signs - 24 hr 03/13/24 18:00 03/13/24 20:00 03/13/24 20:00 Temperature 97.8 F Pulse Rate 81 78 79 Respiratory Rate 18 Blood Pressure 120/65 Pulse Oximetry 98 Oxygen Delivery 03/13/24 22:00 03/13/24 23:59 03/14/24 00:00 Temperature 96.5 F L Pulse Rate 91 76 78 Respiratory Rate 20 Blood Pressure 119/62 Pulse Oximetry 98 Oxygen Delivery 03/14/24 02:00 03/14/24 04:00 03/14/24 04:00 Temperature 97.9 F Pulse Rate 73 73 72 Respiratory Rate 18 Blood Pressure 124/57 L Pulse Oximetry 97 Oxygen Delivery
[2024-03-14] MEDS: SENNOSIDES 8.6 MG TABLET PO (21:05)
[2024-03-14] MEDS: WATER FOR IRRIGATION, STERILE 1,000 ML BOTTLE 1000 ML (22:35)
[2024-03-15 03:00] VITALS: BP 140/80; PULSE 71; RESP 14; TEMP 36.4; O2SAT 98
[2024-03-15] MEDS: GABAPENTIN 300 MG CAPSULE 600 MG PO ×3 (06:03→23:45)
[2024-03-15] MEDS: HYDROcodone/acetaminophen (*CRX) 7.5-325 MG TABLET 1 TAB PO ×3 (06:10→17:34)
[2024-03-15 06:44] VITALS: BP 137/77; PULSE 74; RESP 16; TEMP 35.6; O2SAT 100
[2024-03-15] MEDS: lisinopriL 20 MG TABLET PO (08:22)
[2024-03-15] MEDS: SENNOSIDES 8.6 MG TABLET PO ×2 (08:22→17:34)
[2024-03-15] MEDS: ROSUVASTATIN 20 MG TABLET BY MOUTH (08:22)
[2024-03-15] MEDS: ENOXAPARIN 40 MG/0.4 ML SYRINGE SUB-Q (08:22)
[2024-03-15] MEDS: PANTOPRAZOLE 40 MG TABLET PO (08:22)
[2024-03-15] MEDS: ASPIRIN 81 MG ENTERIC TABLET PO (08:22)
[2024-03-15 14:43] VITALS: BP 142/88; PULSE 76; RESP 16; TEMP 36.2; O2SAT 100
--- NOTE | 2024-03-15 18:08 | P.PNIM_ITS ---
Progress Note: A&P Assessment and Plan (1) Neurological symptoms: Code(s): R29.90 - Unspecified symptoms and signs involving the nervous system Status: Acute (2) Elevated troponin: Code(s): R79.89 - Other specified abnormal findings of blood chemistry Status: Acute (3) Cervical stenosis of spinal canal: Code(s): M48.02 - Spinal stenosis, cervical region Status: Acute (4) Obstructive sleep apnea: Code(s): G47.33 - Obstructive sleep apnea (adult) (pediatric) Status: Acute (5) Hyperlipidemia: Code(s): E78.5 - Hyperlipidemia, unspecified Status: Acute (6) Gastroesophageal reflux disease: Code(s): K21.9 - Gastro-esophageal reflux disease without esophagitis Status: Acute (7) Neuropathy: Code(s): G62.9 - Polyneuropathy, unspecified Status: Acute Plan This is a very pleasant 53-year-old male with hypertension, hyperlipidemia, diet-controlled type 2 diabetes mellitus, peripheral neuropathy, gastroesophageal reflux disease, and obstructive sleep apnea who presented to the emergency department via EMS from home with multiple complaints. He has had neck pain for years a couple of years ago he was referred to a Dr. Post in [place] regarding neck pain and weakness with dexterity issues in his right hand. According to the patient he had an EMG which showed ?a pinched nerve? and he has progressively lost function of that right hand. 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 The neck pain has gotten increasingly worse over several months but has been much worse these last few weeks. He did not sleep well overnight and reports having 1 episode where he had lightening like pain which seemed to start in the mid to lower posterior neck and radiated ?throughout my entire body? including to the base of the head, down both arms and legs, and into his left chest. When he tried to get up this morning he felt his legs were heavy and he could barely move them. He then called his daughter for help at that time had difficulties getting out words that he was wanting to say. He admits that by that time he was quite anxious and they called 911. His speech is now normalized and his strength in his legs is somewhat improved. He continues to have neck pain. He denies vertigo, visual changes, facial droop, and difficulty swallowing. No urinary retention, bowel incontinence, or saddle anesthesia. He also denies syncope, near syncope, exertional chest pain, pleuritic pain, palpitations, nausea, vomiting, diarrhea, and dysuria. He has not had any recent falls or injuries. In the ED: He was afebrile on arrival with a blood pressure 163/97. Labs were significant for WBC count of 12.6, hemoglobin 15.0, BUN 25, creatinine 1.00, glucose 156, hemoglobin A1c 5.0%, troponin 0.059. Urine drug screen was positive for cannabinoids. Brain CT was normal. CTA of the head and neck showed a normal brain with no aneurysm or significant intracranial arterial stenosis and 0% stenosis of the proximal internal carotid arteries. Cervical spine CT showed osteoarthritic changes, foraminal narrowing, and severe spinal canal stenosis at the level of C6-C7 and C5-C6. Chest x-ray showed no acute cardiopulmonary disease. He was given aspirin 324 mg it is being admitted in this setting for further workup and evaluation. Cardiology was consulted. Echocardiogram completed. Elevated troponin not related to ACS. No further workup recommended. Echocardiogram with EF more than 70% ventricular septum is sigmoid shape and suggestive of hypertrophic cardiomyopathy with no LVOT gradient. Patient fol
[2024-03-15 20:00] VITALS: PULSE 76; RESP 16; O2SAT 100
[2024-03-15 21:48] VITALS: BP 148/97; PULSE 84; RESP 14; TEMP 36.7; O2SAT 98
[2024-03-15] MEDS: polyethylene glycoL 3350 17 GM POWD.PACK PO (23:45)
[2024-03-16 06:00] VITALS: BP 133/81; PULSE 75; RESP 16; TEMP 35.9; O2SAT 98
[2024-03-16] MEDS: methylPREDNISolone (MEDROL) DOSEPACK 4 MG TABLETS PO ×4 (06:26→21:24)
[2024-03-16] MEDS: GABAPENTIN 300 MG CAPSULE 600 MG PO ×2 (06:35→14:21)
[2024-03-16] MEDS: HYDROcodone/acetaminophen (*CRX) 7.5-325 MG TABLET 1 TAB PO ×3 (06:39→21:21)
[2024-03-16 07:15] LABS: Basophils Percent Auto 0.3 % (0.2-1.2); Eosinophils Absolute Auto 0.2 K/mm3 (0-0.3); Eosinophils Percent Auto 2.7 % (0-4.4); Hematocrit 41.5 % (42.0-52.0); Hemoglobin 13.6 g/dL (14.0-18.0); Immature Granulocyte Absolute 0.04 K/mm3 (0.00-0.031); Immature Granulocyte Percent A 0.5 % (0-0.5); Lymphocytes Absolute Auto 3.17 K/mm3 (0.9-3.2); Mean Corpuscular HGB Conc 32.8 g/dl (32-36); Mean Corpuscular Hemoglobin 30.5 pg (26-34); Mean Platelet Volume 10.3 fl (7.4-10.4); Monocytes Absolute Auto 0.7 K/mm3 (0.1-0.6); Monocytes Percent Auto 7.4 % (2.6-8.5); Neutrophils Absolute Auto 4.7 K/mm3 (1.3-6.7); Neutrophils Percent Auto 53.1 % (45.5-73.1); Platelet Count Result 151 k/mm3 (150-375); Red Blood Count 4.46 M/mm3 (4.6-6.20); Red Cell Distribution Width 14.4 % (11.5-14.5); White Blood Count 8.8 K/mm3 (4.5-10.0)
[2024-03-16 07:24] LABS: Alanine Aminotransferase 22 U/L (6-50); Albumin Level 3.8 g/dL (3.5-5.1); Alkaline Phosphatase 43 U/L (38-126); Anion Gap 6 mmol/L (4-12); Aspartate Amino Transferase 26 U/L (17-59); Bilirubin,Total 0.8 mg/dL (0.2-1.3); Blood Urea Nitrogen 25 mg/dL (9-20); Calcium 8.9 mg/dL (8.4-10.2); Carbon Dioxide 30 mmol/L (22-30); Chloride 101 mmol/L (98-107); Estimated CRCL calculation 98 ml/min; Estimated Glomerular Filt Rate > 60; Glucose 96 mg/dL (65-110); Potassium 4.7 mmol/L (3.4-5.0); Sodium 137 mmol/L (137-145)
[2024-03-16] MEDS: PANTOPRAZOLE 40 MG TABLET PO (08:49)
[2024-03-16] MEDS: ASPIRIN 81 MG ENTERIC TABLET PO (08:49)
[2024-03-16] MEDS: lisinopriL 20 MG TABLET PO (08:50)
[2024-03-16] MEDS: ENOXAPARIN 40 MG/0.4 ML SYRINGE SUB-Q (08:50)
[2024-03-16] MEDS: SENNOSIDES 8.6 MG TABLET PO ×2 (08:50→16:30)
[2024-03-16] MEDS: ROSUVASTATIN 20 MG TABLET BY MOUTH (08:50)
--- NOTE | 2024-03-16 09:29 | PM.IMPN ---
Progress Note: A&P Assessment and Plan (1) Neurological symptoms: Code(s): R29.90 - Unspecified symptoms and signs involving the nervous system Status: Acute (2) Elevated troponin: Code(s): R79.89 - Other specified abnormal findings of blood chemistry Status: Acute (3) Cervical stenosis of spinal canal: Code(s): M48.02 - Spinal stenosis, cervical region Status: Acute (4) Obstructive sleep apnea: Code(s): G47.33 - Obstructive sleep apnea (adult) (pediatric) Status: Acute (5) Hyperlipidemia: Code(s): E78.5 - Hyperlipidemia, unspecified Status: Acute (6) Gastroesophageal reflux disease: Code(s): K21.9 - Gastro-esophageal reflux disease without esophagitis Status: Acute (7) Neuropathy: Code(s): G62.9 - Polyneuropathy, unspecified Status: Acute Plan This is a very pleasant 53-year-old male with hypertension, hyperlipidemia, diet-controlled type 2 diabetes mellitus, peripheral neuropathy, gastroesophageal reflux disease, and obstructive sleep apnea who presented to the emergency department via EMS from home with multiple complaints. He has had neck pain for years a couple of years ago he was referred to a Dr. Post in [place] regarding neck pain and weakness with dexterity issues in his right hand. According to the patient he had an EMG which showed ?a pinched nerve? and he has progressively lost function of that right hand. 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 The neck pain has gotten increasingly worse over several months but has been much worse these last few weeks. He did not sleep well overnight and reports having 1 episode where he had lightening like pain which seemed to start in the mid to lower posterior neck and radiated ?throughout my entire body? including to the base of the head, down both arms and legs, and into his left chest. When he tried to get up this morning he felt his legs were heavy and he could barely move them. He then called his daughter for help at that time had difficulties getting out words that he was wanting to say. He admits that by that time he was quite anxious and they called 911. His speech is now normalized and his strength in his legs is somewhat improved. He continues to have neck pain. He denies vertigo, visual changes, facial droop, and difficulty swallowing. No urinary retention, bowel incontinence, or saddle anesthesia. He also denies syncope, near syncope, exertional chest pain, pleuritic pain, palpitations, nausea, vomiting, diarrhea, and dysuria. He has not had any recent falls or injuries. In the ED: He was afebrile on arrival with a blood pressure 163/97. Labs were significant for WBC count of 12.6, hemoglobin 15.0, BUN 25, creatinine 1.00, glucose 156, hemoglobin A1c 5.0%, troponin 0.059. Urine drug screen was positive for cannabinoids. Brain CT was normal. CTA of the head and neck showed a normal brain with no aneurysm or significant intracranial arterial stenosis and 0% stenosis of the proximal internal carotid arteries. Cervical spine CT showed osteoarthritic changes, foraminal narrowing, and severe spinal canal stenosis at the level of C6-C7 and C5-C6. Chest x-ray showed no acute cardiopulmonary disease. He was given aspirin 324 mg it is being admitted in this setting for further workup and evaluation. Cardiology was consulted. Echocardiogram completed. Elevated troponin not related to ACS. No further workup recommended. Echocardiogram with EF more than 70% ventricular septum is sigmoid shape and suggestive of hypertrophic cardiomyopathy with no LVOT gradient. Patient follows with system configuration specialist. Neurology and neurosurgical consultation were obtained. MRI head and neck were ordered MRI cervical spine to evaluate the extent of cervical stenosis and spinal cord compression. Since initial presentation with aphasia, MRI brain
[2024-03-16 14:00] VITALS: BP 122/67; PULSE 85; RESP 18; TEMP 36.6; O2SAT 99
[2024-03-16 16:33] LABS: Glucose Point of Care 111 mg/dl (65-105)
--- NOTE | 2024-03-16 17:33 | WPDNEUROPN ---
Progress Note: A&P Assessment and Plan (1) Neck pain: Code(s): M54.2 - Cervicalgia Status: Acute Assessment and Plan: there is some improvement in the neck pain. I believe that this appears with a significant problem. 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 He should be given physical therapy with ultrasound and hot packs mg applied S unit. We can also increase the amount of medications such as gabapentin 800 mg 3 times a day and use Flexeril 10 mg 3 times a day in lieu of baclofen to see if this helps him. Furthermore a pain injection by a pain specialist can also be offered however this is not available while here in the Hospital. I spoke to hospitalist and nursing staff about this in detail. I noted that today numerous attention been made by various physicians to try and get MRI however due to the waist size he is not able to get MRI anywhere nearby. He may have to go to [place] for that I am told. The rate we can also ask the help from Dr. Fairchild when she returns on Monday. The pain management appears to with predominant issue. The weakness in the hands and feet is predominantly from severe peripheral neuropathy with motor weakness and in itself requires further evaluation. This is not due to cervical myelopathy since he does not have any weakness of the proximal muscles of the upper lower limbs and he has good control of bladder and bowel. Although clinically I cannot rule out the possibility of myelopathy however I doubt it based upon the clinical features.l (2) TIA (transient ischemic attack): Code(s): G45.9 - Transient cerebral ischemic attack, unspecified Status: Acute Assessment and Plan: Patient had a single spell where he could not speak however he also describes that he was in a severe pain however has been discussed previously and do precautions to prevent any transient ischemic attack given the history of diabetes are in order. He has had a fair radiological testing. I have ordered a lipid profile also. He is on baby aspirin 81 mg a day. I will go ahead and put him on Crestor 10 mg a day in the meanwhile. (3) Diabetic polyneuropathy: Code(s): E11.42 - Type 2 diabetes mellitus with diabetic polyneuropathy Status: Acute Assessment and Plan: The patient should have a follow-up evaluation with regard to the severity of peripheral neuropathy given the fact that he only had diabetes for last 10 years. The possibility of other a concurrent etiologies will require investigation. Plan I will suggest physical therapy and pain medications as discussed above. Since he does not show any clinical evidence for myelopathy MRI of the cervical spine can possibly be done as an outpatient.. He may discuss this further with neurosurgeon also. Subjective Date/time seen: 03/16/24 17:33 Interval history: Patient continues to complain of pain in the neck although he feels 50% better compared to what have heard at the time of admission. He is able to walk independently but continues to complain of weakness in both upper and lower limbs. Weakness is more the right than left side. No difficulty with control of bladder or bowel. He is able to raise his arms above his head. He is also able to get out of the bed independently. However physical therapy has been working with him in terms of ambulation. No other additional new symptoms. He has not had any further spells of speech disturbance. Review of Systems Review of Systems: All systems reviewed & are unremarkable except as noted in HPI and below Exam Narrative: Fully conscious alert oriented to self time place and person. No aphasia or dysarthria. Injection headache was unremarkable. No evidence of external injuries. No carotid bruits. Heart sounds were normal. Motor system shows normal power proximally in both upper and lower limbs however he has significant atrophy of the muscles in the hands and also weakness of dorsi
[2024-03-16 18:58] LABS: Cholesterol 130 mg/dL (0-200); HDL Direct 36 mg/dL; Triglycerides 117 mg/dL (<150)
[2024-03-16 19:08] LABS: LDL Cholesterol Direct 59 mg/dL
[2024-03-16 20:00] VITALS: PULSE 90; RESP 18; O2SAT 98
[2024-03-16 20:49] LABS: Glucose Point of Care 150 mg/dl (65-105)
[2024-03-16] MEDS: CYCLOBENZAPRINE HCL 10 MG TABLET PO (21:24)
[2024-03-16] MEDS: GABAPENTIN 400 MG CAPSULE 800 MG PO (21:24)
[2024-03-16 22:00] VITALS: BP 126/74; PULSE 90; RESP 18; TEMP 36.6; O2SAT 98
[2024-03-17] MEDS: GABAPENTIN 400 MG CAPSULE 800 MG PO ×2 (05:16→13:57)
[2024-03-17] MEDS: CYCLOBENZAPRINE HCL 10 MG TABLET PO ×2 (05:17→13:57)
[2024-03-17] MEDS: methylPREDNISolone (MEDROL) DOSEPACK 4 MG TABLETS PO ×2 (05:17→13:58)
[2024-03-17] MEDS: HYDROcodone/acetaminophen (*CRX) 7.5-325 MG TABLET 1 TAB PO ×2 (05:19→13:58)
[2024-03-17 06:00] VITALS: BP 126/74; PULSE 79; RESP 16; TEMP 36.3; O2SAT 99
[2024-03-17 08:06] LABS: Glucose Point of Care 152 mg/dl (65-105)
[2024-03-17] MEDS: ROSUVASTATIN 20 MG TABLET BY MOUTH (08:22)
[2024-03-17] MEDS: ENOXAPARIN 40 MG/0.4 ML SYRINGE SUB-Q (08:22)
[2024-03-17] MEDS: ASPIRIN 81 MG ENTERIC TABLET PO (08:22)
[2024-03-17] MEDS: PANTOPRAZOLE 40 MG TABLET PO (08:22)
[2024-03-17] MEDS: lisinopriL 20 MG TABLET PO (08:22)
[2024-03-17] MEDS: ROSUVASTATIN 10 MG TABLET PO (08:22)
[2024-03-17] MEDS: SENNOSIDES 8.6 MG TABLET PO (08:22)
[2024-03-17 11:30] LABS: Glucose Point of Care 109 mg/dl (65-105)
[2024-03-17 14:00] VITALS: BP 138/80; PULSE 96; RESP 19; TEMP 36.5; O2SAT 100
--- NOTE | 2024-03-17 14:10 | PM.DS ---
DS: Admitting Diagnosis Discharge Date 03/17/2024 Admitting Diagnosis Neck pain DS: Discharge Diagnosis Discharge Diagnosis (1) Neurological symptoms: Code(s): R29.90 - Unspecified symptoms and signs involving the nervous system Status: Acute (2) Elevated troponin: Code(s): R79.89 - Other specified abnormal findings of blood chemistry Status: Acute (3) Cervical stenosis of spinal canal: Code(s): M48.02 - Spinal stenosis, cervical region Status: Acute (4) Obstructive sleep apnea: Code(s): G47.33 - Obstructive sleep apnea (adult) (pediatric) Status: Acute (5) Hyperlipidemia: Code(s): E78.5 - Hyperlipidemia, unspecified Status: Acute (6) Gastroesophageal reflux disease: Code(s): K21.9 - Gastro-esophageal reflux disease without esophagitis Status: Acute (7) Neuropathy: Code(s): G62.9 - Polyneuropathy, unspecified Status: Acute DS: Summary Hospital Course Hospital Course: This is a very pleasant 53-year-old male with hypertension, hyperlipidemia, diet-controlled type 2 diabetes mellitus, peripheral neuropathy, gastroesophageal reflux disease, and obstructive sleep apnea who presented to the emergency department via EMS from home with multiple complaints. He has had neck pain for years a couple of years ago he was referred to a Dr. Post in [place] regarding neck pain and weakness with dexterity issues in his right hand. According to the patient he had an EMG which showed ?a pinched nerve? and he has progressively lost function of that right hand. 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 The neck pain has gotten increasingly worse over several months but has been much worse these last few weeks. He did not sleep well overnight and reports having 1 episode where he had lightening like pain which seemed to start in the mid to lower posterior neck and radiated ?throughout my entire body? including to the base of the head, down both arms and legs, and into his left chest. When he tried to get up this morning he felt his legs were heavy and he could barely move them. He then called his daughter for help at that time had difficulties getting out words that he was wanting to say. He admits that by that time he was quite anxious and they called 911. His speech is now normalized and his strength in his legs is somewhat improved. He continues to have neck pain. He denies vertigo, visual changes, facial droop, and difficulty swallowing. No urinary retention, bowel incontinence, or saddle anesthesia. He also denies syncope, near syncope, exertional chest pain, pleuritic pain, palpitations, nausea, vomiting, diarrhea, and dysuria. He has not had any recent falls or injuries. In the ED: He was afebrile on arrival with a blood pressure 163/97. Labs were significant for WBC count of 12.6, hemoglobin 15.0, BUN 25, creatinine 1.00, glucose 156, hemoglobin A1c 5.0%, troponin 0.059. Urine drug screen was positive for cannabinoids. Brain CT was normal. CTA of the head and neck showed a normal brain with no aneurysm or significant intracranial arterial stenosis and 0% stenosis of the proximal internal carotid arteries. Cervical spine CT showed osteoarthritic changes, foraminal narrowing, and severe spinal canal stenosis at the level of C6-C7 and C5-C6. Chest x-ray showed no acute cardiopulmonary disease. He was given aspirin 324 mg it is being admitted in this setting for further workup and evaluation. Cardiology was consulted. Echocardiogram completed. Elevated troponin not related to ACS. No further workup recommended. Echocardiogram with EF more than 70% ventricular septum is sigmoid shape and suggestive of hypertrophic cardiomyopathy with no LVOT gradient. Patient follows with parking cashier. Neurology and neurosurgical consultation were obtained. MRI head and neck were ordered MRI cervi
--- NOTE | 2024-03-19 18:20 | P.PNCROSS_ITS ---
Event Note Event Note Event Note: Was called by our radiologist on 03/19/2024 around 11:20 a.m.. From [facility] over read the MRI for MRI report was faxed over to me as well and I reviewed. MRI brain/brainstem: No evidence of acute infarct. Small foci of T2/FLAIR hyperintensity within the white matter of the cerebral hemispheres. These are nonspecific. These may be seen in the setting of chronic migraine, D mild did disease and small vessel disease of various types. Clinical correlation is recommended. MRI cervical spine: Findings suggestive of some edema in the right C7 articular process worrisome for underlying bony injury possibly of fracture. Follow-up CT cervical spine recommended. Multilevel cervical degenerative disc disease and facet arthropathy with disc bulging/spondylosis, right paracentral disc protrusion at C6-C7 cannulae narrowing and foraminal narrowing. There is severe kennel narrowing with some cord compression at C6-7. Severe cannula narrowing is also present at C4-6 and C5-6 moderate cannula ring is present at C3-C4 and C7-T1 I discussed the findings with neurologist who suggested evaluation in the ER. I called the patient right away and reviewed the findings with the patient. I suggested he go to tertiary centers where spine surgeons are available such as [facility]. The copy of the MRI report was provided to the patient's delegate. He stated he will be going for evaluation in [facility] likely [place].
== END 2024-03-17 15:05 | disposition home or self-care (01) | DRG 92 ==
LOC: ANHED 07:59 → ANHIMU 10:46 → ANH3MEDSUR 03-14 12:37
PROVIDERS: General Practice; Physician Assistant; Psychiatry & Neurology Neurology; Admitting Provider Internal Medicine; Emergency Provider Student in an Organized Health Care Education/Training Program; PCP Internal Medicine; Visit Provider Internal Medicine
DX: R29.818 Other symptoms and signs involving the nervous system (principal); R47.01 Aphasia; Z68.42 Body mass index [BMI] 45.0-49.9, adult; M48.02 Spinal stenosis, cervical region; M50.323 Other cervical disc degeneration at C6-C7 level; G47.33 Obstructive sleep apnea (adult) (pediatric); E78.5 Hyperlipidemia, unspecified; K21.9 Gastro-esophageal reflux disease without esophagitis; G62.9 Polyneuropathy, unspecified; E11.42 Type 2 diabetes mellitus with diabetic polyneuropathy; I10 Essential (primary) hypertension; D72.829 Elevated white blood cell count, unspecified; M19.90 Unspecified osteoarthritis, unspecified site; F41.9 Anxiety disorder, unspecified; R79.89 Other specified abnormal findings of blood chemistry; I48.0 Paroxysmal atrial fibrillation; R41.82 Altered mental status, unspecified; E66.01 Morbid (severe) obesity due to excess calories; Z90.49 Acquired absence of other specified parts of digestive tract; Z98.84 Bariatric surgery status; Z87.891 Personal history of nicotine dependence
CPT/HCPCS: 36415; 70450; 70496; 70498; 71045; 72125; 72126; 72130; 72133; 80048; 80053; 80061; 80307; 81001; 82607; 82948; 83036; 83735; 84145; 84439; 84443; 84480; 84484; 85025; 85027; 85610; 85652; 85730; 86140; 87040; 93005; 96372; 96374; 97110; 97162; 97165; 97530; 97535; 99285; A9270; C8929; G0378; J1650; Q9957; Q9967

== ENCOUNTER 2024-08-09 12:30 | Outpatient (RCR) | payer MEDICARE, MEDICAID, SELFPAY ==
--- NOTE | 2024-07-02 17:02 | OPREHPOC ---
Outpatient Therapy Plan of Care This is a Multidisciplinary Plan of Care that may contain components documented by all disciplines (PT, OT, and ST.) PT Problem 1 PT Problem #1 Knowledge Deficit PT Goal 1 Goal / Goal Update [place] with HEP Target Visit 4 PT Goal 2 Goal / Goal Update Patient will report 2 weeks consistent pain less than 3/10 for improved quality of life Target Visit 8 PT Problem 2 PT Problem #2 Impaired Range of Motion PT Goal 1 Goal / Goal Update Improve anusha cervical rotation to 45 degrees to promote cervical symmetry Target Visit 8 PT Problem 3 PT Problem #3 Impaired Strength PT Goal 1 Goal / Goal Update 1. Improve anusha shoulder external rotation strength to 4+/5 to improve scapular stability for reduced cervical spine strain 2. Demonstrate ability to perform 5# lift overhead without upper trapezius substitution to promote proper shoulder mechanics and lifting ability Target Visit 8
--- NOTE | 2024-07-02 17:03 | PTOPEVAL1 ---
Assessment and note entered by Rojelio Llanes, PT Evaluation Information Assessment Status Evaluation Diagnosis Z98.1 Cervical fusion ICD-10 Condition Codes (PT) Cervicalgia M54.2 Onset 03/19/24 Subjective Information Reports that he was having progressive hand weakness and numbness and stabbing pain in cervical spine. Since surgery he has not noted any stabbing pains, but overall he is seeing some continued symptoms of numbness, headaches, and cervical tension. Headaches are fairly constant and present in posterior head. He is right handed but has been trying to work more with his left hand. 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 Reported Pain Level Pain Score 7: Self Report Assessment PT Clinical Summary Patient presents with cervical pain and limited ROM typical of post operative fusion. Weakness noted in anusha shoulders and poor upper back strength resulting in increased lower cervical strain. Patient will benefit from skilled therapy to address these deficits for improved functional cervical mobility and postural strength to improve ROM and reduce pain. Emphasis with be placed on shoulder girdle strengthening to promote improved cervical posturing. Plan of Care Interventions Electrical Stimulation,Manual Therapy,Neuro Re- education,Therapeutic Activities,Therapeutic Exercise PT Services Indicated Yes Treatment Frequency and 1-2x/week for 8 visits Duration These treatments will address the objective and functional deficits as defined above. The patient will be advanced safely and appropriately in order for the patient to progress towards his/her prior level of function. Additional exercises will be introduced and as well as a comprehensive home exercise program upon discharge, if needed, ?to ensure carryover of functional gains achieved in the clinic. This treatment plan has been reviewed and agreement upon by the patient.
--- NOTE | 2024-07-10 12:46 | PCPTNOTE ---
Patient called & cancelled scheduled appointment this date due to being ill.
--- NOTE | 2024-07-30 13:46 | PCPTNOTE ---
Patient no showed this date stating he is buried in the snow. Reviewed with patient his upcoming appointment on 08/01/24.
--- NOTE | 2024-08-01 13:26 | PCPTNOTE ---
Patient no call no showed to appointment this date.
--- NOTE | 2024-08-09 13:20 | OPREHPOC ---
Outpatient Therapy Plan of Care This is a Multidisciplinary Plan of Care that may contain components documented by all disciplines (PT, OT, and ST.) PT Problem 1 PT Problem #1 Knowledge Deficit PT Goal 1 Goal / Goal Update [place] with HEP Target Visit 4 Progress Met PT Goal 2 Goal / Goal Update Patient will report 2 weeks consistent pain less than 3/10 for improved quality of life Target Visit 8 Progress Met PT Problem 2 PT Problem #2 Impaired Range of Motion PT Goal 1 Goal / Goal Update Improve anusha cervical rotation to 45 degrees to promote cervical symmetry Target Visit 8 Progress Met PT Problem 3 PT Problem #3 Impaired Strength PT Goal 1 Goal / Goal Update 1. Improve anusha shoulder external rotation strength to 4+/5 to improve scapular stability for reduced cervical spine strain 2. Demonstrate ability to perform 5# lift overhead without upper trapezius substitution to promote proper shoulder mechanics and lifting ability Target Visit 8 Progress Partially Met
--- NOTE | 2024-08-09 13:20 | PTOPDC ---
Assessment and note entered by Rojelio Llanes, PT Evaluation Information Assessment Status Discharge Diagnosis Z98.1 Cervical fusion ICD-10 Condition Codes (PT) Cervicalgia M54.2 Onset 03/19/24 Subjective Information Reports that overall he feels he is doing much better. Digital Sales Manager strength still feels fairly weak, but the strength in the shoulders and pain overall have improved. Patient has no questions or concerns for therapy at this time. Reported Pain Level Pain Score No Pain: Arellano Garcia Assessment PT Clinical Summary Patient has met majority of goals for therapy and is suitable for discharge to HEP at this time. Patient HEP is designed to accompany continued shoulder girdle strength and cervical motion. Plan of Care PT Services Indicated Yes
== END 2024-08-09 14:23 | disposition home or self-care (01) ==
LOC: ANHGOSHPT 12:30
PROVIDERS: PCP Internal Medicine
DX: Z98.1 Arthrodesis status (principal)
CPT/HCPCS: 97110; 97112; 97140; 97161

== ENCOUNTER 2025-06-26 09:56 | Emergency (ER) | payer MEDICARE, MEDICAID, SELFPAY ==
--- NOTE | ~2025-06-26 | XR_ITS ---
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 Technique: 2 views obtained. Findings: There are bilateral infiltrates most marked in right lower lobe. No pneumothorax. Heart is normal size. Mediastinal and hilar contours are within normal limits. Bony thorax no acute abnormality. Impression: Bilateral pneumonia Reviewed, dictated and finalized at location P. KLING MACHINE OPERATOR Impression: Bilateral pneumonia
[2025-06-26 10:04] VITALS: BP 133/62; PULSE 65; RESP 16; TEMP 36.4; O2SAT 95
[2025-06-26 10:50] VITALS: BP 121/60; PULSE 68; RESP 14; O2SAT 92
[2025-06-26 10:53] VITALS: O2SAT 91
[2025-06-26 10:54] VITALS: O2SAT 95
--- OUTSIDE RECORDS SUMMARY | 2025-06-26 10:54 | XMS_ITS | Clinical Summary ---
Author Organization [facility] [employer] Address [address] [place] [address] Care Team Providers Care Business Services Specialist Sales Name Role Phone Lionel Fernandez Alena DO Primary Care Provider [phone] Avtar Kasper MD Unavailable Source Comments [facility],non-owned Affiliates and Associated Physician Practices is amultiple site organization consisting of ambulatory clinics and hospital sitesin [place], [place], [place] and [place]. This disclosure is being madepursuant to the Care Everywhere program and may not contain all information available regarding this patient. Last updated 18.[facility] [employer] Allergies No known active allergies Medications * Be aware that medications may not be up to date on this document. Alwaysverify current medications with the patient. amLODIPine (Norvasc) 5 MG tablet 04/14/20 22 Active insulin aspart protamine & aspart 70/30 (NovoLOG MIX 70/30 FLEXPEN) pen 3 times daily with meals Sliding scale with meals Active lisinopril (Prinivil; Zestril) 10 MG tablet Take 1 (one) tablet by mouth once daily 04/26/20 22 Active gabapentin (Neurontin) 600 MG tablet 800 mg 3 times daily 08/03/19 23 Active acetaminophen (Tylenol) 32 mg/1 ml solution Take 31.25 mL by mouth every 8 hours 11/10/19 23 Active ondansetron, disintegrating, (Zofran ODT) 4 MG tablet Take 1 (one) tablet by mouth every 6 hours as needed for Nausea/Vomiting Allow tablet to dissolve on the tongue 20 tablet 1 11/16/19 Active Additional Information Patient not taking.Reported on 11/08/2024 rosuvastatin (Crestor) 5 MG tablet 03/29/20 Active Semaglutide (1 MG/DOSE) 2 MG/1.5ML Subcutaneous Solution Pen-injector 0.5 (one-half) mg every 7 days Active Calcium Citrate 250 MG Take 2 (two) tablets by mouth 3 times daily 90 tablet 11 05/12/20 Active Additional Information Patient not taking.Reported on 11/08/2024 omeprazole (PriLOSEC) 20 MG capsule TAKE 1 CAPSULE BY MOUTH EVERY DAY 30 capsule 5 12/05/19 Active ondansetron, disintegrating, (Zofran ODT) 4 MG tablet Take 1 (one) tablet by mouth every 6 hours as needed for Nausea/Vomiting Allow tablet to dissolve on the tongue 20 tablet 11/10/19 Discontin ued(No Pharm No AVS) Active Problems Problem Noted Date Diagnosed Date Preop examination 11/08/2022 Encounters Date Type Department Care Team Description 05/02/2025 11:20 AM CDT Office Visit [facility] Weight Management Services [address] [place] [id number] Naveed Ndiaye MD 04/29/2025 Office Visit External [facility] [address] [place] [address], [address] [address] Naveed Ndiaye MD from Last 3 Months Social History Tobacco Use Types Packs/Day Years Used Date Smoking Tobacco: Never Smokeless Tobacco: Never Tobacco Cessation:Counseling Given: Not Answered Alcohol Use Standard Drinks/Week Comments Not Currently 0 (1 standard drink = 0.6 oz pur e alcohol) AUDIT-C Answer Date Recorded Q1: How often do you have a drink containing alcohol? Never 07/04/2022 Q2: How many drinks containi ng alcohol do you have on a typical day when you are drinking? Patient does not drink Q3: How often do you have si x or more drinks on one occasion? Never 07/04/2022 Overall Financial Resource Strain (CARDIA) Answe r Date Recorded How hard is it for you to pa y for the very basics like food, housing, medical care, and heating? Somewhat hard 11/08/2022 [facility] - Occupational Stress Questionnaire Answer Date Recorded Do you feel stress - tense, restless, nervous, or anxious, or unable to sleep at night because your mind is troubled all the time - these days? To some extent 11/08/2022 Hunger Vital Sign Answer Date Recorded Within the past 12 months, y ou worried that your food would run out before you got the money to buy more. Never true 11/10/19 23 Within the past 12 months, t he food you bought just didn't last and you didn't have money to get more. Never true 11/09/2022 PRAPARE - Transportation Answer Date Re corded In the past 12 months, has l ack of transportation kept you from medical appointments or from getting medications? No 10/22 In the past 12 months, has l ack of transportation kept you from meetings, work, or from getting things needed for daily living? No 11/08/2022 Housing Stability Vital Sign Answer Sergio e Recorded In the last 12 months, was t here a time when you were not able to pay the mortgage or rent on time? No 11/08/2022 In the last 12 months, how many places have you lived? 1 11/08/2022 In the last 12 months, was t here a time when you did not have a steady place to sleep or slept in a senior living (including now)? No 11/08/2022 Sex and Gender Information Value Date Recorded Sex Assigned at Male 08/10/2022 2:20 PM [employer]CHOOL T[employer]OR Legal Sex Male 5:28 AM AFTER SCHOOL TUTOR Gender Identity Male 08/10/2022 2:20 PM AFTER SCHOOL TUTOR Sexual Orientation Straight 08/10/2022 2: 20 PM AFTER SCHOOL TUTOR Last Filed Vital Signs Vital Sign Reading Time Taken Comments Blood Pressure 132/88 05/02/2025 11:15 AM CDT Pulse 114 05/02/2025 11:15 AM CDT Temperature 36.2 C (97.1 F) 05/02/2025 11:15 AM CDT Respiratory Rate 21 11/09/2022 11:1 9 AM CDT Oxygen Saturation 97% 05/02/2025 11: 15 AM CDT Inhaled Oxygen Concentration - - Weight 151.3 kg (333 lb 9.6 oz) 025 11:15 AM CDT Height 175.3 cm (5' 9) 05/02/2025 11:1 5 AM CDT Body Mass Index 49.26 05/02/2025 11:15 AM CDT Plan of Treatment Upcoming Encounters Date Type Department Care Team (Late st Contact Info) Description 07/31/2025 11:40 AM AFTER SCHOOL TUTOR Office Visit [facility] Health Weight Management Services [address] [place] [address], [facility] [[email or web address]] [address] [place] [address] [place] [address] [facility] [address] [place] [address] 11/11/2025 12:30 PM CDT Office Visit [facility] Weight Management Services [id number] [place] [address], [address] [place] [address] Marry Norwood, [employer]ATION OPERATOR-ORAL SURGERY PHYSICIAN [address] [facility] [address] [place] [id number] Health Maintenance Due Date Last Done Comments COLOGUARD (AGES 45-75) - COLON CA SCREENING 1969 COLON MONITORING 1969 COLONOSCOPY - COLON CA SCREENING 1969 CT COLONOGRAPHY - COLON CA SCREENING 1969 Colorectal Cancer Screening 1969 FIT - COLON CA SCREENING 1969 FLEX SIG - COLON CA SCREENING 1969 MEDICARE AWV 12 MONTHS 1969 HIV SCREENING 1984 HEPATITIS C SCREENING 03/28/1987 DTAP/TDAP/TD VACCINES (1 - Tdap) 1988 HEPATITIS B VACCINE (1 of 3 - 19+ 3-dose series) 1988 PNEUMOCOCCAL VACCINE 50+ (1 of 1 - PCV) 2019 ZOSTER VACCINE (1 of 2) 2019 DEPRESSION SCREENING 07/24/2024 COVID-19 VACCINE (1 - 2024- season) 2025 INFLUENZA VACCINE (#1) 2025 04/07/2016 SCREENING FOR DIABETES 11/09/2025 3, 11/09/2022, 11/09/2022, Additional history exists HIB VACCINE Aged Out No longer eligi ble based on patient's age to complete this topic HPV VACCINE Aged Out No longer eligi ble based on patient's age to complete this topic MENINGOCOCCAL (Group B) VACCINE SHARED DECISION-MAKING Aged Out No longer eligible based on patient's age to complete this topic MENINGOCOCCAL GROUPS A/C/Y/W VACCINE Aged Out No longer eligible based on patient's age to complete this topic Procedures Procedure Name Priority Date/Time Associated Diagnosis Comments GLUCOSE - POINT OF CARE Routine 11/09/2022 7:25 AM CDT from Last 3 Months or Most Recently Relevant to Health Maintenance Results * (ABNORMAL) GLUCOSE - POINT OF CARE (11/09/2022 7:25 AM CDT) [facility] Glucose WB/POC 168(H) 70 - 106 mg/dL 11/09/2022 7:26 AM CDT [facility] Specimen Type Cap Fingerstick 2022 7:26 AM CDT [facility] Blood BLOOD SPECIMEN / Unknown 11/09/2022 7:25 AM CDT 11/09/2022 7:26 AM CDT us Naveed Ndiaye MD LAB - POINT OF CARE ORDERABLE S Final Result [facility] [address] [place] [address] from Last 3 Months or Most Recently Relevant to Health [place] [address] MEDICAID - [place] MEDICARE Advance Directives Documents on File Type Date Recorded Patient Reception Centre Manager Expl anation Adv Directive/Living Will/POA 11/10/2022 5:55 PM * Full Code (Latest Code Status on File) Date Activated Date Inactivated Comments 11/08/2022 12:00 PM 11/09/2022 6:13 PM Care Teams Business Services Specialist Sales Relationship Specialty Start Date End Date Lionel Fernandez DO [address] [facility] [address] [place] [address] PCP - General 01/04/18 [place] [address] [address] Cardiovascular Disease 10/04/22
--- OUTSIDE RECORDS SUMMARY | 2025-06-26 10:54 | XMS_ITS | Clinical Summary ---
Author Organization [facility] Address [address], [address] [address] Phone Care Team Providers Care Flight Engineer Helicopter Name Role Phone Unavailable Primary Care Provider Unavailabl e Allergies No known active allergies Medications omeprazole (PRILOSEC) 20 MG CAPSULE DELAYED RELEASE Take 20 mg by mouth daily. Active losartan (COZAAR) 50 MG Tablet Take 50 mg by mouth daily. Active glyBURIDE-metFO RMIN (GLUCOVANCE) 2.5-500 MG TabletIndicatio ns:Type 2 diabetes mellitus without complication, without long-term current use of insulin Take 1 Tab by mouth daily (with breakfast). 30 Tab 2 04/11/2016 Active FLUoxetine (PROZAC) 10 MG Capsule TAKE ONE CAPSULE BY MOUTH ONCE DAILY 30 Cap 0 07/27/2016 Active Active Problems Problem Noted Date Diagnosed Date Anxiety 04/11/2016 Hypertension Diabetes mellitus GERD (gastroesophageal reflux disease) Immunizations Immunization Administration Dates Next Due PNEUMONIA ADULT IM [id number] 04/07/2016 PUR FLU 3+ YRS PRES FREE QUAD IM 04/07/2016 TD VACCINE 07/24/2007 Family History Medical History Relation Name Comments Hypertension Father Stroke Father Cancer Mother Colon Relation Name Status Comments Father Mother Social History Tobacco Use Types Packs/Day Years Used Date Smoking Tobacco: Never Smokeless Tobacco: Never Alcohol Use Standard Drinks/Week Comments Yes 0 (1 standard drink = 0.6 oz pur e alcohol) Sex and Gender Information Value Date Recorded Sex Assigned at Not on file Legal Sex Male 2:34 PM CDT Gender Identity Not on file Sexual Orientation Not on file Last Filed Vital Signs Vital Sign Reading Time Taken Comments Blood Pressure 156/84 04/07/2016 11:13 AM CDT Pulse 83 04/07/2016 11:13 AM CDT Temperature 36.7 C (98.1 F) 04/07/2016 11:13 AM CDT Respiratory Rate 18 04/07/2016 11:13 AM CDT Oxygen Saturation 98% 04/07/2016 11:13 AM CDT Inhaled Oxygen Concentration - - Weight 189.1 kg (417 lb) 04/07/2016 11:13 AM CDT Height 177.8 cm (5' 10) 04/07/2016 11:13 AM CDT Body Mass Index 59.83 04/07/2016 11:13 AM CDT Plan of Treatment Health Maintenance Due Date Last Done Comments Diabetes: Eye Exam 1969 Diabetes: Foot Exam 1969 Hepatitis C Virus (HCV) Screening 1969 TdaP Immunization 1969 Hepatitis B Immunization (1 of 3 - 19+ 3-dose series) 1988 Cologuard 2014 Colonoscopy 2014 Colorectal Cancer Screening 2014 Immunochemical Fecal Occult Blood 2014 Diabetes: Hemoglobin A1c 10/06/2016 04/08/2016 Pneumococcal Immunization (5 0+ years) (2 of 2 - PCV) 04/07/2017 04/07/2016 Diabetes: Nephropathy Screening 04/08/2017 6 Zoster Immunization (1 of 2) 2019 Influenza Immunization (#1) 2025 04/07/2016 SARS-COV-2 Immunization ( - 2023- season) 2025 Respiratory Syncytial Virus (RSV) Immunization (Adult) (1 - 1-dose 75+ series) 2044 DTaP/Tdap/Td Immunization Discontinued 07/24/2007 Pneumococcal Immunization Combined Discontinued 2015 Human Papillomavirus (HPV) Immunization Aged Out No longer eligible b ased on patient's age to complete this topic Meningococcal Immunization (ACWY) Aged Out No longer eligible based on patient's age to complete this topic Rotavirus Immunization Aged Out No lo nger eligible based on patient's age to complete this topic Procedures Procedure Name Priority Date/Time Associated Diagnosis Comments CMP (COMPREHENSIVE METABOLIC PANEL) Today 04/08/2016 Health maintenance examination (Adult) Essential hypertension Type 2 diabetes mellitus without complication, without long-term current use of insulin HEMOGLOBIN A1C W/ ESTIMATED GLUCOSE Routine 04/08/2016 Type 2 diabetes mellitus without complication, without long-term current use of insulin from Last 3 Months or Most Recently Relevant to Health Maintenance Results * HEMOGLOBIN A1C W/ ESTIMATED GLUCOSE (04/08/2016) HGB-A1C 10.2 % Blood specimen (specimen) 04/08/2016 us Grayson Shoemaker MD CHEMISTRY ORDERABLES Edit ed Result - Final * CMP (COMPREHENSIVE METABOLIC PANEL) (04/08/2016) Blood specimen (specimen) us Grayson Shoemaker MD CHEMISTRY ORDERABLES Mignon l Result from Last 3 Months or Most Recently Relevant to Health Maintenance
--- OUTSIDE RECORDS SUMMARY | 2025-06-26 10:54 | XMS_ITS | Clinical Summary ---
Author Organization [place] [id number] Address [address] [place] [address] Care Team Providers Care Compound Machine Operator Name Role Phone Kareem Up DO Primary Care Provider [phone] Allergies No known active allergies Medications omeprazole (PriLOSEC) 20 mg capsule take 1 capsule by oral route every day before a meal 0 0 6 Active busPIRone (BUSPAR) 7.5 mg tablet Take 1 tablet (7.5 mg total) by mouth 2 (two) times a day 4 Active rosuvastatin (CRESTOR) 10 mg tablet Take 1 tablet (10 mg total) by mouth nightly 4 Active gabapentin (NEURONTIN) 400 mg capsule Take 2 capsules (800 mg total) by mouth 3 (three) times a day 5 Active ergocalciferol (VITAMIN D) 50,000 unit capsule Take 1 capsule (50,000 Units total) by mouth once a week 5 Active amiodarone (PACERONE) 200 mg tablet Take 1 tablet (200 mg total) by mouth daily 5 026 Active apixaban (ELIQUIS) 5 mg tabletIndication s:atrial fibrillation Take 1 tablet (5 mg total) by mouth 2 (two) times a day Active METOPROLOL SUCCINATE ORAL Take 50 mg by mouth daily Active senna-docusate (PERICOLACE) 8.6-50 mg Take 1 tablet by mouth daily Active inulin (FIBER GUMMIES ORAL) Take by mouth Ac tive calcium carbonate (OS-SYDNEY) 1,500 mg (600 mg elemental) tablet Take 1 tablet (1,500 mg total) by mouth daily Active multivitamin tabletIndication s:Vitamin Deficiency Prevention Take 1 tablet by mouth daily Active furosemide (LASIX) 40 mg tablet Take 1 tablet (40 mg total) by mouth daily. May also take 1 tablet (40 mg total) daily as needed (TAKE AN ADDITIONAL DOSE OF LASIX IN THE AFTERNOON FOR 2-3lbs of weight gain in 24hr period or increased leg swelling or shortness of breath). 90 tablet 5 Active acetaminophen 500 mg capsule Take 2 capsules (1,000 mg total) by mouth every 6 (six) hours 4 025 Discontin ued(Thera py completed ) cyclobenzaprine (FLEXERIL) 5 mg tabletIndication s:Fusion of spine of cervical region Take 1 tablet (5 mg total) by mouth 3 (three) times a day as needed for muscle spasms 30 tablet 1 4 025 Discontin ued(Thera py completed ) lisinopriL (PRINIVIL,ZESTRI L) 20 mg tablet 4 025 Discontin ued(Thera py completed ) Ozempic 2 mg/dose (8 mg/3 mL) pen injector injection 4 025 Discontin ued(Thera py completed ) Active Problems Problem Noted Date Diagnosed Date Atrial fibrillation with RVR 06/06/2025 Assessment & Plan (06/06/2025 5:59 AM CHIEF COMPRESSOR STATION ENGINEER): Now rate controlled. Patient on p.o. amio load. Given recent AFib with RVR will begin IV amio drip without bolus. Got Lasix x1. Follow volume status with rate control. Follow troponins. Hold Eliquis and give heparin drip without bolus. Cardiology Consult Telemetry Pulmonary edema 06/06/2025 Assessment & Plan (06/06/2025 5:59 AM CHIEF COMPRESSOR STATION ENGINEER): Now rate controlled. Patient on p.o. amio load. Given recent AFib with RVR will begin IV amio drip without bolus. Got Lasix x1. Follow volume status with rate control. Follow troponins. Hold Eliquis and give heparin drip without bolus. Cardiology Consult Telemetry Drop in hemoglobin 06/06/2025 Assessment & Plan (06/06/2025 5:59 AM CHIEF COMPRESSOR STATION ENGINEER): Suspect spurious lab result. Repeat at 10:00 a.m. Abnormal echocardiogram 06/06/2025 Assessment & Plan (06/06/2025 5:59 AM CHIEF COMPRESSOR STATION ENGINEER): Defer to Cardiology. Seen in April. Results in Care everywhere Chest pain 06/06/2025 Abscess of pubic region 04/04/2025 Bilateral carpal tunnel syndrome 04/04/2025 Depression 04/04/2025 Diabetic polyneuropathy 04/04/2025 Diet-controlled type 2 diabetes mellitus 025 Assessment & Plan (06/06/2025 5:59 AM CHIEF COMPRESSOR STATION ENGINEER): Follow sugars DJD of right shoulder 04/04/2025 Elevated troponin 04/04/2025 Generalized weakness 04/04/2025 Hyperglycemia 04/04/2025 Hyperlipidemia LDL goal <100 04/04/2025 Impacted cerumen of left ear 04/04/2025 Leukocytosis 04/04/2025 Low vitamin D level 04/04/2025 Neck pain 04/04/2025 Nerve conduction block of motor nerve of right s pb of body 04/04/2025 Neurological symptoms 04/04/2025 Neuropathy 04/04/2025 Non-ST elevation FL (NSTEMI) 04/04/2025 Open wound, lower leg 04/04/2025 Posterior interosseous nerve injury 04/04/2025 Proteinuria 04/04/2025 Proteinuria due to type 2 diabetes mellitus 03/24 Left knee DJD 04/04/2025 Seborrheic dermatitis 04/04/2025 Shoulder pain, right 04/04/2025 TIA (transient ischemic attack) 04/04/2025 Type 2 diabetes mellitus with hyperglycemia 03/24 Uses marijuana 04/04/2025 Viral syndrome 04/04/2025 Cervical cord compression with myelopathy 2023 Cervical stenosis of spine 03/19/2024 Acute kidney injury 02/16/2021 Constipation 02/16/2021 Cutaneous abscess of trunk, unspecified 02/17/20 Secondary diabetes mellitus 02/16/2021 Difficulty walking 02/16/2021 Gastroesophageal reflux disease without esophagi tis 02/16/2021 Hypo-osmolality and hyponatremia 02/16/2021 Major depressive disorder, recurrent, unspecifie d 02/16/2021 Necrotizing fasciitis 02/16/2021 Sepsis 02/16/2021 Panniculitis 02/16/2021 Paroxysmal atrial fibrillation 02/16/2021 Retention of urine, unspecified 02/16/2021 Shortness of breath 02/16/2021 Mononeuropathy of lower extremity 02/16/2021 Abscess of skin 02/16/2021 BMI 40.0-44.9, adult 02/16/2021 Anxiety disorder 04/11/2016 Hypertension 03/11/2016 Overview (10/27/2016): Essential hypertension Morbid obesity 03/11/2016 Overview (10/27/2016): Morbid obesity due to excess calories Assessment & Plan (06/06/2025 5:59 AM CHIEF COMPRESSOR STATION ENGINEER): Status post gastric bypass. Continue weight loss encouraged Obstructive sleep apnea (adult) (pediatric) 02/21 Overview (10/27/2016): Obstructive sleep apnea Assessment & Plan (06/06/2025 5:59 AM CHIEF COMPRESSOR STATION ENGINEER): Uses CPAP 12 cm H2O at home. Encounters Date Type Department Care Team Description 06/13/2025 2:58 AM CHIEF COMPRESSOR STATION ENGINEER - 06/13/2025 8:17 AM CHIEF COMPRESSOR STATION ENGINEER Emergency [facility] Emergency Department [address] [place] [address] Rena Nj MD Zozula, London Stovall MD Palpitations (Primary Dx) Discharge Disposition: Discharge to home or self care 06/06/2025 2:15 AM CHIEF COMPRESSOR STATION ENGINEER - 06/08/2025 5:40 PM CHIEF COMPRESSOR STATION ENGINEER [place] [address] PentecCecily roberts MD [place], Nicholas Peter, MD Paruchuri, Tharun, DO Chest pain, unspecified type (Primary Dx); Paroxysmal atrial fibrillation (HCC); LVH (left ventricular hypertrophy) Discharge Disposition: Discharge to home or self care 06/06/2025 1:39 AM CHIEF COMPRESSOR STATION ENGINEER - 06/06/2025 11:59 PM CHIEF COMPRESSOR STATION ENGINEER Hospital Encounter [facility] Emergency, Room R Discharge Disposition: Discharge to home or self care 06/04/2025 2:10 PM CHIEF COMPRESSOR STATION ENGINEER Office Visit [facility] Medicine Orthopaedic Surgery [address] [facility] 2nd [address] [place] [address] Fritz Edmond MD Cubital tunnel syndrome on right (Primary Dx); Cubital tunnel syndrome, left 04/04/2025 1:30 PM CDT - 04/04/2025 11:59 PM CDT Hospital Encounter [facility] [address] [place] [address] Fusion of spine of cervical region Discharge Disposition: Discharge to home or self care 04/04/2025 1:30 PM CDT Office Visit [facility] Orthopaedic Surgery [address] [facility] 12th [place] [address] [place] [id number] Wily Nagy MD Fusion of spine of cervical region (Primary Dx); Carpal tunnel syndrome, unspecified laterality 04/04/2025 Orders Only [facility] Orthopaedic Surgery [address] [facility] [address]th [place] [address] [place] [address] Wily Nagy MD Cubital tunnel syndrome on right (Primary Dx); Left carpal tunnel syndrome from Last 3 Months Immunizations Immunization Administration Dates Next Due Influenza, Quadrivalent, Spl it, Preservative Free, Intramuscular 04/07/2016 Pneumococcal Polysaccharide PPV23 05/02/2019, Td, adsorbed 07/24/2007 Surgical History Surgery Date Site/Laterality Comments OTHER SURGICAL HISTORY FLORENCIA: CPAP ANTERIOR CERVICAL DISCECTOMY W/ FUSION 03/20/2024 N/A C4-7 ACDF/I - Dr. Wily Nagy Medical History Medical History Date Comments Depression Depression Osteoarthritis Osteoarthritis Hx Other Medical FLORENCIA Hx Other Medical morbid obesity, HTN, FLORENCIA; Comments: MAF 03/11/2016 - A-fib (HCC) Sleep apnea Diabetes mellitus Hypertension Family History Medical History Relation Name Comments Stroke Father 2 Stroke; Cancer Mother 2 Cancer, unknown ; Cause of : Cancer, unknown Diabetes type II Paternal Grandfather Elysia smith -Type 2; Relation Name Status Comments Father 1 (Age 79) Father 2 Mother 1 (Age 53) Mother 2 Paternal Grandfather Social History Tobacco Use Types Packs/Day Years Used Date Smoking Tobacco: Never Smokeless Tobacco: Never Tobacco Cessation:Counseling Given: Not Answered Alcohol Use Standard Drinks/Week Comments No 0 (1 standard drink = 0.6 oz pur e alcohol) Social Connection and Isolation Panel Answer Date Recorded In a typical week, how many times do you talk on the phone with family, friends, or neighbors? Three times a week 06/06/2025 How often do you get togethe r with friends or relatives? Three times a week 06/06/2025 How often do you attend [facility] or yarsanism services? Never 06/06/2025 Do you belong to any clubs o r organizations such as latter-day groups, unions, fraternal or athletic groups, or school groups? No 06/06/2025 How often do you attend meet ings of the clubs or organizations you belong to? Never 06/06/2025 Are you , , di vorced, , never , or living with a partner? 06/06/2025 AUDIT-C Answer Date Recorded Frequency of Alcohol Consumption Not on file 06/06/2025 Q2: How many drinks containi ng alcohol do you have on a typical day when you are drinking? Patient does not drink Frequency of Binge Drinking Not on file 05/24 Overall Financial Resource Strain (CARDIA) Answe r Date Recorded How hard is it for you to pa y for the very basics like food, housing, medical care, and heating? Hard 06/06/2025 Hunger Vital Sign Answer Date Recorded Within the past 12 months, y ou worried that your food would run out before you got the money to buy more. Often true 06/06/20 25 Within the past 12 months, t he food you bought just didn't last and you didn't have money to get more. Often true 06/06/2025 PRAPARE - Transportation Answer Date Re corded In the past 12 months, has l ack of transportation kept you from medical appointments or from getting medications? No 05/24 In the past 12 months, has l ack of transportation kept you from meetings, work, or from getting things needed for daily living? No 06/06/2025 Housing Stability Vital Sign Answer Sergio e Recorded In the last 12 months, was t here a time when you were not able to pay the mortgage or rent on time? No 06/06/2025 In the past 12 months, how m any times have you moved where you were living? 0 06/06/2025 At any time in the past 12 m [facility], were you homeless or living in a nursing home (including now)? No 06/06/2025 [facility] Utilities Answer Date Recorded In the past 12 months has th e electric, gas, oil, or water company threatened to shut off services in your home? Yes 06/06/2025 Personal Safety Answer Date Recorded Have you ever been in or are you currently in a harmful physical or emotional relationship or is someone making you feel afraid or unsafe? Denies 06/13/2025 Sex and Gender Information Value Date Recorded Sex Assigned at Not on file Legal Sex Male 11:59 PM CHIEF COMPRESSOR STATION ENGINEER Gender Identity Not on file Sexual Orientation Not on file Last Filed Vital Signs Vital Sign Reading Time Taken Comments Blood Pressure 112/74 06/13/2025 8:00 AM CHIEF COMPRESSOR STATION ENGINEER Pulse 70 06/13/2025 8:00 AM CHIEF COMPRESSOR STATION ENGINEER Temperature 36.6 C (97.9 F) 06/13/2025 3:12 AM CHIEF COMPRESSOR STATION ENGINEER Respiratory Rate 16 06/13/2025 8:00 AM CHIEF COMPRESSOR STATION ENGINEER Oxygen Saturation 95% 06/13/2025 8:00 AM CHIEF COMPRESSOR STATION ENGINEER Inhaled Oxygen Concentration - - Weight 154.2 kg (339 lb 15.2 oz) 06/13/2025 3:35 AM CHIEF COMPRESSOR STATION ENGINEER Height 182.9 cm (6') 06/06/2025 5:45 AM CHIEF COMPRESSOR STATION ENGINEER Body Mass Index 46.11 06/06/2025 5:45 AM CHIEF COMPRESSOR STATION ENGINEER Plan of Treatment Health Maintenance Due Date Last Done Comments Albumin Creatinine Ratio, Urine 1969 Colon Cancer Screening-Colonoscopy 1969 Depression Screening 1969 Hepatitis C Screening 1969 Prostate Cancer Screening-PSA 1969 Dilated Eye Exam 1969 Foot Exam 1969 Hepatitis B Screening 1987 Regular Well Visit/Exam 18-64 1987 DTaP/Tdap/Td Vaccine (1 - Tdap) 07/25/2007 8 Zoster Vaccine (1 of 2) 2019 Pneumococcal vaccine <65 (2 of 2 - PCV) 05/02/2020 05/02/2019, 04/07/2016 Covid-19 Vaccine (4 - 2024-2 6 season) 2025 07/31/2021, 10/07/2020, 09/16/2020 Influenza Vaccine (#1) 2025 04/07/2016 Hemoglobin A1C 10/26/2025 04/27/2025, 10/04/2022 Lipid Panel 04/27/2026 04/27/2025 eGFR 06/13/2026 06/13/2025, 05/24, 06/07/2025, Additional history exists Medical Devices Implanted Type Area Mechanic Senior Device Identifier Shelf Expiration Date Model / Serial / Lot [employer] Graft Bone Magnetos 10cc 1-2mm Granules In Moldable Putty 703-038-[id number] - [id number] Implanted:Qty: 1 on 03/21/2024 by Wily Nagy MD at [facility] N/A: Spine Cervical [employer] [id number] 10/22/2028 [id number] S / / [id number] Med[employer] Cage Spn Lrg 6d Acdf [place]os[place] Tc Nanolock [id number] - [id number] Implanted:Qty: 1 on 03/21/2024 by Wily Nagy MD at [facility] N/A: Spine Cervical [employer] Inc 05/25/2028 [id number] / / [id number] [employer] Inc Cage Spn Lrg 6d Acdf Endoskleton Tc Nanolock [id number] - [id number] Implanted:Qty: 1 on 03/21/2024 by Wily Nagy MD at [facility] N/A: Spine Cervical Med[employer] Inc 08/17/2028 [id number] / / [id number] [employer] Cage Spn Med 6d Acdf Endoskeleton Tc Nanolock [id number] - [id number] Implanted:Qty: 1 on 03/21/2024 by Wily Nagy MD at [facility] N/A: Spine Cervical [employer] Inc 10/18/2028 [id number] -[id number] / / [id number] Med[employer]onic Inc Zevo 3.5mm 17mm Variable Self Drill Spine Cervical Anterior Screw [id number] - [id number] Implanted:Qty: 8 on 03/21/2024 by Wily Nagy MD at [facility] N/A: Spine Cervical [employer] Inc [id number] / / Med[employer]onic Inc Plate Spine Anterior Cervical Level 3 Zevo 55mm Titanium [id number] - [id number] Implanted:Qty: 1 on 03/21/2024 by Wily Nagy MD at [facility] N/A: Spine Cervical [employer] Inc [id number] / / Procedures Procedure Name Priority Date/Time Associated Diagnosis Comments TROPONIN T HIGH-SENSITIVITY 2-HOUR Timed 06/13/2025 5:26 AM CHIEF COMPRESSOR STATION ENGINEER XR CHEST 1 VIEW ED 06/13/2025 4:10 AM CHIEF COMPRESSOR STATION ENGINEER D-DIMER, QUANTITATIVE Add-On 06/13/2025 3:19 AM CHIEF COMPRESSOR STATION ENGINEER EGFR STAT 06/13/2025 3:19 AM CHIEF COMPRESSOR STATION ENGINEER TROPONIN T HIGH-SENSITIVITY SERIES (BASELINE, 2HR, 4HR, 6HR) Add-On 06/13/2025 3:19 AM CHIEF COMPRESSOR STATION ENGINEER DIFFERENTIAL AUTO STAT 06/13/2025 3:1 9 AM CHIEF COMPRESSOR STATION ENGINEER MAGNESIUM Routine 06/13/2025 3:19 AM CHIEF COMPRESSOR STATION ENGINEER PROTIME-INR STAT 06/13/2025 3:19 AM CHIEF COMPRESSOR STATION ENGINEER CBC WITH AUTO DIFFERENTIAL STAT 06/13/2025 3:19 AM CHIEF COMPRESSOR STATION ENGINEER COMPREHENSIVE METABOLIC PANEL STAT 06/13/2025 3:19 AM CHIEF COMPRESSOR STATION ENGINEER ECG 12-LEAD STAT 06/13/2025 3:02 AM CHIEF COMPRESSOR STATION ENGINEER EGFR Routine 06/08/2025 4:14 AM CHIEF COMPRESSOR STATION ENGINEER DIFFERENTIAL AUTO Routine 06/08/2025 4:1 4 AM CHIEF COMPRESSOR STATION ENGINEER MAGNESIUM Routine 06/08/2025 4:14 AM CHIEF COMPRESSOR STATION ENGINEER BASIC METABOLIC PANEL Routine 06/08/2025 4:14 AM CHIEF COMPRESSOR STATION ENGINEER CBC WITH AUTO DIFFERENTIAL Routine 06/08/2025 4:14 AM CHIEF COMPRESSOR STATION ENGINEER EGFR STAT 06/07/2025 3:18 PM CHIEF COMPRESSOR STATION ENGINEER CREATININE STAT 06/07/2025 3:18 PM CHIEF COMPRESSOR STATION ENGINEER HEPATIC FUNCTION PANEL STAT 06/07/2025 3:18 PM CHIEF COMPRESSOR STATION ENGINEER CBC WITHOUT DIFFERENTIAL STAT 06/07/2025 3:18 PM CHIEF COMPRESSOR STATION ENGINEER PROTIME-INR STAT 06/07/2025 3:18 PM CHIEF COMPRESSOR STATION ENGINEER EGFR Routine 06/07/2025 5:00 AM CHIEF COMPRESSOR STATION ENGINEER DIFFERENTIAL AUTO Routine 06/07/2025 5:0 0 AM CHIEF COMPRESSOR STATION ENGINEER APTT Timed 06/07/2025 5:00 AM CHIEF COMPRESSOR STATION ENGINEER MAGNESIUM Routine 06/07/2025 5:00 AM CHIEF COMPRESSOR STATION ENGINEER BASIC METABOLIC PANEL Routine 06/07/2025 5:00 AM CHIEF COMPRESSOR STATION ENGINEER CBC WITH AUTO DIFFERENTIAL Routine 06/07/2025 5:00 AM CHIEF COMPRESSOR STATION ENGINEER APTT Timed 06/06/2025 10:49 PM CHIEF COMPRESSOR STATION ENGINEER APTT Routine 06/06/2025 3:02 PM CHIEF COMPRESSOR STATION ENGINEER TROPONIN T HIGH-SENSITIVITY STAT 06/06/2025 10:35 AM CHIEF COMPRESSOR STATION ENGINEER ECG 12-LEAD STAT 06/06/2025 10:20 AM CHIEF COMPRESSOR STATION ENGINEER EGFR Timed 06/06/2025 9:21 AM CHIEF COMPRESSOR STATION ENGINEER MAGNESIUM Timed 06/06/2025 9:21 AM CHIEF COMPRESSOR STATION ENGINEER BASIC METABOLIC PANEL Timed 06/06/2025 9:21 AM CHIEF COMPRESSOR STATION ENGINEER TROPONIN T HIGH-SENSITIVITY Routine 06/06/2025 9:21 AM CHIEF COMPRESSOR STATION ENGINEER CBC WITHOUT DIFFERENTIAL Timed 06/06/2025 9:21 AM CHIEF COMPRESSOR STATION ENGINEER APTT Timed 06/06/2025 9:21 AM CHIEF COMPRESSOR STATION ENGINEER TROPONIN T HIGH-SENSITIVITY 2-HOUR Timed 06/06/2025 4:18 AM CHIEF COMPRESSOR STATION ENGINEER APTT STAT 06/06/2025 3:46 AM CHIEF COMPRESSOR STATION ENGINEER CBC WITHOUT DIFFERENTIAL STAT 06/06/2025 3:46 AM CHIEF COMPRESSOR STATION ENGINEER PROTIME-INR STAT 06/06/2025 3:46 AM CHIEF COMPRESSOR STATION ENGINEER XR CHEST 1 VIEW ED 06/06/2025 2:37 AM CHIEF COMPRESSOR STATION ENGINEER EGFR STAT 06/06/2025 2:33 AM CHIEF COMPRESSOR STATION ENGINEER DIFFERENTIAL AUTO STAT 06/06/2025 2:3 3 AM CHIEF COMPRESSOR STATION ENGINEER PRO B-TYPE NATRIURETIC PEPTIDE STAT 06/06/2025 2:33 AM CHIEF COMPRESSOR STATION ENGINEER TROPONIN T HIGH-SENSITIVITY SERIES (BASELINE, 2HR, 4HR, 6HR) STAT 06/06/2025 2:33 AM CHIEF COMPRESSOR STATION ENGINEER COMPREHENSIVE METABOLIC PANEL STAT 06/06/2025 2:33 AM CHIEF COMPRESSOR STATION ENGINEER CBC WITH AUTO DIFFERENTIAL STAT 06/06/2025 2:33 AM CHIEF COMPRESSOR STATION ENGINEER ECG 12-LEAD STAT 06/06/2025 2:21 AM CHIEF COMPRESSOR STATION ENGINEER XR SPINE CERVICAL W FLEXION AND EXTENSION 4 VIEWS Schedule Routine, Read Routine (OP Routine) 04/04/2025 1:49 PM CDT Fusion of spine of cervical region from Last 3 Months Results * (ABNORMAL) Troponin T high-sensitivity 2-hour (06/13/2025 5:26 AM CHIEF COMPRESSOR STATION ENGINEER) Trop T hs 36(H) <=22 ng/L Comment: Interpretive Data For further hscTnT resources including the diagnostic algorithm and an aid in interpretation, copy and paste this link: https://nrl.testcatalog.org/show/[email or web address] Current Interpretive Data last revised 2020. Trop T hs delta -2 ng/L [facility] ([place]) Trop T hs interp Insignificant [facility] ([place]) Blood 06/13/2025 5:26 AM CHIEF COMPRESSOR STATION ENGINEER 06/13/2025 5:28 AM CHIEF COMPRESSOR STATION ENGINEER us Rena Nj MD LAB BLOOD ORDERABLES Fi nal Result [facility] ([place]) 1 [facility] Department [place] [address] * XR Chest 1 Vw Portable (06/13/2025 4:10 AM CHIEF COMPRESSOR STATION ENGINEER) Anatomical Region Laterality Modality Body, Chest N/A Computed Radiogr aphy 06/13/2025 6:53 AM CHIEF COMPRESSOR STATION ENGINEER Impressions 06/13/2025 6:53 AM CHIEF COMPRESSOR STATION ENGINEER 1. Low lung lungs with minimal to mild bibasilar subsegmental atelectasis and scarring. No definite evidence of a focal consolidation. Electronically signed by: Keith Peterson D.O. Narrative 06/13/2025 6:53 AM CHIEF COMPRESSOR STATION ENGINEER STUDY DESCRIPTION: XR CHEST 1 VIEW ORDERING HEALTHCARE PROVIDER: RENA [place] CLINICAL INDICATIONS: Shortness of breath. COMPARISON: 06/06/2025 TECHNIQUE: Single frontal radiograph of the chest was obtained. FINDINGS: There are low lung volumes. The heart size is accentuated by low lung base. The pulmonary and mediastinum are grossly stable. There is no definite evidence of a pneumothorax. There is no definite evidence of a focal consolidation or pleural effusion. There is minimal to mild subsegmental atelectasis and scarring. The osseous structures are acutely grossly stable. Postsurgical changes involving the cervical spine are noted. Procedure Note Keith Peterson, DO - 06/13/2025 STUDY DESCRIPTION: XR CHEST 1 VIEW ORDERING HEALTHCARE PROVIDER: RENA NJ CLINICAL INDICATIONS: Shortness of breath. COMPARISON: 06/06/2025 TECHNIQUE: Single frontal radiograph of the chest was obtained. FINDINGS: There are low lung volumes. The heart size is accentuated by low lung base. The pulmonary and mediastinum are grossly stable. There is no definite evidence of a pneumothorax. There is no definite evidence of a focal consolidation or pleural effusion. There is minimal to mild subsegmental atelectasis and scarring. The osseous structures are acutely grossly stable. Postsurgical changes involving the cervical spine are noted. IMPRESSION: 1. Low lung lungs with minimal to mild bibasilar subsegmental atelectasis and scarring. No definite evidence of a focal consolidation. Electronically signed by: Keith Peterson D.O. Rena Nj MD IMG XR PROCEDURES Final Result * (ABNORMAL) Troponin T high-sensitivity series (baseline, 2hr, 4hr, 6hr) (06/13/2025 3:19 AM CHIEF COMPRESSOR STATION ENGINEER) Trop T hs 38(H) <=22 ng/L Comment: Interpretive Data For further hscTnT resources including the diagnostic algorithm and an aid in interpretation, copy and paste this link: https://nrl.testcatalog.org/show/[email or web address] Current Interpretive Data last revised 2020. Blood 06/13/2025 3:19 AM CHIEF COMPRESSOR STATION ENGINEER 06/13/2025 3:45 AM CHIEF COMPRESSOR STATION ENGINEER Rena Nj MD LAB BLOOD ORDERABLES Fi nal Result Performing Organization Address City/[facility]/ZIP Co de Phone Number [facility] ([place]) 1 [facility] [place] [address] * (ABNORMAL) eGFR (06/13/2025 3:19 AM CHIEF COMPRESSOR STATION ENGINEER) eGFR 58(L) >=60 mL/min/1. 73 m2 Comment: Interpretive Data Reference Interval Normal >/= 90 mL/min/1.73m2 Mildly decreased* 60 - 89 mL/min/1.73m2 Mildly to moderately decreased 45 - 59 mL/min/1.73m2 Moderately to severely decreased 30 - 44 mL/min/1.73m2 Severely decreased 15 - 29 mL/min/1.73m2 Kidney Failure < 15 mL/min/1.73m2 *Relative to young adult level Estimated glomerular filtration rate is determined by the 2020 CKD-EPI equation recommended by the National Kidney Foundation (A Unifying Approach to GFR Estimation: Recommendations of the NKF-ASK Task Force on Reassessing the Inclusion of Race in Diagnosing Kidney Disease, JASN 2020). The CKD-EPI equation should not be used for patients with unstable renal function and has not been validated in children and those over 70. Current interpretive data was last reviewed 2021. Blood 06/13/2025 3:19 AM CHIEF COMPRESSOR STATION ENGINEER 06/13/2025 3:23 AM CHIEF COMPRESSOR STATION ENGINEER us Rena Nj MD LAB BLOOD ORDERABLES Fi nal Result Performing Organization Address City/[facility]/ZIP Co de Phone Number [facility] ([place]) 1 [facility] Department [place] [address] * Differential, auto (06/13/2025 3:19 AM CHIEF COMPRESSOR STATION ENGINEER) Neutrophil abs 4.50 1.50 - 6.50 K/cumm Imm gran abs 0.03 0.00 - 0.10 K/cumm [facility] ([place]) Lymphocyte abs 2.82 0.80 - 3.30 K/cumm [facility] ([place]) Monocyte abs 0.59 0.20 - 0.80 K/cumm [facility] ([place]) Eosinophil abs 0.19 0.00 - 0.50 K/cumm [facility] ([place]) Basophil abs 0.04 0.00 - 0.10 K/cumm [facility] (JOHANNY) Neutrophil pct 55.1 % [facility] (JOHANNY) Comment: Interpretive Data Percent cell count reference ranges are not reported, since discordance with absolute values may lead to misinterpretation of CBC data. Current Interpretive Data was last revised on 2017. Imm gran pct 0.4 % [facility] (JOHANNY) Comment: Interpretive Data Percent cell count reference ranges are not reported, since discordance with absolute values may lead to misinterpretation of CBC data. Current Interpretive Data was last revised on 2017. Lymphocyte pct 34.5 % [facility] (JOHANNY) Comment: Interpretive Data Percent cell count reference ranges are not reported, since discordance with absolute values may lead to misinterpretation of CBC data. Current Interpretive Data was last revised on 2017. Monocyte pct 7.2 % [facility] (JOHANNY) Comment: Interpretive Data Percent cell count reference ranges are not reported, since discordance with absolute values may lead to misinterpretation of CBC data. Current Interpretive Data was last revised on 2017. Eosinophil pct 2.3 % [facility] (JOHANNY) Comment: Interpretive Data Percent cell count reference ranges are not reported, since discordance with absolute values may lead to misinterpretation of CBC data. Current Interpretive Data was last revised on 2017. Basophil pct 0.5 % [facility] (JOHANNY) Comment: Interpretive Data Percent cell count reference ranges are not reported, since discordance with absolute values may lead to misinterpretation of CBC data. Current Interpretive Data was last revised on 2017. Blood 06/13/2025 3:19 AM [employer]IE[employer]ATION ENGINEER 06/13/2025 3:23 AM CHIEF COMPRESSOR STATION ENGINEER us Rena Nj MD LAB BLOOD ORDERABLES Fi nal Result [facility] (JOHANNY) 1 [facility] Department [place] [address] * (ABNORMAL) CBC with auto differential (06/13/2025 3:19 AM CHIEF COMPRESSOR STATION ENGINEER) WBC 8.17 3.80 - 9.90 K/cumm Hgb 15.1 13.0 - 17.5 g/dL [facility] (JOHANNY) Hct 44.6 38.9 - 50.3 % [facility] (JOHANNY) Plt 148(L) 150 - 400 K/cumm [facility] (JOHANNY) MPV 10.8 9.1 - 12.3 fL [facility] (JOHANNY) RBC 4.91 4.30 - 5.80 M/cumm [facility] (JOHANNY) MCV 90.8 81.3 - 96.4 fL [facility] (JOHANNY) MCH 30.8 27.1 - 33.3 pg [facility] (JOHANNY) MCHC 33.9 32.3 - 35.7 g/dL [facility] (JOHANNY) RDW CV 14.0 11.1 - 14.9 % [facility] (JOHANNY) RDW SD 46.8 35.7 - 48.1 fL [facility] (JOHANNY) NRBC abs 0.00 0.00 - 0.01 K/cumm [facility] (JOHANNY) Blood 06/13/2025 3:19 AM CHIEF COMPRESSOR STATION ENGINEER 06/13/2025 3:23 AM CHIEF COMPRESSOR STATION ENGINEER us Rena Nj MD LAB BLOOD ORDERABLES Fi nal Result [facility] (JOHANNY) 1 [facility] Department [place] [address] * (ABNORMAL) Protime-INR (06/13/2025 3:19 AM CHIEF COMPRESSOR STATION ENGINEER) PT 14.5(H) 10.2 - 13.5 sec [facility] (JOHANNY) INR 1.29(H) 0.90 - 1.20 [facility] (JOHANNY) Comment: Interpretive data Oral anticoagulant therapeutic ranges: Venous thromboembolism prophylaxis or treatment: 2.0-3.0 CARDIOLOGY Standard range: 2.0-3.0 High-intensity range: 2.5-3.5 Refer to indication-specific guidelines for appropriate target ranges for prosthetic heart valve replacement. Current interpretive data was last revised on 2019. Blood 06/13/2025 3:19 AM CHIEF COMPRESSOR STATION ENGINEER 06/13/2025 3:23 AM CHIEF COMPRESSOR STATION ENGINEER us Rena Nj MD LAB BLOOD ORDERABLES Fi nal Result Performing Organization Address [facility] Co de Phone Number [facility]NARINDER [facility] ([place]) 1 [facility] Department [place] [address] * (ABNORMAL) D-dimer, quantitative (06/13/2025 3:19 AM CHIEF COMPRESSOR STATION ENGINEER) D-Dimer 501(H) <=499 ng/mL FEU [facility] (JOHANNY) Comment: Interpretive data FDA approved the D-dimer, in conjunction with a low or moderate pretest probability score, to exclude venous thromboembolic events (VTE) (PE and DVT) in outpatients when the D-dimer result is < 500 ng/ml FEU. Evidence supports using an age-adjusted D-dimer cut-off for outpatients older than 50 (age x 10) to improve specificity without sacrificing sensitivity. Example: age 68, VTE cut-off 680 ng/ml FEU. References; Schoutmeena HT et al. Brit Med J. 2013;346:f2492. Uma et al. Annals Int Med. 2015;163:701-11. Current interpretive data was last revised on 2019. Blood 06/13/2025 3:19 AM CHIEF COMPRESSOR STATION ENGINEER 06/13/2025 7:36 AM CHIEF COMPRESSOR STATION ENGINEER us London Atkins MD LAB BLOOD ORDERABLE S Final Result Performing Organization Address City/[facility]/ZIP Co de Phone Number [facility] ([place]) 1 [facility] Department [place] [address] * Magnesium (06/13/2025 3:19 AM CHIEF COMPRESSOR STATION ENGINEER) Pathologist [facility] Magnesium 2.1 1.4 - 2.5 mg/dL Blood 06/13/2025 3:19 AM CHIEF COMPRESSOR STATION ENGINEER 06/13/2025 3:23 AM CHIEF COMPRESSOR STATION ENGINEER Rena jN MD LAB BLOOD ORDERABLES Fi nal Result [facility] (JOHANNY) 1 [facility] Department [place] [address] * (ABNORMAL) Comprehensive metabolic panel (06/13/2025 3:19 AM CHIEF COMPRESSOR STATION ENGINEER) Pathologist [facility] Sodium 140 135 - 145 mmol/L Potassium, pl 4.2 3.3 - 4.9 mmol/L [facility] (JOHANNY) Chloride 99 97 - 110 mmol/L [facility] (JOHANNY) CO2 29 22 - 32 mmol/L [facility] (JOHANNY) Anion gap 12 2 - 15 mmol/L [facility] (JOHANNY) BUN 29(H) 6 - 25 mg/dL [facility] (JOHANNY) Creatinine 1.41(H) 0.80 - 1.30 mg/dL [facility] (JOHANNY) Glucose 103 70 - 199 mg/dL [facility] (JOHANNY) Comment: Interpretive Data Fasting glucose >/= 126 mg/dl is diagnostic for diabetes. Fasting is defined as no caloric intake for at least 8 hours. Fasting glucose between 100 mg/dl to 125 mg/dl is diagnostic of prediabetes. In a patient with classic symptoms of hyperglycemia or hyperglycemic crisis, a random glucose >/= 200 mg/dl is diagnostic for diabetes. In the absence of unequivocal hyperglycemia, results should be confirmed by repeat testing. The classification and Diagnosis of Diabetes Diabetes Care 2021; 46: S19-S40. Current interpretive data was last revised 2022. Calcium 9.9 8.5 - 10.3 mg/dL [facility] (JOHANNY) Bilirubin, total 1.1 0.1 - 1.2 mg/dL [facility] (JOHANNY) Protein, pl 7.6 6.5 - 8.5 g/dL [facility] (JOHANNY) Albumin 4.7 3.5 - 5.0 g/dL [facility] (JOHANNY) Alk phos 66 40 - 130 Units/L [facility] (JOHANNY) ALT 22 7 - 55 Units/L [facility] (JOHANNY) AST 27 10 - 50 Units/L [facility] (JOHANNY) Blood 06/13/2025 3:19 AM CHIEF COMPRESSOR STATION ENGINEER 06/13/2025 3:23 AM CHIEF COMPRESSOR STATION ENGINEER Rena Nj MD LAB BLOOD ORDERABLES Fi nal Result Performing Organization Address City/[facility]/ZIP Co de Phone Number [facility] (JOHANNY) 1 [facility] Department [place] [address] * ECG 12 lead (06/13/2025 3:02 AM CHIEF COMPRESSOR STATION ENGINEER) 06/13/2025 3:02 AM CHIEF COMPRESSOR STATION ENGINEER Narrative [facility] - 06/13/2025 10:44 AM CHIEF COMPRESSOR STATION ENGINEER Vent Rate: 79 bpm RR Interval: 756 msec HI Interval: 0 msec QRS Duration: 106 msec QT Interval: 405 msec QTC Interval: 439 msec P-R-T Hedrick: [id number] - -26 - 83 degrees IMPRESSION: ATRIAL FIBRILLATION LOW QRS VOLTAGE IN EXTREMITY LEADS [QRS DEFLECTION < 0.5 mV IN LIMB LEADS] PATTERN CONSISTENT WITH PULMONARY DISEASE SEPTAL MYOCARDIAL INFARCTION , OF INDETERMINATE AGE [40+ ms Q WAVE IN V1/V2] ABNORMAL ECG No change compared to prior EKG Electronically Signed By: Renan Valdovinos MD Rena Nj MD ECG ORDERABLES Final R esult [employer] [facility] * (ABNORMAL) eGFR (06/08/2025 4:14 AM CHIEF COMPRESSOR STATION ENGINEER) eGFR 58(L) >=60 mL/min/1. 73 m2 Comment: Interpretive Data Reference Interval Normal >/= 90 mL/min/1.73m2 Mildly decreased* 60 - 89 mL/min/1.73m2 Mildly to moderately decreased 45 - 59 mL/min/1.73m2 Moderately to severely decreased 30 - 44 mL/min/1.73m2 Severely decreased 15 - 29 mL/min/1.73m2 Kidney Failure < 15 mL/min/1.73m2 *Relative to young adult level Estimated glomerular filtration rate is determined by the 2020 CKD-EPI equation recommended by the National Kidney Foundation (A Unifying Approach to GFR Estimation: Recommendations of the NKF-ASK Task Force on Reassessing the Inclusion of Race in Diagnosing Kidney Disease, JASN 2020). The CKD-EPI equation should not be used for patients with unstable renal function and has not been validated in children and those over 70. Current interpretive data was last reviewed 2021. Blood 06/08/2025 4:14 AM CHIEF COMPRESSOR STATION ENGINEER 06/08/2025 4:45 AM CHIEF COMPRESSOR STATION ENGINEER us Tyler Hernandez MD LAB BLOOD ORDERABLES F inal Result [facility] [address] Department [place] [address] * Differential, auto (06/08/2025 4:14 AM CHIEF COMPRESSOR STATION ENGINEER) Neutrophil abs 4.20 1.50 - 6.50 K/cumm Imm gran abs 0.02 0.00 - 0.10 K/cumm [facility] Lymphocyte abs 1.86 0.80 - 3.30 K/cumm [facility] Monocyte abs 0.60 0.20 - 0.80 K/cumm [facility] Eosinophil abs 0.14 0.00 - 0.50 K/cumm [facility] Basophil abs 0.02 0.00 - 0.10 K/cumm [facility] Neutrophil pct 61.4 % [facility] Comment: Interpretive Data Percent cell count reference ranges are not reported, since discordance with absolute values may lead to misinterpretation of CBC data. Current Interpretive Data was last revised on 2017. Imm gran pct 0.3 % [facility] Comment: Interpretive Data Percent cell count reference ranges are not reported, since discordance with absolute values may lead to misinterpretation of CBC data. Current Interpretive Data was last revised on 2017. Lymphocyte pct 27.2 % [facility] Comment: Interpretive Data Percent cell count reference ranges are not reported, since discordance with absolute values may lead to misinterpretation of CBC data. Current Interpretive Data was last revised on 2017. Monocyte pct 8.8 % [facility] Comment: Interpretive Data Percent cell count reference ranges are not reported, since discordance with absolute values may lead to misinterpretation of CBC data. Current Interpretive Data was last revised on 2017. Eosinophil pct 2.0 % [facility] Comment: Interpretive Data Percent cell count reference ranges are not reported, since discordance with absolute values may lead to misinterpretation of CBC data. Current Interpretive Data was last revised on 2017. Basophil pct 0.3 % [facility] Comment: Interpretive Data Percent cell count reference ranges are not reported, since discordance with absolute values may lead to misinterpretation of CBC data. Current Interpretive Data was last revised on 2017. Blood 06/08/2025 4:14 AM CHIEF COMPRESSOR STATION ENGINEER 06/08/2025 4:44 AM CHIEF COMPRESSOR STATION ENGINEER us Tyler Hernandez MD LAB BLOOD ORDERABLES F inal Result [facility] [address] Department of Laboratories [place], [place] [id number] * (ABNORMAL) CBC with auto differential (06/08/2025 4:14 AM CHIEF COMPRESSOR STATION ENGINEER) WBC 6.84 3.80 - 9.90 K/cumm Hgb 14.5 13.0 - 17.5 g/dL [facility] Hct 43.1 38.9 - 50.3 % [facility] Plt 132(L) 150 - 400 K/cumm [facility] MPV 10.9 9.1 - 12.3 fL [facility] RBC 4.80 4.30 - 5.80 M/cumm [facility] MCV 89.8 81.3 - 96.4 fL [facility] MCH 30.2 27.1 - 33.3 pg [facility] MCHC 33.6 32.3 - 35.7 g/dL [facility] RDW CV 14.4 11.1 - 14.9 % [facility] RDW SD 47.6 35.7 - 48.1 fL [facility] NRBC abs 0.00 0.00 - 0.01 K/cumm [facility] Blood 06/08/2025 4:14 AM CHIEF COMPRESSOR STATION ENGINEER 06/08/2025 4:44 AM CHIEF COMPRESSOR STATION ENGINEER Tyler Hernandez MD LAB BLOOD ORDERABLES F inal Result Performing Organization Address [facility] Co de Phone Number [facility] [address] Department [place] [address] * Magnesium (06/08/2025 4:14 AM CHIEF COMPRESSOR STATION ENGINEER) Pathologist [facility] Magnesium 1.9 1.4 - 2.5 mg/dL Blood 06/08/2025 4:14 AM CHIEF COMPRESSOR STATION ENGINEER 06/08/2025 4:45 AM CHIEF COMPRESSOR STATION ENGINEER Tyler Hernandez MD LAB BLOOD ORDERABLES F inal Result Performing Organization Address [facility] de Phone Number [facility] [address] Department [place] [address] * (ABNORMAL) Basic metabolic panel (06/08/2025 4:14 AM CHIEF COMPRESSOR STATION ENGINEER) Pathologist [facility] Sodium 144 135 - 145 mmol/L Potassium, pl 3.7 3.3 - 4.9 mmol/L [facility] Chloride 104 97 - 110 mmol/L [facility] CO2 25 22 - 32 mmol/L [facility] Anion gap 15 2 - 15 mmol/L [facility] BUN 26(H) 6 - 25 mg/dL [facility] Creatinine 1.41(H) 0.80 - 1.30 mg/dL [facility] Glucose 104 70 - 199 mg/dL [facility] Comment: Interpretive Data Fasting glucose >/= 126 mg/dl is diagnostic for diabetes. Fasting is defined as no caloric intake for at least 8 hours. Fasting glucose between 100 mg/dl to 125 mg/dl is diagnostic of prediabetes. In a patient with classic symptoms of hyperglycemia or hyperglycemic crisis, a random glucose >/= 200 mg/dl is diagnostic for diabetes. In the absence of unequivocal hyperglycemia, results should be confirmed by repeat testing. The classification and Diagnosis of Diabetes Diabetes Care 202; 46: S19-S40. Current interpretive data was last revised 2022. Calcium 8.9 8.5 - 10.3 mg/dL [facility] Blood 06/08/2025 4:14 AM CHIEF COMPRESSOR STATION ENGINEER 06/08/2025 4:45 AM CHIEF COMPRESSOR STATION ENGINEER Tyler Hernandez MD LAB BLOOD ORDERABLES F inal Result Performing Organization Address [facility]/ZIP Co de Phone Number [facility] [address] [address] * eGFR (06/07/2025 3:18 PM CHIEF COMPRESSOR STATION ENGINEER) eGFR 61 >=60 mL/min/1. 73 m2 Comment: Interpretive Data Reference Interval Normal >/= 90 mL/min/1.73m2 Mildly decreased* 60 - 89 mL/min/1.73m2 Mildly to moderately decreased 45 - 59 mL/min/1.73m2 Moderately to severely decreased 30 - 44 mL/min/1.73m2 Severely decreased 15 - 29 mL/min/1.73m2 Kidney Failure < 15 mL/min/1.73m2 *Relative to young adult level Estimated glomerular filtration rate is determined by the 2020 CKD-EPI equation recommended by the National Kidney Foundation (A Unifying Approach to GFR Estimation: Recommendations of the NKF-ASK Task Force on Reassessing the Inclusion of Race in Diagnosing Kidney Disease, JASN 2020). The CKD-EPI equation should not be used for patients with unstable renal function and has not been validated in children and those over 70. Current interpretive data was last reviewed 2021. Blood 06/07/2025 3:18 PM CHIEF COMPRESSOR STATION ENGINEER 06/07/2025 3:34 PM CHIEF COMPRESSOR STATION ENGINEER us Dedrick Escamilla MD LAB BLOOD ORDERABLES Final R esult Performing Organization Address [facility]/ZIP Co de Phone Number [facility] [address] Department [place] [address] * Protime-INR (06/07/2025 3:18 PM CHIEF COMPRESSOR STATION ENGINEER) PT 13.2 10.2 - 13.5 sec INR 1.17 0.90 - 1.20 [facility] Comment: Interpretive data Oral anticoagulant therapeutic ranges: Venous thromboembolism prophylaxis or treatment: 2.0-3.0 CARDIOLOGY Standard range: 2.0-3.0 High-intensity range: 2.5-3.5 Refer to indication-specific guidelines for appropriate target ranges for prosthetic heart valve replacement. Current interpretive data was last revised on 2019. Blood 06/07/2025 3:18 PM CHIEF COMPRESSOR STATION ENGINEER 06/07/2025 3:34 PM CHIEF COMPRESSOR STATION ENGINEER Narrative [facility] - 06/07/2025 3:49 PM CHIEF COMPRESSOR STATION ENGINEER Baseline prior to apixaban initiation. Dedrick Escamilla MD LAB BLOOD ORDERABLES Final R esult [facility] [address] Department [place] [address] * (ABNORMAL) CBC without differential (06/07/2025 3:18 PM CHIEF COMPRESSOR STATION ENGINEER) Pathologist [facility] WBC 7.66 3.80 - 9.90 K/cumm Hgb 14.4 13.0 - 17.5 g/dL [facility] Hct 43.5 38.9 - 50.3 % [facility] Plt 148(L) 150 - 400 K/cumm [facility] MPV 10.9 9.1 - 12.3 fL [facility] RBC 4.82 4.30 - 5.80 M/cumm [facility] MCV 90.2 81.3 - 96.4 fL [facility] MCH 29.9 27.1 - 33.3 pg [facility] MCHC 33.1 32.3 - 35.7 g/dL [facility] RDW CV 14.6 11.1 - 14.9 % [facility] RDW SD 48.0 35.7 - 48.1 fL [facility] NRBC abs 0.00 0.00 - 0.01 K/cumm [facility] Blood 06/07/2025 3:18 PM CHIEF COMPRESSOR STATION ENGINEER 06/07/2025 3:34 PM CHIEF COMPRESSOR STATION ENGINEER Narrative [facility] - 06/07/2025 3:42 PM CHIEF COMPRESSOR STATION ENGINEER Baseline prior to apixaban initiation. Dedrick Escamilla MD LAB BLOOD ORDERABLES Final R esult Performing Organization Address [facility] Co de Phone Number [facility] [address] [facility] [place] [address] * (ABNORMAL) Creatinine (06/07/2025 3:18 PM CHIEF COMPRESSOR STATION ENGINEER) Creatinine 1.36(H) 0.80 - 1.30 mg/dL Blood 06/07/2025 3:18 PM CHIEF COMPRESSOR STATION ENGINEER 06/07/2025 3:34 PM CHIEF COMPRESSOR STATION ENGINEER Narrative [facility] - 06/07/2025 4:07 PM CHIEF COMPRESSOR STATION ENGINEER Baseline prior to apixaban initiation. Dedrick Escamilla MD LAB BLOOD ORDERABLES Final R esult Performing Organization Address [facility] de Phone Number [facility] [address] [facility] [place] [address] * (ABNORMAL) Hepatic function panel (06/07/2025 3:18 PM CHIEF COMPRESSOR STATION ENGINEER) Bilirubin, total 0.6 0.1 - 1.2 mg/dL Bilirubin, direct 0.2 0.1 - 0.3 mg/dL [facility] Comment:Hemolysis present. R esults may be affected. Protein, pl 6.2(L) 6.5 - 8.5 g/dL [facility] Albumin 3.8 3.5 - 5.0 g/dL [facility] Alk phos 59 40 - 130 Units/L [facility] ALT 20 7 - 55 Units/L [facility] AST 26 10 - 50 Units/L [facility] Blood 06/07/2025 3:18 PM CHIEF COMPRESSOR STATION ENGINEER 06/07/2025 3:34 PM CHIEF COMPRESSOR STATION ENGINEER Narrative [facility] - 06/07/2025 4:07 PM CHIEF COMPRESSOR STATION ENGINEER Baseline prior to apixaban initiation. Dedrick Escamilla MD LAB BLOOD ORDERABLES Final R esult Performing Organization Address City/[facility]/ZIP Co de Phone Number [facility] [address] Department [place] [address] * eGFR (06/07/2025 5:00 AM CHIEF COMPRESSOR STATION ENGINEER) eGFR 65 >=60 mL/min/1. 73 m2 Comment: Interpretive Data Reference Interval Normal >/= 90 mL/min/1.73m2 Mildly decreased* 60 - 89 mL/min/1.73m2 Mildly to moderately decreased 45 - 59 mL/min/1.73m2 Moderately to severely decreased 30 - 44 mL/min/1.73m2 Severely decreased 15 - 29 mL/min/1.73m2 Kidney Failure < 15 mL/min/1.73m2 *Relative to young adult level Estimated glomerular filtration rate is determined by the 2020 CKD-EPI equation recommended by the National Kidney Foundation (A Unifying Approach to GFR Estimation: Recommendations of the NKF-ASK Task Force on Reassessing the Inclusion of Race in Diagnosing Kidney Disease, JASN 2020). The CKD-EPI equation should not be used for patients with unstable renal function and has not been validated in children and those over 70. Current interpretive data was last reviewed 2021. Blood 06/07/2025 5:00 AM CHIEF COMPRESSOR STATION ENGINEER 06/07/2025 5:27 AM CHIEF COMPRESSOR STATION ENGINEER us Tyler Hernandez MD LAB BLOOD ORDERABLES F inal Result Performing Organization Address City/[facility] Co de Phone Number [facility] [address] Department [place] [address] * Differential, auto (06/07/2025 5:00 AM CHIEF COMPRESSOR STATION ENGINEER) Neutrophil abs 3.57 1.50 - 6.50 K/cumm Imm gran abs 0.02 0.00 - 0.10 K/cumm [facility] Lymphocyte abs 2.62 0.80 - 3.30 K/cumm [facility] Monocyte abs 0.54 0.20 - 0.80 K/cumm [facility] Eosinophil abs 0.18 0.00 - 0.50 K/cumm [facility] Basophil abs 0.03 0.00 - 0.10 K/cumm [facility] Neutrophil pct 51.3 % [facility] Comment: Interpretive Data Percent cell count reference ranges are not reported, since discordance with absolute values may lead to misinterpretation of CBC data. Current Interpretive Data was last revised on 2017. Imm gran pct 0.3 % [facility] Comment: Interpretive Data Percent cell count reference ranges are not reported, since discordance with absolute values may lead to misinterpretation of CBC data. Current Interpretive Data was last revised on 2017. Lymphocyte pct 37.6 % [facility] Comment: Interpretive Data Percent cell count reference ranges are not reported, since discordance with absolute values may lead to misinterpretation of CBC data. Current Interpretive Data was last revised on 2017. Monocyte pct 7.8 % [facility] Comment: Interpretive Data Percent cell count reference ranges are not reported, since discordance with absolute values may lead to misinterpretation of CBC data. Current Interpretive Data was last revised on 2017. Eosinophil pct 2.6 % [facility] Comment: Interpretive Data Percent cell count reference ranges are not reported, since discordance with absolute values may lead to misinterpretation of CBC data. Current Interpretive Data was last revised on 2017. Basophil pct 0.4 % [facility] Comment: Interpretive Data Percent cell count reference ranges are not reported, since discordance with absolute values may lead to misinterpretation of CBC data. Current Interpretive Data was last revised on 2017. Blood 06/07/2025 5:00 AM CHIE[employer] COMPRESSOR STATION ENGINEER 06/07/2025 5:27 AM CHIEF COMPRESSOR STATION ENGINEER us Tyler Hernandez MD LAB BLOOD ORDERABLES F inal Result [facility] [address] Department [place] [address] * (ABNORMAL) CBC with auto differential (06/07/2025 5:00 AM CHIEF COMPRESSOR STATION ENGINEER) WBC 6.96 3.80 - 9.90 K/cumm Hgb 14.5 13.0 - 17.5 g/dL [facility] Hct 43.4 38.9 - 50.3 % [facility] Plt 128(L) 150 - 400 K/cumm [facility] MPV 10.9 9.1 - 12.3 fL [facility] RBC 4.80 4.30 - 5.80 M/cumm [facility] MCV 90.4 81.3 - 96.4 fL [facility] MCH 30.2 27.1 - 33.3 pg [facility] MCHC 33.4 32.3 - 35.7 g/dL [facility] RDW CV 14.6 11.1 - 14.9 % [facility] RDW SD 48.1 35.7 - 48.1 fL [facility] NRBC abs 0.00 0.00 - 0.01 K/cumm [facility] Blood 06/07/2025 5:00 AM CHIEF COMPRESSOR STATION ENGINEER 06/07/2025 5:27 AM CHIEF COMPRESSOR STATION ENGINEER Tyler Hernandez MD LAB BLOOD ORDERABLES F inal Result Performing Organization Address City/[facility]/ZIP Co de Phone Number [facility] [address] Department [place] [address] * (ABNORMAL) aPTT (06/07/2025 5:00 AM CHIEF COMPRESSOR STATION ENGINEER) Pathologist [facility] aPTT 86(H) 26 - 38 sec Comment: Interpretive Data Heparin therapeutic range: 66.0 - 100.0 seconds. Range based on correlation with therapeutic heparin activity range of 0.3 - 0.7 Units/mL. Blood 06/07/2025 5:00 AM CHIEF COMPRESSOR STATION ENGINEER 06/07/2025 5:27 AM CHIEF COMPRESSOR STATION ENGINEER Narrative [facility] - 06/07/2025 5:54 AM CHIEF COMPRESSOR STATION ENGINEER heparin gtt Chad Dietrich DO LAB BLOOD ORDERABLES Final R esult [facility] [address] Department [place] [address] * Magnesium (06/07/2025 5:00 AM CHIEF COMPRESSOR STATION ENGINEER) Pathologist [facility] Magnesium 2.0 1.4 - 2.5 mg/dL Blood 06/07/2025 5:00 AM CHIEF COMPRESSOR STATION ENGINEER 06/07/2025 5:27 AM CHIEF COMPRESSOR STATION ENGINEER Tyler Hernandez MD LAB BLOOD ORDERABLES F inal Result Performing Organization Address [facility] Co de Phone Number [facility] [address] [address] [facility] [place] [address] * Basic metabolic panel (06/07/2025 5:00 AM CHIEF COMPRESSOR STATION ENGINEER) Pathologist [facility] Sodium 141 135 - 145 mmol/L Potassium, pl 3.3 3.3 - 4.9 mmol/L [facility] Chloride 103 97 - 110 mmol/L [facility] CO2 25 22 - 32 mmol/L [facility] Anion gap 13 2 - 15 mmol/L [facility] BUN 21 6 - 25 mg/dL [facility] Creatinine 1.29 0.80 - 1.30 mg/dL [facility] Glucose 98 70 - 199 mg/dL [facility] Comment: Interpretive Data Fasting glucose >/= 126 mg/dl is diagnostic for diabetes. Fasting is defined as no caloric intake for at least 8 hours. Fasting glucose between 100 mg/dl to 125 mg/dl is diagnostic of prediabetes. In a patient with classic symptoms of hyperglycemia or hyperglycemic crisis, a random glucose >/= 200 mg/dl is diagnostic for diabetes. In the absence of unequivocal hyperglycemia, results should be confirmed by repeat testing. The classification and Diagnosis of Diabetes Diabetes Care 2021; 46: S19-S40. Current interpretive data was last revised 2022. Calcium 8.6 8.5 - 10.3 mg/dL [facility] Blood 06/07/2025 5:00 AM CHIEF COMPRESSOR STATION ENGINEER 06/07/2025 5:27 AM CHIEF COMPRESSOR STATION ENGINEER Tyler Hernandez MD LAB BLOOD ORDERABLES F inal Result Performing Organization Address [facility] Co de Phone Number [facility] [address] [address] Department [place] [address] * (ABNORMAL) aPTT (06/06/2025 10:49 PM CHIEF COMPRESSOR STATION ENGINEER) [facility] aPTT 82(H) 26 - 38 sec Comment: Interpretive Data Heparin therapeutic range: 66.0 - 100.0 seconds. Range based on correlation with therapeutic heparin activity range of 0.3 - 0.7 Units/mL. Blood 06/06/2025 10:4 9 PM CHIEF COMPRESSOR STATION ENGINEER 06/06/2025 11:02 PM CHIEF COMPRESSOR STATION ENGINEER [facility] LAB BLOOD ORDERABLES Final R esult Performing Organization Address [facility] de Phone Number [facility] [address] [address] [facility] [place] [address] * (ABNORMAL) aPTT (06/06/2025 3:02 PM CHIEF COMPRESSOR STATION ENGINEER) [facility] aPTT 40(H) 26 - 38 sec Comment: Interpretive Data Heparin therapeutic range: 66.0 - 100.0 seconds. Range based on correlation with therapeutic heparin activity range of 0.3 - 0.7 Units/mL. Blood 06/06/2025 3:02 PM CHIEF COMPRESSOR STATION ENGINEER 06/06/2025 3:11 PM CHIEF COMPRESSOR STATION ENGINEER [facility] BLOOD ORDERABLES Final R esult Performing Organization Address [facility] de Phone Number [facility] [address] [address] [facility] [place] [address] * (ABNORMAL) Troponin T high-sensitivity (06/06/2025 10:35 AM CHIEF COMPRESSOR STATION ENGINEER) Pathologist [facility] Trop T hs 33(H) <=22 ng/L Comment: Interpretive Data For further hscTnT resources including the diagnostic algorithm and an aid in interpretation, copy and paste this link: https://nrl.testcatalog.org/show/hsTrop Current Interpretive Data last revised 2020. Blood 06/06/2025 10:3 5 AM CHIEF COMPRESSOR STATION ENGINEER 06/06/2025 10:53 AM CHIEF COMPRESSOR STATION ENGINEER [facility] LAB BLOOD ORDERABLES Final R esult Performing Organization Address [facility] Co de Phone Number [facility] [address] Department [place] [address] * ECG 12 lead (06/06/2025 10:20 AM CHIEF COMPRESSOR STATION ENGINEER) 06/06/2025 10:2 0 AM CHIEF COMPRESSOR STATION ENGINEER Narrative [facility] - 06/06/2025 11:36 AM CHIEF COMPRESSOR STATION ENGINEER Vent Rate: 66 bpm RR Interval: 904 msec HI Interval: 0 msec QRS Duration: 107 msec QT Interval: 427 msec QTC Interval: 440 msec P-R-T Hedrick: 0 - -17 - 95 degrees IMPRESSION: ATRIAL FIBRILLATION LOW QRS VOLTAGE IN EXTREMITY LEADS [QRS DEFLECTION < 0.5 mV IN LIMB LEADS] SEPTAL MYOCARDIAL INFARCTION , OF INDETERMINATE AGE [40+ ms Q WAVE IN V1/V2] ABNORMAL ECG Electronically Signed By: Jonathan Thrasher MD Chad Dietrich DO ECG ORDERABLES Final Result Performing Organization Address [facility] Co de Phone Number [facility] [employer] [facility] * (ABNORMAL) Troponin T high-sensitivity (06/06/2025 9:21 AM CHIEF COMPRESSOR STATION ENGINEER) Trop T hs 38(H) <=22 ng/L Comment: Interpretive Data For further hscTnT resources including the diagnostic algorithm and an aid in interpretation, copy and paste this link: https://nrl.testcatalog.org/show/hsTrop Current Interpretive Data last revised 2020. Blood 06/06/2025 9:21 AM CHIEF COMPRESSOR STATION ENGINEER 06/06/2025 9:39 AM CHIEF COMPRESSOR STATION ENGINEER Chad Dietrich DO LAB BLOOD ORDERABLES Final R esult Performing Organization Address [facility] Co de Phone Number [facility] [address] [address] Department [place] [address] * eGFR (06/06/2025 9:21 AM CHIEF COMPRESSOR STATION ENGINEER) eGFR 68 >=60 mL/min/1. 73 m2 Comment: Interpretive Data Reference Interval Normal >/= 90 mL/min/1.73m2 Mildly decreased* 60 - 89 mL/min/1.73m2 Mildly to moderately decreased 45 - 59 mL/min/1.73m2 Moderately to severely decreased 30 - 44 mL/min/1.73m2 Severely decreased 15 - 29 mL/min/1.73m2 Kidney Failure < 15 mL/min/1.73m2 *Relative to young adult level Estimated glomerular filtration rate is determined by the 2020 CKD-EPI equation recommended by the National Kidney Foundation (A Unifying Approach to GFR Estimation: Recommendations of the NKF-ASK Task Force on Reassessing the Inclusion of Race in Diagnosing Kidney Disease, JASN 2020). The CKD-EPI equation should not be used for patients with unstable renal function and has not been validated in children and those over 70. Current interpretive data was last reviewed 2021. Blood 06/06/2025 9:21 AM CHIEF COMPRESSOR STATION ENGINEER 06/06/2025 9:38 AM CHIEF COMPRESSOR STATION ENGINEER [facility] DO LAB BLOOD ORDERABLES Final R esult Performing Organization Address [facility] Co de Phone Number [facility] [address] [place] [address] * aPTT (06/06/2025 9:21 AM CHIEF COMPRESSOR STATION ENGINEER) Pathologist [facility] aPTT 38 26 - 38 sec Comment: Interpretive Data Heparin therapeutic range: 66.0 - 100.0 seconds. Range based on correlation with therapeutic heparin activity range of 0.3 - 0.7 Units/mL. Blood 06/06/2025 9:21 AM CHIEF COMPRESSOR STATION ENGINEER 06/06/2025 9:39 AM CHIEF COMPRESSOR STATION ENGINEER [email or web address] LAB BLOOD ORDERABLES Final R esult Performing Organization Address [facility] Co de Phone Number [facility] [address] [address] Department [place] [address] * CBC without differential (06/06/2025 9:21 AM CHIEF COMPRESSOR STATION ENGINEER) WBC 9.16 3.80 - 9.90 K/cumm Hgb 14.8 13.0 - 17.5 g/dL [facility] Hct 45.1 38.9 - 50.3 % [facility] Plt 152 150 - 400 K/cumm [facility] MPV 10.9 9.1 - 12.3 fL [facility] RBC 4.94 4.30 - 5.80 M/cumm [facility] MCV 91.3 81.3 - 96.4 fL [facility] MCH 30.0 27.1 - 33.3 pg [facility] MCHC 32.8 32.3 - 35.7 g/dL [facility] RDW CV 14.5 11.1 - 14.9 % [facility] RDW SD 48.1 35.7 - 48.1 fL [facility] NRBC abs 0.00 0.00 - 0.01 K/cumm [facility] Blood 06/06/2025 9:21 AM CHIEF COMPRESSOR STATION ENGINEER 06/06/2025 9:39 AM CHIEF COMPRESSOR STATION ENGINEER Tyler Hernandez MD LAB BLOOD ORDERABLES F inal Result Performing Organization Address [facility] de Phone Number [facility] [address] [address] Department [place] [address] * Magnesium (06/06/2025 9:21 AM CHIEF COMPRESSOR STATION ENGINEER) [facility] Magnesium 2.4 1.4 - 2.5 mg/dL Blood 06/06/2025 9:21 AM CHIEF COMPRESSOR STATION ENGINEER 06/06/2025 9:38 AM CHIEF COMPRESSOR STATION ENGINEER Chad Dietrich DO LAB BLOOD ORDERABLES Final R esult Performing Organization Address [facility] Co de Phone Number [facility] [address] Department [place] [address] * (ABNORMAL) Basic metabolic panel (06/06/2025 9:21 AM CHIEF COMPRESSOR STATION ENGINEER) Pathologist [facility] Sodium 138 135 - 145 mmol/L Potassium, pl 4.1 3.3 - 4.9 mmol/L [facility] Chloride 102 97 - 110 mmol/L [facility] CO2 21(L) 22 - 32 mmol/L [facility] Anion gap 15 2 - 15 mmol/L [facility] BUN 19 6 - 25 mg/dL [facility] Creatinine 1.24 0.80 - 1.30 mg/dL [facility] Glucose 106 70 - 199 mg/dL [facility] Comment: Interpretive Data Fasting glucose >/= 126 mg/dl is diagnostic for diabetes. Fasting is defined as no caloric intake for at least 8 hours. Fasting glucose between 100 mg/dl to 125 mg/dl is diagnostic of prediabetes. In a patient with classic symptoms of hyperglycemia or hyperglycemic crisis, a random glucose >/= 200 mg/dl is diagnostic for diabetes. In the absence of unequivocal hyperglycemia, results should be confirmed by repeat testing. The classification and Diagnosis of Diabetes Diabetes Care 2021; 46: S19-S40. Current interpretive data was last revised 2022. Calcium 8.7 8.5 - 10.3 mg/dL [facility] Blood 06/06/2025 9:21 AM CHIEF COMPRESSOR STATION ENGINEER 06/06/2025 9:38 AM CHIEF COMPRESSOR STATION ENGINEER Chad Dietrich DO LAB BLOOD ORDERABLES Final R esult Performing Organization Address City/[facility]/ZIP Co de Phone Number [facility] [address] [address] Department [place] [address] * (ABNORMAL) Troponin T high-sensitivity 2-hour (06/06/2025 4:18 AM CHIEF COMPRESSOR STATION ENGINEER) Trop T hs 34(H) <=22 ng/L Comment: Interpretive Data For further hscTnT resources including the diagnostic algorithm and an aid in interpretation, copy and paste this link: https://nrl.testcatalog.org/show/hsTrop Current Interpretive Data last revised 2020. Trop T hs delta 0 ng/L [facility] Trop T hs interp Insignificant [facility] Blood 06/06/2025 4:18 AM CHIEF COMPRESSOR STATION ENGINEER 06/06/2025 4:23 AM CHIEF COMPRESSOR STATION ENGINEER Cecily Aldridge MD LAB BLOOD ORDERA BLES Final Result [facility] [address] [address] Department [place] [address] * aPTT (06/06/2025 3:46 AM CHIEF COMPRESSOR STATION ENGINEER) aPTT 28 26 - 38 sec Comment: Interpretive Data Heparin therapeutic range: 66.0 - 100.0 seconds. Range based on correlation with therapeutic heparin activity range of 0.3 - 0.7 Units/mL. Blood 06/06/2025 3:46 AM CHIEF COMPRESSOR STATION ENGINEER 06/06/2025 3:55 AM CHIEF COMPRESSOR STATION ENGINEER Narrative [facility] 06/06/2025 4:27 AM CHIEF COMPRESSOR STATION ENGINEER Baseline prior to heparin initiation Cecily Aldridge MD LAB BLOOD ORDERA BLES Final Result Performing Organization Address [facility] de Phone Number [facility] [address] [address] [facility] [place] [address] * (ABNORMAL) Protime-INR (06/06/2025 3:46 AM CHIEF COMPRESSOR STATION ENGINEER) PT 15.7(H) 10.2 - 13.5 sec INR 1.40(H) 0.90 - 1.20 [facility] Comment: Interpretive data Oral anticoagulant therapeutic ranges: Venous thromboembolism prophylaxis or treatment: 2.0-3.0 CARDIOLOGY Standard range: 2.0-3.0 High-intensity range: 2.5-3.5 Refer to indication-specific guidelines for appropriate target ranges for prosthetic heart valve replacement. Current interpretive data was last revised on 2019. Blood 06/06/2025 3:46 AM CHIEF COMPRESSOR STATION ENGINEER 06/06/2025 3:55 AM CHIEF COMPRESSOR STATION ENGINEER Narrative [facility] - 06/06/2025 4:24 AM CHIEF COMPRESSOR STATION ENGINEER Baseline prior to heparin initiation Cecily Aldridge MD LAB BLOOD ORDERA BLES Final Result Performing Organization Address [facility] Co de Phone Number [facility] [address] [address] [facility] [place] [address] * (ABNORMAL) CBC without differential (06/06/2025 3:46 AM CHIEF COMPRESSOR STATION ENGINEER) [facility] WBC 7.56 3.80 - 9.90 K/cumm Hgb 11.1(L) 13.0 - 17.5 g/dL [facility] Comment:This result has been called to Dustin Haynes RN by [id number] on 06/06/2025 04:37:04. Hct 35.4(L) 38.9 - 50.3 % [facility] Plt 91(L) 150 - 400 K/cumm [facility] MPV 9.9 9.1 - 12.3 fL [facility] RBC 3.73(L) 4.30 - 5.80 M/cumm [facility] MCV 94.9 81.3 - 96.4 fL [facility] MCH 29.8 27.1 - 33.3 pg [facility] MCHC 31.4(L) 32.3 - 35.7 g/dL [facility] RDW CV 14.3 11.1 - 14.9 % [facility] RDW SD 49.9(H) 35.7 - 48.1 fL [facility] NRBC abs 0.00 0.00 - 0.01 K/cumm [facility] Blood 06/06/2025 3:46 AM CHIEF COMPRESSOR STATION ENGINEER 06/06/2025 3:55 AM CHIEF COMPRESSOR STATION ENGINEER Narrative [facility] - 06/06/2025 4:37 AM CHIEF COMPRESSOR STATION ENGINEER Baseline prior to heparin initiation us Cecily Aldridge MD LAB BLOOD ORDERA BLES Final Result [facility] [address] [address] Department [place] [address] * XR Chest 1 Vw Portable (If patient hemodynamically UNstable or UNable to ambulate) (06/06/2025 2:37AM CHIEF COMPRESSOR STATION ENGINEER) Anatomical Region Laterality Modality Body, Chest N/A Computed Radiogr aphy 06/06/2025 8:20 AM CHIEF COMPRESSOR STATION ENGINEER Impressions 06/06/2025 8:20 AM CHIEF COMPRESSOR STATION ENGINEER Cardiomegaly with suspicion of mild vascular congestion. Electronically signed by: Yee Murrell M.D. Narrative 06/06/2025 8:20 AM CHIEF COMPRESSOR STATION ENGINEER EXAMINATION: XR CHEST 1 VIEW HISTORY: The patient is a 55-year-old male who presents with chest pain. TECHNIQUE: AP portable view of the chest. FINDINGS: Cardiomegaly. Slight haziness of the vascular markings. No focal infiltrate. Procedure Note Yee Murrell MD - 06/06/2025 EXAMINATION: XR CHEST 1 VIEW HISTORY: The patient is a 55-year-old male who presents with chest pain. TECHNIQUE: AP portable view of the chest. FINDINGS: Cardiomegaly. Slight haziness of the vascular markings. No focal infiltrate. IMPRESSION: Cardiomegaly with suspicion of mild vascular congestion. Electronically signed by: Yee Murrell M.D. Cecily Aldridge MD IMG XR PROCEDURE S Final Result * (ABNORMAL) Troponin T high-sensitivity series (baseline, 2hr, 4hr, 6hr) (06/06/2025 2:33 AM CHIEF COMPRESSOR STATION ENGINEER) Pathologist [facility] Trop T hs 34(H) <=22 ng/L Comment: Interpretive Data For further hscTnT resources including the diagnostic algorithm and an aid in interpretation, copy and paste this link: https://nrl.testcatalog.org/show/hsTrop Current Interpretive Data last revised 2020. Blood 06/06/2025 2:33 AM CHIEF COMPRESSOR STATION ENGINEER 06/06/2025 2:33 AM CHIEF COMPRESSOR STATION ENGINEER Cecily Aldridge MD LAB BLOOD ORDERA BLES Edited Result - Final [facility] [id number] [address] Department [place] [address] * eGFR (06/06/2025 2:33 AM CHIEF COMPRESSOR STATION ENGINEER) Pathologist [facility] eGFR 68 >=60 mL/min/1. 73 m2 Comment: Interpretive Data Reference Interval Normal >/= 90 mL/min/1.73m2 Mildly decreased* 60 - 89 mL/min/1.73m2 Mildly to moderately decreased 45 - 59 mL/min/1.73m2 Moderately to severely decreased 30 - 44 mL/min/1.73m2 Severely decreased 15 - 29 mL/min/1.73m2 Kidney Failure < 15 mL/min/1.73m2 *Relative to young adult level Estimated glomerular filtration rate is determined by the 2020 CKD-EPI equation recommended by the National Kidney Foundation (A Unifying Approach to GFR Estimation: Recommendations of the NKF-ASK Task Force on Reassessing the Inclusion of Race in Diagnosing Kidney Disease, JASN 2020). The CKD-EPI equation should not be used for patients with unstable renal function and has not been validated in children and those over 70. Current interpretive data was last reviewed 2021. Blood 06/06/2025 2:33 AM CHIEF COMPRESSOR STATION ENGINEER 06/06/2025 2:33 AM CHIEF COMPRESSOR STATION ENGINEER us Cecily Aldridge MD LAB BLOOD ORDERA BLES Final Result [facility] [address] [address] Department [place] [address] * Differential, auto (06/06/2025 2:33 AM CHIEF COMPRESSOR STATION ENGINEER) Neutrophil abs 3.65 1.50 - 6.50 K/cumm Imm gran abs 0.01 0.00 - 0.10 K/cumm [facility] Lymphocyte abs 2.41 0.80 - 3.30 K/cumm [facility] Monocyte abs 0.51 0.20 - 0.80 K/cumm [facility] Eosinophil abs 0.24 0.00 - 0.50 K/cumm [facility] Basophil abs 0.03 0.00 - 0.10 K/cumm [facility] Neutrophil pct 53.4 % [facility] Comment: Interpretive Data Percent cell count reference ranges are not reported, since discordance with absolute values may lead to misinterpretation of CBC data. Current Interpretive Data was last revised on 2017. Imm gran pct 0.1 % [facility] Comment: Interpretive Data Percent cell count reference ranges are not reported, since discordance with absolute values may lead to misinterpretation of CBC data. Current Interpretive Data was last revised on 2017. Lymphocyte pct 35.2 % [facility] Comment: Interpretive Data Percent cell count reference ranges are not reported, since discordance with absolute values may lead to misinterpretation of CBC data. Current Interpretive Data was last revised on 2017. Monocyte pct 7.4 % [facility] Comment: Interpretive Data Percent cell count reference ranges are not reported, since discordance with absolute values may lead to misinterpretation of CBC data. Current Interpretive Data was last revised on 2017. Eosinophil pct 3.5 % [facility] Comment: Interpretive Data Percent cell count reference ranges are not reported, since discordance with absolute values may lead to misinterpretation of CBC data. Current Interpretive Data was last revised on 2017. Basophil pct 0.4 % [facility] Comment: Interpretive Data Percent cell count reference ranges are not reported, since discordance with absolute values may lead to misinterpretation of CBC data. Current Interpretive Data was last revised on 2017. Blood 06/06/2025 2:33 AM CHIEF COMPRESSOR STATION ENGINEER 06/06/2025 2:33 AM CHIEF COMPRESSOR STATION ENGINEER Cecily Aldridge MD LAB BLOOD ORDERA BLES Final Result [facility] [address] [address] Department [place] [address] * (ABNORMAL) Pro B-type natriuretic peptide (06/06/2025 2:33 AM CHIEF COMPRESSOR STATION ENGINEER) NT-proBNP 1,277(H) <=300 pg/mL Comment: Interpretive Comments: A. Dyspnea in Acute Care Setting All Ages: < 300 pg/ml, acute heart failure unlikely. < 50 yrs: 300 - 450 pg/ml, further investigation warranted. > 450 pg/ml, acute heart failure likely. 50 - 74 yrs: 300 - 900 pg/ml, further investigation warranted. > 900 pg/ml, acute heart failure likely . > or = 75 yrs: 450 - 1800 pg/ml, further investigation warranted. > 1800 pg/ml, acute heart failure likely. B. Non-acute Setting < 75 yrs < 125 pg/ml, rules out heart failure. > or = 125 pg/ml, further investigation warranted. > or = 75 yrs < 450 pg/ml, rules out heart failure. > or = 450 pg/ml, further investigation warranted. - Knowledge of each individual patient's NT-proBNP range may be more useful than using similar cut-points for every patient. Please note that marked elevations in NT-proBNP levels may be observed in state other than Left Ventricular Congestive Failure, including: acute coronary syndromes, right heart strain/failure (including pulmonary embolism and cor pulmonale), critical illness, renal failure, as well as advanced age. - References: 1. Kwadwo JERONIMO et.al. Eur Heart J. 2006:27:330-337. 2. Artur RW, Stiven MCDONALD. J. AM Gregory Cardiol: Cardiovasc Imag. 2009;2: 216- 225. Interpretive Data Last Revised Date: 2018. Blood 06/06/2025 2:33 AM CHIEF COMPRESSOR STATION ENGINEER 06/06/2025 2:33 AM CHIEF COMPRESSOR STATION ENGINEER Cecily Aldridge MD LAB BLOOD ORDERA BLES Final Result [facility] [address] [address] Department [place] [address] * (ABNORMAL) CBC with auto differential (06/06/2025 2:33 AM CHIEF COMPRESSOR STATION ENGINEER) Pathologist [facility] WBC 6.85 3.80 - 9.90 K/cumm Hgb 15.0 13.0 - 17.5 g/dL [facility] Hct 45.5 38.9 - 50.3 % [facility] Plt 117(L) 150 - 400 K/cumm [facility] Comment:No clot detected in sample. MPV 10.6 9.1 - 12.3 fL [facility] RBC 4.98 4.30 - 5.80 M/cumm [facility] MCV 91.4 81.3 - 96.4 fL [facility] MCH 30.1 27.1 - 33.3 pg [facility] MCHC 33.0 32.3 - 35.7 g/dL [facility] RDW CV 14.4 11.1 - 14.9 % [facility] RDW SD 47.8 35.7 - 48.1 fL [facility] NRBC abs 0.00 0.00 - 0.01 K/cumm [facility] Blood Venous blood specimen / Unknown 06/06/2025 2:33 AM CHIEF COMPRESSOR STATION ENGINEER 06/06/2025 2:33 AM CHIEF COMPRESSOR STATION ENGINEER us Cecily Aldridge MD LAB BLOOD ORDERA BLES Final Result [facility] [address] [address] Department [place] [address] * (ABNORMAL) Comprehensive metabolic panel (06/06/2025 2:33 AM CHIEF COMPRESSOR STATION ENGINEER) Sodium 141 135 - 145 mmol/L Potassium, pl 3.9 3.3 - 4.9 mmol/L [facility] Chloride 106 97 - 110 mmol/L [facility] CO2 20(L) 22 - 32 mmol/L [facility] Anion gap 15 2 - 15 mmol/L [facility] BUN 20 6 - 25 mg/dL [facility] Creatinine 1.25 0.80 - 1.30 mg/dL [facility] Glucose 102 70 - 199 mg/dL [facility] Comment: Interpretive Data Fasting glucose >/= 126 mg/dl is diagnostic for diabetes. Fasting is defined as no caloric intake for at least 8 hours. Fasting glucose between 100 mg/dl to 125 mg/dl is diagnostic of prediabetes. In a patient with classic symptoms of hyperglycemia or hyperglycemic crisis, a random glucose >/= 200 mg/dl is diagnostic for diabetes. In the absence of unequivocal hyperglycemia, results should be confirmed by repeat testing. The classification and Diagnosis of Diabetes Diabetes Care 2021; 46: S19-S40. Current interpretive data was last revised 2022. Calcium 8.8 8.5 - 10.3 mg/dL [facility] Bilirubin, total 0.8 0.1 - 1.2 mg/dL [facility] Protein, pl 6.5 6.5 - 8.5 g/dL [facility] Albumin 3.8 3.5 - 5.0 g/dL [facility] Alk phos 62 40 - 130 Units/L [facility] ALT 23 7 - 55 Units/L [facility] AST 28 10 - 50 Units/L [facility] Blood 06/06/2025 2:33 AM CHIEF COMPRESSOR STATION ENGINEER 06/06/2025 2:33 AM CHIEF COMPRESSOR STATION ENGINEER Cecily Aldridge MD LAB BLOOD ORDERA BLES Final Result Performing Organization Address [facility] Phone Number GERSON GALDAMEZ [address] Department [place] [address] * ECG 12 lead (06/06/2025 2:21 AM CHIEF COMPRESSOR STATION ENGINEER) 06/06/2025 2:21 AM CHIEF COMPRESSOR STATION ENGINEER Narrative [facility] - 06/06/2025 11:42 AM CHIEF COMPRESSOR STATION ENGINEER Vent Rate: 91 bpm RR Interval: 659 msec HI Interval: 0 msec QRS Duration: 106 msec QT Interval: 320 msec QTC Interval: 368 msec P-R-T Hedrick: 0 - -12 - 120 degrees IMPRESSION: ATRIAL FIBRILLATION LOW QRS VOLTAGE IN PRECORDIAL LEADS [QRS DEFLECTION < 1.0 mV IN CHEST LEADS] ANTEROSEPTAL MYOCARDIAL INFARCTION , PROBABLY OLD [40+ ms Q WAVE IN V1-V4] ABNORMAL ECG Electronically Signed By: Jonathan Thrasher MD Cecily Aldridge MD ECG ORDERABLES Final Result Performing Organization Address [facility] de Phone Number [facility] [employer] Workflow Management [facility] * XR Spine Cervical W Flexion And Extension 4 or 5 Views (04/04/2025 1:49 PM CDT) Anatomical Region Laterality Modality Spine N/A Computed Radiogr aphy 04/04/2025 4:16 PM CDT Impressions 04/04/2025 4:16 PM CDT 1. Unchanged C4-C7 anterior instrumented fusion Electronically signed by: Brooke Velazco MD Narrative 04/04/2025 4:16 PM CDT EXAMINATION: XR SPINE CERVICAL W FLEXION AND EXTENSION 4 OR 5 VIEWS HISTORY: Spinal fusion FINDINGS: 4 radiographs of the cervical spine are compared to 10/08/2024. Unchanged anterior cervical discectomy and instrumented, interbody fusion from C4-C7. The instrumentation is intact. There is no abnormal motion of the fused segments with flexion or extension. There is mild degenerative disc disease of the nonfused upper cervical spine. Multilevel facet and uncovertebral arthropathy is noted. No acute displaced fracture or prevertebral soft tissue swelling. Bilateral carotid atherosclerotic calcifications are present. Procedure Note Rahel Velazco MD - 04/04/2025 EXAMINATION: XR SPINE CERVICAL W FLEXION AND EXTENSION 4 OR 5 VIEWS HISTORY: Spinal fusion FINDINGS: 4 radiographs of the cervical spine are compared to 10/08/2024. Unchanged anterior cervical discectomy and instrumented, interbody fusion from C4-C7. The instrumentation is intact. There is no abnormal motion of the fused segments with flexion or extension. There is mild degenerative disc disease of the nonfused upper cervical spine. Multilevel facet and uncovertebral arthropathy is noted. No acute displaced fracture or prevertebral soft tissue swelling. Bilateral carotid atherosclerotic calcifications are present. IMPRESSION: 1. Unchanged C4-C7 anterior instrumented fusion Electronically signed by: Brooke Velazco MD Wily Nagy MD IMG XR PROCEDURES Final Result from Last 3 [place] [address] MEDICARE [facility] IDPA MEDICARE [facility] [place] [address] Advance Directives For more information, please contact: [phone] * Full Code (Latest Code Status on File) Date Activated Date Inactivated Comments 06/06/2025 5:52 AM 06/08/2025 9:45 PM * Full Code Date Activated Date Inactivated Comments 03/21/2024 4:05 AM 03/22/2024 4:45 PM Care Teams Compound Machine Operator Relationship Specialty Start Date End Date Kareem Up DO [address] [place] [address] PCP - General Internal Medicine 04/08/25
--- OUTSIDE RECORDS SUMMARY | 2025-06-26 10:54 | XMS_ITS | Data Portability ---
Author Organization [facility] OFFICE Address [address] [place] [address] Care Team Providers Care Cash Shortage Investigator Name Role Phone V[place] MCKEON Primary Care Provider [phone] V[place] MCKEON Referring Provider Assessment No assessment recorded. Plan of Treatment Reminders Order Date Submit Date Provider Last Modified By Organization Details Last Modified Time Details Appointments None record ed. Lab None record ed. Referral None record ed. Procedures None record ed. Surgeries None record ed. Imaging None record ed. Medication Orders None record ed. Patient TargetsNo targets recorded. Patient Instructions Encounter Date Encounter Id Patient Instructions Last Modified By Organization Details Last Modified Time 03/30/2018 [id number] Weight loss, 20 pounds Exercise advised Low cholesterol diet advised Low sodium diet advised. This document was scribed by Sharon glaser Not available 03/30/2018 12:00:31 Reason for Referral None Reported. Results Created Date Observation Date Name Description Value Unit Range Abnormal Flag Note LastModifiedBy Organization Detail LastModifiedTime 03/30/20 18 03/12/2018 edu peterson am No observ ation record ed. hhalabi Not Available 2017 14:05:06 Result Notes None recorded. Problems Name Problem SNOMED Code Status Onset Date Resolution Date Notes Provider Name and Address Organization Details Recorded Time Diabetes mellitus 52549590 Active 2017 Mimi polo [facility] 8 11:28:28 Hyperlipidemia 99351572 Active 2017 Mimi polo [facility] 8 11:28:46 Obstructive sleep apnea syndrome 52535594 Active 2017 Mimi Woods [facility] 8 11:28:58 Tight chest 40235425 Active 2017 Mimi Woods [facility] 8 11:29:32 Indigestion 337753737 Active 2017 Mimi Woods [facility] 8 11:29:45 Chest pain 45711025 Active 2017 Sharon Tolbert [facility] 8 11:58:43 Essential hypertension 63662512 Active 2017 [facility] Didi [facility] 8 11:58:54 Dyspnea on exertion 61696030 Active 2017 Sharon Didi [facility] 8 11:59:16 Peripheral vascular disease 226498133 Active 2017 Sharon Didi [facility] 8 12:03:25 Edema of lower extremity 602038591 Active 2018 [facility] 9 14:00:32 Gastroesophage al reflux disease 264383360 Active 2018 Graham [facility] 9 14:01:17 Problem Notes None recorded. Procedures Surgical History Date Name Laterality Status Provider Name and Address Organization Details Recorded Time 8 Amputation of toe completed Mimi Woods [facility] 03/30/2018 11:28:08 Imaging Results None recorded. Procedure Notes None recorded. Medical Equipment None Reported. Allergies No known drug allergies Medications Name Sig Start Date Stop Date Status Note LastModified by Organization Details LastModified Time metformin 500 mg tablet Take 1 tablet twice a day by oral route. active Not Available Not Available No t Available gabapentin 600 mg tablet active Not Available Not Available Not Available trazodone 50 mg tablet active Not Available Not Available No t Available hydrocodone 5 mg-acetamino phen 325 mg tablet active Not Available Not Available Not Available simvastatin 10 mg tablet Take 1 tablet every day by oral route. active Not Available Not Available No t Available aspirin 81 mg tablet,delay ed release Take 1 tablet every day by oral route. active Not Available Not Available No t Available gabapentin 300 mg capsule active Not Available Not Available Not Available omeprazole 20 mg capsule,carmelo yed release Take 1 capsule every day by oral route. active Not Available Not Available No t Available losartan 100 mg tablet Take 1 tablet every day by oral route. active Not Available Not Available No t Available Novolog Mix 70-30 FlexPen U-100 Insulin 100 unit/mL subcutaneous pen Inject 55 units every day by subcutaneou s route. active Not Available Not Available No t Available Contour Next Test Strips active Not Available Not Available Not Available Linzess 145 mcg capsule Take 1 capsule every day by oral route. active Not Available Not Available No t Available Ozempic 1 mg/dose (2 mg/1.5 mL) subcutaneous pen injector Inject 1 mg every week by subcutaneou s route. active Not Available Not Available No t Available Vitals Date Recorded Body weight Body mass index (BMI) Body height Heart rate Oxygen saturation Systolic And Diastolic Provider Name and Address Organization Details Last Updated DateTime 8 052009. 09 g 58.4 kg/m2 177.8 cm 89 /min 97 % 128/82 mm[Hg] ELMIRA W[facility] 8 11:40:06 Social History Question Answer Notes LastModified by Organizat ion Details LastModified Time Tobacco Smoking Status Never Smoker Not Available [facility] 05/26/2020 03:30:42 What Is Your Level Of Caffeine Consumption? Occasional [id number] Information not available 05/26/2020 What Type Of Diet Are You Following? DIABETIC [id number] Information not available 05/26/2020 Marital Status nleinicke Informatio n not available 03/30/2018 What Was The Date Of Your Most Recent Tobacco Screening? 03/30/2018 [id number] Information not available 05/26/2020 Sex: Unknown Functional Status Question Answer Note LastModified by Organization D etails LastModified Time What is your level of alcohol consumption? 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 None [id number] Information not available 05/26/2020 Mental Status None recorded. Family History Relationship Description Onset Age of this Age Resolved Age Notes LastModified by Organization Details LastModified Time Father Heart disease nleinicke Not available 2017 11:24:45 Father Hypertensive disorder nleinicke Not available 2017 11:24:57 Father Heart irregularly irregular nleinicke Not available 2017 11:25:43 Father Cerebrovascu lar accident nleinicke Not available 01/2018 11:25:55 Medical History Condition Response Diabetes Y Peripheral Arterial Disease Y Hyperlipidemia Y Hypertension Y Sleep Apnea Y GERD/Reflux Y Past Encounters Encounter ID Performer Location Encounter Start Date Encounter Closed Date Diagnosis/Indication Diagnosis SNOMED-CT Code Diagnosis ICD10 Code Diagnosis IMO Codes Diagnosis Note [id number] Ventura Mendoza MD [facility] [address] [place] [address] 03/30/2018 10:39:10 03/30/2018 13:08:20 Chest pain 50975744 R07.9 Squeezing chest pain. Treadmill Myoview Stress test, has high [place] Risk score. Has Known CAD, or CAD risk equivalent . To look for any ischemia. Obtain echo to evaluate for structural /functiona l disease. Start on ASA 81 mg. Essential hypertension 93104069 I10 Well controlled today. Dyslipidemia 780578223 E 78.5 Needs to keep LDL less than 70, and HDL more than 40 Will check FLP before follow up. On Simvastati n Diabetes mellitus 949994 09 E11.9 Discussed importance of tight glycemic control to minimize cardiovasc ular disease progressio n. Obstructiv e sleep apnea syndrome 18989522 G47.33 On CPAP sees PCP. No Pulmonolog ist. Dyspnea on exertion 6084 5006 R06.09 Treadmill Myoview Stress test, has high [place] Risk score. Has Known CAD, or CAD risk equivalent . To look for any ischemia. Obtain echo to evaluate for structural /functiona l disease. Edema of l ower extremity 054140816 R60.0 1+ edema bilaterall y. Peripheral vascular disease 222747509 I73.9 Health Concerns Section Related Observation LastModified by Organization Detai ls LastModified Time None Recorded Concern Status LastModified by Organization Details LastModified Time None Recorded Advance Directives Directive None Recorded Payers Insurance Date Sequence Insurance Name Policy Number Policy Velez Covered Member ID Velez Member ID Guarantor Name 08/15/2019 1 [employer] [id number] Howard Gambino [id number] Howard Gambino Notes Date Note Type Note Provider Name and Address Organization Details Recorded Time 03/30/2018 text/html Hospitalization Contact RecordReported by Patient 03/30/18 CC: Abnormal EKG 47 year-old white man with history of paroxysmal atrial fibrillation (20 years ago), hypertension, dyslipidemia, diabetes mellitus, FLORENCIA on CPAP, presents for cardiac hospital follow up with a chief complaint of abnormal EKG. He was at [facility] on 03/12/[address] Gonzalez and was found to have abnormal EKG which showed sinus tachycardia with ST-T wave changes in the lateral leads. He states 20 years ago he was diagnosed with Atrial Fibrillation, he was put on medications at that time for a few months and denies any recurrence of atrial fibrillation since. He reports occasional substernal squeezing chest pain, which occurs a few times per month. He reports associated weakness, lightheadedness and blurry vision. He states in the last 6-8 months episodes have become more frequently. His last HgbA1c was 9.6 which is improved from 12. His glucose fasting at home has been 150 and before dinner 130's. He has his left middle toe amputated 01/01/18 at [facility]. Patients father had atrial fibrillation in his late 50's and of a stroke. He saw a manufacturing plant controller 20 years ago and had an echo, stress test, but denies left heart catheterization per patient. He reports history of an enlarged heart. Reports squeezing chest pain. No shortness of breath at rest. Reports dyspnea on exertion. No palpitations. No orthopnea. No PND's . No lightheadedness or dizziness. No syncope or near syncope. No leg swelling. No nausea and vomiting. No major bleeding events. No side effects from medications. Results from this visit, or from the past: Ventura Mendoza MD [address] [place], [address], [facility] 03/30/2018 13:08:17
--- NOTE | 2025-06-26 11:31 | ECG_ITS ---
Test Date: 2025-06-26 11:49:17 Measurements Intervals Richardson Rate: 54 P: -1 NV: 191 QRS: -11 QRSD: 97 T: 68 QT: 421 QTc: 400 Interpretive Statements SINUS BRADYCARDIA LOW QRS VOLTAGE IN LIMB LEADS ANTEROSEPTAL INFARCT, AGE INDETERMINATE CONSIDER INFERIOR INFARCT, AGE INDETERMINATE BORDERLINE ST-T WAVE ABNORMALITY- HIGH LATERAL LEADS BASELINE ARTIFACT- I, II, AVR, AVL, AVF ABNORMAL ECG Compared to ECG 03/12/2024 07:55:09 HEART RATE HAS DECREASED Electronically Signed On 06-26-2025 11:55:43 EDITOR by Zheng Brown D.O.
[2025-06-26 12:08] LABS: Influenza A QL RT-PCR Negative (Negative); Influenza B QL RT-PCR Negative (Negative); RSV RNA, RT-PCR Negative (Negative); SARS-CoV-2 RNA PCR Negative (Negative)
[2025-06-26] MEDS: AZITHROMYCIN 500 MG TABLET PO (12:27)
[2025-06-26 12:35] VITALS: BP 129/64; PULSE 60; RESP 19; O2SAT 96
--- NOTE | 2025-06-26 17:32 | ED.URI ---
HPI - URI/Sore Throat General Chief Complaint: Upper Respiratory Infection Stated Complaint: COUGHING SINCE 0910 TODAY Time Seen by Provider: 06/26/25 10:52 History of Present Illness HPI Narrative: Patient presents here after he started having a cough this morning, with concerned because there is some pinkish sputum in his cough. He is on blood thinners, did have recent cardioversion for atrial fibrillation now resolved. Related Data Home Medications ?Medication ?Instructions ?Recorded ?Confirmed ?Last Taken ?Type omeprazole 20 mg capsule,delayed 20 mg PO DAILY 09/26/19 06/10/25 09/14/22 History release bariatric vitamins 1 cap BYMOUTH DAILY 03/29/23 06/10/25 03/11/24 History calcium carbonate (Calcium 500) 500 mg PO TID 01/07/25 06/10/25 Unknown History apixaban 5 mg tablet (Eliquis) 5 mg PO BID 05/06/25 06/10/25 Unknown History metoprolol succinate 50 mg 50 mg PO DAILY 05/06/25 06/10/25 Unknown History tablet,extended release 24 hr sennosides 8.6 mg capsule (senna) 8.6 mg PO DAILY 05/06/25 06/10/25 Unknown History amiodarone 200 mg tablet mg PO 06/10/25 06/10/25 Unknown History furosemide 40 mg tablet mg PO DAILY 06/10/25 06/10/25 Unknown History Allergies Allergy/AdvReac Type Severity Reaction Status Date / Time No Known Allergies Allergy Verified 06/26/25 10:53 Review of Systems Review of Systems: All systems reviewed & are unremarkable except as noted in HPI and below PMFSH Past Medical History Medical History Morbid obesity Diabetic polyneuropathy TIA (transient ischemic attack) Neck pain Gastroesophageal reflux disease Obstructive sleep apnea Suicide attempt Diet-controlled type 2 diabetes mellitus History of stress test done in 1999 Pure hypercholesterolemia Primary osteoarthritis Polyp of colon Body mass index (BMI) 35 or more (01/30/18) Bilateral carpal tunnel syndrome Low vitamin D level Kidney stones Paroxysmal atrial fibrillation One episode in the , not on anticoagulation. Diabetic autonomic neuropathy Hypertension Diabetic peripheral neuropathy Depression with 2 prior suicide attempts Arthritis Anxiety Surgical History Surgical History Hx of cervical spine surgery History of bariatric surgery (10/2022) History of carpal tunnel surgery of right wrist History of tooth extraction History of appendectomy Amputation of toe of left foot Family History Family History Mother Carcinoma of colon with liver metastases Father Hypertension Acute myocardial infarction Cerebrovascular accident Atrial fibrillation Glaucoma Obese Sibling Patient's sister is in good health Cervical cancer Endometrial cancer Grandparent Rheumatoid arthritis Other Depression Family history of alcoholism Family history of gout Social History Social History (Updated 05/06/25 @ 12:59 by DOMINICK Sánchez) Social History: Surrogate medical decision maker: Mercedes Gambino, daughter. Code status: Modified code, no intubation. Smoking packs per day: 0.2 Smoking cigarettes per day: 4.0 Years smoked: 0.5 Smoking pack-years: 0.10 Smoking status: Former smoker Second hand tobacco smoke exposure: Yes Alcohol intake: former Drinks per week: 1 Substance use: current Substance use type: marijuana Other substance usage details: gumy at night Last use: 03/11/2024 Lack of Transportation: No Lack of Food: Never True Current Housing: I Have Housing Concerned About Future Housing: No Difficulty Paying Gas/Electric Bills: No Difficulty Paying for Meds: No Currently Unemployed: No Education: Bachelor's Degree Difficulty w/ Childcare or Family Care: No Living arrangements: with family Additional living arrangements comments: . 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 EYES: EOMI, conjunctiva normal ENT: Hearing grossly intact LUNGS: Nonlabored breathing. Some rhonchi lower lobes HEART: [Regular rate and rhythm] ABD: [Soft], [nontender to palpation] EXT: Normal range of motion SKIN: [No rashes or lesions.] NEURO: [Alert. No gross focal sensory or strength deficits.] PSYCH: Normal affect Course Vital Signs Vital signs: Vital Signs Temperature 97.5 F L 06/26/25 10:04 Pulse Rate 65 06/26/25 10:04 Respiratory Rate 16 06/26/25 10:04 Blood Pressure 133/62 06/26/25 10:04 Pulse Oximetry 95 06/26/25 10:04 Oxygen Delivery Room Air 06/26/25 10:04 Temperature 97.5 F L 06/26/25 10:04 Pulse Rate 60 06/26/25 12:35 Respiratory Rate 19 06/26/25 12:35 Blood Pressure 129/64 06/26/25 12:35 Pulse Oximetry 96 06/26/25 12:35 Oxygen Delivery Room Air 06/26/25 10:54 MDM MDM Narrative Medical decision making narrative: Patient presents here after he started having a cough this morning, with concerned because there is some pinkish sputum in his cough. He is on blood thinners, did have recent cardioversion for atrial fibrillation now resolved. Chest x-ray obtained, on my independent station for bilateral opacities, right greater than left, consistent with likely pneumonia. He started on antibiotics, swabs for viruses are negative. EKG - 12-Lead: Performed at 1149. Interpreted by me. [Sinus rhythm]. Rate 54. [Normal] axis. MI-interval 191. QRS duration 97. QTc 400. [No ST segment elevation or depression]. Some flattened T-waves. Impression: No EKG evidence of acute ischemia or dysrhythmia. Patient started on antibiotics. Findings discussed with him, I asked him to follow-up with his food management aide, and come back to the ER for any further issues. Differential Diagnosis Differential Diagnosis: Pneumonia, unlikely PE as he is on blood thinners, CHF, COPD, etc. Lab Data Labs: Lab Results 06/26/25 Range/Units 11:16 Influenza A (RT-PCR) Negative (Negative) Influenza B (RT-PCR) Negative (Negative) RSV (RT-PCR) Negative (Negative) SARS-CoV-2 RNA (RT-PCR) Negative (Negative) Imaging Data Radiologist's impression: ITS Impressions Chest X-Ray 06/26/25 11:09 Impression: Bilateral pneumonia Discharge Plan Discharge Clinical Impression: Pneumonia Patient Disposition: Home Condition: Stable Instructions: Antibiotic Form, Pneumonia (ED) Additional Instructions: Your swabs for flu, COVID, RSV are negative thankfully. Please follow-up with your food management aide. Take the antibiotics as prescribed. If your symptoms return or worsen, especially if you start coughing up a lot of blood, have more chest pain or difficulty breathing, please come back to the ER. Patient Language: Malay Prescriptions: New amoxicillin-pot clavulanate 875-125 mg tablet 1 tablet PO Q12H Qty: 10 0RF doxycycline hyclate 100 mg capsule 100 mg PO Q12H 5 Days Qty: 10 0RF No Action amiodarone 200 mg tablet PO furosemide 40 mg tablet PO DAILY bariatric vitamins 1 cap BYMOUTH DAILY calcium carbonate [Calcium 500] 500 mg calcium (1,250 mg) tablet,chewable 500 mg PO TID metoprolol succinate 50 mg tablet extended release 24 hr 50 mg PO DAILY senna 8.6 mg capsule 8.6 mg PO DAILY Eliquis 5 mg tablet 5 mg PO BID omeprazole 20 mg capsule,delayed release(DR/EC) 20 mg PO DAILY rosuvastatin 10 mg tablet 10 mg PO HS Qty: 90 1RF buspirone 7.5 mg tablet 7.5 mg PO BID PRN (Reason: stress) Qty: 60 4RF gabapentin 400 mg capsule See Rx Instructions .ROUTE .COMPLEX Qty: 90 2RF Dose Instruction: TAKE 2 CAPSULES BY MOUTH EVERY 8 HOURS Rx Instructions: TAKE 2 CAPSULES BY MOUTH EVERY 8 HOURS lorazepam 0.5 mg tablet 0.5 mg PO ONCE Qty: 1 0RF Rx Instructions: Take 30-45 min before procedure Follow-up/Referrals: Kareem Up DO [Primary Care Provider, Internal Medicine]
== END 2025-06-26 12:37 | disposition home or self-care (01) ==
PROVIDERS: Emergency Provider Emergency Medicine; PCP Internal Medicine
DX: J18.9 Pneumonia, unspecified organism (principal); Z20.822 Contact with and (suspected) exposure to COVID-19; I48.0 Paroxysmal atrial fibrillation; E11.43 Type 2 diabetes mellitus with diabetic autonomic (poly)neuropathy; E66.01 Morbid (severe) obesity due to excess calories; Z68.42 Body mass index [BMI] 45.0-49.9, adult; K21.9 Gastro-esophageal reflux disease without esophagitis; E78.00 Pure hypercholesterolemia, unspecified; G47.33 Obstructive sleep apnea (adult) (pediatric); M19.90 Unspecified osteoarthritis, unspecified site; F32.A Depression, unspecified; F41.9 Anxiety disorder, unspecified; Z86.73 Personal history of transient ischemic attack (TIA), and cerebral infarction without residual deficits; Z87.442 Personal history of urinary calculi; Z98.84 Bariatric surgery status; Z89.422 Acquired absence of other left toe(s); Z87.891 Personal history of nicotine dependence; Z79.01 Long term (current) use of anticoagulants; Z79.899 Other long term (current) drug therapy; R94.31 Abnormal electrocardiogram [ECG] [EKG]; R00.1 Bradycardia, unspecified
CPT/HCPCS: 71046; 87637; 93005; 99283; A9270

== ENCOUNTER 2025-07-10 11:07 | Outpatient (CLI) | payer MEDICARE, MEDICAID, SELFPAY ==
--- NOTE | ~2025-07-10 | XR_ITS ---
EXAMINATION: XR chest 2V, 07/10/2025 11:22 AUDIO VISUAL DIRECTOR HISTORY: J18.9 - Pneumonia, unspecified organism COMPARISON: No comparisons available. Technique: 2 views obtained. Findings: The lungs are clear, no effusion. No pneumothorax. Heart is normal size. Mediastinal and hilar contours are within normal limits. Bony thorax no acute abnormality. Impression: No acute cardiopulmonary abnormality. Reviewed, dictated and finalized at location P. O VISUAL DIRECTOR Impression: No acute cardiopulmonary abnormality.
--- OUTSIDE RECORDS SUMMARY | 2025-07-10 12:11 | XMS_ITS | Data Portability ---
Author Organization [facility] OFFICE Address [address] [place] [address] Care Team Providers Care Museum Technician Name Role Phone VIRGINIA MCKEON Primary Care Provider VIRGINIA MCKEON Referring Provider Assessment No assessment [...] By Organization Details Last Modified Time 03/30/2018 [id number] Weight loss, 20 pounds Exercise advised Low [...] Address Organization Details Recorded Time Diabetes mellitus 29731155 Active 2017 Mimi [facility] 8 11:28:28 Hyperlipidemia 30779780 Active 2017 [facility] 8 11:28:46 Obstructive sleep apnea syndrome 51635669 Active 2017 [facility] 8 11:28:58 Tight chest 15254186 Active 2017 [facility] 8 11:29:32 Indigestion 621312142 Active 2017 [facility] 8 11:29:45 Chest pain 18770908 Active 2017 [facility] 8 11:58:43 Essential hypertension 60561076 Active 2017 [facility] 8 11:58:54 Dyspnea on exertion 48645436 Active 2017 Sharon [facility] 8 11:59:16 Peripheral vascular disease 505932007 Active 2017 Sharon [facility] 8 12:03:25 Edema of lower extremity 806400137 [facility] 9 14:00:32 Gastroesophage al reflux disease 814003615 Active 2018 [facility] 9 14:01:17 Problem Notes None recorded. Procedures Surgical History Date Name Laterality Status Provider Name and Address Organization Details Recorded Time 8 Amputation of toe completed Mimi Woods [facility] 03/30/2018 11:28:08 Imaging Results None recorded. Procedure [...] Address Organization Details Last Updated DateTime 8 940278. 09 g 58.4 kg/m2 177.8 cm 89 /min 97 % 128/82 mm[Hg] ELMIRA WOLFF [facility] 8 11:40:06 Social History Question Answer Notes LastModified by Organizat ion Details LastModified Time Tobacco Smoking Status Never Smoker Not Available [facility] 05/26/2020 03:30:42 What Is Your Level Of Caffeine Consumption? Occasional [id number] Information not available 05/26/2020 What Type Of Diet Are You Following? DIABETIC [id number] Information not available 05/26/2020 Marital Status [email or web address] Informatio n not available 03/30/2018 What Was The Date Of Your Most Recent Tobacco Screening? 03/30/2018 [id number] Information not available 05/26/2020 Sex: Unknown Functional Status Question Answer Note LastModified by Organization D etails LastModified Time What is your level of alcohol consumption? 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 None [id number] Information not available 05/26/2020 Mental Status None [...] 11:25:55 Medical History Condition Response Diabetes Y Hyperlipidemia Y Peripheral Arterial Disease Y Sleep Apnea Y GERD/Reflux Y Hypertension Y Past Encounters Encounter ID Performer Location Encounter Start Date Encounter Closed Date Diagnosis/Indication Diagnosis SNOMED-CT Code Diagnosis ICD10 Code Diagnosis IMO Codes Diagnosis Note [id number] Ventura Mendoza MD [place] OFFICE [address] [place] [address] 03/30/2018 10:39:10 03/30/2018 13:08:20 Chest pain 55430514 R07.9 Squeezing chest pain. Treadmill Myoview Stress test, has high Goodman Risk score. Has Known CAD, or CAD risk equivalent . To look for any ischemia. Obtain echo to evaluate for structural /functiona l disease. Start on ASA 81 mg. Essential hypertension 84059164 I10 Well controlled today. Dyslipidemia 713993201 E 78.5 Needs to keep LDL less than 70, and HDL more than 40 Will check FLP before follow up. On Simvastati n Diabetes mellitus 258449 09 E11.9 Discussed importance of tight glycemic control to minimize cardiovasc ular disease progressio n. Obstructiv e sleep apnea syndrome 12337750 G47.33 On CPAP sees PCP. No Pulmonolog ist. Dyspnea on exertion 6084 5006 R06.09 Treadmill Myoview Stress test, has high Goodman Risk score. Has Known CAD, or CAD risk equivalent . To look for any ischemia. Obtain echo to evaluate for structural /functiona l disease. Edema of l ower extremity 285436462 R60.0 1+ edema bilaterall y. Peripheral vascular disease 479872621 I73.9 Health Concerns Section Related Observation LastModified by Organization Detai ls LastModified Time None Recorded Concern Status LastModified by Organization Details LastModified Time None Recorded Advance Directives Directive None Recorded Payers Insurance Date Sequence Insurance Name Policy Number Policy Velez Covered Member ID Velez Member ID Guarantor Name 08/15/2019 1 [employer] [id number] Howard Gambino [id number] Howard Gambino Notes Date Note Type Note Provider Name and Address Organization Details Recorded Time 03/30/2018 text/html Hospitalization Contact RecordReported by Patient 03/30/18 CC: Abnormal EKG 47 year-old white man with history of paroxysmal atrial fibrillation (20 years ago), hypertension, dyslipidemia, diabetes mellitus, FLORENCIA on CPAP, presents for cardiac hospital follow up with a chief complaint of abnormal EKG. He was at [facility] on 03/12/[address] [...] his left middle toe amputated 01/01/18 at [facility]. Patients father had atrial fibrillation in his late 50's and of a stroke. He saw a stewardesses teacher 20 years ago and had an echo, [...] or from the past: Ventura Mendoza MD [address] [place], [address], [facility] 03/30/2018 13:08:17
--- OUTSIDE RECORDS SUMMARY | 2025-07-10 12:12 | XMS_ITS | Clinical Summary ---
Author Organization [place] [id number] [facility] Address formerly [facility] [place] [address] Care Team Providers Care Wood Coater Name Role Phone Kareem Up DO Primary Care Provider [phone] Allergies No known active allergies Medications omeprazole [...] (200 mg total) by mouth daily 5 10/02/19 26 Active apixaban (ELIQUIS) 5 mg tabletIndications :atrial fibrillation Take 1 tablet (5 mg total) [...] mg total) by mouth daily Active multivitamin tabletIndications :Vitamin Deficiency Prevention Take 1 tablet by mouth daily Active furosemide (LASIX) 40 mg tablet Take 1 tablet (40 mg total) by mouth daily. May also take 1 tablet (40 mg total) daily as needed (TAKE AN ADDITIONAL DOSE OF LASIX IN THE AFTERNOON FOR 2-3lbs of weight gain in 24hr period or increased leg swelling or shortness of breath). 90 tablet Active Active Problems Problem Noted Date Diagnosed Date Atrial fibrillation with RVR 06/06/2025 Assessment & Plan (06/06/2025 5:59 AM SODA DIALYZER): Now rate controlled. Patient on p.o. amio load. Given recent AFib with RVR will begin IV amio drip without bolus. Got Lasix x1. Follow volume status with rate control. Follow troponins. Hold Eliquis and give heparin drip without bolus. Cardiology Consult Telemetry Pulmonary edema 06/06/2025 Assessment & Plan (06/06/2025 5:59 AM SODA DIALYZER): Now rate controlled. Patient on p.o. amio load. Given recent AFib with RVR will begin IV amio drip without bolus. Got Lasix x1. Follow volume status with rate control. Follow troponins. Hold Eliquis and give heparin drip without bolus. Cardiology Consult Telemetry Drop in hemoglobin 06/06/2025 Assessment & Plan (06/06/2025 5:59 AM SODA DIALYZER): Suspect spurious lab result. Repeat at 10:00 a.m. Abnormal echocardiogram 06/06/2025 Assessment & Plan (06/06/2025 5:59 AM SODA DIALYZER): Defer to Cardiology. Seen in April. Results in Care everywhere Chest pain 06/06/2025 Abscess of pubic region 04/04/2025 Bilateral carpal tunnel syndrome 04/04/2025 Depression 04/04/2025 Diabetic polyneuropathy 04/04/2025 Diet-controlled type 2 diabetes mellitus 025 Assessment & Plan (06/06/2025 5:59 AM SODA DIALYZER): Follow sugars DJD of right shoulder 04/04/2025 Elevated troponin 04/04/2025 Generalized weakness 04/04/2025 Hyperglycemia 04/04/2025 Hyperlipidemia LDL goal <100 04/04/2025 Impacted cerumen of left ear 04/04/2025 Leukocytosis 04/04/2025 Low vitamin D level 04/04/2025 Neck pain 04/04/2025 Nerve conduction block of motor nerve of right s pb of body 04/04/2025 Neurological symptoms 04/04/2025 Neuropathy 04/04/2025 Non-ST elevation AL (NSTEMI) 04/04/2025 Open wound, lower leg 04/04/2025 [...] 02/16/2021 Cutaneous abscess of trunk, unspecified 02/17/20 21 Secondary diabetes mellitus 02/16/2021 Difficulty walking 02/16/2021 [...] calories Assessment & Plan (06/06/2025 5:59 AM SODA DIALYZER): Status post gastric bypass. Continue weight loss encouraged Obstructive sleep apnea (adult) (pediatric) 02/21 Overview (10/27/2016): Obstructive sleep apnea Assessment & Plan (06/06/2025 5:59 AM SODA DIALYZER): Uses CPAP 12 cm H2O at home. Encounters Date Type Department Care Team Description 07/03/2025 10:40 AM SODA DIALYZER Ancillary Procedure [facility] [address] [place] [address] Floor [address] [place] [phone] Cubital tunnel syndrome on right 07/03/2025 10:00 AM SODA DIALYZER Procedure visit [facility] [address] [place] [address] Floor [address] [place] [phone] Josiah Rocha MD Cubital tunnel syndrome on right (Primary Dx) 06/13/2025 2:58 AM SODA DIALYZER - 06/13/2025 8:17 AM SODA DIALYZER Emergency [facility] Emergency Department [address] [place] [address] Rena Nj MD Zozula, Alexander Benjamin, MD Palpitations (Primary Dx) Discharge Disposition: Discharge to home or self care 06/06/2025 2:15 AM SODA DIALYZER - 06/08/2025 5:40 PM SODA DIALYZER Hospital Encounter [address] [address] Cecily Aldridge MD [place], Nicholas Peter, MD Paruchuri, Tharun, MD Chest pain, unspecified type (Primary Dx); Paroxysmal atrial fibrillation (HCC); LVH (left ventricular hypertrophy) Discharge Disposition: Discharge to home or self care 06/06/2025 1:39 AM SODA DIALYZER - 06/06/2025 11:59 PM SODA DIALYZER Hospital Encounter [facility] Emergency, Room R Discharge Disposition: Discharge to home or self care 06/04/2025 2:10 PM SODA DIALYZER Office Visit [facility] Medicine Orthopaedic Surgery [address] [facility] 2nd Floor [address] [place] [address] Fritz Edmond MD Cubital tunnel syndrome on right (Primary Dx); Cubital tunnel syndrome, left from Last 3 Months Immunizations Immunization Administration [...] week 06/06/2025 How often do you attend chur ch or jain services? Never 06/06/2025 Do you belong to [...] any time in the past 12 m [facility], were you homeless or living in a alf (including now)? No 06/06/2025 [facility] Utilities Answer Date Recorded In the [...] on file Legal Sex Male 11:59 PM SODA DIALYZER Gender Identity Not on file Sexual Orientation Not on file Last Filed Vital Signs Vital Sign Reading Time Taken Comments Blood Pressure 112/74 06/13/2025 8:00 AM SODA DIALYZER Pulse 70 06/13/2025 8:00 AM SODA DIALYZER Temperature 36.6 C (97.9 F) 06/13/2025 3:12 AM SODA DIALYZER Respiratory Rate 16 06/13/2025 8:00 AM SODA DIALYZER Oxygen Saturation 95% 06/13/2025 8:00 AM SODA DIALYZER Inhaled Oxygen Concentration - - Weight 154.2 kg (339 lb 15.2 oz) 06/13/2025 3:35 AM SODA DIALYZER Height 182.9 cm (6') 06/06/2025 5:45 AM SODA DIALYZER Body Mass Index 46.11 06/06/2025 5:45 AM SODA DIALYZER Plan of Treatment Health Maintenance Due Date [...] history exists Medical Devices Implanted Type Area Digital Media Director Device Identifier Shelf Expiration Date Model / Serial / Lot New Age Medical Graft Bone Magnetos 10cc 1-2mm Granules In Moldable Putty 703-038-Us - [id number] Implanted:Qty: 1 on 03/21/2024 by Wily Nagy MD at [facility] N/A: Spine Cervical [facility] [id number] 10/22/2028 [id number] S / / [id number] [employer] Cage Spn Lrg 6d [employer]cd[employer] [place] Nanolock [id number] - [id number] Implanted:Qty: 1 on 03/21/2024 by Wily Nagy MD at [facility] N/A: Spine Cervical [employer] Inc 05/25/2028 [id number] -[id number] / / [id number] Med[employer] Cage Spn Lrg 6d Acdf Endoskleton Tc Nanolock [id number] - [id number] Implanted:Qty: 1 on 03/21/2024 by Wily Nagy MD at [facility] N/A: Spine Cervical [employer] 08/17/2028 [id number] -[id number] / / [id number] Med[employer] Cage Spn Med 6d Acdf Endoskeleton Tc Nanolock [id number] - [id number] Implanted:Qty: 1 on 03/21/2024 by Wily Nagy MD at [facility] N/A: Spine Cervical [employer] 10/18/2028 [id number] -[id number] / / [id number] Med[employer] Inc Zevo 3.5mm 17mm Variable Self Drill Spine Cervical Anterior Screw [id number] - [id number] Implanted:Qty: 8 on 03/21/2024 by Wily Nagy MD at [facility] N/A: Spine Cervical [employer] [id number] / / Med[employer]onic Inc Plate Spine Anterior Cervical Level 3 Zevo 55mm Titanium [id number] - [id number] Implanted:Qty: 1 on 03/21/2024 by Wily Nagy MD at [facility] N/A: Spine Cervical [employer] [id number] / / Procedures Procedure Name Priority Date/Time Associated Diagnosis Comments POCUS SOFT TISSUE OF THE UPPER OR LOWER EXTREMITY Schedule Routine, Read Routine (OP Routine) 07/03/2025 10:38 AM SODA DIALYZER Cubital tunnel syndrome on right TROPONIN T HIGH-SENSITIVITY 2-HOUR Timed 06/13/2025 5:26 AM SODA DIALYZER XR CHEST 1 VIEW ED 06/13/2025 4:10 AM SODA DIALYZER D-DIMER, QUANTITATIVE Add-On 06/13/2025 3:19 AM SODA DIALYZER EGFR STAT 06/13/2025 3:19 AM SODA DIALYZER TROPONIN T HIGH-SENSITIVITY SERIES (BASELINE, 2HR, 4HR, 6HR) Add-On 06/13/2025 3:19 AM SODA DIALYZER DIFFERENTIAL AUTO STAT 06/13/2025 3:1 9 AM SODA DIALYZER MAGNESIUM Routine 06/13/2025 3:19 AM SODA DIALYZER PROTIME-INR STAT 06/13/2025 3:19 AM SODA DIALYZER CBC WITH AUTO DIFFERENTIAL STAT 06/13/2025 3:19 AM SODA DIALYZER COMPREHENSIVE METABOLIC PANEL STAT 06/13/2025 3:19 AM SODA DIALYZER ECG 12-LEAD STAT 06/13/2025 3:02 AM SODA DIALYZER EGFR Routine 06/08/2025 4:14 AM SODA DIALYZER DIFFERENTIAL AUTO Routine 06/08/2025 4:1 4 AM SODA DIALYZER MAGNESIUM Routine 06/08/2025 4:14 AM SODA DIALYZER BASIC METABOLIC PANEL Routine 06/08/2025 4:14 AM SODA DIALYZER CBC WITH AUTO DIFFERENTIAL Routine 06/08/2025 4:14 AM SODA DIALYZER EGFR STAT 06/07/2025 3:18 PM SODA DIALYZER CREATININE STAT 06/07/2025 3:18 PM SODA DIALYZER HEPATIC FUNCTION PANEL STAT 06/07/2025 3:18 PM SODA DIALYZER CBC WITHOUT DIFFERENTIAL STAT 06/07/2025 3:18 PM SODA DIALYZER PROTIME-INR STAT 06/07/2025 3:18 PM SODA DIALYZER EGFR Routine 06/07/2025 5:00 AM SODA DIALYZER DIFFERENTIAL AUTO Routine 06/07/2025 5:0 0 AM SODA DIALYZER APTT Timed 06/07/2025 5:00 AM SODA DIALYZER MAGNESIUM Routine 06/07/2025 5:00 AM SODA DIALYZER BASIC METABOLIC PANEL Routine 06/07/2025 5:00 AM SODA DIALYZER CBC WITH AUTO DIFFERENTIAL Routine 06/07/2025 5:00 AM SODA DIALYZER APTT Timed 06/06/2025 10:49 PM SODA DIALYZER APTT Routine 06/06/2025 3:02 PM SODA DIALYZER TROPONIN T HIGH-SENSITIVITY STAT 06/06/2025 10:35 AM SODA DIALYZER ECG 12-LEAD STAT 06/06/2025 10:20 AM SODA DIALYZER EGFR Timed 06/06/2025 9:21 AM SODA DIALYZER MAGNESIUM Timed 06/06/2025 9:21 AM SODA DIALYZER BASIC METABOLIC PANEL Timed 06/06/2025 9:21 AM SODA DIALYZER TROPONIN T HIGH-SENSITIVITY Routine 06/06/2025 9:21 AM SODA DIALYZER CBC WITHOUT DIFFERENTIAL Timed 06/06/2025 9:21 AM SODA DIALYZER APTT Timed 06/06/2025 9:21 AM SODA DIALYZER TROPONIN T HIGH-SENSITIVITY 2-HOUR Timed 06/06/2025 4:18 AM SODA DIALYZER APTT STAT 06/06/2025 3:46 AM SODA DIALYZER CBC WITHOUT DIFFERENTIAL STAT 06/06/2025 3:46 AM SODA DIALYZER PROTIME-INR STAT 06/06/2025 3:46 AM SODA DIALYZER XR CHEST 1 VIEW ED 06/06/2025 2:37 AM SODA DIALYZER EGFR STAT 06/06/2025 2:33 AM SODA DIALYZER DIFFERENTIAL AUTO STAT 06/06/2025 2:3 3 AM SODA DIALYZER PRO B-TYPE NATRIURETIC PEPTIDE STAT 06/06/2025 2:33 AM SODA DIALYZER TROPONIN T HIGH-SENSITIVITY SERIES (BASELINE, 2HR, 4HR, 6HR) STAT 06/06/2025 2:33 AM SODA DIALYZER COMPREHENSIVE METABOLIC PANEL STAT 06/06/2025 2:33 AM SODA DIALYZER CBC WITH AUTO DIFFERENTIAL STAT 06/06/2025 2:33 AM SODA DIALYZER ECG 12-LEAD STAT 06/06/2025 2:21 AM SODA DIALYZER from Last 3 Months Results * POCUS Soft Tissue of the Upper or Lower Extremity (07/03/2025 10:38 AM SODA DIALYZER) Narrative RAD_PACS_POCUS_[facility] - 07/03/2025 10:38 AM SODA DIALYZER This procedure was performed and interpreted by the provider. Please refer to the provider's procedure/OR operative note for results. Josiah Rocha MD POCUS ORDERABLES Final Resu lt Performing Organization Address City/[facility]/ZIP Co de Phone Number RAD_PACS_POCUS_[facility] * (ABNORMAL) Troponin T high-sensitivity 2-hour (06/13/2025 5:26 AM SODA DIALYZER) Trop T hs 36(H) <=22 ng/L Comment: Interpretive Data For further hscTnT resources including the diagnostic algorithm and an aid in interpretation, copy and paste this link: https://nrl.testcatalog.org/show/hsTrop Current Interpretive Data last revised 2020. Trop T hs delta -2 ng/L [facility] ([facility]) Trop T hs interp Insignificant [facility] ([facility]) Blood 06/13/2025 5:26 AM SODA DIALYZER 06/13/2025 5:28 AM SODA DIALYZER us Rena Nj MD LAB BLOOD ORDERABLES Fi nal Result Performing Organization Address City/[facility]/ZIP Co de Phone Number [facility] ([facility]OH[facility]NY) 1 [facility] Department [place] [address] * XR Chest 1 Vw Portable (06/13/2025 4:10 AM SODA DIALYZER) Anatomical Region Laterality Modality Body, Chest N/A Computed Radiogr aphy 06/13/2025 6:53 AM SODA DIALYZER Impressions 06/13/2025 6:53 AM SODA DIALYZER 1. Low lung lungs with minimal to mild bibasilar subsegmental atelectasis and scarring. No definite evidence of a focal consolidation. Electronically signed by: Keith Peterson D.O. Narrative 06/13/2025 6:53 AM SODA DIALYZER STUDY DESCRIPTION: XR CHEST 1 VIEW ORDERING [...] spine are noted. Procedure Note Keith Peterson, - 06/13/2025 STUDY DESCRIPTION: XR CHEST 1 [...] (baseline, 2hr, 4hr, 6hr) (06/13/2025 3:19 AM SODA DIALYZER) Trop T hs 38(H) <=22 ng/L Comment: Interpretive Data For further hscTnT resources including the diagnostic algorithm and an aid in interpretation, copy and paste this link: https://nrl.testcatalog.org/show/hsTrop Current Interpretive Data last revised 2020. Blood 06/13/2025 3:19 AM SODA DIALYZER 06/13/2025 3:45 AM SODA DIALYZER Rena Nj MD LAB BLOOD ORDERABLES Fi nal Result [facility] (ELIZABETH) 1 [facility] Department [place] [address] * (ABNORMAL) eGFR (06/13/2025 3:19 AM SODA DIALYZER) eGFR 58(L) >=60 mL/min/1. 73 m2 Comment: [...] last reviewed 2021. Blood 06/13/2025 3:19 AM SODA DIALYZER 06/13/2025 3:23 AM SODA DIALYZER us Rena Nj MD LAB BLOOD ORDERABLES nal Result [facility] ([facility]ABETH) 1 [facility] Department [place] [address] * Differential, auto (06/13/2025 3:19 AM SODA DIALYZER) Neutrophil abs 4.50 1.50 - 6.50 K/cumm Imm gran abs 0.03 0.00 - 0.10 K/cumm [facility] ([facility]) Lymphocyte abs 2.82 0.80 - 3.30 K/cumm [facility] ([place]) Monocyte abs 0.59 0.20 - 0.80 K/cumm [facility] ([place]) Eosinophil abs 0.19 0.00 - 0.50 K/cumm [facility] ([place]) Basophil abs 0.04 0.00 - 0.10 K/cumm [facility] ([facility]) Neutrophil pct 55.1 % [facility] ([facility]NY) Comment: Interpretive Data Percent cell count reference ranges are not reported, since discordance with absolute values may lead to misinterpretation of CBC data. Current Interpretive Data was last revised on 2017. Imm gran pct 0.4 % [facility] ([facility]) Comment: Interpretive Data Percent cell [...] revised on 2017. Monocyte pct 7.2 % [facility] (JOHANNY) Comment: Interpretive Data Percent cell count reference ranges are not reported, since discordance with absolute values may lead to misinterpretation of CBC data. Current Interpretive Data was last revised on 2017. Eosinophil pct 2.3 % [facility] ([facility]NY) Comment: Interpretive Data Percent cell count reference ranges are not reported, since discordance with absolute values may lead to misinterpretation of CBC data. Current Interpretive Data was last revised on 2017. Basophil pct 0.5 % [facility] (JOHANNY) Comment: Interpretive Data Percent cell count reference ranges are not reported, since discordance with absolute values may lead to misinterpretation of CBC data. Current Interpretive Data was last revised on 2017. Blood 06/13/2025 3:19 AM SODA DIALYZER 06/13/2025 3:23 AM SODA DIALYZER us Rena Nj MD LAB BLOOD ORDERABLES Fi nal Result [facility] (ELIZABETH) 1 [facility] Department of Laboratories [place], [place] [id number] * (ABNORMAL) CBC with auto differential (06/13/2025 3:19 AM SODA DIALYZER) WBC 8.17 3.80 - 9.90 K/cumm Hgb 15.1 13.0 - 17.5 g/dL [facility] ([facility]) Hct 44.6 38.9 - 50.3 % [facility] ([facility]) Plt 148(L) 150 - 400 K/cumm [facility] ([facility]) MPV 10.8 9.1 - 12.3 fL [facility] ([facility]) RBC 4.91 4.30 - 5.80 M/cumm [facility] ([facility]OH[facility]NY) MCV 90.8 81.3 - 96.4 fL [facility] ([facility]NY) MCH 30.8 27.1 - 33.3 pg [facility] ([facility]) MCHC 33.9 32.3 - 35.7 g/dL [facility] ([facility]) RDW CV 14.0 11.1 - 14.9 % [facility] ([facility]) RDW SD 46.8 35.7 - 48.1 fL [facility] ([facility]OH[facility]) NRBC abs 0.00 0.00 - 0.01 K/cumm [facility] ([facility]) Blood 06/13/2025 3:19 AM SODA DIALYZER 06/13/2025 3:23 AM SODA DIALYZER us Rena Nj MD LAB BLOOD ORDERABLES Fi nal Result [facility] (JOHANNY) 1 [facility] Department of Laboratories [place], [place] [id number] * (ABNORMAL) Protime-INR (06/13/2025 3:19 AM SODA DIALYZER) PT 14.5(H) 10.2 - 13.5 sec [facility] ([facility]OH[facility]NY) INR 1.29(H) 0.90 - 1.20 [facility] (JOH[facility]NY) Comment: Interpretive data Oral anticoagulant therapeutic ranges: Venous thromboembolism prophylaxis or treatment: 2.0-3.0 CARDIOLOGY Standard range: 2.0-3.0 High-intensity range: 2.5-3.5 Refer to indication-specific guidelines for appropriate target ranges for prosthetic heart valve replacement. Current interpretive data was last revised on 2019. Blood 06/13/2025 3:19 AM SODA DIALYZER 06/13/2025 3:23 AM SODA DIALYZER us Rena Nj MD LAB BLOOD ORDERABLES Fi nal Result [facility] ELIZABETH) 1 [facility] [place] [address] * (ABNORMAL) D-dimer, quantitative (06/13/2025 3:19 AM SODA DIALYZER) D-Dimer 501(H) <=499 ng/mL FEU [facility] (ELIZABETH) Comment: Interpretive data FDA approved the D-dimer, [...] 68, VTE cut-off 680 ng/ml FEU. References; Schouten HT et al. Brit Med J. 2013;346:f2492. Uma ALLEN et al. Annals Int Med. 2015;163:701-11. Current interpretive data was last revised on 2019. Blood 06/13/2025 3:19 AM SODA DIALYZER 06/13/2025 7:36 AM SODA DIALYZER us London Atkins MD LAB BLOOD ORDERABLE S Final Result Performing Organization Address City/[facility]/ZIP Co de Phone Number [facility] (ELIZABETH) 1 [facility] [place] [address] * Magnesium (06/13/2025 3:19 AM SODA DIALYZER) Magnesium 2.1 1.4 - 2.5 mg/dL Blood 06/13/2025 3:19 AM SODA DIALYZER 06/13/2025 3:23 AM SODA DIALYZER Rena Nj MD LAB BLOOD ORDERABLES Fi nal Result [facility] ([place]NY) [address] Department [place] [address] * (ABNORMAL) Comprehensive metabolic panel (06/13/2025 3:19 AM SODA DIALYZER) Sodium 140 135 - 145 mmol/L Potassium, [...] [facility] ([facility]) Blood 06/13/2025 3:19 AM SODA DIALYZER 06/13/2025 3:23 AM SODA DIALYZER us Rena Nj MD LAB BLOOD ORDERABLES Fi nal Result [facility] (JOHANNY) 1 [facility] Department [place] [address] * ECG 12 lead (06/13/2025 3:02 AM SODA DIALYZER) 06/13/2025 3:02 AM SODA DIALYZER Narrative [facility] - 06/13/2025 10:44 AM SODA DIALYZER Vent Rate: 79 bpm RR Interval: 756 msec AK Interval: 0 msec QRS Duration: 106 msec QT Interval: 405 msec QTC Interval: 439 msec P-R-T [place]: [address] - -26 - 83 degrees IMPRESSION: ATRIAL FIBRILLATION LOW QRS VOLTAGE IN EXTREMITY LEADS [QRS DEFLECTION < 0.5 mV IN LIMB LEADS] PATTERN CONSISTENT WITH PULMONARY DISEASE SEPTAL MYOCARDIAL INFARCTION , OF INDETERMINATE AGE [40+ ms Q WAVE IN V1/V2] ABNORMAL ECG No change compared to prior EKG Electronically Signed By: Renan Valdovinos MD Rena Nj MD ECG ORDERABLES Final R esult [facility] * (ABNORMAL) eGFR (06/08/2025 4:14 AM SODA DIALYZER) eGFR 58(L) >=60 mL/min/1. 73 m2 Comment: [...] last reviewed 2021. Blood 06/08/2025 4:14 AM SODA DIALYZER 06/08/2025 4:45 AM SODA DIALYZER us Tyler Hernandez MD LAB BLOOD ORDERABLES F inal Result [facility] [address] [place] [address] * Differential, auto (06/08/2025 4:14 AM SODA DIALYZER) Neutrophil abs 4.20 1.50 - 6.50 K/cumm Imm gran abs 0.02 0.00 - 0.10 K/cumm [facility] Lymphocyte abs 1.86 0.80 - 3.30 K/cumm [facility] Monocyte abs 0.60 0.20 - 0.80 K/cumm [facility] Eosinophil abs 0.14 0.00 - 0.50 K/cumm [facility] Basophil abs 0.02 0.00 - 0.10 K/cumm [facility] Neutrophil pct 61.4 % [facility] Comment: Interpretive Data Percent cell count reference ranges are not reported, since discordance with absolute values may lead to misinterpretation of CBC data. Current Interpretive Data was last revised on 2017. Imm gran pct 0.3 % [facility] Comment: Interpretive Data Percent cell count reference ranges are not reported, since discordance with absolute values may lead to misinterpretation of CBC data. Current Interpretive Data was last revised on 2017. Lymphocyte pct 27.2 % [facility] Comment: Interpretive Data Percent cell count reference ranges are not reported, since discordance with absolute values may lead to misinterpretation of CBC data. Current Interpretive Data was last revised on 2017. Monocyte pct 8.8 % [facility] Comment: Interpretive Data Percent cell count reference ranges are not reported, since discordance with absolute values may lead to misinterpretation of CBC data. Current Interpretive Data was last revised on 2017. Eosinophil pct 2.0 % [facility] Comment: Interpretive Data Percent cell count [...] revised on 2017. Blood 06/08/2025 4:14 AM SODA DIALYZER 06/08/2025 4:44 AM SODA DIALYZER Tyler Hernandez MD LAB BLOOD ORDERABLES F inal Result Performing Organization Address [facility] Co de Phone Number [facility] [phone] [place] [address] * (ABNORMAL) CBC with auto differential (06/08/2025 4:14 AM SODA DIALYZER) WBC 6.84 3.80 - 9.90 K/cumm Hgb 14.5 13.0 - 17.5 g/dL [facility] Hct 43.1 38.9 - 50.3 % [facility] Plt 132(L) 150 - 400 K/cumm [facility] MPV 10.9 9.1 - 12.3 fL [facility] RBC 4.80 4.30 - 5.80 M/cumm [facility] MCV 89.8 81.3 - 96.4 fL [facility] MCH 30.2 27.1 - 33.3 pg [facility] MCHC 33.6 32.3 - 35.7 g/dL [facility] RDW CV 14.4 11.1 - 14.9 % [facility] RDW SD 47.6 35.7 - 48.1 fL [facility] NRBC abs 0.00 0.00 - 0.01 K/cumm [facility] Blood 06/08/2025 4:14 AM SODA DIALYZER 06/08/2025 4:44 AM SODA DIALYZER Tyler Hernandez MD LAB BLOOD ORDERABLES F inal Result Performing Organization Address [facility]/ZIP Co de Phone Number [facility] [phone] [place] [address] * Magnesium (06/08/2025 4:14 AM SODA DIALYZER) Magnesium 1.9 1.4 - 2.5 mg/dL Blood 06/08/2025 4:14 AM SODA DIALYZER 06/08/2025 4:45 AM SODA DIALYZER Tyler Hernandez MD LAB BLOOD ORDERABLES F inal Result [facility] [id number] [place] [address] * (ABNORMAL) Basic metabolic panel (06/08/2025 4:14 AM SODA DIALYZER) Sodium 144 135 - 145 mmol/L Potassium, pl 3.7 3.3 - 4.9 mmol/L [facility] Chloride 104 97 - 110 mmol/L [facility] CO2 25 22 - 32 mmol/L [facility] Anion gap 15 2 - 15 mmol/L [facility] BUN 26(H) 6 - 25 mg/dL [facility] Creatinine 1.41(H) 0.80 - 1.30 mg/dL [facility] Glucose 104 70 - 199 mg/dL [facility] Comment: Interpretive Data Fasting glucose >/= [...] 2022. Calcium 8.9 8.5 - 10.3 mg/dL [facility] Blood 06/08/2025 4:14 AM SODA DIALYZER 06/08/2025 4:45 AM SODA DIALYZER Tyler Hernandez MD LAB BLOOD ORDERABLES F inal Result [facility] [address] [place] [address] * eGFR (06/07/2025 3:18 PM SODA DIALYZER) eGFR 61 >=60 mL/min/1. 73 m2 Comment: [...] last reviewed 2021. Blood 06/07/2025 3:18 PM [facility] 06/07/2025 3:34 PM [facility] D[facility] Dedrick Escamilla MD LAB BLOOD ORDERABLES Final R esult [facility] [id number] [place] [address] * Protime-INR (06/07/2025 3:18 PM [facility] DIALYZER) PT 13.2 10.2 - 13.5 sec INR 1.17 0.90 - 1.20 [facility] Comment: Interpretive data Oral anticoagulant therapeutic ranges: Venous thromboembolism prophylaxis or treatment: 2.0-3.0 CARDIOLOGY Standard range: 2.0-3.0 High-intensity range: 2.5-3.5 Refer to indication-specific guidelines for appropriate target ranges for prosthetic heart valve replacement. Current interpretive data was last revised on 2019. Blood 06/07/2025 3:18 PM [facility] 06/07/2025 3:34 PM [facility]A DIALY[facility] Narrative [facility] - 06/07/2025 3:49 PM [facility]A DIALYZER Baseline prior to apixaban initiation. Dedrick Escamilla MD LAB BLOOD ORDERABLES Final R esult Performing Organization Address City/[facility]/ZIP Co de Phone Number [facility] [place] [address] [place] [address] * (ABNORMAL) CBC without differential (06/07/2025 3:18 PM SODA DIALYZER) WBC 7.66 3.80 - 9.90 K/cumm Hgb 14.4 13.0 - 17.5 g/dL [facility] Hct 43.5 38.9 - 50.3 % [facility] Plt 148(L) 150 - 400 K/cumm [facility] MPV 10.9 9.1 - 12.3 fL [facility] RBC 4.82 4.30 - 5.80 M/cumm [facility] MCV 90.2 81.3 - 96.4 fL [facility] MCH 29.9 27.1 - 33.3 pg [facility] MCHC 33.1 32.3 - 35.7 g/dL [facility] RDW CV 14.6 11.1 - 14.9 % [facility] RDW SD 48.0 35.7 - 48.1 fL [facility] NRBC abs 0.00 0.00 - 0.01 K/cumm [facility] Blood 06/07/2025 3:18 PM SODA DIALYZER 06/07/2025 3:34 PM SODA DIALYZER Narrative [facility] - 06/07/2025 3:42 PM SODA DIALYZER Baseline prior to apixaban initiation. Dedrick Escamilla MD LAB BLOOD ORDERABLES Final R esult Performing Organization Address City/[facility]/ZIP Co de Phone Number [facility] [place] [address] [address] [facility] [place] [address] * (ABNORMAL) Creatinine (06/07/2025 3:18 PM SODA DIALYZER) Creatinine 1.36(H) 0.80 - 1.30 mg/dL Blood 06/07/2025 3:18 PM SODA DIALYZER 06/07/2025 3:34 PM SODA DIALYZER Narrative [facility] - 06/07/2025 4:07 PM SODA DIALYZER Baseline prior to apixaban initiation. Dedrick Escamilla MD LAB BLOOD ORDERABLES Final R esult Performing Organization Address [facility] Co de Phone Number [facility] G[facility] [address] [employer] [place], [place] [phone] * (ABNORMAL) Hepatic function panel (06/07/2025 3:18 PM SODA DIALYZER) Bilirubin, total 0.6 0.1 - 1.2 mg/dL [...] Units/L [facility] Blood 06/07/2025 3:18 PM SODA DIALYZER 06/07/2025 3:34 PM SODA DIALYZER Narrative [facility] - 06/07/2025 4:07 PM SODA DIALYZER Baseline prior to apixaban initiation. Dedrick Escamilla MD LAB BLOOD ORDERABLES Final R esult Performing Organization Address [facility] Co de Phone Number [facility] [place] [address] [address] [employer] [place], [place] [phone] * eGFR (06/07/2025 5:00 AM SODA DIALYZER) eGFR 65 >=60 mL/min/1. 73 m2 Comment: [...] of Race in Diagnosing Kidney Disease, JASN 202). The CKD-EPI equation should not be used for patients with unstable renal function and has not been validated in children and those over 70. Current interpretive data was last reviewed 2021. Blood 06/07/2025 5:00 AM SODA DIALYZER 06/07/2025 5:27 AM SODA DIALYZER us Tyler Hernandez MD LAB BLOOD ORDERABLES F inal Result [facility] [address] [place] [address] * Differential, auto (06/07/2025 5:00 AM SODA DIALYZER) Neutrophil abs 3.57 1.50 - 6.50 K/cumm Imm gran abs 0.02 0.00 - 0.10 K/cumm [facility] Lymphocyte abs 2.62 0.80 - 3.30 K/cumm [facility] Monocyte abs 0.54 0.20 - 0.80 K/cumm [facility] Eosinophil abs 0.18 0.00 - 0.50 K/cumm [facility] Basophil abs 0.03 0.00 - 0.10 K/cumm [facility] Neutrophil pct 51.3 % [facility] Comment: Interpretive Data Percent cell count reference ranges are not reported, since discordance with absolute values may lead to misinterpretation of CBC data. Current Interpretive Data was last revised on 2017. Imm gran pct 0.3 % [facility] Comment: Interpretive Data Percent cell count reference ranges are not reported, since discordance with absolute values may lead to misinterpretation of CBC data. Current Interpretive Data was last revised on 2017. Lymphocyte pct 37.6 % [facility] Comment: Interpretive Data Percent cell count reference ranges are not reported, since discordance with absolute values may lead to misinterpretation of CBC data. Current Interpretive Data was last revised on 2017. Monocyte pct 7.8 % [facility] Comment: Interpretive Data Percent cell count reference ranges are not reported, since discordance with absolute values may lead to misinterpretation of CBC data. Current Interpretive Data was last revised on 2017. Eosinophil pct 2.6 % [facility] Comment: Interpretive Data Percent cell count reference ranges are not reported, since discordance with absolute values may lead to misinterpretation of CBC data. Current Interpretive Data was last revised on 2017. Basophil pct 0.4 % [facility] Comment: Interpretive Data Percent cell count reference ranges are not reported, since discordance with absolute values may lead to misinterpretation of CBC data. Current Interpretive Data was last revised on 2017. Blood 06/07/2025 5:00 AM SODA DIALYZER 06/07/2025 5:27 AM SODA DIALYZER Tyler Hernandez MD LAB BLOOD ORDERABLES F inal Result [facility] [address] [place] [address] * (ABNORMAL) CBC with auto differential (06/07/2025 5:00 AM SODA DIALYZER) WBC 6.96 3.80 - 9.90 K/cumm Hgb 14.5 13.0 - 17.5 g/dL [facility] Hct 43.4 38.9 - 50.3 % [facility] Plt 128(L) 150 - 400 K/cumm [facility] MPV 10.9 9.1 - 12.3 fL [facility] RBC 4.80 4.30 - 5.80 M/cumm [facility] MCV 90.4 81.3 - 96.4 fL [facility] MCH 30.2 27.1 - 33.3 pg [facility] MCHC 33.4 32.3 - 35.7 g/dL [facility] RDW CV 14.6 11.1 - 14.9 % [facility] RDW SD 48.1 35.7 - 48.1 fL [facility] NRBC abs 0.00 0.00 - 0.01 K/cumm [facility] Blood 06/07/2025 5:00 AM SODA DIALYZER 06/07/2025 5:27 AM SODA DIALYZER Tyler Hernandez MD LAB BLOOD ORDERABLES F inal Result Performing Organization Address [facility] Co de Phone Number [facility] [address] [address] [facility] [place] [place] [address] * (ABNORMAL) aPTT (06/07/2025 5:00 AM SODA DIALYZER) aPTT 86(H) 26 - 38 sec Comment: Interpretive Data Heparin therapeutic range: 66.0 - 100.0 seconds. Range based on correlation with therapeutic heparin activity range of 0.3 - 0.7 Units/mL. Blood 06/07/2025 5:00 AM SODA DIALYZER 06/07/2025 5:27 AM SODA DIALYZER Narrative [facility] - 06/07/2025 5:54 AM SODA DIALYZER heparin gtt Chad Dietrich MD LAB BLOOD ORDERABLES Final R esult Performing Organization Address [facility] de Phone Number [facility] G[facility] [address] [address] [facility] [place] [address] * Magnesium (06/07/2025 5:00 AM SODA DIALYZER) Pathologist [facility] Magnesium 2.0 1.4 - 2.5 mg/dL Blood 06/07/2025 5:00 AM SODA DIALYZER 06/07/2025 5:27 AM SODA DIALYZER Tyler Hernandez MD LAB BLOOD ORDERABLES F inal Result Performing Organization Address [facility] Co de Phone Number [facility] GAL[place] [address] [address] [facility] [place] [address] * Basic metabolic panel (06/07/2025 5:00 AM SODA DIALYZER) Sodium 141 135 - 145 mmol/L Potassium, pl 3.3 3.3 - 4.9 mmol/L [facility] Chloride 103 97 - 110 mmol/L [facility] CO2 25 22 - 32 mmol/L [facility] Anion gap 13 2 - 15 mmol/L [facility] BUN 21 6 - 25 mg/dL [facility] Creatinine 1.29 0.80 - 1.30 mg/dL [facility] Glucose 98 70 - 199 mg/dL [facility] Comment: Interpretive Data Fasting glucose >/= [...] 2022. Calcium 8.6 8.5 - 10.3 mg/dL [facility] Blood 06/07/2025 5:00 AM SODA DIALYZER 06/07/2025 5:27 AM SODA DIALYZER Tyler Hernandez MD LAB BLOOD ORDERABLES F inal Result Performing Organization Address [facility] Co de Phone Number [facility] G[place] [address] [place] [address] * (ABNORMAL) aPTT (06/06/2025 10:49 PM SODA DIALYZER) aPTT 82(H) 26 - 38 sec Comment: Interpretive Data Heparin therapeutic range: 66.0 - 100.0 seconds. Range based on correlation with therapeutic heparin activity range of 0.3 - 0.7 Units/mL. Blood 06/06/2025 10:4 9 PM SODA DIALYZER 06/06/2025 11:02 PM SODA DIALYZER Chad Dietrich MD LAB BLOOD ORDERABLES Final R esult Performing Organization Address City/[facility]/ZIP Co de Phone Number [facility] GAL[place] [address] [place] [address] * (ABNORMAL) aPTT (06/06/2025 3:02 PM SODA DIALYZER) aPTT 40(H) 26 - 38 sec Comment: Interpretive Data Heparin therapeutic range: 66.0 - 100.0 seconds. Range based on correlation with therapeutic heparin activity range of 0.3 - 0.7 Units/mL. Blood 06/06/2025 3:02 PM SODA DIALYZER 06/06/2025 3:11 PM SODA DIALYZER Chad Dietrich MD LAB BLOOD ORDERABLES Final R esult Performing Organization Address City/[facility]/ZIP Co de Phone Number [facility] GALDAMEZ [address] [address] [employer] [place], [place] [phone] * (ABNORMAL) Troponin T high-sensitivity (06/06/2025 10:35 AM SODA DIALYZER) Trop T hs 33(H) <=22 ng/L Comment: Interpretive Data For further hscTnT resources including the diagnostic algorithm and an aid in interpretation, copy and paste this link: https://nrl.testcatalog.org/show/hsTrop Current Interpretive Data last revised 2020. Blood 06/06/2025 10:3 5 AM SODA DIALYZER 06/06/2025 10:53 AM SODA DIALYZER Chad Dietrich MD LAB BLOOD ORDERABLES Final R esult Performing Organization Address City/[facility]/ZIP Co de Phone Number [facility] GAL[facility] [address] [place] [address] * ECG 12 lead (06/06/2025 10:20 AM SODA DIALYZER) 06/06/2025 10:2 0 AM SODA DIALYZER Narrative [facility] - 06/06/2025 11:36 AM SODA DIALYZER Vent Rate: 66 bpm RR Interval: 904 msec [place] Interval: 0 msec QRS Duration: 107 msec QT Interval: 427 msec QTC Interval: 440 msec P-R-T [place]: 0 - -17 - 95 degrees IMPRESSION: ATRIAL FIBRILLATION LOW QRS VOLTAGE IN EXTREMITY LEADS [QRS DEFLECTION < 0.5 mV IN LIMB LEADS] SEPTAL MYOCARDIAL INFARCTION , OF INDETERMINATE AGE [40+ ms Q WAVE IN V1/V2] ABNORMAL ECG Electronically Signed By: Jonathan Thrasher MD Chad Dietrich MD ECG ORDERABLES Final Result [facility] * (ABNORMAL) Troponin T high-sensitivity (06/06/2025 9:21 AM SODA DIALYZER) Trop T hs 38(H) <=22 ng/L Comment: Interpretive Data For further hscTnT resources including the diagnostic algorithm and an aid in interpretation, copy and paste this link: https://nrl.testcatalog.org/show/hsTrop Current Interpretive Data last revised 2020. Blood 06/06/2025 9:21 AM SODA DIALYZER 06/06/2025 9:39 AM SODA DIALYZER Chad Dietrich MD LAB BLOOD ORDERABLES Final R esult [facility] [address] [address] Department of Laboratories [place] [phone] * eGFR (06/06/2025 9:21 AM SODA DIALYZER) eGFR 68 >=60 mL/min/1. 73 m2 Comment: [...] last reviewed 2021. Blood 06/06/2025 9:21 AM SODA DIALYZER 06/06/2025 9:38 AM SODA DIALYZER Chad Dietrich MD LAB BLOOD ORDERABLES Final R esult Performing Organization Address City/[facility] Co de Phone Number [facility] GALD[facility] [address] [address] [facility] [place] [address] * aPTT (06/06/2025 9:21 AM SODA DIALYZER) aPTT 38 26 - 38 sec Comment: Interpretive Data Heparin therapeutic range: 66.0 - 100.0 seconds. Range based on correlation with therapeutic heparin activity range of 0.3 - 0.7 Units/mL. Blood 06/06/2025 9:21 AM SODA DIALYZER 06/06/2025 9:39 AM SODA DIALYZER Chad Dietrich MD LAB BLOOD ORDERABLES Final R esult Performing Organization Address [facility] Co de Phone Number [facility] GALD[facility] [address] [address] [facility] [employer] [place], [place] [phone] * CBC without differential (06/06/2025 9:21 AM SODA DIALYZER) WBC 9.16 3.80 - 9.90 K/cumm Hgb 14.8 13.0 - 17.5 g/dL [facility] Hct 45.1 38.9 - 50.3 % [facility] Plt 152 150 - 400 K/cumm [facility] MPV 10.9 9.1 - 12.3 fL [facility] RBC 4.94 4.30 - 5.80 M/cumm [facility] MCV 91.3 81.3 - 96.4 fL [facility] MCH 30.0 27.1 - 33.3 pg [facility] MCHC 32.8 32.3 - 35.7 g/dL [facility] RDW CV 14.5 11.1 - 14.9 % [facility] RDW SD 48.1 35.7 - 48.1 fL [facility] NRBC abs 0.00 0.00 - 0.01 K/cumm [facility] Blood 06/06/2025 9:21 AM SODA DIALYZER 06/06/2025 9:39 AM SODA DIALYZER Tyler Hernandez MD LAB BLOOD ORDERABLES F inal Result Performing Organization Address [facility] Co de Phone Number [facility] [address] [address] [place] [address] * Magnesium (06/06/2025 9:21 AM SODA DIALYZER) Pathologist [facility] Magnesium 2.4 1.4 - 2.5 mg/dL Blood 06/06/2025 9:21 AM SODA DIALYZER 06/06/2025 9:38 AM SODA DIALYZER Chad Dietrich MD LAB BLOOD ORDERABLES Final R esult Performing Organization Address [facility] de Phone Number [facility] [address] [address] [place] [address] * (ABNORMAL) Basic metabolic panel (06/06/2025 9:21 AM SODA DIALYZER) [facility] Sodium 138 135 - 145 mmol/L Potassium, pl 4.1 3.3 - 4.9 mmol/L [facility] Chloride 102 97 - 110 mmol/L [facility] CO2 21(L) 22 - 32 mmol/L [facility] Anion gap 15 2 - 15 mmol/L [facility] BUN 19 6 - 25 mg/dL [facility] Creatinine 1.24 0.80 - 1.30 mg/dL [facility] Glucose 106 70 - 199 mg/dL [facility] Comment: Interpretive Data Fasting glucose >/= [...] 2022. Calcium 8.7 8.5 - 10.3 mg/dL [facility] Blood 06/06/2025 9:21 AM SODA DIALYZER 06/06/2025 9:38 AM SODA DIALYZER Chad Dietrich MD LAB BLOOD ORDERABLES Final R esult Performing Organization Address [facility] Co de Phone Number [facility] [address] [address] [place] [address] * (ABNORMAL) Troponin T high-sensitivity 2-hour (06/06/2025 4:18 AM SODA DIALYZER) Trop T hs 34(H) <=22 ng/L Comment: Interpretive Data For further hscTnT resources including the diagnostic algorithm and an aid in interpretation, copy and paste this link: https://nrl.testcatalog.org/show/hsTrop Current Interpretive Data last revised 2020. Trop T hs delta 0 ng/L [facility] Trop T hs interp Insignificant [facility] Blood 06/06/2025 4:18 AM SODA DIALYZER 06/06/2025 4:23 AM SODA DIALYZER Cecily Aldridge MD LAB BLOOD ORDERA BLES Final Result Performing Organization Address [facility] Co de Phone Number [facility] [address] [address] [address] * aPTT (06/06/2025 3:46 AM SODA DIALYZER) aPTT 28 26 - 38 sec Comment: Interpretive Data Heparin therapeutic range: 66.0 - 100.0 seconds. Range based on correlation with therapeutic heparin activity range of 0.3 - 0.7 Units/mL. Blood 06/06/2025 3:46 AM SODA DIALYZER 06/06/2025 3:55 AM SODA DIALYZER Narrative [facility] - 06/06/2025 4:27 AM SODA DIALYZER Baseline prior to heparin initiation Cecily Aldridge MD LAB BLOOD ORDERA BLES Final Result Performing Organization Address City/[facility]/ZIP Co de Phone Number [facility] [address] [address] [facility] [employer] [place], [place] [phone] * (ABNORMAL) Protime-INR (06/06/2025 3:46 AM SODA DIALYZER) Pathologist [facility] PT 15.7(H) 10.2 - 13.5 sec INR 1.40(H) 0.90 - 1.20 [facility] Comment: Interpretive data Oral anticoagulant therapeutic ranges: Venous thromboembolism prophylaxis or treatment: 2.0-3.0 CARDIOLOGY Standard range: 2.0-3.0 High-intensity range: 2.5-3.5 Refer to indication-specific guidelines for appropriate target ranges for prosthetic heart valve replacement. Current interpretive data was last revised on 2019. Blood 06/06/2025 3:46 AM SODA DIALYZER 06/06/2025 3:55 AM SODA DIALYZER Narrative [facility] - 06/06/2025 4:24 AM SODA DIALYZER Baseline prior to heparin initiation Cecily Aldridge MD LAB BLOOD ORDERA BLES Final Result Performing Organization Address [facility] de Phone Number [facility] [address] [address] [facility] [place] [address] * (ABNORMAL) CBC without differential (06/06/2025 3:46 AM SODA DIALYZER) Pathologist [facility] WBC 7.56 3.80 - 9.90 K/cumm Hgb 11.1(L) 13.0 - 17.5 g/dL [facility] Comment:This result has been called to Dustin Haynes RN by [id number] on 06/06/2025 04:37:04. Hct 35.4(L) 38.9 - 50.3 % [facility] Plt 91(L) 150 - 400 K/cumm [facility] MPV 9.9 9.1 - 12.3 fL [facility] RBC 3.73(L) 4.30 - 5.80 M/cumm [facility] MCV 94.9 81.3 - 96.4 fL [facility] MCH 29.8 27.1 - 33.3 pg [facility] MCHC 31.4(L) 32.3 - 35.7 g/dL [facility] RDW CV 14.3 11.1 - 14.9 % [facility] RDW SD 49.9(H) 35.7 - 48.1 fL [facility] NRBC abs 0.00 0.00 - 0.01 K/cumm [facility] Blood 06/06/2025 3:46 AM SODA DIALYZER 06/06/2025 3:55 AM SODA DIALYZER Narrative [facility] - 06/06/2025 4:37 AM SODA DIALYZER Baseline prior to heparin initiation us Cecily Aldridge MD LAB BLOOD ORDERA BLES Final Result [facility] [address] [address] [place] [address] * XR Chest 1 Vw Portable (If patient hemodynamically UNstable or UNable to ambulate) (06/06/2025 2:37AM SODA DIALYZER) Anatomical Region Laterality Modality Body, Chest N/A Computed Radiogr aphy 06/06/2025 8:20 AM SODA DIALYZER Impressions 06/06/2025 8:20 AM SODA DIALYZER Cardiomegaly with suspicion of mild vascular congestion. Electronically signed by: Yee Murrell M.D. Narrative 06/06/2025 8:20 AM SODA DIALYZER EXAMINATION: XR CHEST 1 VIEW HISTORY: The [...] (baseline, 2hr, 4hr, 6hr) (06/06/2025 2:33 AM SODA DIALYZER) Trop T hs 34(H) <=22 ng/L Comment: Interpretive Data For further hscTnT resources including the diagnostic algorithm and an aid in interpretation, copy and paste this link: https://nrl.testcatalog.org/show/hsTrop Current Interpretive Data last revised 2020. Blood 06/06/2025 2:33 AM SODA DIALYZER 06/06/2025 2:33 AM SODA DIALYZER Cecily Aldridge MD LAB BLOOD ORDERA BLES Edited Result - Final [facility] [address] [address] [place] [address] * eGFR (06/06/2025 2:33 AM SODA DIALYZER) eGFR 68 >=60 mL/min/1. 73 m2 Comment: [...] last reviewed 2021. Blood 06/06/2025 2:33 AM SODA DIALYZER 06/06/2025 2:33 AM SODA DIALYZER Cecily Aldridge MD LAB BLOOD ORDERA BLES Final Result [facility] [address] [address] [place] [address] * Differential, auto (06/06/2025 2:33 AM SODA DIALYZER) Neutrophil abs 3.65 1.50 - 6.50 K/cumm Imm gran abs 0.01 0.00 - 0.10 K/cumm [facility] Lymphocyte abs 2.41 0.80 - 3.30 K/cumm [facility] Monocyte abs 0.51 0.20 - 0.80 K/cumm [facility] Eosinophil abs 0.24 0.00 - 0.50 K/cumm [facility] Basophil abs 0.03 0.00 - 0.10 K/cumm [facility] Neutrophil pct 53.4 % [facility] Comment: Interpretive Data Percent cell count reference ranges are not reported, since discordance with absolute values may lead to misinterpretation of CBC data. Current Interpretive Data was last revised on 2017. Imm gran pct 0.1 % [facility] Comment: Interpretive Data Percent cell count reference ranges are not reported, since discordance with absolute values may lead to misinterpretation of CBC data. Current Interpretive Data was last revised on 2017. Lymphocyte pct 35.2 % [facility] Comment: Interpretive Data Percent cell count reference ranges are not reported, since discordance with absolute values may lead to misinterpretation of CBC data. Current Interpretive Data was last revised on 2017. Monocyte pct 7.4 % [facility] Comment: Interpretive Data Percent cell count reference ranges are not reported, since discordance with absolute values may lead to misinterpretation of CBC data. Current Interpretive Data was last revised on 2017. Eosinophil pct 3.5 % [facility] Comment: Interpretive Data Percent cell count reference ranges are not reported, since discordance with absolute values may lead to misinterpretation of CBC data. Current Interpretive Data was last revised on 2017. Basophil pct 0.4 % [facility] Comment: Interpretive Data Percent cell count reference ranges are not reported, since discordance with absolute values may lead to misinterpretation of CBC data. Current Interpretive Data was last revised on 2017. Blood 06/06/2025 2:33 AM SODA DIALYZER 06/06/2025 2:33 AM SODA DIALYZER us Cecily Aldridge MD LAB BLOOD ORDERA BLES Final Result [facility] [address] [address] [place] [address] * (ABNORMAL) Pro B-type natriuretic peptide (06/06/2025 2:33 AM SODA DIALYZER) NT-proBNP 1,277(H) <=300 pg/mL Comment: Interpretive Comments: [...] Heart J. 2006:27:330-337. 2. Artur RW, Stiven AM. J. AM Gregory Cardiol: Cardiovasc Imag. 2009;2: 216- 225. Interpretive Data Last Revised Date: 2018. Blood 06/06/2025 2:33 AM SODA DIALYZER 06/06/2025 2:33 AM SODA DIALYZER Cecily Aldridge MD LAB BLOOD ORDERA BLES Final Result Performing Organization Address City/[facility]/ZIP Co de Phone Number [facility] [address] [address] [place] [address] * (ABNORMAL) CBC with auto differential (06/06/2025 2:33 AM SODA DIALYZER) WBC 6.85 3.80 - 9.90 K/cumm Hgb 15.0 13.0 - 17.5 g/dL [facility] Hct 45.5 38.9 - 50.3 % [facility] Plt 117(L) 150 - 400 K/cumm [facility] Comment:No clot detected in sample. MPV 10.6 9.1 - 12.3 fL [facility] RBC 4.98 4.30 - 5.80 M/cumm [facility] MCV 91.4 81.3 - 96.4 fL [facility] MCH 30.1 27.1 - 33.3 pg [facility] MCHC 33.0 32.3 - 35.7 g/dL [facility] RDW CV 14.4 11.1 - 14.9 % [facility] RDW SD 47.8 35.7 - 48.1 fL [facility] NRBC abs 0.00 0.00 - 0.01 K/cumm [facility] Blood Venous blood specimen / Unknown 06/06/2025 2:33 AM SODA DIALYZER 06/06/2025 2:33 AM SODA DIALYZER Cecily Aldridge MD LAB BLOOD ORDERA BLES Final Result Performing Organization Address City/[facility]/ZIP Co de Phone Number [facility] [address] [address] [place] [address] * (ABNORMAL) Comprehensive metabolic panel (06/06/2025 2:33 AM SODA DIALYZER) Sodium 141 135 - 145 mmol/L Potassium, [...] Units/L [facility] Blood 06/06/2025 2:33 AM SODA DIALYZER 06/06/2025 2:33 AM SODA DIALYZER us Cecily Aldridge MD LAB BLOOD ORDERA BLES Final Result [facility] [address] [address] [place] [address] * ECG 12 lead (06/06/2025 2:21 AM SODA DIALYZER) 06/06/2025 2:21 AM SODA DIALYZER Narrative [facility] - 06/06/2025 11:42 AM SODA DIALYZER Vent Rate: 91 bpm RR Interval: 659 msec [place] Interval: 0 msec QRS Duration: 106 msec QT Interval: 320 msec QTC Interval: 368 msec P-R-T [place]: 0 - -12 - 120 degrees IMPRESSION: ATRIAL FIBRILLATION LOW QRS VOLTAGE IN PRECORDIAL LEADS [QRS DEFLECTION < 1.0 mV IN CHEST LEADS] ANTEROSEPTAL MYOCARDIAL INFARCTION , PROBABLY OLD [40+ ms Q WAVE IN V1-V4] ABNORMAL ECG Electronically Signed By: Jonathan Thrasher MD us Cecily Aldridge MD ECG ORDERABLES Final Result [facility] from Last 3 Months Insurance MEDICARE [facility] IDPA MEDICARE [facility] Address: [address] [address] [place] [address] Advance Directives For more information, please contact: [phone] * Full Code (Latest Code Status on File) Date Activated Date Inactivated Comments 06/06/2025 5:52 AM 06/08/2025 9:45 PM * Full Code Date Activated Date Inactivated Comments 03/21/2024 4:05 AM 03/22/2024 4:45 PM Care Teams Wood Coater Relationship Specialty Start Date End Date Kareem Up DO [address] [place] [address] PCP - General Internal Medicine 04/08/25
--- OUTSIDE RECORDS SUMMARY | 2025-07-10 12:12 | XMS_ITS | Clinical Summary ---
Author Organization [facility] Address [address] [facility] [place] [address] Care Team Providers Care Multiple Resaw Operator Name Role Phone Lionel Fernandez Alena DO Primary Care Provider [phone] Avtar Kasper MD Unavailable Source Comments [facility],non-owned Affiliates and Associated Physician Practices is amultiple site organization consisting of ambulatory clinics and hospital sitesin [place], [place], [place] and [place]. This disclosure is being madepursuant to the Care Everywhere program and may not contain all information available regarding this patient. Last updated 18.[facility] Allergies No known active allergies Medications * [...] Description 05/02/2025 11:20 AM CDT Office Visit [facility] [address] [place] [address], [address] [address] Naveed Ndiaye MD Biliary dyskinesia (Primary Dx) 04/29/2025 Office Visit External [facility] [address] [place] [address], [place] [id number] Naveed Ndiaye MD from Last 3 Months [...] medical care, and heating? Somewhat hard 11/08/2022 [facility] [place] [facility] Occupat ional Health - Occupational Stress [...] place to sleep or slept in a [place] health care facility (including now)? No 11/08/2022 Sex and Gender Information Value Date Recorded Sex Assigned at Male 08/10/2022 2:20 PM VENEER MATCHER Legal Sex Male 5:28 AM VENEER MATCHER Gender Identity Male 08/10/2022 2:20 PM VENEER MATCHER Sexual Orientation Straight 08/10/2022 2: 20 PM VENEER MATCHER Last Filed Vital Signs Vital Sign Reading [...] st Contact Info) Description 07/31/2025 11:40 AM VENEER MATCHER Office Visit [facility] [address], [address] [place] [address] [place] [address] [facility] [address] [place] [address] 11/11/2025 12:30 PM CDT Office Visit [facility] [address], [address] [place] [address] Marry Norwood, DRILL SETUP OPERATOR-BIG DATA SOLUTIONS ARCHITECT [id number] [facility] [address] [place] [id number] Health Maintenance Due Date Last Done Comments [...] POINT OF CARE (11/09/2022 7:25 AM CDT) [facility] Glucose WB/POC 168(H) 70 - 106 mg/dL 11/09/2022 7:26 AM CDT [facility] Specimen Type Cap Fingerstick 2022 7:26 AM CDT [facility] Blood BLOOD SPECIMEN / Unknown 11/09/2022 7:25 AM CDT 11/09/2022 7:26 AM CDT us Naveed Ndiaye MD LAB - POINT OF CARE ORDERABLE S Final Result [facility] [address] [place] [address] from Last 3 Months or Most Recently Relevant to Health Maintenance [place] [address] MEDICAID [place] MED[place] Advance Directives Documents on File Type Date Recorded Patient Education Adviser Expl anation Adv Directive/Living Will/POA 11/10/2022 5:55 PM * Full Code (Latest Code Status on File) Date Activated Date Inactivated Comments 11/08/2022 12:00 PM 11/09/2022 6:13 PM Care Teams Multiple Resaw Operator Relationship Specialty Start Date End Date Lionel Fernandez DO [address] [facility] [address] [place] [address] PCP - General 01/04/18 [place] [address] [address] Cardiovascular Disease 10/04/22
--- OUTSIDE RECORDS SUMMARY | 2025-07-10 12:12 | XMS_ITS | Clinical Summary ---
Author Organization [facility] Address [address], [address] [address] Phone Care Team Providers Care Dental Equipment Installer And Servicer Name Role Phone Unavailable Primary Care Provider [...]
[2025-07-10 12:14] LABS: Anion Gap 7 mmol/L (4-12); Blood Urea Nitrogen 28 mg/dL (9-20); Calcium 9.6 mg/dL (8.4-10.2); Carbon Dioxide 30 mmol/L (22-30); Chloride 106 mmol/L (98-107); Estimated Glomerular Filt Rate 54; Glucose 109 mg/dL (65-110); Potassium 4.8 mmol/L (3.4-5.0); Sodium 143 mmol/L (137-145)
== END 2025-07-10 11:08 | disposition home or self-care (01) ==
PROVIDERS: PCP Internal Medicine; Visit Provider Internal Medicine
DX: J18.9 Pneumonia, unspecified organism (principal); I10 Essential (primary) hypertension
CPT/HCPCS: 36415; 71046; 80048